=== PATIENT | female | born 1950 | race Caucasian/White ===

== ENCOUNTER 2016-10-06 18:00 | Emergency (ER) | payer OTHER ==
[~2016-10-06 18:00] MED LIST: /BACL20TA PO; /DIVA50TA PO; /ESOM40CA PO; /WARF4TA PO; ACET-654 PO; ACET50TA PO; ADV250INH INH; ALBU17IN2 INFIL; ASTELIN; ATIV1TAB10 PO; CLAR1TAB2 PO; COLA50CA3 PO; COMBAER6 INH; COMBIN INH; DICY20TA11 PO; ESTR625TA IC; LIDO1DIS2 TD; LIDO1OIN2 TOP; MECL-68 PO; MELA0.02 PO; NITR4TASL SL; SING10TA32 PO; SPIRIVA INH; TIOT18INH INH; XARE20TA PO; ZETI10TA21 PO; ZITH500T PO; ZYRT10TA2 PO; [UNRECOGNIZED DRUG - OTHER] PO
[2016-10-06] MEDS ORDERED: diphenhydrAMINE 25 MG CAP As Ordered ONE (19:55)
[2016-10-06] MEDS ORDERED: CLINDAMYCIN 150 MG CAP As Ordered ONE ×2 (19:55→20:00)
--- NOTE | 2016-10-06 20:10 | EDDOCDS ---
Nurse's Notes [facility] Name: Radha Fonseca Age: 65 yrs Sex: Female : 1950 Arrival Date: 10/06/2016 Time: 18:00 Bed TR8 Private MD: Iftikhar Hein MD Diagnosis: Cellulitis of right lower limb Presentation: 10/06 18:07 Presenting complaint: Patient states: right foot redness and swelling. ? insect bite- srm saw a red spider in her bathroom last night. voice is hoarse per pt since last night. no difficulty swallowing or speaking. Presenting complaint: Patient states: bit on both ankles but right is worse than left. Presenting complaint: Patient states: itching in her back of her throat an hour ago. Adult Sepsis Screening: The patient does not have new or worsening altered mentation. Patient's respiratory rate is less than 22. Systolic blood pressure is greater than 100. Patient has a qSOFA score of 0- Negative Sepsis Screen. Suicide/Homicide risk assessment- the patient denies having any suicidal and/or homicidal ideations and does not present with any other emotional, behavioral or mental health complaints. Status: Patient is not a policy service coordinator or dependent. Transition of care: patient was not received from another setting of care. 18:07 Method Of Arrival: Walkin/Carried/Asstd [facility] 18:07 Acuity: ALEX Level 3 [facility] Triage Assessment: 18:17 Bite Description: Bite sustained to bilateral feet by an unknown animal, Animal srm Information: Vaccine status: is not applicable. General: Appears in no apparent distress, Behavior is appropriate for age, cooperative. Pain: Pain currently is 4 out of 10 on a pain scale. Historical: - Allergies: Aspirin (Anaphylaxis); Codeine Sulfate; Doxycycline; EGG/POULTRY; GABAPENTIN; PENICILLINS (Anaphylaxis); Crestor; Lipitor; Percocet; Prednisone; Spiriva Respimat; Talwin; Vitamin D; Mucinex; - Home Meds: 1. albuterol sulfate 90 mcg/actuation Inhl HFAA 1 puff every 4-6 hours 2. Astepro 0.15 % (205.5 mcg) nasal spry 1 spray 2 times per day 3. baclofen 20 mg Oral tab 1 tab 4 times per day 4. Bentyl 20 mg Oral tab 1 tab 4 times per day 5. Depakote 500 mg Oral TbEC 1 tab 2 times per day 6. lactulose 10 gram/15 mL Oral soln 30 mL nightly 7. lidoderm ointment 12 hours on 12 hours off 8. meclizine 25 mg Oral cap 25 mg as needed 9. Nitrostat 0.4 mg SL subl 1 tab every 5 minutes 10. Nexium 40 mg Oral cpDR 1 cap 2 times per day 11. nystatin 100,000 unit/gram Topical powd 2 times per day 12. Premarin 0.625 mg Oral tab 1 tab 3 times per week 13. verapamil 360 mg Oral C24P 1 cap once daily 14. Xarelto 20 mg oral tab 1 tab once daily 15. Zetia 10 mg Oral tab 1 tab once daily 16. Zyrtec 10 mg Oral tab 1 tab as needed - PMHx: CHRONIC OBSTRUCTIVE BRONCHITIS; Anxiety Disorder; Chronic Low Back Pain; Diverticulitis; DVT; Fibromyalgia; GERD; Myocardial infarction; Pulmonary Embolism; hyperlipidemia; Hypertension; Migraine Headaches; COPD; - PSHx: bladder sling repair; uterine mesh; Tubal ligation; prolapsed uterus; CABG; - Immunization history:: Last tetanus immunization: unknown. - Family history: No immediate family members are acutely ill. - Social history: Smoking status: Patient states former smoker of tobacco. No barriers to communication noted, The patient speaks fluent Algerian, Speaks appropriately for age. - : The pt / caregiver states he / she is on anticoagulants: Xarelto Home medication list is obtained from the patient. - Exposure Risk Screening:: None identified. Screenin:07 Screening information is obtained from the patient. Fall risk: No risks identified. mb9 Assistance ADL's: requires no assistance with activities of daily living. Abuse/DV Screen: The patient / caregiver reports he/she is: not in a situation that causes fear, pain or injury. Nutritional screening: No deficits noted. Advance Directives: There is no active DNR order. home support is adequate. Assessment: 20:06 General: Appears uncomfortable, Behavior is fussy. Pain: Location: medial aspect of mb9 right foot Pain currently is 5 out of 10 on a pain scale. Respiratory: Airway is patent Respiratory effort is even, unlabored. Derm: Skin is intact, Skin is red, on right foot Swollen area noted on right foot. Vital Signs: 18:04 BP 149 / 80; Pulse 87; Resp 18 S; Temp 98.2(O); Pulse Ox 97% on R/A; Weight 89.81 kg gr2 (R); Height 5 ft. 4 in. (162.56 cm) (R); Pain 7/10; 19:35 Pulse 97; Resp 20; Temp 98.0(O); Pulse Ox 96% on R/A; Pain 6/10; ar3 20:06 BP 148 / 76; mb9 18:04 Body Mass Index 33.99 (89.81 kg, 162.56 cm) gr2 Vitals: 18:04 Log In Time: October 06, 2016 at 18:04. gr2 ED Course: 18:03 Patient visited by Crystal Porter. gr2 18:03 Iftikhar Hein is Private Physician. gr2 18:03 Patient moved to Waiting gr2 18:05 Patient visited by Crystal Porter. gr2 18:05 Patient moved to Pre RCE gr2 18:09 Triage Initiated srm 19:34 Kinga Milner,RN is Primary Nurse. ar3 19:34 Patient moved to Triage 1 ar3 19:36 Patient visited by Bree Carreno PCA. ar3 19:45 Jono Parikh PA is PHCP. btw 19:45 Harry Torres DO is Attending Physician. btw 19:45 Patient visited by Jono Parikh PA. btw 19:53 Iftikhar Hein is Referral Physician. btw 20:07 Patient moved to TR8 ar3 20:07 The patient / caregiver is instructed regarding the plan of care and ED course. mb9 20:07 No IV's were initiated during this patient's visit. No procedures done that require mb9 assistance. Order Results: There are currently no results for this order. Outcome: 19:54 Discharge ordered by Provider. btw 20:07 Discharge Assessment: Patient awake, alert and oriented x 3. No cognitive and/or mb9 functional deficits noted. Patient verbalized understanding of disposition instructions. patient administered narcotics - no. The following High Risk Discharge criteria are identified: None. Discharged to home ambulatory. Condition: good Condition: stable Condition: improved. Discharge instructions given to patient, Instructed on discharge instructions, follow up and referral plans. medication usage, Demonstrated understanding of instructions, medications, Pt was receptive of discharge instructions/ teaching. Prescriptions given X 1. No special radiology studies were completed. Property :Personal belongings accompany Pt. 20:09 Patient left the ED. mb9 Signatures: Merna Gomes, RN RN Bree Garcia, ELIESER CLOTH DYEING RANGE TENDER ar3 Jono Parikh PA PA btw Crystal Porter gr2 Luis Manuel Ribeiro RN RN mb9 MTDD
--- NOTE | 2016-10-06 20:10 | EDDOCDS ---
Physician Documentation [facility] Name: Radha Fonseca Age: 65 yrs Sex: Female : 1950 Arrival Date: 10/06/2016 Time: 18:00 Bed TR8 Private MD: Iftikhar Hein MD Disposition: 10/06/16 19:54 Discharged to Home/Self Care. Impression: Cellulitis of right lower limb. - Condition is Stable. - Discharge Instructions: Cellulitis, [id number]. - Prescriptions for Clindamycin HCl 300 mg Oral Capsule - take 1 capsule by ORAL route every 6 hours; 40 capsule. - Medication Reconciliation, Local Pharmacy Hours form. - Follow up: Iftikhar Hein; When: 1 - 2 days; Reason: Further diagnostic work-up, Recheck today's complaints, Continuance of care. - Problem is new. - Symptoms are unchanged. Historical: - Allergies: Aspirin (Anaphylaxis); Codeine Sulfate; Doxycycline; EGG/POULTRY; GABAPENTIN; PENICILLINS (Anaphylaxis); Crestor; Lipitor; Percocet; Prednisone; Spiriva Respimat; Talwin; Vitamin D; Mucinex; - Home Meds: 1. albuterol sulfate 90 mcg/actuation Inhl HFAA 1 puff every 4-6 hours 2. Astepro 0.15 % (205.5 mcg) nasal spry 1 spray 2 times per day 3. baclofen 20 mg Oral tab 1 tab 4 times per day 4. Bentyl 20 mg Oral tab 1 tab 4 times per day 5. Depakote 500 mg Oral TbEC 1 tab 2 times per day 6. lactulose 10 gram/15 mL Oral soln 30 mL nightly 7. lidoderm ointment 12 hours on 12 hours off 8. meclizine 25 mg Oral cap 25 mg as needed 9. Nitrostat 0.4 mg SL subl 1 tab every 5 minutes 10. Nexium 40 mg Oral cpDR 1 cap 2 times per day 11. nystatin 100,000 unit/gram Topical powd 2 times per day 12. Premarin 0.625 mg Oral tab 1 tab 3 times per week 13. verapamil 360 mg Oral C24P 1 cap once daily 14. Xarelto 20 mg oral tab 1 tab once daily 15. Zetia 10 mg Oral tab 1 tab once daily 16. Zyrtec 10 mg Oral tab 1 tab as needed - PMHx: CHRONIC OBSTRUCTIVE BRONCHITIS; Anxiety Disorder; Chronic Low Back Pain; Diverticulitis; DVT; Fibromyalgia; GERD; Myocardial infarction; Pulmonary Embolism; hyperlipidemia; Hypertension; Migraine Headaches; COPD; - PSHx: bladder sling repair; uterine mesh; Tubal ligation; prolapsed uterus; CABG; - Immunization history:: Last tetanus immunization: unknown. - Family history: No immediate family members are acutely ill. - Social history: Smoking status: Patient states former smoker of tobacco. No barriers to communication noted, The patient speaks fluent Swedish, Speaks appropriately for age. - : The pt / caregiver states he / she is on anticoagulants: Xarelto Home medication list is obtained from the patient. - Exposure Risk Screening:: None identified. Vital Signs: 10/06 18:04 BP 149 / 80; Pulse 87; Resp 18 S; Temp 98.2(O); Pulse Ox 97% on R/A; Weight 89.81 kg / gr2 198 lbs (R); Height 5 ft. 4 in. (162.56 cm) (R); Pain 7/10; 19:35 Pulse 97; Resp 20; Temp 98.0(O); Pulse Ox 96% on R/A; Pain 6/10; ar3 20:06 BP 148 / 76; mb9 18:04 Body Mass Index 33.99 (89.81 kg, 162.56 cm) gr2 MDM: 19:52 Clindamycin 300 mg PO once ordered. btw 19:52 diphenhydrAMINE 50 mg PO once ordered. btw Signatures: Merna Gomes RN RN srm Wolfenden, Brandon, PA PA btw Luis Manuel Ribeiro RN RN mb9 MTDD
--- NOTE | 2016-10-08 21:10 | EDDOCDS ---
Physician Documentation [facility] Name: Radha Fonseca Age: 65 yrs Sex: Female : 1950 Arrival Date: 10/06/2016 Time: 18:00 Bed TR8 Private MD: Iftikhar Hein MD Disposition: 10/06/16 19:54 Discharged to Home/Self Care. Impression: Cellulitis of right lower limb. - Condition is Stable. - Discharge Instructions: Cellulitis, [id number]. - Prescriptions for Clindamycin HCl 300 mg Oral Capsule - take 1 capsule by ORAL route every 6 hours; 40 capsule. - Medication Reconciliation, Local Pharmacy Hours form. - Follow up: Iftikhar Hein; When: 1 - 2 days; Reason: Further diagnostic work-up, Recheck today's complaints, Continuance of care. - Problem is new. - Symptoms are unchanged. Historical: - Allergies: Aspirin (Anaphylaxis); Codeine Sulfate; Doxycycline; EGG/POULTRY; GABAPENTIN; PENICILLINS (Anaphylaxis); Crestor; Lipitor; Percocet; Prednisone; Spiriva Respimat; Talwin; Vitamin D; Mucinex; - Home Meds: 1. albuterol sulfate 90 mcg/actuation Inhl HFAA 1 puff every 4-6 hours 2. Astepro 0.15 % (205.5 mcg) nasal spry 1 spray 2 times per day 3. baclofen 20 mg Oral tab 1 tab 4 times per day 4. Bentyl 20 mg Oral tab 1 tab 4 times per day 5. Depakote 500 mg Oral TbEC 1 tab 2 times per day 6. lactulose 10 gram/15 mL Oral soln 30 mL nightly 7. lidoderm ointment 12 hours on 12 hours off 8. meclizine 25 mg Oral cap 25 mg as needed 9. Nitrostat 0.4 mg SL subl 1 tab every 5 minutes 10. Nexium 40 mg Oral cpDR 1 cap 2 times per day 11. nystatin 100,000 unit/gram Topical powd 2 times per day 12. Premarin 0.625 mg Oral tab 1 tab 3 times per week 13. verapamil 360 mg Oral C24P 1 cap once daily 14. Xarelto 20 mg oral tab 1 tab once daily 15. Zetia 10 mg Oral tab 1 tab once daily 16. Zyrtec 10 mg Oral tab 1 tab as needed - PMHx: CHRONIC OBSTRUCTIVE BRONCHITIS; Anxiety Disorder; Chronic Low Back Pain; Diverticulitis; DVT; Fibromyalgia; GERD; Myocardial infarction; Pulmonary Embolism; hyperlipidemia; Hypertension; Migraine Headaches; COPD; - PSHx: bladder sling repair; uterine mesh; Tubal ligation; prolapsed uterus; CABG; - Immunization history:: Last tetanus immunization: unknown. - Family history: No immediate family members are acutely ill. - Social history: Smoking status: Patient states former smoker of tobacco. No barriers to communication noted, The patient speaks fluent Samoan, Speaks appropriately for age. - : The pt / caregiver states he / she is on anticoagulants: Xarelto Home medication list is obtained from the patient. - Exposure Risk Screening:: None identified. Vital Signs: 10/06 18:04 BP 149 / 80; Pulse 87; Resp 18 S; Temp 98.2(O); Pulse Ox 97% on R/A; Weight 89.81 kg / gr2 198 lbs (R); Height 5 ft. 4 in. (162.56 cm) (R); Pain 7/10; 19:35 Pulse 97; Resp 20; Temp 98.0(O); Pulse Ox 96% on R/A; Pain 6/10; ar3 20:06 BP 148 / 76; mb9 18:04 Body Mass Index 33.99 (89.81 kg, 162.56 cm) gr2 MDM: 19:52 Clindamycin 300 mg PO once ordered. btw 19:52 diphenhydrAMINE 50 mg PO once ordered. btw 21:01 Financial registration complete. [facility] 21: [facility] Payment Agreement was scanned into [employer] and attached to record. [facility] 10/07 10:11 T-Sheet-- Draft Copy was scanned into [employer] and attached to record. gb Signatures: Merna Gomes RN RN srm Aniat Abarca, Reg Reg gb Jono Parikh PA PA btw Luis Manuel Ribeiro RN RN mbElyse Martin, Reg Reg [id number] The chart was reviewed and I authenticate all verbal orders and agree with the evaluation and treatment provided.Attachments: 10/06 21:01 [facility] Payment Agreement [facility] 10/07 10:11 T-Sheet-- Draft Copy gb Chart Complete MTDD
--- NOTE | 2016-10-08 21:10 | EDDOCDS ---
Physician Documentation [facility] Name: Radha Fonseca Age: 65 yrs Sex: Female : 1950 Arrival Date: 10/06/2016 Time: 18:00 Bed TR8 Private MD: Iftikhar Hein MD Disposition: 10/06/16 19:54 Discharged to Home/Self Care. Impression: Cellulitis of right lower limb. - Condition is Stable. - Discharge Instructions: Cellulitis, [id number]. - Prescriptions for Clindamycin HCl 300 mg Oral Capsule - take 1 capsule by ORAL route every 6 hours; 40 capsule. - Medication Reconciliation, Local Pharmacy Hours form. - Follow up: Iftikhar Hein; When: 1 - 2 days; Reason: Further diagnostic work-up, Recheck today's complaints, Continuance of care. - Problem is new. - Symptoms are unchanged. Historical: - Allergies: Aspirin (Anaphylaxis); Codeine Sulfate; Doxycycline; EGG/POULTRY; GABAPENTIN; PENICILLINS (Anaphylaxis); Crestor; Lipitor; Percocet; Prednisone; Spiriva Respimat; Talwin; Vitamin D; Mucinex; - Home Meds: 1. albuterol sulfate 90 mcg/actuation Inhl HFAA 1 puff every 4-6 hours 2. Astepro 0.15 % (205.5 mcg) nasal spry 1 spray 2 times per day 3. baclofen 20 mg Oral tab 1 tab 4 times per day 4. Bentyl 20 mg Oral tab 1 tab 4 times per day 5. Depakote 500 mg Oral TbEC 1 tab 2 times per day 6. lactulose 10 gram/15 mL Oral soln 30 mL nightly 7. lidoderm ointment 12 hours on 12 hours off 8. meclizine 25 mg Oral cap 25 mg as needed 9. Nitrostat 0.4 mg SL subl 1 tab every 5 minutes 10. Nexium 40 mg Oral cpDR 1 cap 2 times per day 11. nystatin 100,000 unit/gram Topical powd 2 times per day 12. Premarin 0.625 mg Oral tab 1 tab 3 times per week 13. verapamil 360 mg Oral C24P 1 cap once daily 14. Xarelto 20 mg oral tab 1 tab once daily 15. Zetia 10 mg Oral tab 1 tab once daily 16. Zyrtec 10 mg Oral tab 1 tab as needed - PMHx: CHRONIC OBSTRUCTIVE BRONCHITIS; Anxiety Disorder; Chronic Low Back Pain; Diverticulitis; DVT; Fibromyalgia; GERD; Myocardial infarction; Pulmonary Embolism; hyperlipidemia; Hypertension; Migraine Headaches; COPD; - PSHx: bladder sling repair; uterine mesh; Tubal ligation; prolapsed uterus; CABG; - Immunization history:: Last tetanus immunization: unknown. - Family history: No immediate family members are acutely ill. - Social history: Smoking status: Patient states former smoker of tobacco. No barriers to communication noted, The patient speaks fluent Cambodian, Speaks appropriately for age. - : The pt / caregiver states he / she is on anticoagulants: Xarelto Home medication list is obtained from the patient. - Exposure Risk Screening:: None identified. Vital Signs: 10/06 18:04 BP 149 / 80; Pulse 87; Resp 18 S; Temp 98.2(O); Pulse Ox 97% on R/A; Weight 89.81 kg / gr2 198 lbs (R); Height 5 ft. 4 in. (162.56 cm) (R); Pain 7/10; 19:35 Pulse 97; Resp 20; Temp 98.0(O); Pulse Ox 96% on R/A; Pain 6/10; ar3 20:06 BP 148 / 76; mb9 18:04 Body Mass Index 33.99 (89.81 kg, 162.56 cm) gr2 MDM: 19:52 Clindamycin 300 mg PO once ordered. btw 19:52 diphenhydrAMINE 50 mg PO once ordered. btw 21:01 Financial registration complete. [facility] 21: [facility] Payment Agreement was scanned into [employer] and attached to record. [facility] 10/07 10:11 T-Sheet-- Draft Copy was scanned into [employer] and attached to record. gb Signatures: Merna Gomes RN RN srm Anita Abarca, Reg Reg gb Jono Parikh PA PA btw Luis Manuel Ribeiro RN RN mbElyse Martin, Reg Reg [id number] The chart was reviewed and I authenticate all verbal orders and agree with the evaluation and treatment provided.Attachments: 10/06 21:01 [facility] Payment Agreement [facility] 10/07 10:11 T-Sheet-- Draft Copy gb Chart Complete MTDD
--- NOTE | 2016-10-08 21:10 | EDDOCDS ---
Nurse's Notes [facility] Name: Radha Fonseca Age: 65 yrs Sex: Female : 1950 Arrival Date: 10/06/2016 Time: 18:00 Bed TR8 Private MD: Iftikhar Hein MD Diagnosis: Cellulitis of right lower limb Presentation: 10/06 18:07 Presenting complaint: Patient states: right foot redness and swelling. ? insect bite- srm saw a red spider in her bathroom last night. voice is hoarse per pt since last night. no difficulty swallowing or speaking. Presenting complaint: Patient states: bit on both ankles but right is worse than left. Presenting complaint: Patient states: itching in her back of her throat an hour ago. Adult Sepsis Screening: The patient does not have new or worsening altered mentation. Patient's respiratory rate is less than 22. Systolic blood pressure is greater than 100. Patient has a qSOFA score of 0- Negative Sepsis Screen. Suicide/Homicide risk assessment- the patient denies having any suicidal and/or homicidal ideations and does not present with any other emotional, behavioral or mental health complaints. 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 Transition of care: patient was not received from another setting of care. 18:07 Method Of Arrival: Walkin/Carried/Asstd [facility] 18:07 Acuity: ALEX Level 3 [facility] Triage Assessment: 18:17 Bite Description: Bite sustained to bilateral feet by an unknown animal, Animal srm Information: Vaccine status: is not applicable. General: Appears in no apparent distress, Behavior is appropriate for age, cooperative. Pain: Pain currently is 4 out of 10 on a pain scale. Historical: - Allergies: Aspirin (Anaphylaxis); Codeine Sulfate; Doxycycline; EGG/POULTRY; GABAPENTIN; PENICILLINS (Anaphylaxis); Crestor; Lipitor; Percocet; Prednisone; Spiriva Respimat; Talwin; Vitamin D; Mucinex; - Home Meds: 1. albuterol sulfate 90 mcg/actuation Inhl HFAA 1 puff every 4-6 hours 2. Astepro 0.15 % (205.5 mcg) nasal spry 1 spray 2 times per day 3. baclofen 20 mg Oral tab 1 tab 4 times per day 4. Bentyl 20 mg Oral tab 1 tab 4 times per day 5. Depakote 500 mg Oral TbEC 1 tab 2 times per day 6. lactulose 10 gram/15 mL Oral soln 30 mL nightly 7. lidoderm ointment 12 hours on 12 hours off 8. meclizine 25 mg Oral cap 25 mg as needed 9. Nitrostat 0.4 mg SL subl 1 tab every 5 minutes 10. Nexium 40 mg Oral cpDR 1 cap 2 times per day 11. nystatin 100,000 unit/gram Topical powd 2 times per day 12. Premarin 0.625 mg Oral tab 1 tab 3 times per week 13. verapamil 360 mg Oral C24P 1 cap once daily 14. Xarelto 20 mg oral tab 1 tab once daily 15. Zetia 10 mg Oral tab 1 tab once daily 16. Zyrtec 10 mg Oral tab 1 tab as needed - PMHx: CHRONIC OBSTRUCTIVE BRONCHITIS; Anxiety Disorder; Chronic Low Back Pain; Diverticulitis; DVT; Fibromyalgia; GERD; Myocardial infarction; Pulmonary Embolism; hyperlipidemia; Hypertension; Migraine Headaches; COPD; - PSHx: bladder sling repair; uterine mesh; Tubal ligation; prolapsed uterus; CABG; - Immunization history:: Last tetanus immunization: unknown. - Family history: No immediate family members are acutely ill. - Social history: Smoking status: Patient states former smoker of tobacco. No barriers to communication noted, The patient speaks fluent Anguillan, Speaks appropriately for age. - : The pt / caregiver states he / she is on anticoagulants: Xarelto Home medication list is obtained from the patient. - Exposure Risk Screening:: None identified. Screenin:07 Screening information is obtained from the patient. Fall risk: No risks identified. mb9 Assistance ADL's: requires no assistance with activities of daily living. Abuse/DV Screen: The patient / caregiver reports he/she is: not in a situation that causes fear, pain or injury. Nutritional screening: No deficits noted. Advance Directives: There is no active DNR order. home support is adequate. Assessment: 20:06 General: Appears uncomfortable, Behavior is fussy. Pain: Location: medial aspect of mb9 right foot Pain currently is 5 out of 10 on a pain scale. Respiratory: Airway is patent Respiratory effort is even, unlabored. Derm: Skin is intact, Skin is red, on right foot Swollen area noted on right foot. Vital Signs: 18:04 BP 149 / 80; Pulse 87; Resp 18 S; Temp 98.2(O); Pulse Ox 97% on R/A; Weight 89.81 kg gr2 (R); Height 5 ft. 4 in. (162.56 cm) (R); Pain 7/10; 19:35 Pulse 97; Resp 20; Temp 98.0(O); Pulse Ox 96% on R/A; Pain 6/10; ar3 20:06 BP 148 / 76; mb9 18:04 Body Mass Index 33.99 (89.81 kg, 162.56 cm) gr2 Vitals: 18:04 Log In Time: October 06, 2016 at 18:04. gr2 ED Course: 18:03 Patient visited by Crystal Porter. gr2 18:03 Iftikhar Hein is Private Physician. gr2 18:03 Patient moved to Waiting gr2 18:05 Patient visited by Crystal Porter. gr2 18:05 Patient moved to Pre RCE gr2 18:09 Triage Initiated srm 19:34 Kinga Milner,RN is Primary Nurse. ar3 19:34 Patient moved to Triage 1 ar3 19:36 Patient visited by Bree Carreno PCA. ar3 19:45 Jono Parikh PA is PHCP. btw 19:45 Harry Torres DO is Attending Physician. btw 19:45 Patient visited by Jono Parikh PA. btw 19:53 Iftikhar Hein is Referral Physician. btw 20:07 Patient moved to TR8 ar3 20:07 The patient / caregiver is instructed regarding the plan of care and ED course. mb9 20:07 No IV's were initiated during this patient's visit. No procedures done that require mb9 assistance. 21:01 [facility] Payment Agreement was scanned into [employer] acquired by [employer] and attached to record. [id number] 10/07 10:11 T-Sheet-- Draft Copy was scanned into [employer] acquired by [employer] and attached to record. gb Order Results: There are currently no results for this order. Outcome: 10/06 19:54 Discharge ordered by Provider. btw 20:07 Discharge Assessment: Patient awake, alert and oriented x 3. No cognitive and/or mb9 functional deficits noted. Patient verbalized understanding of disposition instructions. patient administered narcotics - no. The following High Risk Discharge criteria are identified: None. Discharged to home ambulatory. Condition: good Condition: stable Condition: improved. Discharge instructions given to patient, Instructed on discharge instructions, follow up and referral plans. medication usage, Demonstrated understanding of instructions, medications, Pt was receptive of discharge instructions/ teaching. Prescriptions given X 1. No special radiology studies were completed. Property :Personal belongings accompany Pt. 20:09 Patient left the ED. mb9 Signatures: Merna Gomes, RN RN [facility] Anita Abarca, Reg Reg gb Bree Carreno, STUDENT OUTREACH COORDINATOR STUDENT OUTREACH COORDINATOR ar3 Jono Parikh, ALANIS PA deew Crystal Porter gr2 Luis Manuel RibeiroRN RN mb9 Elyse Santos, Reg Reg [id number] Chart Complete MTDD
== END 2016-10-06 20:09 | disposition home or self-care (01) ==
LOC: M ED 18:00
DX: L03.115 Cellulitis of right lower limb (principal); I10 Essential (primary) hypertension; J44.9 Chronic obstructive pulmonary disease, unspecified; G43.909 Migraine, unspecified, not intractable, without status migrainosus; F41.9 Anxiety disorder, unspecified; M54.5 Low back pain; M79.7 Fibromyalgia; K21.9 Gastro-esophageal reflux disease without esophagitis; I25.2 Old myocardial infarction; E78.5 Hyperlipidemia, unspecified; K57.92 Diverticulitis of intestine, part unspecified, without perforation or abscess without bleeding; Z86.718 Personal history of other venous thrombosis and embolism; Z86.711 Personal history of pulmonary embolism; Z79.899 Other long term (current) drug therapy; Z79.01 Long term (current) use of anticoagulants; Z88.8 Allergy status to other drugs, medicaments and biological substances; Z88.6 Allergy status to analgesic agent; Z88.5 Allergy status to narcotic agent; Z88.1 Allergy status to other antibiotic agents; Z91.012 Allergy to eggs; Z88.0 Allergy status to penicillin; Z95.1 Presence of aortocoronary bypass graft

== ENCOUNTER → 2016-11-05 | Outpatient (REF) | payer OTHER | LOC: M SFHCPLAZ 13:48 | PROVIDERS: ATTEND Nurse Practitioner Family | DX: I10 Essential (primary) hypertension (principal); E55.9 Vitamin D deficiency, unspecified | CPT/HCPCS: 36415; 80053; 82306; G0463 ==

== ENCOUNTER → 2017-01-28 | Outpatient (REF) | payer OTHER ==
[2017-01-28 17:35] LABS: ALBUMIN 3.1 GM/DL (3.2-5.2); ALBUMIN/GLOBULIN RATIO 0.82 (1.00-1.93); ALKALINE PHOSPHATASE 72 U/L (45-117); ALT/SGPT 14 U/L (12-78); ANION GAP 7 MEQ/L (8-16); AST/SGOT 6 U/L (15-37); BILIRUBIN,TOTAL 0.2 MG/DL (0.2-1.0); BLOOD UREA NITROGEN 13 MG/DL (7-18); CALCIUM LEVEL 8.6 MG/DL (8.8-10.2); CARBON DIOXIDE LEVEL 29 MEQ/L (21-32); CHLORIDE LEVEL 101 MEQ/L (98-107); CHOLESTEROL LEVEL 202 MG/DL (<200); GLOMERULAR FILTRATION RATE > 60.0 (>45); GLUCOSE, FASTING 79 MG/DL (80-110); POTASSIUM SERUM 4.5 MEQ/L (3.5-5.1); SODIUM LEVEL 137 MEQ/L (136-145); TOTAL PROTEIN 6.9 GM/DL (6.4-8.2); TRIGLYCERIDES LEVEL 146 MG/DL (<150)
== END ==
LOC: M SFHCPLAZ 12:50
PROVIDERS: ATTEND Nurse Practitioner Family
DX: I10 Essential (primary) hypertension (principal); E78.2 Mixed hyperlipidemia; E55.9 Vitamin D deficiency, unspecified

== ENCOUNTER → 2017-03-01 | Outpatient (REF) | payer OTHER ==
[~2017-03-01] MED LIST changes: +ALBU83IN INH; +BACL10TA2 PO; +BENT20TA PO; +COLE1TA PO; +LACT10SO29 PO; +LIDO5DIS41 TD; -MELA0.02 PO; +MELA3TAB49 PO; +NEXI40CA PO; +OMEP40CA2 PO; +TYLE325C PO; +VALI5TAB PO; +ZETI10TA30 PO
== END ==
LOC: M LAB REF 17:04
PROVIDERS: ATTEND Obstetrics & Gynecology
DX: N76.0 Acute vaginitis (principal)

== ENCOUNTER 2017-04-11 00:52 | Emergency (ER) | payer OTHER ==
[~2017-04-11] VITALS: Ht 162.6 cm; Wt 93.2 kg
[~2017-04-11 00:52] MED LIST changes: -ALBU83IN INH; -BACL10TA2 PO; -BENT20TA PO; -COLE1TA PO; -LACT10SO29 PO; -LIDO5DIS41 TD; -NEXI40CA PO; -OMEP40CA2 PO; -TYLE325C PO; -VALI5TAB PO; -ZETI10TA30 PO
[2017-04-11] MEDS ORDERED: ZETI10TA30 PO (01:10)
[2017-04-11] MEDS ORDERED: OMEP40CA2 PO (01:10)
[2017-04-11] MEDS ORDERED: COLE1TA PO (01:10)
[2017-04-11] MEDS ORDERED: LORazepam 2 MG/ML VIAL (J2060) IV STA (01:43)
[2017-04-11 01:59] VITALS: BP 126/60
[2017-04-11 02:06] LABS: VENOUS BASE EXCESS 1.8 (-2.0-2.0); VENOUS O2 SATURATION 88.8 % (60.0-80.0); VENOUS PARTIAL PRESSURE CO2 48.4 mmHg (38.0-50.0); VENOUS PARTIAL PRESSURE O2 62.1 mmHg (30.0-50.0)
[2017-04-11 02:09] LABS: BASO % 0.7 % (0.0-1.0); EOS # 0.2 K/mm3 (0.0-0.50); EOS % 2.2 % (0.0-3.0); LARGE UNSTAINED CELL # 0.1 K/mm3 (0.0-0.4); LARGE UNSTAINED CELL % 1.7 % (0.0-4.0); LYMPH # 3.4 K/mm3 (1.5-4.5); LYMPH % 46.1 % (24.0-44.0); MEAN CORPUSCULAR HEMOGLOBIN 25.5 pg (27.0-33.0); MEAN CORPUSCULAR HGB CONC 32.8 g/dl (32.0-36.5); MEAN CORPUSCULAR VOLUME 77.8 fl (80.0-96.0); MONO # 0.5 K/mm3 (0.0-0.8); MONO % 7.6 % (0.0-5.0); NEUTROPHILS # 2.9 K/mm3 (1.8-7.7); NEUTROPHILS % 41.7 % (36.0-66.0); PLATELET COUNT, AUTOMATED 327 k/mm3 (150-450); RED CELL DISTRIBUTION WIDTH 15.9 % (11.5-14.5)
[2017-04-11 02:41] LABS: ANION GAP 7 MEQ/L (8-16); BLOOD UREA NITROGEN 11 MG/DL (7-18); CALCIUM LEVEL 8.7 MG/DL (8.8-10.2); CARBON DIOXIDE LEVEL 27 MEQ/L (21-32); CHLORIDE LEVEL 101 MEQ/L (98-107); CREATININE FOR GFR 0.78 MG/DL (0.55-1.02); GLOMERULAR FILTRATION RATE > 60.0 (>45); GLUCOSE, FASTING 89 MG/DL (80-110); POTASSIUM SERUM 3.9 MEQ/L (3.5-5.1); SODIUM LEVEL 135 MEQ/L (136-145)
[2017-04-11] MEDS ORDERED: diazePAM 5 MG TAB PO ONE (04:15)
[2017-04-11] MEDS ORDERED: VALI5TAB PO (04:35)
--- NOTE | 2017-04-11 21:34 | ECGEPIP ---
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
[2017-06-15] MEDS ORDERED: BACL10TA2 PO (14:46)
[2017-06-15] MEDS ORDERED: ALBU83IN INH (14:46)
[2017-06-15] MEDS ORDERED: TIOT18INH INH (14:46)
[2017-06-15] MEDS ORDERED: LACT10SO29 PO (14:46)
[2017-06-15] MEDS ORDERED: BENT20TA PO (14:46)
[2017-06-15] MEDS ORDERED: LIDO5DIS41 TD (14:46)
[2017-06-15] MEDS ORDERED: NITR4TASL SL (14:46)
[2017-06-15] MEDS ORDERED: NEXI40CA PO (14:46)
[2017-06-23] MEDS ORDERED: TYLE325C PO (11:56)
== END 2017-04-11 04:46 | disposition home or self-care (01) ==
LOC: M ED 00:52
DX: F41.1 Generalized anxiety disorder (principal); Z79.899 Other long term (current) drug therapy; Z79.51 Long term (current) use of inhaled steroids; Z79.01 Long term (current) use of anticoagulants; Z88.0 Allergy status to penicillin; Z91.011 Allergy to milk products; Z91.012 Allergy to eggs; Z88.8 Allergy status to other drugs, medicaments and biological substances; Z88.5 Allergy status to narcotic agent
CPT/HCPCS: 80048; 82550; 82553; 82803; 84484; 85025; 93005; 93041; 96374; 99284; J2060

== ENCOUNTER → 2017-05-10 | Outpatient (REF) | payer OTHER ==
[~2017-05-10] MED LIST changes: +ALBU83IN INH; +BACL10TA2 PO; +BENT20TA PO; +COLE1TA PO; +LACT10SO29 PO; +LIDO5DIS41 TD; +NEXI40CA PO; +OMEP40CA2 PO; +TYLE325C PO; +VALI5TAB PO; +ZETI10TA30 PO
[2017-05-10 13:19] LABS: ALBUMIN 3.1 GM/DL (3.2-5.2); ALBUMIN/GLOBULIN RATIO 0.89 (1.00-1.93); ALKALINE PHOSPHATASE 63 U/L (45-117); ALT/SGPT 11 U/L (12-78); ANION GAP 6 MEQ/L (8-16); AST/SGOT 6 U/L (15-37); BILIRUBIN,TOTAL 0.2 MG/DL (0.2-1.0); BLOOD UREA NITROGEN 8 MG/DL (7-18); CALCIUM LEVEL 9.4 MG/DL (8.8-10.2); CARBON DIOXIDE LEVEL 31 MEQ/L (21-32); CHLORIDE LEVEL 105 MEQ/L (98-107); CREATININE FOR GFR 0.83 MG/DL (0.55-1.02); GLOMERULAR FILTRATION RATE > 60.0 (>45); GLUCOSE, FASTING 83 MG/DL (80-110); POTASSIUM SERUM 4.8 MEQ/L (3.5-5.1); SODIUM LEVEL 142 MEQ/L (136-145); TOTAL PROTEIN 6.6 GM/DL (6.4-8.2)
== END ==
LOC: M SFHCPLAZ 11:20
PROVIDERS: ATTEND Nurse Practitioner Family
DX: I10 Essential (primary) hypertension (principal)

== ENCOUNTER → 2017-05-12 | Outpatient (REF) | payer OTHER ==
[2017-05-12 17:23] LABS: PERCENT SATURATION 6.7 % (13.2-45.0)
[2017-05-12 18:35] LABS: BASO % 0.5 % (0.0-1.0); EOS # 0.2 K/mm3 (0.0-0.50); EOS % 2.5 % (0.0-3.0); LARGE UNSTAINED CELL # 0.3 K/mm3 (0.0-0.4); LARGE UNSTAINED CELL % 4.1 % (0.0-4.0); LYMPH # 2.5 K/mm3 (1.5-4.5); LYMPH % 39.5 % (24.0-44.0); MEAN CORPUSCULAR HEMOGLOBIN 24.8 pg (27.0-33.0); MEAN CORPUSCULAR HGB CONC 31.5 g/dl (32.0-36.5); MEAN CORPUSCULAR VOLUME 78.7 fl (80.0-96.0); MONO # 0.5 K/mm3 (0.0-0.8); NEUTROPHILS % 46.4 % (36.0-66.0); PLATELET COUNT, AUTOMATED 337 k/mm3 (150-450); WHITE BLOOD COUNT 6.4 K/mm3 (4.0-10.0)
== END ==
LOC: M SFHCPLAZ 14:12
PROVIDERS: ATTEND Nurse Practitioner Family
DX: D64.9 Anemia, unspecified (principal)
CPT/HCPCS: 36415; 83550; 85025; G0463

== ENCOUNTER → 2017-05-27 | Outpatient (REF) | payer OTHER ==
[2017-05-27 20:56] LABS: BASO # 0.1 10^3/uL (0.0-0.2); BASO % 0.8 % (0.0-1.0); EOS # 0.1 10^3/uL (0.0-0.50); EOS % 1.5 % (0.0-3.0); IMMATURE GRANULOCYTE % 0.4 % (0-0); LYMPH # 3.3 10^3/uL (1.5-4.5); LYMPH % 38.8 % (24.0-44.0); MEAN CORPUSCULAR HEMOGLOBIN 23.8 pg (27.0-33.0); MEAN CORPUSCULAR HGB CONC 30.5 g/dl (32.0-36.5); MEAN CORPUSCULAR VOLUME 78.2 fl (80.0-96.0); MONO # 0.9 10^3/uL (0.0-0.8); MONO % 10.8 % (0.0-5.0); NEUTROPHILS % 47.7 % (36.0-66.0); PLATELET COUNT, AUTOMATED 399 10^3/uL (150-450); RED CELL DISTRIBUTION WIDTH 17.1 % (11.5-14.5); RETICULOCYTE % 1.8 % (0.5-1.5); WHITE BLOOD COUNT 8.4 10^3/uL (4.0-10.0)
[2017-05-27 21:06] LABS: REASON FOR REVIEW COMPREHENSIVE REVIEW
== END ==
LOC: M SFHCPLAZ 14:24
PROVIDERS: ATTEND Nurse Practitioner Family
DX: D50.9 Iron deficiency anemia, unspecified (principal); Z79.899 Other long term (current) drug therapy
CPT/HCPCS: 36415; 82270; 82728; 85025; 85046; G0463

== ENCOUNTER → 2017-05-29 | Outpatient (REF) | payer OTHER | LOC: M LAB REF 12:56 | PROVIDERS: ATTEND Nurse Practitioner Family | DX: D50.9 Iron deficiency anemia, unspecified (principal) ==

== ENCOUNTER → 2017-06-08 | Outpatient (CLI) | payer OTHER | LOC: M LAB 14:14 | PROVIDERS: ATTEND Internal Medicine Gastroenterology | DX: D50.9 Iron deficiency anemia, unspecified (principal) ==

== ENCOUNTER → 2017-07-13 | Outpatient (CLI) | payer OTHER ==
[~2017-07-13] MED LIST changes: +GLUCAGON FOR INJ 1 MG VIAL (J1610) As Ordered ONE; +ISOVUE-370 76% 100ML VIAL (Q9967) As Ordered ONE; +VoLumen 0.1% SUSPENSION 450ML BOTTLE As Ordered ONE
--- NOTE | 2017-07-13 17:02 | REP ---
Clinical: Iron-deficiency anemia. Comparison: 08/22/2015. Technique: Axial contrast enhanced images from the lung bases to the pubic symphysis using 100 ml Isovue 370 intravenous contrast material with coronal and sagittal re-formations. Findings: Lung bases demonstrate right basilar fibroatelectatic change and scarring. Visualized portions of the heart and pericardium are normal. Liver, spleen, pancreas, bilateral adrenal glands and kidneys are normal. The enteric system is without obstruction or acute inflammatory process. Normal terminal ileum and cecum identified in the right lower quadrant. Pelvis demonstrates normal bladder and evidence for prior hysterectomy. 2.7 x 1.6 cm soft tissue mass in the left [place] pelvis (image 221) remains stable compared to 2015 and consistent with left adnexa. No pelvic fluid or ascites. No adenopathy. No free air. Atherosclerotic changes of the aorta and vasculature without aneurysm or dissection. Surrounding musculoskeletal structures demonstrate age-related degenerative changes without focal osseous abnormality. Impression: 1. Chronic fibroatelectatic changes at the right lung base. 2. No acute abdominopelvic pathology appreciated. Signed by Michael Gomes MD 07/13/2017 04:53 P
== END ==
LOC: M RAD 14:20
PROVIDERS: ATTEND Internal Medicine Gastroenterology
DX: D50.9 Iron deficiency anemia, unspecified (principal); R91.8 Other nonspecific abnormal finding of lung field
CPT/HCPCS: 74177; J1610; Q9967

== ENCOUNTER 2017-08-05 03:24 | Inpatient (IN) | payer OTHER ==
[~2017-08-05] VITALS: Ht 162.6 cm; Wt 91.8 kg
[~2017-08-05 03:24] MED LIST changes: -GLUCAGON FOR INJ 1 MG VIAL (J1610) As Ordered ONE; -ISOVUE-370 76% 100ML VIAL (Q9967) As Ordered ONE; -VoLumen 0.1% SUSPENSION 450ML BOTTLE As Ordered ONE
[2017-08-05] MEDS ORDERED: NYST1POW9 TOP (03:42)
[2017-08-05] MEDS ORDERED: ONDANSETRON 4MG/2ML VIAL (J2405) IV ONE ×2 (04:30→07:30)
[2017-08-05] MEDS ORDERED: NS 1,000 ML IV ONE (04:30)
[2017-08-05 04:49] LABS: MUCUS, URINE RFX SMALL (NEGATIVE); SPECIFIC GRAVITY UR AUTO RFX 1.025 (1.002-1.035); SQUAM EPITHELIAL CELL UR AURFX 3 /HPF (0-6)
[2017-08-05] MEDS: MORPHINE 4 MG/ML 1ML SYRINGE IV PRN ×2 (05:15→07:35)
[2017-08-05 05:18] LABS: BASO % 0.5 % (0.0-1.0); EOS # 0.2 10^3/uL (0.0-0.50); IMMATURE GRANULOCYTE % 0.3 % (0-0); LYMPH # 2.8 10^3/uL (1.5-4.5); LYMPH % 37.8 % (24.0-44.0); MEAN CORPUSCULAR HEMOGLOBIN 21.9 pg (27.0-33.0); MEAN CORPUSCULAR HGB CONC 29.6 g/dl (32.0-36.5); MEAN CORPUSCULAR VOLUME 73.8 fl (80.0-96.0); MONO # 0.9 10^3/uL (0.0-0.8); MONO % 12.6 % (0.0-5.0); NEUTROPHILS # 3.5 10^3/uL (1.8-7.7); NEUTROPHILS % 46.8 % (36.0-66.0); PLATELET COUNT, AUTOMATED 295 10^3/uL (150-450); RED CELL DISTRIBUTION WIDTH 17.3 % (11.5-14.5); WHITE BLOOD COUNT 7.4 10^3/uL (4.0-10.0)
[2017-08-05 05:51] LABS: ALBUMIN 3.3 GM/DL (3.2-5.2); ALBUMIN/GLOBULIN RATIO 0.89 (1.00-1.93); ALKALINE PHOSPHATASE 87 U/L (45-117); ALT/SGPT 13 U/L (12-78); ANION GAP 8 MEQ/L (8-16); AST/SGOT 8 U/L (7-37); BILIRUBIN,DIRECT < 0.1 MG/DL (0.0-0.2); BILIRUBIN,TOTAL 0.1 MG/DL (0.2-1.0); BLOOD UREA NITROGEN 15 MG/DL (7-18); CALCIUM LEVEL 8.1 MG/DL (8.8-10.2); CARBON DIOXIDE LEVEL 26 MEQ/L (21-32); CHLORIDE LEVEL 108 MEQ/L (98-107); CREATININE FOR GFR 0.83 MG/DL (0.55-1.02); GLOMERULAR FILTRATION RATE > 60.0 (>45); GLUCOSE, FASTING 97 MG/DL (80-110); POTASSIUM SERUM 4.3 MEQ/L (3.5-5.1); SODIUM LEVEL 142 MEQ/L (136-145)
[2017-08-05] MEDS ORDERED: ISOVUE-370 76% 100ML VIAL (Q9967) As Ordered ONE (06:35)
[2017-08-05] MEDS ORDERED: ACET1TAB17 PO (07:27)
[2017-08-05] MEDS ORDERED: PROAAER10 INH (07:27)
[2017-08-05] MEDS ORDERED: AZEL1SPR3 (07:27)
[2017-08-05] MEDS ORDERED: LIDO5OIN28 EXT (07:27)
[2017-08-05] MEDS ORDERED: VERA360C PO (07:28)
--- NOTE | 2017-08-05 07:50 | REPUSA ---
CLINICAL HISTORY: Abdominal pain. TECHNIQUE: Multiple axial, sagittal and coronal CT images were obtained through the abdomen and pelvi s after administration of oral and intravenous contrast material. COMMENTS: Minimal fat stranding surrounding the pancreatic tail. Diffusely thickened bladder. Prior hysterectomy. Prior cholecystectomy. Mild hepatomegaly. The liver is of uniform attenuation without mass or defect. There is no intra or extrahepatic biliary ductal dilatation. The spleen is normal. The pancreas is of normal contour and attenuation character istics. There is no evidence of adrenal mass. Both kidneys demonstrate prompt and equal nephrograms. The kidneys are normal in size, shape and conf iguration. There is no evidence of renal or ureteral mass. No renal or ureteral calculi are identifie d. There is no hydroureter or hydronephrosis. No evidence for appendicitis. There is no bowel wall thickening. No evidence for small or large amanda l obstruction. There is no evidence of abdominal ascites or lymphadenopathy. There is no evidence of intrinsic or extrinsic bladder mass. There is no pelvic ascites or lymphadeno lion. Images of the lung bases show no evidence of pleural or parenchymal mass. There are no pleural effusi ons. Subsegmental atelectatic airspace disease of the right lower lobe. The bony structures are free of lytic or blastic lesions. Multilevel degenerative changes are seen in volving the thoracolumbar spine. Scattered calcifications are seen involving the aorta and major bran ches compatible with atherosclerosis. IMPRESSION: Hepatomegaly. Hysterectomy. Cholecystectomy. Mildly thickened bladder. T score negative urinalysis to exclude mild cystitis. Minimal fat stranding surrounding the pancreatic tail. This may represent chronic panniculitis surrou nding the pancreatic fat versus minimal changes of acute pancreatitis. Please correlate with lipase v alue if clinically needed. Thank you for your kind referral of this patient.
[2017-08-05 08:06] VITALS: O2SAT 86
[2017-08-05] MEDS: MECLIZINE 25 MG TABLET PO SCH ×2 (09:52→21:48)
[2017-08-05 14:00] VITALS: BP 150/70
[2017-08-05] MEDS: BACLOFEN 10 MG TAB PO SCH ×3 (15:42→20:25)
[2017-08-05] MEDS: LIDOCAINE 5% OINT 30 GM EXT SCH ×2 (15:42→20:25)
[2017-08-05] MEDS: VERAPAMIL 180 MG SR TAB PO SCH (15:42)
[2017-08-05] MEDS: PANTOPRAZOLE 40MG TAB (PROTONIX) PO SCH (15:42)
[2017-08-05] MEDS: DIVALPROEX 500 MG TAB PO SCH ×2 (15:43→20:25)
[2017-08-05 16:30] LABS: FERRITIN 4 NG/ML (8-252); PERCENT SATURATION 4.1 % (13.2-45.0); TOTAL IRON BINDING CAPACITY 414 UG/DL (250-450)
[2017-08-05 18:21] LABS: MEAN CORPUSCULAR HGB CONC 31.4 g/dl (32.0-36.5); MEAN CORPUSCULAR VOLUME 76.5 fl (80.0-96.0); PLATELET COUNT, AUTOMATED 236 10^3/uL (150-450); RED CELL DISTRIBUTION WIDTH 17.2 % (11.5-14.5); WHITE BLOOD COUNT 7.9 10^3/uL (4.0-10.0)
--- NOTE | 2017-08-05 19:18 | CR ---
DATE OF CONSULTATION: 08/05/2017 STATUS OF PATIENT: Inpatient. REQUESTING PHYSICIAN: Hospitalist Service. REASON FOR CONSULTATION: Iron deficiency anemia, symptomatic anemia. For full history and physical, please review my office generated note. Briefly, this patient is well known to me with a recent onset of iron deficiency anemia that is progressive. She has had negative upper endoscopy, colonoscopy and negative CT enterography as outpatient. The patient is on Xarelto for a remote history of pulmonary embolism/hypercoagulable state. I do note that her previous stool examination back in May was negative for blood times three sets. The patient presents with abdominal pain in the suprapubic area, dysuria and dizziness. She was found to have a hemoglobin of 7.5, which is down from 9.2 two months ago. The patient does not know of any bright red blood per rectum or any dark stools. She does have some loose stools since started on lactulose for her severe constipation. PHYSICAL EXAMINATION: Temperature is 96.7, blood pressure 150/70. General: She is awake, alert, oriented times three in no acute distress. She is nontoxic in appearance. Chest is clear bilaterally. Heart is regular rate and rhythm, S1, S2. Abdomen is soft, positive bowel sounds. Tender in the suprapubic area. IMPRESSION: 1. Iron deficiency anemia, symptomatic with negative upper endoscopy, colonoscopy and negative CT enterography. RECOMMENDATIONS: 1. Transfusion for symptomatic anemia. 2. Eventual outpatient capsule enteroscopy to be scheduled. 3. Consideration may be given to an alternative anticoagulant to Xarelto; this will be left up to primary care provider (PCP) to decide.
--- NOTE | 2017-08-05 19:58 | ECGEPIP ---
Stationary ECG Study [facility] - ED Test Date: 2017-08-05 Pat Name: RY MENA Department: Room: - Gender: F Power Regulator: chaz : 1950 Requested By: Lilly Rosas Order Number: [id number] Reading MD: Eddie Jamil Measurements Intervals [place] Rate: 66 P: 43 NE: 175 QRS: 45 QRSD: 90 T: 34 QT: 414 QTc: 436 Interpretive Statements SINUS RHYTHM POSSIBLE PRIOR INFERIOR INFARCT SIMILAR TO 04/11/17 Electronically Signed On 08-05-2017 19:58:24 EST by Eddie Jamil
[2017-08-05 20:00] VITALS: BP 132/63
[2017-08-06 04:00] VITALS: BP 128/72
[2017-08-06] MEDS: ACETAMINOPHEN TAB 650MG DOSE (2X325MG) PO PRN ×2 (06:02→20:08)
[2017-08-06 07:59] LABS: BASO % 0.6 % (0.0-1.0); EOS # 0.1 10^3/uL (0.0-0.50); EOS % 1.9 % (0.0-3.0); IMMATURE GRANULOCYTE % 0.3 % (0-0); LYMPH # 1.9 10^3/uL (1.5-4.5); LYMPH % 30.1 % (24.0-44.0); MEAN CORPUSCULAR HEMOGLOBIN 23.9 pg (27.0-33.0); MEAN CORPUSCULAR HGB CONC 31.2 g/dl (32.0-36.5); MEAN CORPUSCULAR VOLUME 76.6 fl (80.0-96.0); MONO # 0.6 10^3/uL (0.0-0.8); MONO % 9.9 % (0.0-5.0); NEUTROPHILS # 3.5 10^3/uL (1.8-7.7); NEUTROPHILS % 57.2 % (36.0-66.0); PLATELET COUNT, AUTOMATED 198 10^3/uL (150-450); RED CELL DISTRIBUTION WIDTH 17.5 % (11.5-14.5); WHITE BLOOD COUNT 6.2 10^3/uL (4.0-10.0)
[2017-08-06 08:20] LABS: ANION GAP 9 MEQ/L (8-16); BLOOD UREA NITROGEN 12 MG/DL (7-18); CALCIUM LEVEL 8.3 MG/DL (8.8-10.2); CARBON DIOXIDE LEVEL 26 MEQ/L (21-32); CHLORIDE LEVEL 108 MEQ/L (98-107); CREATININE FOR GFR 0.89 MG/DL (0.55-1.02); GLOMERULAR FILTRATION RATE > 60.0 (>45); GLUCOSE, FASTING 89 MG/DL (80-110); POTASSIUM SERUM 4.2 MEQ/L (3.5-5.1); SODIUM LEVEL 143 MEQ/L (136-145)
--- NOTE | 2017-08-06 08:35 | HPE ---
DATE OF ADMISSION: 08/05/2017 ATTENDING PHYSICIAN: Dr. Jefferson Donato Please refer to the history and physical in E-clinical works. My faculty preceptor for this patient encounter was physically present during the encounter and was fully available. All aspects of the patient interview, examination, medical decision making process, and medical care plan development were reviewed and approved by the faculty preceptor. The faculty preceptor is aware and concurs with the plan as stated in the body of this note and will attest to such by his/her co-signature.
[2017-08-06] MEDS: VERAPAMIL 180 MG SR TAB PO SCH (09:21)
[2017-08-06] MEDS: DIVALPROEX 500 MG TAB PO SCH ×2 (09:21→20:07)
[2017-08-06] MEDS: PANTOPRAZOLE 40MG TAB (PROTONIX) PO SCH (09:21)
[2017-08-06] MEDS: LIDOCAINE 5% OINT 30 GM EXT SCH ×3 (09:22→20:08)
[2017-08-06] MEDS: BACLOFEN 10 MG TAB PO SCH ×4 (09:22→20:07)
[2017-08-06] MEDS: CETIRIZINE (ZyrTEC) 10 MG TAB PO PRN (09:40)
[2017-08-06] MEDS ORDERED: IRON SUCROSE 500 MG in NS 250 ML IV ONE ×2 (11:15→13:00)
[2017-08-06 12:00] VITALS: BP 118/58
[2017-08-06] MEDS: LACTULOSE 20 GM/30 ML SYRUP UD PO PRN (12:24)
--- NOTE | 2017-08-06 13:38 | IPNPDOC ---
Subjective Date Seen The patient was seen on 08/06/17. Subjective Chief Complaint/HPI The patient is a 66-year-old female admitted with a reason for visit of Anemia Due To Blood Loss Chronic. Events since last encounter Patient seen and examined today. She states that she feels less tired today. Abdominal pain improved. Pt states that she is constipated because she has not had a BM in some days. Pt nausea is resolved. She was seen by Dr. Leonard yesterday. Objective Physical Examination General Exam: Positive: Alert, No Acute Distress Eye Exam: Positive: PERRLA, Conjunctiva & lids normal, EOMI, Negative: Sclera icteric ENT Exam: Positive: Atraumatic, Mucous membr. moist/pink, Pharynx Normal Chest Exam: Positive: Clear to auscultation, Normal air movement Heart Exam: Positive: Rate Normal, Regular Rhythm, Normal S1, Normal S2, Negative: Murmurs, Rubs Abdomen Exam: Positive: Normal bowel sounds, Soft, Negative: Tenderness, Hepatospenomegaly Extremity Exam: Positive: Normal pulses, Negative: Clubbing, Cyanosis, Edema Neuro Exam: Positive: Normal Gait, Normal Speech, Cranial Nerves 3-12 NL Psych Exam: Positive: Mental status NL, Mood NL, Oriented x 3 Assessment /Plan Problems (1) Anemia due to blood loss, chronic Problem Text: Hgb at 9.1 today. Asymptomatic. Less fatigue today. Will continue to monitor. Patient was seen by GI, Dr. Leonard, appreciate input. He discussed capsule study to be done as an outpatient. Stool for occult blood ordered. Pt has been constipated, and has not had a BM. (2) Iron deficiency anemia Problem Text: Patient has severe iron def anemia. Cannot tolerate PO secondary to constipation. Will have Venofer infusion 500g today. Should be repeated as outpatient on day #14 (Aug 20) if iron has not improved. (3) Other pulmonary embolism without acute cor pulmonale Problem Text: Patient was held on the Xarelto yesterday. No brisk GI bleeding today. Will restart Xarelto today. She failed Coumadin therapy in the past because she was not adherent to Coumadin dosing. There was a thorough discussion in the past with the patient on discontinuing Coumadin therapy and starting Xarelto. (4) Atherosclerotic heart disease of [place] coronary artery without angina pectoris Status: Chronic Discussed With: Health Care Proxy Problem Text: Continue Verapamil with hold parameters. Patient has allergies to statin use, she is on Zetia at home. (5) Suprapubic abdominal pain Status: Resolved Problem Text: suprapubic pain resolved today. Pain controlled. Unremarkable abd CT. urine culture and blood cultures are pending final results, no growth today. (6) Female genital prolapse, unspecified Status: Chronic Problem Text: hx of bladder prolapse, transvaginal mesh and bladder sling. (7) Low back pain Status: Chronic Problem Text: continue baclofen (8) Essential (primary) hypertension Problem Text: Currently normotensive. Cont Verapamil. (9) Allergic rhinitis Problem Text: continue astelin and zyrtec. (10) Irritable bowel syndrome without diarrhea Problem Text: Start patient on lactulose. Continue Bentyl. (11) Migraine without status migrainosus, not intractable Problem Text: continue depakote (12) Mixed hyperlipidemia Problem Text: pt has allergies to statin per hx. is on Zetia Plan/VTE VTE Prophylaxis Ordered?: Yes VS, I&O[facility] Vital Signs/I&O Vital Signs Date Time Temp Pulse Resp B/P (MAP) Pulse Ox O2 Delivery O2 Flow Rate FiO2 08/06/17 09:21 87 128/60 08/06/17 04:00 98.6 18 93 Room Air 08/05/17 08:06 2.0 I&O- Last 24 Hours up to 6 AM 08/07/17 06:00 Intake Total 180 ml Output Total 400 ml Balance -220 ml Laboratory Data 24H LABS Laboratory Tests 2 08/05/17 18:04: Nucleated Red Blood Cells % (auto) 0.3H 08/06/17 07:40: Nucleated Red Blood Cells % (auto) 0.0, Immature Granulocyte % (Auto) 0.3H, White Blood Count 6.2, Red Blood Count 3.81L, Hemoglobin 9.1L, Hematocrit 29.2L , Mean Corpuscular Volume 76.6L, Mean Corpuscular Hemoglobin 23.9L, Mean Corpuscular Hemoglobin Concent 31.2L, Red Cell Distribution Width 17.5H, Platelet Count 198, Neutrophils (%) (Auto) 57.2, Lymphocytes (%) (Auto) 30.1, Monocytes (%) (Auto) 9.9H, Eosinophils (%) (Auto) 1.9, Basophils (%) (Auto) 0.6 , Neutrophils # (Auto) 3.5, Lymphocytes # (Auto) 1.9, Monocytes # (Auto) 0.6, Eosinophils # (Auto) 0.1, Basophils # (Auto) 0.0, Immature Granulocyte # (Auto) 0.0, Anion Gap 9, Glomerular Filtration Rate > 60.0, Blood Urea Nitrogen 12, Creatinine 0.89, Sodium Level 143, Potassium Level 4.2, Chloride Level 108H, Carbon Dioxide Level 26, Calcium Level 8.3L CBC/BMP Laboratory Tests 08/05/17 18:04 Red Blood Count 4.29, Mean Corpuscular Volume 76.5 L, Mean Corpuscular Hemoglobin 24.0 L, Mean Corpuscular Hemoglobin Concent 31.4 L, Red Cell Distribution Width 17.2 H 08/06/17 07:40 Red Blood Count 3.81 L, Mean Corpuscular Volume 76.6 L, Mean Corpuscular Hemoglobin 23.9 L, Mean Corpuscular Hemoglobin Concent 31.2 L, Red Cell Distribution Width 17.5 H, Neutrophils (%) (Auto) 57.2, Lymphocytes (%) (Auto) 30.1, Monocytes (%) (Auto) 9.9 H, Eosinophils (%) (Auto) 1.9, Basophils (%) ( Auto) 0.6, Neutrophils # (Auto) 3.5, Lymphocytes # (Auto) 1.9, Monocytes # (Auto ) 0.6, Eosinophils # (Auto) 0.1, Basophils # (Auto) 0.0, Calcium Level 8.3 L Microbiology Microbiology 08/05/17 Blood Culture - Preliminary, Resulted No growth after 24 hours . All specim... 08/05/17 Blood Culture - Preliminary, Resulted No growth after 24 hours . All specim... 08/05/17 Urine Culture - Final, Complete GME ATTESTATION GME ATTESTATION My faculty preceptor for this patient encounter was physically present during the encounter and was fully available. All aspects of the patient interview, examination, medical decision making process, and medical care plan development were reviewed and approved by the faculty preceptor. The faculty preceptor is aware and concurs with the plan as stated in the body of this note and will attest to such by his/her cosignature. SANTY VALENTIN DO Aug 06, 2017 11:54
[2017-08-06] MEDS: RIVAROXABAN 20 MG TAB (XARELTO) PO SCH (17:12)
[2017-08-06 20:00] VITALS: BP 127/56
[2017-08-06] MEDS: AZELASTINE 137MCG NASAL SPY 30 ML (ASTELIN) PRN (20:11)
[2017-08-07 04:54] VITALS: BP 120/66
[2017-08-07 06:48] LABS: BASO # 0.1 10^3/uL (0.0-0.2); BASO % 0.8 % (0.0-1.0); EOS # 0.2 10^3/uL (0.0-0.50); EOS % 3.1 % (0.0-3.0); IMMATURE GRANULOCYTE % 0.8 % (0-0); LYMPH # 1.9 10^3/uL (1.5-4.5); LYMPH % 30.5 % (24.0-44.0); MEAN CORPUSCULAR HEMOGLOBIN 23.9 pg (27.0-33.0); MEAN CORPUSCULAR VOLUME 77.1 fl (80.0-96.0); MONO # 0.7 10^3/uL (0.0-0.8); MONO % 11.5 % (0.0-5.0); NEUTROPHILS # 3.3 10^3/uL (1.8-7.7); NEUTROPHILS % 53.3 % (36.0-66.0); PLATELET COUNT, AUTOMATED 197 10^3/uL (150-450); RED CELL DISTRIBUTION WIDTH 18.3 % (11.5-14.5); WHITE BLOOD COUNT 6.2 10^3/uL (4.0-10.0)
[2017-08-07 07:15] LABS: ANION GAP 6 MEQ/L (8-16); BLOOD UREA NITROGEN 9 MG/DL (7-18); CALCIUM LEVEL 8.8 MG/DL (8.8-10.2); CARBON DIOXIDE LEVEL 30 MEQ/L (21-32); CHLORIDE LEVEL 107 MEQ/L (98-107); CREATININE FOR GFR 0.71 MG/DL (0.55-1.02); GLOMERULAR FILTRATION RATE > 60.0 (>45); GLUCOSE, FASTING 79 MG/DL (80-110); POTASSIUM SERUM 3.8 MEQ/L (3.5-5.1); SODIUM LEVEL 143 MEQ/L (136-145)
[2017-08-07] MEDS: DIVALPROEX 500 MG TAB PO SCH ×2 (08:42→20:20)
[2017-08-07] MEDS: BACLOFEN 10 MG TAB PO SCH ×4 (08:42→20:20)
[2017-08-07] MEDS: PANTOPRAZOLE 40MG TAB (PROTONIX) PO SCH (08:42)
[2017-08-07] MEDS: LIDOCAINE 5% OINT 30 GM EXT SCH ×3 (08:43→20:20)
[2017-08-07] MEDS: VERAPAMIL 180 MG SR TAB PO SCH (08:43)
[2017-08-07 12:51] LABS: MUCUS, URINE RFX SMALL (NEGATIVE); SPECIFIC GRAVITY UR AUTO RFX 1.006 (1.002-1.035); SQUAM EPITHELIAL CELL UR AURFX 0 /HPF (0-6)
[2017-08-07 14:00] VITALS: BP 114/50
[2017-08-07] MEDS: RIVAROXABAN 20 MG TAB (XARELTO) PO SCH (17:02)
[2017-08-07] MEDS: LACTULOSE 20 GM/30 ML SYRUP UD PO PRN (18:24)
[2017-08-07 20:00] VITALS: BP 149/70
[2017-08-07] MEDS: ACETAMINOPHEN TAB 650MG DOSE (2X325MG) PO PRN (20:23)
[2017-08-07] MEDS: CETIRIZINE (ZyrTEC) 10 MG TAB PO PRN (23:20)
[2017-08-08 05:42] LABS: BASO # 0.1 10^3/uL (0.0-0.2); BASO % 0.9 % (0.0-1.0); EOS # 0.2 10^3/uL (0.0-0.50); EOS % 2.9 % (0.0-3.0); IMMATURE GRANULOCYTE % 1.2 % (0-0); LYMPH # 2.2 10^3/uL (1.5-4.5); MEAN CORPUSCULAR HEMOGLOBIN 23.5 pg (27.0-33.0); MEAN CORPUSCULAR HGB CONC 31.2 g/dl (32.0-36.5); MEAN CORPUSCULAR VOLUME 75.5 fl (80.0-96.0); MONO # 0.7 10^3/uL (0.0-0.8); MONO % 10.7 % (0.0-5.0); NEUTROPHILS # 3.7 10^3/uL (1.8-7.7); NEUTROPHILS % 53.3 % (36.0-66.0); PLATELET COUNT, AUTOMATED 216 10^3/uL (150-450); RED CELL DISTRIBUTION WIDTH 18.8 % (11.5-14.5); WHITE BLOOD COUNT 6.9 10^3/uL (4.0-10.0)
[2017-08-08 05:55] LABS: ANION GAP 9 MEQ/L (8-16); BLOOD UREA NITROGEN 8 MG/DL (7-18); CALCIUM LEVEL 8.8 MG/DL (8.8-10.2); CARBON DIOXIDE LEVEL 27 MEQ/L (21-32); CHLORIDE LEVEL 104 MEQ/L (98-107); CREATININE FOR GFR 0.77 MG/DL (0.55-1.02); GLOMERULAR FILTRATION RATE > 60.0 (>45); GLUCOSE, FASTING 83 MG/DL (80-110); POTASSIUM SERUM 3.8 MEQ/L (3.5-5.1); SODIUM LEVEL 140 MEQ/L (136-145)
[2017-08-08 06:00] VITALS: BP 121/56
--- NOTE | 2017-08-08 08:05 | IPN ---
DATE: 08/07/2017 Resident is seen today for followup. The patient indicates that her biggest concern is her lower abdominal and pelvic discomfort and urinary urgency. She indicates that is the reason why she came to the hospital. Our biggest concern has been her iron deficiency anemia and she has been transfused. She has also had a workup for this with esophagogastroduodenoscopy (EGD) and colonoscopy prior to her admission here. When I reviewed her progress note from yesterday, it seems that she had no pelvic or urinary discomfort yesterday but they seem to be a problem today. She is not having any fever, chills or sweats. No cough or shortness of breath, although does have some irritation and some nasal stuffiness. No nausea or vomiting. Was constipated has moved her bowels. She has to get up to go urinate frequently and has urgency and negative urge incontinence. This goes back to having had surgery for uterine prolapse back in 2012. This surgery apparently failed. She had another procedure done which lasted her until about 2012 and she has had some chronic problems since then. She has seen a cna caregiver in this community for this. She is supposed to be seeing another one as an outpatient but that appointment has not taken place. CURRENT MEDICATIONS: She was started on Xarelto again yesterday. She takes lactulose when she gets constipated. She has lidocaine that she gets externally to the general hemorrhoidal discomfort. She is on baclofen four times a day. Scheduled Tylenol, Astelin spray, Zyrtec. She has Antivert as needed for dizziness or vomiting. She is on Depakote 500 mg twice a day for migraines, Protonix 40 mg daily and verapamil 360 mg daily. On examination her temperatures 98, blood pressure 134/56, pulse 76 and regular. She is awake, alert, not apparently in any distress. Her eyes for a little bit puffy with what appears to be allergic shiners but the eyes are not injected per se. There is no discharge. No neck masses, tenderness or adenopathy. Lungs are clear. Heart has regular rhythm without any murmur, click or gallop. Abdomen is soft with mild to moderate tenderness in the suprapubic area as well as in both lower quadrants. There is no obvious masses there. There is no edema or calf tenderness. Straight leg raising is negative. Her labs this morning showed a hemoglobin of 9.3. Her BUN is 9, creatinine 0.71 , potassium 3.8. Stool occult blood was negative. She had an abdominal and pelvic CT 2 days ago, which was compared to a study done almost 3 years ago and this demonstrates some fibroatelectatic changes at the lung bases. Liver, spleen, pancreas, adrenal glands were normal. She has a normal terminal ileum and cecum. Normal bladder. She has had a prior hysterectomy. She has a small soft tissue mass in left hemipelvis which is unchanged consistent with her left adnexal structures. There is no pelvic fluid or ascites. No free air. No adenopathy. No vascular abnormalities. Interestingly, there is no comment about potential postoperative changes in the pelvis. However, in upper part of the abdomen hepatomegaly is noted as well as changes post hysterectomy. Some mild thickening of the bladder. Some minimal fat stranding around the pancreatic tail. Stool occult blood is negative. As mentioned her blood culture is negative. Urine culture from 2 days ago as, "contaminated". Urinalysis showed 19 white cells 2+ leukocytes, negative nitrites. ASSESSMENT: 1. Chronic iron deficiency anemia status post transfusion and IV iron therapy. 2. Chronic low back and pelvic pain. 3. Migraine headaches. 4. Gastroesophageal reflux. PLAN: I reviewed the patient's urine studies and CT studies and there is nothing on there that urgent regarding her pelvic structures. I will, however, order a new urinalysis and culture. I assuming that her labs stay up, I think she could be discharged tomorrow with outpatient followup of her pelvic pain, which is clearly a chronic process. MARIANA
[2017-08-08] MEDS: DIVALPROEX 500 MG TAB PO SCH ×2 (08:42→20:20)
[2017-08-08] MEDS: BACLOFEN 10 MG TAB PO SCH ×4 (08:42→20:20)
[2017-08-08] MEDS: PANTOPRAZOLE 40MG TAB (PROTONIX) PO SCH (08:42)
[2017-08-08] MEDS: VERAPAMIL 180 MG SR TAB PO SCH (08:43)
[2017-08-08] MEDS: LIDOCAINE 5% OINT 30 GM EXT SCH ×3 (08:43→20:20)
[2017-08-08] MEDS: AZELASTINE 137MCG NASAL SPY 30 ML (ASTELIN) PRN (08:44)
[2017-08-08] MEDS: CETIRIZINE (ZyrTEC) 10 MG TAB PO PRN (11:10)
[2017-08-08] MEDS: ACETAMINOPHEN TAB 650MG DOSE (2X325MG) PO PRN (11:10)
--- NOTE | 2017-08-08 13:02 | IPNPDOC ---
Subjective Date Seen The patient was seen on 08/08/17. Subjective Chief Complaint/HPI The patient is a 66-year-old female admitted with a reason for visit of Anemia Due To Blood Loss Chronic. Events since last encounter Patient reports continued pain and discomfort. Reports that was her reason for coming to the hospital. That this pain has been constant and nothing makes it better or worse. Has had this pain before with urinary tract infections and when she does not have urinary tract infections. Feeling better overall. No nausea or vomiting, tolerating oral intake. Has increased oral liquids to help. No diarrhea. Pain with urination. No blood in her urine or bright red blood per rectum. Constitutional: Denies: Chills, Fever Pulmonary: Denies: Cough Cardiovascular: Denies: Chest Pain Gastrointestinal: Reports: Abdominal Pain (Lower abdominal pain bilaterally), Denies: Nausea, Vomiting Genitourinary: Reports: Frequency, Denies: Hematuria Objective Physical Examination General Exam: Positive: Alert, No Acute Distress Eye Exam: Positive: PERRLA, Conjunctiva & lids normal, EOMI, Negative: Sclera icteric ENT Exam: Positive: Atraumatic, Mucous membr. moist/pink, Pharynx Normal Chest Exam: Positive: Clear to auscultation, Normal air movement Heart Exam: Positive: Rate Normal, Normal S1, Normal S2, Negative: Murmurs, Rubs Abdomen Exam: Positive: Normal bowel sounds, Tenderness (tenderness lower quadrants bilaterally. ), Other (No guarding or rebound tenderness. No rigidity. ), Negative: Hepatospenomegaly Extremity Exam: Positive: Normal pulses, Negative: Clubbing, Cyanosis, Edema Neuro Exam: Positive: Normal Gait, Normal Speech, Cranial Nerves 3-12 NL Psych Exam: Positive: Mental status NL, Mood NL, Oriented x 3 Assessment /Plan Problems (1) Anemia due to blood loss, chronic Problem Text: Asymptomatic. Less fatigue today. Will continue to monitor. Stool occult blood negative. Patient was seen by GI, Dr. Leonard, appreciate input. He discussed capsule study to be done as an outpatient. She has documented bowel movements. Continue lactulose to assist with constipation. Monitor for bowel movements. Item Value Date Time Hemoglobin 10.1 g/dl L 08/08/17520 Hematocrit 32.4 % L 08/08/17520 (2) Iron deficiency anemia Problem Text: Patient has severe iron def anemia. Cannot tolerate PO secondary to constipation. Had Venofer infusion 500g. Should be repeated as outpatient on day #14 (Aug 20) if iron has not improved. (3) Other pulmonary embolism without acute cor pulmonale Problem Text: Continue Xarelto. Negative occult blood. (4) Atherosclerotic heart disease of [place] coronary artery without angina pectoris Status: Chronic Discussed With: Health Care Proxy Problem Text: Continue patient's home Verapamil with hold parameters. Patient has allergies to statin use, she is on Zetia at home. (5) Suprapubic abdominal pain Status: Resolved Problem Text: Continues to have suprapubic pain. Nothing makes it better or worse. Will likely need follow up outpatient. Unremarkable abd CT. urine culture and blood cultures are pending final results , no growth today. (6) Female genital prolapse, unspecified Status: Chronic Problem Text: Hx of bladder prolapse x2, transvaginal mesh and bladder sling. (7) Low back pain Status: Chronic Problem Text: continue baclofen (8) Essential (primary) hypertension Problem Text: Monitor vitals. Continue home Verapamil. (9) Allergic rhinitis Problem Text: continue astelin and zyrtec. (10) Irritable bowel syndrome without diarrhea Problem Text: Start patient on lactulose. Continue Bentyl. (11) Migraine without status migrainosus, not intractable Problem Text: continue depakote (12) Mixed hyperlipidemia Problem Text: Continue zetia. intolerance to statin. Plan/VTE VTE Prophylaxis Ordered?: Yes VS, I&O, 24H, Fishbone Vital Signs/I&O Vital Signs Date Time Temp Pulse Resp B/P (MAP) Pulse Ox O2 Delivery O2 Flow Rate FiO2 08/08/17 08:43 71 135/75 08/08/17 06:00 97.4 18 93 Room Air 08/05/17 08:06 2.0 I&O- Last 24 Hours up to 6 AM 08/09/17 06:00 Intake Total 840 ml Balance 840 ml Laboratory Data 24H LABS Laboratory Tests 2 08/08/17 05:21: Immature Granulocyte % (Auto) 1.2H, White Blood Count 6.9, Red Blood Count 4.29 , Hemoglobin 10.1L, Hematocrit 32.4L, Mean Corpuscular Volume 75.5L, Mean Corpuscular Hemoglobin 23.5L, Mean Corpuscular Hemoglobin Concent 31.2L, Red Cell Distribution Width 18.8H, Platelet Count 216, Neutrophils (%) (Auto) 53.3, Lymphocytes (%) (Auto) 31.0, Monocytes (%) (Auto) 10.7H, Eosinophils (%) (Auto) 2.9, Basophils (%) (Auto) 0.9, Neutrophils # (Auto) 3.7, Lymphocytes # (Auto) 2.2, Monocytes # (Auto) 0.7, Eosinophils # (Auto) 0.2, Basophils # (Auto) 0.1, Immature Granulocyte # (Auto) 0.1H, Nucleated Red Blood Cells % (auto) 0.4H, Anion Gap 9, Glomerular Filtration Rate > 60.0, Blood Urea Nitrogen 8, Creatinine 0.77, Sodium Level 140, Potassium Level 3.8, Chloride Level 104, Carbon Dioxide Level 27, Calcium Level 8.8 CBC/BMP Laboratory Tests 08/08/17 05:21 Red Blood Count 4.29, Mean Corpuscular Volume 75.5 L, Mean Corpuscular Hemoglobin 23.5 L, Mean Corpuscular Hemoglobin Concent 31.2 L, Red Cell Distribution Width 18.8 H, Neutrophils (%) (Auto) 53.3, Lymphocytes (%) (Auto) 31.0, Monocytes (%) (Auto) 10.7 H, Eosinophils (%) (Auto) 2.9, Basophils (%) ( Auto) 0.9, Neutrophils # (Auto) 3.7, Lymphocytes # (Auto) 2.2, Monocytes # (Auto ) 0.7, Eosinophils # (Auto) 0.2, Basophils # (Auto) 0.1, Calcium Level 8.8 Microbiology Microbiology 08/05/17 Blood Culture - Preliminary, Resulted No Growth after 72 hours. All specime... 08/05/17 Blood Culture - Preliminary, Resulted No Growth after 72 hours. All specime... 08/06/17 Stool Occult Blood (ROMINA) - Final, Complete 08/07/17 Urine Culture, Received Pending 08/05/17 Urine Culture - Final, Complete GME ATTESTATION GME ATTESTATION My faculty preceptor for this patient encounter was physically present during the encounter and was fully available. All aspects of the patient interview, examination, medical decision making process, and medical care plan development were reviewed and approved by the faculty preceptor. The faculty preceptor is aware and concurs with the plan as stated in the body of this note and will attest to such by his/her cosignature. INDRA OLIVEIRA DO Aug 08, 2017 13:02 Rafi Magana M.D. Aug 12, 2017 12:36
[2017-08-08 15:00] VITALS: BP 110/58
[2017-08-08] MEDS: LACTULOSE 20 GM/30 ML SYRUP UD PO PRN (16:29)
[2017-08-08] MEDS: RIVAROXABAN 20 MG TAB (XARELTO) PO SCH (17:26)
[2017-08-08 20:00] VITALS: BP 132/67
[2017-08-09 06:00] VITALS: BP 120/61
[2017-08-09 06:59] LABS: BASO # 0.1 10^3/uL (0.0-0.2); BASO % 0.9 % (0.0-1.0); EOS # 0.2 10^3/uL (0.0-0.50); EOS % 2.4 % (0.0-3.0); IMMATURE GRANULOCYTE % 0.8 % (0-0); LYMPH # 1.7 10^3/uL (1.5-4.5); LYMPH % 26.4 % (24.0-44.0); MEAN CORPUSCULAR HEMOGLOBIN 24.2 pg (27.0-33.0); MEAN CORPUSCULAR HGB CONC 31.7 g/dl (32.0-36.5); MEAN CORPUSCULAR VOLUME 76.5 fl (80.0-96.0); MONO # 0.8 10^3/uL (0.0-0.8); MONO % 12.4 % (0.0-5.0); NEUTROPHILS # 3.6 10^3/uL (1.8-7.7); NEUTROPHILS % 57.1 % (36.0-66.0); PLATELET COUNT, AUTOMATED 225 10^3/uL (150-450); RED CELL DISTRIBUTION WIDTH 19.9 % (11.5-14.5); WHITE BLOOD COUNT 6.4 10^3/uL (4.0-10.0)
[2017-08-09 07:24] LABS: ANION GAP 9 MEQ/L (8-16); BLOOD UREA NITROGEN 11 MG/DL (7-18); CALCIUM LEVEL 8.9 MG/DL (8.8-10.2); CARBON DIOXIDE LEVEL 28 MEQ/L (21-32); CHLORIDE LEVEL 102 MEQ/L (98-107); CREATININE FOR GFR 0.84 MG/DL (0.55-1.02); GLOMERULAR FILTRATION RATE > 60.0 (>45); GLUCOSE, FASTING 86 MG/DL (80-110); POTASSIUM SERUM 3.9 MEQ/L (3.5-5.1); SODIUM LEVEL 139 MEQ/L (136-145)
[2017-08-09] MEDS: PANTOPRAZOLE 40MG TAB (PROTONIX) PO SCH (09:58)
[2017-08-09] MEDS ORDERED: LEVA1TAB2 PO (09:58)
[2017-08-09] MEDS: BACLOFEN 10 MG TAB PO SCH (09:59)
[2017-08-09] MEDS: DIVALPROEX 500 MG TAB PO SCH (09:59)
[2017-08-09 10:00] VITALS: BP 102/72
[2017-08-09] MEDS: LIDOCAINE 5% OINT 30 GM EXT SCH (10:00)
[2017-08-09] MEDS: VERAPAMIL 180 MG SR TAB PO SCH (10:00)
--- NOTE | 2017-08-09 18:26 | DSES ---
DATE OF ADMISSION: 08/05/2017 DATE OF DISCHARGE: 08/09/2017 PRIMARY CARE PROVIDER: PIPO Bender HISTORY OF PRESENT ILLNESS: 66-year-old female who presented to the emergency department (ED) on 08/05/2017, with complaints of abdominal pain and spasms in her lower abdomen which had started the evening prior. Hemoglobin on admission was 7.5 with a positive stool for hemoccult. The patient was subsequently admitted to family medicine service. HOSPITAL COURSE: The patient was transfused 2 units of blood and tolerated that well. Hemoglobin has remained stable since transfusion. Consultation held by Dr. Yo Leonard. The patient had a previous upper endoscopy, colonoscopy, and negative CT as an outpatient. It was recommended that patient followthrough with an outpatient capsule endoscopy to be scheduled. Patient remained on her Xarelto throughout hospitalization, has tolerated that well. Patient did have repeat hemoccult, which proved negative, while taking her Xarelto. Imaging includes CT abdomen and pelvis which was completed in the ED on presentation. On physical examination today, vital signs are stable, she is afebrile, oxygen saturation 94% on room air, blood pressure 120/61, respiratory rate 18, heart rate 70, temperature 97.2. HEENT: Neck is supple without lymphadenopathy or jugular venous distention (JVD). CARDIOVASCULAR: Heart rate and rhythm are regular. PULMONARY: Lungs are clear. ABDOMEN: Soft, but positive tenderness to the lower pelvis region. BILATERAL LOWER EXTREMITIES: Without any edema. ASSESSMENT: 1. Abdominal pain. 2. Acute blood loss anemia. 3. Pelvic pain. SECONDARY DIAGNOSES: 1. History of coronary artery disease (CAD). 2. Migraine. 3. History of pulmonary embolus (PE). 4. Anxiety. 5. Chronic back pain. 6. Hyperlipidemia. 7. Hypertension. 8. Reflux esophagitis. 9. Irritable bowel. 10. Chronic obstructive pulmonary disease (COPD). 11. Iron deficiency anemia. PLAN: 1. Patient will be discharged home. 2. Diet is a 2 gram sodium. 3. Activity is as tolerated. 4. Followup within 5-7 days with a hospital based provider at the [place]. 5. Followup with Dr. Leonard to review capsule endoscopy. 6. Followup with Dr. Marlys Dobbins to review her pelvic pain. MEDICATIONS: Are as follows: - acetaminophen 325 mg tablet two by mouth every 4 hours as needed - ProAir HFA four times a day as needed for shortness of breath - azelastine nasal spray one spray to each nostril twice a day as needed for allergies - baclofen 10 mg by mouth four times a day - cetirizine 10 mg by mouth daily as needed for allergies - Depakote 500 mg by mouth twice a day - dicyclomine 20 mg by mouth four times a day - Nexium 40 mg by mouth daily - Zetia 10 mg by mouth nightly - lactulose 15 mL daily as needed for constipation - lidocaine 5% one dose topically three times a day - meclizine 25 mg tablet by mouth every 8 hours as needed for dizziness - Nitrostat as needed for chest pain - nystatin 100,000 units/gram powder topically twice a day - Xarelto 20 mg by mouth every evening - verapamil 360 mg by mouth daily The patient is discharged in stable and satisfactory condition with no further questions at the time of discharge.
== END 2017-08-09 11:20 | disposition home or self-care (01) | DRG 812 ==
LOC: M ED 03:24 → EDBD 03:24 → M ED INP 09:14 → M MS4PR 14:31
PROVIDERS: ADMIT Family Medicine; ATTEND Family Medicine
PROC: 30233N1 Transfusion of Nonautologous Red Blood Cells into Peripheral Vein, Percutaneous Approach (ICD-10-PCS; principal; 2017-08-05)
DX: D50.9 Iron deficiency anemia, unspecified (principal); I25.10 Atherosclerotic heart disease of native coronary artery without angina pectoris; I10 Essential (primary) hypertension; M54.5 Low back pain; K21.0 Gastro-esophageal reflux disease with esophagitis; K58.9 Irritable bowel syndrome, unspecified; R10.2 Pelvic and perineal pain; G43.909 Migraine, unspecified, not intractable, without status migrainosus; E78.2 Mixed hyperlipidemia; Z86.711 Personal history of pulmonary embolism; Z79.01 Long term (current) use of anticoagulants; Z90.710 Acquired absence of both cervix and uterus

== ENCOUNTER 2017-08-13 13:06 | Emergency (ER) | payer OTHER ==
[~2017-08-13] VITALS: Ht 162.6 cm; Wt 93.6 kg
[~2017-08-13 13:06] MED LIST changes: +ACET1TAB17 PO; +AZEL1SPR3; +LEVA1TAB2 PO; +LIDO5OIN28 EXT; +NYST1POW9 TOP; +PROAAER10 INH; +VERA360C PO
[2017-08-13 14:08] LABS: BASO # 0.1 10^3/uL (0.0-0.2); BASO % 1.1 % (0.0-1.0); EOS # 0.1 10^3/uL (0.0-0.50); EOS % 1.8 % (0.0-3.0); IMMATURE GRANULOCYTE % 0.6 % (0-0); LYMPH # 2.2 10^3/uL (1.5-4.5); LYMPH % 30.7 % (24.0-44.0); MEAN CORPUSCULAR HEMOGLOBIN 25.2 pg (27.0-33.0); MEAN CORPUSCULAR HGB CONC 31.7 g/dl (32.0-36.5); MEAN CORPUSCULAR VOLUME 79.4 fl (80.0-96.0); MONO # 0.8 10^3/uL (0.0-0.8); MONO % 11.1 % (0.0-5.0); NEUTROPHILS # 3.8 10^3/uL (1.8-7.7); NEUTROPHILS % 54.7 % (36.0-66.0); PLATELET COUNT, AUTOMATED 257 10^3/uL (150-450); RED CELL DISTRIBUTION WIDTH 21.6 % (11.5-14.5)
[2017-08-13 14:12] LABS: INR 1.04
[2017-08-13] MEDS ORDERED: NS 1,000 ML IV ONE (14:15)
[2017-08-13] MEDS ORDERED: ONDANSETRON 4MG/2ML VIAL (J2405) IV ONE (14:15)
[2017-08-13 14:19] LABS: MAGNESIUM LEVEL 1.9 MG/DL (1.8-2.4); PHOSPHORUS LEVEL 2.8 MG/DL (2.5-4.9)
[2017-08-13 14:23] LABS: ANION GAP 8 MEQ/L (8-16); BLOOD UREA NITROGEN 10 MG/DL (7-18); CALCIUM LEVEL 8.7 MG/DL (8.8-10.2); CARBON DIOXIDE LEVEL 27 MEQ/L (21-32); CHLORIDE LEVEL 106 MEQ/L (98-107); CREATININE FOR GFR 0.77 MG/DL (0.55-1.02); GLOMERULAR FILTRATION RATE > 60.0 (>45); GLUCOSE, FASTING 78 MG/DL (80-110); POTASSIUM SERUM 4.2 MEQ/L (3.5-5.1); SODIUM LEVEL 141 MEQ/L (136-145)
--- NOTE | 2017-08-13 14:41 | REP ---
HEAD CT WITHOUT CONTRAST: HISTORY: CVA. COMPARISON STUDY: October 23, 2014 CT FINDINGS: Digital preliminary continuous vulcanizing machine operator radiograph is unremarkable. The maxilla is edentulous. There is mild diffuse cerebral and cerebellar atrophy. There is no evidence of intracranial hemorrhage. There is vascular calcification in the distal carotid arteries bilaterally. The visualized paranasal sinuses are clear. No infarct, mass, extra-axial fluid collection, or midline shift is seen. IMPRESSION: Diffuse atrophy and vascular calcification. No acute intracranial lesion. No significant change from the October 23, 2014 prior study. Signed by Alonso Cardenas MD 08/13/2017 03:59 P
[2017-08-13 17:01] VITALS: BP 143/63
--- NOTE | 2017-08-13 17:11 | ECGEPIP ---
Stationary ECG Study [facility] - ED Test Date: 2017-08-13 Pat Name: RY MENA Department: Room: - Gender: F Fusion Operator: marlin : 1950 Requested By: JOLANTA ARAYA Order Number: [id number] Reading MD: Lilly Rosas Measurements Intervals [place] Rate: 66 P: 40 DE: 150 QRS: 35 QRSD: 78 T: 29 QT: 415 QTc: 436 Interpretive Statements SINUS RHYTHM PRIOR INFERIOR INFARCT 08/05/17 Electronically Signed On 08-13-2017 17:11:37 EST by Lilly Rosas
== END 2017-08-13 17:04 | disposition home or self-care (01) ==
LOC: M ED 13:06
DX: E86.0 Dehydration (principal); I95.9 Hypotension, unspecified; I25.10 Atherosclerotic heart disease of native coronary artery without angina pectoris; J44.9 Chronic obstructive pulmonary disease, unspecified; E78.00 Pure hypercholesterolemia, unspecified; K21.9 Gastro-esophageal reflux disease without esophagitis; K58.9 Irritable bowel syndrome, unspecified; I25.2 Old myocardial infarction; H81.10 Benign paroxysmal vertigo, unspecified ear; Z79.01 Long term (current) use of anticoagulants; Z79.899 Other long term (current) drug therapy; Z88.8 Allergy status to other drugs, medicaments and biological substances; Z88.5 Allergy status to narcotic agent; Z88.0 Allergy status to penicillin; Z86.711 Personal history of pulmonary embolism; Z87.891 Personal history of nicotine dependence; Z82.3 Family history of stroke; Z82.49 Family history of ischemic heart disease and other diseases of the circulatory system; Z98.890 Other specified postprocedural states; Z86.2 Personal history of diseases of the blood and blood-forming organs and certain disorders involving the immune mechanism
CPT/HCPCS: 70450; 80048; 82550; 82553; 83735; 84100; 84484; 85025; 85610; 85730; 93005; 93041; 94760; 96374; 99285; J2405

== ENCOUNTER 2017-08-21 08:14 | Inpatient (IN) | payer OTHER ==
[2017-08-21 08:55] LABS: BASO # 0.1 10^3/uL (0.0-0.2); BASO % 0.5 % (0.0-1.0); EOS # 0.3 10^3/uL (0.0-0.50); EOS % 2.6 % (0.0-3.0); HEMATOCRIT 36.3 % (36.0-47.0); HEMOGLOBIN 11.5 g/dl (12.0-16.0); IMMATURE GRANULOCYTE % 0.4 % (0-0); LYMPH # 1.4 10^3/uL (1.5-4.5); LYMPH % 14.3 % (24.0-44.0); MEAN CORPUSCULAR HEMOGLOBIN 25.4 pg (27.0-33.0); MEAN CORPUSCULAR HGB CONC 31.7 g/dl (32.0-36.5); MEAN CORPUSCULAR VOLUME 80.1 fl (80.0-96.0); MONO # 1.1 10^3/uL (0.0-0.8); MONO % 11.9 % (0.0-5.0); NEUTROPHILS # 6.8 10^3/uL (1.8-7.7); NEUTROPHILS % 70.3 % (36.0-66.0); PLATELET COUNT, AUTOMATED 235 10^3/uL (150-450); RED BLOOD COUNT 4.53 10^6/uL (4.00-5.40); WHITE BLOOD COUNT 9.6 10^3/uL (4.0-10.0)
[2017-08-21] MEDS: ONDANSETRON 4MG/2ML VIAL (J2405) IV ×2 (08:56→11:15)
[2017-08-21] MEDS: NS 1,000 ML IV ×5 (08:56→20:30)
[2017-08-21] MEDS: MORPHINE 4 MG/ML 1ML SYRINGE IV (08:57)
[2017-08-21 09:34] LABS: INR 1.09; PROTHROMBIN TIME 14.3 SECONDS (12.4-14.5)
[2017-08-21 09:44] LABS: ERYTHROCYTE SEDIMENTATION RATE 45 mm/hr (0-30)
[2017-08-21 10:16] LABS: ALBUMIN 3.3 GM/DL (3.2-5.2); ALBUMIN/GLOBULIN RATIO 0.83 (1.00-1.93); ALKALINE PHOSPHATASE 107 U/L (45-117); ALT/SGPT 12 U/L (12-78); ANION GAP 10 MEQ/L (8-16); AST/SGOT 16 U/L (7-37); BILIRUBIN,TOTAL 0.3 MG/DL (0.2-1.0); BLOOD UREA NITROGEN 9 MG/DL (7-18); CALCIUM LEVEL 8.5 MG/DL (8.8-10.2); CARBON DIOXIDE LEVEL 25 MEQ/L (21-32); CHLORIDE LEVEL 109 MEQ/L (98-107); CREATININE FOR GFR 0.82 MG/DL (0.55-1.02); GLOMERULAR FILTRATION RATE > 60.0 (>45); GLUCOSE, FASTING 103 MG/DL (80-110); POTASSIUM SERUM 4.2 MEQ/L (3.5-5.1); SODIUM LEVEL 144 MEQ/L (136-145); TOTAL PROTEIN 7.3 GM/DL (6.4-8.2)
[2017-08-21 10:38] LABS: KETONE, URINE AUTO RFX NEGATIVE (NEGATIVE); LEUKOCYTE ESTERASE UR AUTO RFX 3+ (NEGATIVE); MUCUS, URINE RFX SMALL (NEGATIVE); NITRITE, URINE AUTO RFX POSITIVE (NEGATIVE); RBC, URINE AUTO RFX 31 /HPF (0-3); SPECIFIC GRAVITY UR AUTO RFX 1.017 (1.002-1.035); SQUAM EPITHELIAL CELL UR AURFX 1 /HPF (0-6); WBC, URINE AUTO RFX TNTC /HPF (0-3)
[2017-08-21] MEDS ORDERED: ISOVUE-370 76% 100ML VIAL (Q9967) As Ordered (11:08)
[2017-08-21] MEDS ORDERED: NITROGLYCERIN 0.4 MG SUBL TABLET SL (15:45)
[2017-08-21] MEDS ORDERED: CETIRIZINE (ZyrTEC) 10 MG TAB PO (15:45)
[2017-08-21] MEDS ORDERED: HEPARIN SOD (PORCINE) 5000 UNITS/ML VIAL IV (15:45)
[2017-08-21] MEDS ORDERED: MECLIZINE 25 MG TABLET PO (15:45)
[2017-08-21 16:43] LABS: HEMATOCRIT 38.1 % (36.0-47.0); HEMOGLOBIN 11.7 g/dl (12.0-16.0); MEAN CORPUSCULAR HEMOGLOBIN 24.8 pg (27.0-33.0); MEAN CORPUSCULAR HGB CONC 30.7 g/dl (32.0-36.5); MEAN CORPUSCULAR VOLUME 80.9 fl (80.0-96.0); PLATELET COUNT, AUTOMATED 225 10^3/uL (150-450); RED BLOOD COUNT 4.71 10^6/uL (4.00-5.40); RED CELL DISTRIBUTION WIDTH 23.1 % (11.5-14.5); WHITE BLOOD COUNT 8.1 10^3/uL (4.0-10.0)
[2017-08-21 16:52] LABS: INR 1.09; PARTIAL THROMBOPLASTIN TIME 29.9 SECONDS (26.8-37.9); PROTHROMBIN TIME 14.3 SECONDS (12.4-14.5)
[2017-08-21 16:57] LABS: TROPONIN I < 0.02 NG/ML (< 0.10)
[2017-08-21 16:57] LABS: NT-PRO BNP 321 PG/ML (<125)
[2017-08-21] MEDS: BACLOFEN 10 MG TAB PO ×2 (18:18→21:40)
[2017-08-21] MEDS: HEPARIN DRIP 25,000 UNITS in APPROPRIATE DILUENT 1 EA IV (18:37)
[2017-08-21] MEDS: VERAPAMIL 180 MG SR TAB PO (20:21)
[2017-08-21] MEDS: DICYCLOMINE 10 MG CAP PO ×2 (20:22→21:41)
[2017-08-21] MEDS: NITROFURANTOIN (MACROBID) 100 MG CAP PO (20:24)
[2017-08-21] MEDS: DIVALPROEX 500 MG TAB PO (20:24)
[2017-08-21] MEDS: EZETIMIBE 10 MG TAB (ZETIA) PO (20:24)
[2017-08-21] MEDS: ACETAMINOPHEN TAB 650MG DOSE (2X325MG) PO (20:24)
[2017-08-21] MEDS: NYSTATIN 100,000 UNITS/GM TOPICAL PWD 15 GM TOP (20:27)
[2017-08-21] MEDS: LIDOCAINE 5% OINT 30 GM TOP (23:17)
[2017-08-21] MEDS: AZELASTINE 137MCG NASAL SPY 30 ML (ASTELIN) (23:17)
[2017-08-22] MEDS: NS 1,000 ML IV ×2 (00:09→04:56)
[2017-08-22 01:19] LABS: PARTIAL THROMBOPLASTIN TIME 93.1 SECONDS (26.8-37.9)
[2017-08-22] MEDS: ACETAMINOPHEN TAB 650MG DOSE (2X325MG) PO ×3 (04:56→20:08)
[2017-08-22 07:01] LABS: HEMATOCRIT 29.9 % (36.0-47.0); MEAN CORPUSCULAR HEMOGLOBIN 24.7 pg (27.0-33.0); MEAN CORPUSCULAR HGB CONC 30.8 g/dl (32.0-36.5); MEAN CORPUSCULAR VOLUME 80.2 fl (80.0-96.0); PLATELET COUNT, AUTOMATED 211 10^3/uL (150-450); RED BLOOD COUNT 3.73 10^6/uL (4.00-5.40); RED CELL DISTRIBUTION WIDTH 22.9 % (11.5-14.5); WHITE BLOOD COUNT 7.4 10^3/uL (4.0-10.0)
[2017-08-22 07:08] LABS: HEMOGLOBIN 9.2 g/dl (12.0-16.0)
[2017-08-22 07:29] LABS: ALBUMIN 2.3 GM/DL (3.2-5.2); ALBUMIN/GLOBULIN RATIO 0.61 (1.00-1.93); ALKALINE PHOSPHATASE 82 U/L (45-117); ALT/SGPT 12 U/L (12-78); ANION GAP 7 MEQ/L (8-16); AST/SGOT 9 U/L (7-37); BILIRUBIN,TOTAL 0.2 MG/DL (0.2-1.0); BLOOD UREA NITROGEN 7 MG/DL (7-18); CALCIUM LEVEL 7.5 MG/DL (8.8-10.2); CARBON DIOXIDE LEVEL 26 MEQ/L (21-32); CHLORIDE LEVEL 109 MEQ/L (98-107); CREATININE FOR GFR 0.69 MG/DL (0.55-1.02); GLOMERULAR FILTRATION RATE > 60.0 (>45); GLUCOSE, FASTING 96 MG/DL (80-110); POTASSIUM SERUM 3.9 MEQ/L (3.5-5.1); SODIUM LEVEL 142 MEQ/L (136-145); TOTAL PROTEIN 6.1 GM/DL (6.4-8.2)
[2017-08-22 07:38] LABS: PARTIAL THROMBOPLASTIN TIME 131.8 SECONDS (26.8-37.9)
[2017-08-22] MEDS: LACTULOSE 20 GM/30 ML SYRUP UD PO (09:07)
[2017-08-22] MEDS: NITROFURANTOIN (MACROBID) 100 MG CAP PO ×2 (09:08→20:08)
[2017-08-22] MEDS: PANTOPRAZOLE 40MG TAB (PROTONIX) PO (09:08)
[2017-08-22] MEDS: DICYCLOMINE 10 MG CAP PO ×4 (09:08→20:08)
[2017-08-22] MEDS: VERAPAMIL 180 MG SR TAB PO (09:08)
[2017-08-22] MEDS: DIVALPROEX 500 MG TAB PO ×2 (09:09→20:08)
[2017-08-22] MEDS: NYSTATIN 100,000 UNITS/GM TOPICAL PWD 15 GM TOP ×2 (09:09→20:09)
[2017-08-22] MEDS: BACLOFEN 10 MG TAB PO ×4 (09:09→20:08)
[2017-08-22] MEDS: LIDOCAINE 5% OINT 30 GM TOP (09:33)
[2017-08-22 15:17] LABS: HEMATOCRIT 30.5 % (36.0-47.0); HEMOGLOBIN 9.5 g/dl (12.0-16.0)
[2017-08-22 15:29] LABS: PARTIAL THROMBOPLASTIN TIME 71.4 SECONDS (26.8-37.9)
[2017-08-22] MEDS: RIVAROXABAN 15 MG TAB (XARELTO) PO (17:57)
[2017-08-22] MEDS: EZETIMIBE 10 MG TAB (ZETIA) PO (20:08)
[2017-08-22] MEDS: diphenhydrAMINE 25 MG CAP PO (20:08)
[2017-08-23] MEDS ORDERED: SLF 3 ML SYR IV (02:45)
[2017-08-23] MEDS: diphenhydrAMINE 25 MG CAP PO (04:08)
[2017-08-23] MEDS: SLF 3 ML SYR IV (04:09)
[2017-08-23 05:34] LABS: HEMATOCRIT 31.8 % (36.0-47.0); MEAN CORPUSCULAR HEMOGLOBIN 25.4 pg (27.0-33.0); MEAN CORPUSCULAR HGB CONC 31.4 g/dl (32.0-36.5); MEAN CORPUSCULAR VOLUME 80.7 fl (80.0-96.0); PLATELET COUNT, AUTOMATED 243 10^3/uL (150-450); RED BLOOD COUNT 3.94 10^6/uL (4.00-5.40); RED CELL DISTRIBUTION WIDTH 22.8 % (11.5-14.5); WHITE BLOOD COUNT 6.6 10^3/uL (4.0-10.0)
[2017-08-23 06:03] LABS: ANION GAP 6 MEQ/L (8-16); BLOOD UREA NITROGEN 5 MG/DL (7-18); CALCIUM LEVEL 8.6 MG/DL (8.8-10.2); CARBON DIOXIDE LEVEL 28 MEQ/L (21-32); CHLORIDE LEVEL 107 MEQ/L (98-107); CREATININE FOR GFR 0.67 MG/DL (0.55-1.02); GLOMERULAR FILTRATION RATE > 60.0 (>45); GLUCOSE, FASTING 84 MG/DL (80-110); POTASSIUM SERUM 3.9 MEQ/L (3.5-5.1); SODIUM LEVEL 141 MEQ/L (136-145)
[2017-08-23] MEDS: BACLOFEN 10 MG TAB PO (07:42)
[2017-08-23] MEDS: PANTOPRAZOLE 40MG TAB (PROTONIX) PO (07:42)
[2017-08-23] MEDS: VERAPAMIL 180 MG SR TAB PO (07:43)
[2017-08-23] MEDS: DICYCLOMINE 10 MG CAP PO (07:43)
[2017-08-23] MEDS: ACETAMINOPHEN TAB 650MG DOSE (2X325MG) PO (07:44)
[2017-08-23] MEDS: RIVAROXABAN 15 MG TAB (XARELTO) PO (07:47)
[2017-08-23] MEDS: DIVALPROEX 500 MG TAB PO (07:47)
[2017-08-23] MEDS: NITROFURANTOIN (MACROBID) 100 MG CAP PO (07:47)
[2017-08-23] MEDS: NYSTATIN 100,000 UNITS/GM TOPICAL PWD 15 GM TOP (07:48)
[2017-08-24 09:38] LABS: PTT LUPUS TYPE ANTICOAG SCREEN 1.3 (0-1.2)
[2017-08-24 09:59] LABS: DRVV CONFIRM 46.2 SEC; LUPUS CONFIRM RATIO 1.2; NORMALIZED RATIO 1.08 (0.00-1.20)
[2017-08-26 00:06] LABS: ANTI THROMBIN 3 ANTIGEN IMMUNO 80 % (72-124); ANTI THROMBIN 3 FUNCT ACTIVITY 103 % (75-135); CARDIOLIPIN IGA ANTIBODY <9 APL U/mL (0-11); CARDIOLIPIN IGG ANTIBODY <9 GPL U/mL (0-14); CARDIOLIPIN IGM ANTIBODY 11 MPL U/mL (0-12); PROTEIN C FUNCTIONAL ACTIVITY 104 % (73-180); PROTEIN S FUNCTIONAL ACTIVITY 73 % (63-140)
== END 2017-08-23 11:36 | disposition home or self-care (01) | DRG 299 ==
LOC: M ED 08:14 → M ED INP 15:36 → M PCU 17:40
PROVIDERS: Family Medicine
DX: I82.431 Acute embolism and thrombosis of right popliteal vein (principal); I26.99 Other pulmonary embolism without acute cor pulmonale; N39.0 Urinary tract infection, site not specified; M54.5 Low back pain; N81.9 Female genital prolapse, unspecified; K21.9 Gastro-esophageal reflux disease without esophagitis; B96.20 Unspecified Escherichia coli [E. coli] as the cause of diseases classified elsewhere; K58.9 Irritable bowel syndrome, unspecified; I10 Essential (primary) hypertension; E55.9 Vitamin D deficiency, unspecified; E78.2 Mixed hyperlipidemia; Z66 Do not resuscitate; Z87.19 Personal history of other diseases of the digestive system; Z86.718 Personal history of other venous thrombosis and embolism; Z79.899 Other long term (current) drug therapy; Z91.14 Patient's other noncompliance with medication regimen

== ENCOUNTER → 2017-09-24 | Outpatient (REF) | payer OTHER ==
[2017-09-24 16:13] LABS: BASO # 0.1 10^3/uL (0.0-0.2); BASO % 0.8 % (0.0-1.0); EOS # 0.1 10^3/uL (0.0-0.50); EOS % 1.7 % (0.0-3.0); HEMATOCRIT 38.4 % (36.0-47.0); HEMOGLOBIN 12.3 g/dl (12.0-16.0); IMMATURE GRANULOCYTE % 0.6 % (0-0); LYMPH # 2.3 10^3/uL (1.5-4.5); LYMPH % 32.6 % (24.0-44.0); MEAN CORPUSCULAR HEMOGLOBIN 26.8 pg (27.0-33.0); MEAN CORPUSCULAR VOLUME 83.7 fl (80.0-96.0); MONO # 0.6 10^3/uL (0.0-0.8); MONO % 8.8 % (0.0-5.0); NEUTROPHILS % 55.5 % (36.0-66.0); PLATELET COUNT, AUTOMATED 262 10^3/uL (150-450); RED BLOOD COUNT 4.59 10^6/uL (4.00-5.40); RED CELL DISTRIBUTION WIDTH 24.1 % (11.5-14.5); WHITE BLOOD COUNT 7.1 10^3/uL (4.0-10.0)
[2017-09-24 16:32] LABS: ALBUMIN 3.5 GM/DL (3.2-5.2); ALKALINE PHOSPHATASE 76 U/L (45-117); ALT/SGPT 13 U/L (12-78); ANION GAP 8 MEQ/L (8-16); AST/SGOT 12 U/L (7-37); BILIRUBIN,TOTAL 0.2 MG/DL (0.2-1.0); BLOOD UREA NITROGEN 12 MG/DL (7-18); CALCIUM LEVEL 9.1 MG/DL (8.8-10.2); CARBON DIOXIDE LEVEL 29 MEQ/L (21-32); CHLORIDE LEVEL 103 MEQ/L (98-107); GLOMERULAR FILTRATION RATE > 60.0 (>45); GLUCOSE, FASTING 106 MG/DL (70-100); IRON (FE) 77 UG/DL (50-170); PERCENT SATURATION 20.9 % (13.2-45.0); POTASSIUM SERUM 4.1 MEQ/L (3.5-5.1); SODIUM LEVEL 140 MEQ/L (136-145); TOTAL IRON BINDING CAPACITY 369 UG/DL (250-450); TOTAL PROTEIN 7.4 GM/DL (6.4-8.2)
[2017-09-24 16:42] LABS: TOTAL 25(OH) VITAMIN D 20.7 NG/ML (30.0-100.0)
== END ==
LOC: M SFHCPLAZ 14:06
DX: D50.9 Iron deficiency anemia, unspecified (principal); I10 Essential (primary) hypertension; E55.9 Vitamin D deficiency, unspecified
CPT/HCPCS: 83550

== ENCOUNTER 2017-10-30 00:33 | Emergency (ER) | payer OTHER ==
[2017-10-30 01:02] LABS: BEDSIDE GLUCOSE 98 MG/DL (80-115)
[2017-10-30 01:56] LABS: BASO # 0.1 10^3/uL (0.0-0.2); BASO % 0.6 % (0.0-1.0); EOS # 0.1 10^3/uL (0.0-0.50); EOS % 1.6 % (0.0-3.0); HEMATOCRIT 35.2 % (36.0-47.0); HEMOGLOBIN 11.9 g/dl (12.0-16.0); IMMATURE GRANULOCYTE % 0.4 % (0-3.0); LYMPH # 2.9 10^3/uL (1.5-4.5); LYMPH % 32.6 % (24.0-44.0); MEAN CORPUSCULAR HEMOGLOBIN 29.1 pg (27.0-33.0); MEAN CORPUSCULAR HGB CONC 33.8 g/dl (32.0-36.5); MEAN CORPUSCULAR VOLUME 86.1 fl (80.0-96.0); MONO % 11.7 % (0.0-5.0); NEUTROPHILS # 4.7 10^3/uL (1.8-7.7); NEUTROPHILS % 53.1 % (36.0-66.0); PLATELET COUNT, AUTOMATED 224 10^3/uL (150-450); RED BLOOD COUNT 4.09 10^6/uL (4.00-5.40); RED CELL DISTRIBUTION WIDTH 18.4 % (11.5-14.5); WHITE BLOOD COUNT 8.9 10^3/uL (4.0-10.0)
[2017-10-30 02:01] LABS: KETONE, URINE AUTO RFX TRACE mg/dL (NEGATIVE); MUCUS, URINE RFX SMALL (NEGATIVE); NITRITE, URINE AUTO RFX NEGATIVE (NEGATIVE); RBC, URINE AUTO RFX 1 /HPF (0-3); SQUAM EPITHELIAL CELL UR AURFX 2 /HPF (0-6)
[2017-10-30 02:08] LABS: INR 2.25; PROTHROMBIN TIME 25.7 SECONDS (12.4-14.5)
[2017-10-30 02:09] LABS: PARTIAL THROMBOPLASTIN TIME 44.8 SECONDS (26.8-37.9)
[2017-10-30] MEDS: NS 1,000 ML IV (02:17)
[2017-10-30] MEDS: ONDANSETRON 4MG/2ML VIAL (J2405) IV (02:18)
[2017-10-30] MEDS: MORPHINE 4 MG/ML 1ML VIAL (J2270) IV (02:18)
[2017-10-30 02:19] LABS: ALBUMIN 3.1 GM/DL (3.2-5.2); ALBUMIN/GLOBULIN RATIO 0.84 (1.00-1.93); ALKALINE PHOSPHATASE 62 U/L (45-117); ALT/SGPT 10 U/L (12-78); ANION GAP 9 MEQ/L (8-16); AST/SGOT 8 U/L (7-37); BILIRUBIN,DIRECT < 0.1 MG/DL (0.0-0.2); BILIRUBIN,TOTAL < 0.1 MG/DL (0.2-1.0); BLOOD UREA NITROGEN 8 MG/DL (7-18); CALCIUM LEVEL 8.4 MG/DL (8.8-10.2); CARBON DIOXIDE LEVEL 28 MEQ/L (21-32); CHLORIDE LEVEL 101 MEQ/L (98-107); CREATININE FOR GFR 0.72 MG/DL (0.55-1.30); GLOMERULAR FILTRATION RATE > 60.0 (>45); GLUCOSE, FASTING 82 MG/DL (70-100); LIPASE 96 U/L (73-393); POTASSIUM SERUM 3.9 MEQ/L (3.5-5.1); SODIUM LEVEL 138 MEQ/L (136-145); TOTAL PROTEIN 6.8 GM/DL (6.4-8.2); VALPROIC ACID (DEPAKOTE) 48.3 UG/ML (50.0-100.0)
[2017-10-30 02:33] LABS: LEUKOCYTE ESTERASE UR AUTO RFX TRACE (NEGATIVE); WBC, URINE AUTO RFX 23 /HPF (0-3)
[2017-10-30] MEDS ORDERED: ISOVUE-370 76% 100ML VIAL (Q9967) As Ordered (02:41)
[2017-10-30] MEDS: CIPROFLOXACIN 500 MG TAB PO (04:59)
== END 2017-10-30 05:02 | disposition home or self-care (01) ==
LOC: M ED 00:33
DX: N30.00 Acute cystitis without hematuria (principal); Z79.01 Long term (current) use of anticoagulants; Z79.899 Other long term (current) drug therapy; Z79.2 Long term (current) use of antibiotics; Z88.8 Allergy status to other drugs, medicaments and biological substances; Z88.5 Allergy status to narcotic agent; Z88.0 Allergy status to penicillin; Z91.012 Allergy to eggs; Z87.19 Personal history of other diseases of the digestive system; Z86.2 Personal history of diseases of the blood and blood-forming organs and certain disorders involving the immune mechanism; Z86.718 Personal history of other venous thrombosis and embolism
CPT/HCPCS: J2270

== ENCOUNTER 2017-11-30 21:21 | Inpatient (IN) | payer OTHER ==
[2017-11-30] MEDS: EZETIMIBE 10 MG TAB (ZETIA) PO (21:00)
[2017-11-30] MEDS: BACLOFEN 10 MG TAB PO (21:00)
[2017-11-30] MEDS: DICYCLOMINE 10 MG CAP PO (21:00)
[2017-11-30 22:02] LABS: BASO % 0.5 % (0.0-1.0); EOS # 0.1 10^3/uL (0.0-0.50); EOS % 0.7 % (0.0-3.0); HEMOGLOBIN 10.1 g/dl (12.0-15.5); IMMATURE GRANULOCYTE % 0.3 % (0-3.0); LYMPH # 2.5 10^3/uL (1.5-4.5); LYMPH % 33.7 % (24.0-44.0); MEAN CORPUSCULAR HEMOGLOBIN 29.8 pg (27.0-33.0); MEAN CORPUSCULAR HGB CONC 33.7 g/dl (32.0-36.5); MEAN CORPUSCULAR VOLUME 88.5 fl (80.0-96.0); MONO # 0.6 10^3/uL (0.0-0.8); MONO % 8.4 % (0.0-5.0); NEUTROPHILS # 4.3 10^3/uL (1.8-7.7); NEUTROPHILS % 56.4 % (36.0-66.0); PLATELET COUNT, AUTOMATED 237 10^3/uL (150-450); RED BLOOD COUNT 3.39 10^6/uL (4.00-5.40); RED CELL DISTRIBUTION WIDTH 14.3 % (11.5-14.5); WHITE BLOOD COUNT 7.5 10^3/uL (4.0-10.0)
[2017-11-30] MEDS: NS 1,000 ML IV (22:07)
[2017-11-30 22:19] LABS: INR 1.67; PROTHROMBIN TIME 20.2 SECONDS (12.4-14.5)
[2017-11-30 22:20] LABS: PARTIAL THROMBOPLASTIN TIME 36.5 SECONDS (26.8-37.9)
[2017-11-30 22:33] LABS: ALBUMIN 3.3 GM/DL (3.2-5.2); ALBUMIN/GLOBULIN RATIO 0.92 (1.00-1.93); ALKALINE PHOSPHATASE 55 U/L (45-117); ALT/SGPT 13 U/L (12-78); ANION GAP 7 MEQ/L (8-16); AST/SGOT 7 U/L (7-37); BILIRUBIN,DIRECT < 0.1 MG/DL (0.0-0.2); BILIRUBIN,TOTAL 0.1 MG/DL (0.2-1.0); BLOOD UREA NITROGEN 19 MG/DL (7-18); CALCIUM LEVEL 8.4 MG/DL (8.8-10.2); CARBON DIOXIDE LEVEL 24 MEQ/L (21-32); CHLORIDE LEVEL 111 MEQ/L (98-107); CREATININE FOR GFR 1.01 MG/DL (0.55-1.30); GLOMERULAR FILTRATION RATE 58.2 (>45); GLUCOSE, FASTING 134 MG/DL (70-100); LIPASE 94 U/L (73-393); POTASSIUM SERUM 4.4 MEQ/L (3.5-5.1); SODIUM LEVEL 142 MEQ/L (136-145); TOTAL PROTEIN 6.9 GM/DL (6.4-8.2)
[2017-11-30] MEDS: PANTOPRAZOLE 40MG INJ (PROTONIX) (C9113) IV (23:02)
[2017-11-30] MEDS ORDERED: ISOVUE-370 76% 100ML VIAL (Q9967) As Ordered (23:57)
[2017-12-01] MEDS ORDERED: MORPHINE 4 MG/ML 1ML VIAL/SYRINGE (J2270) IV (01:15)
[2017-12-01] MEDS ORDERED: NITROGLYCERIN 0.4 MG SUBL TABLET SL (02:00)
[2017-12-01] MEDS ORDERED: MECLIZINE 25 MG TABLET PO (02:00)
[2017-12-01 02:25] LABS: HEMOGLOBIN 8.6 g/dl (12.0-15.5)
[2017-12-01 07:05] LABS: HEMOGLOBIN 8.1 g/dl (12.0-15.5)
[2017-12-01] MEDS: VERAPAMIL 120 MG SR TAB PO (08:34)
[2017-12-01] MEDS: DICYCLOMINE 10 MG CAP PO ×4 (08:34→20:16)
[2017-12-01] MEDS: BACLOFEN 10 MG TAB PO ×4 (08:34→20:16)
[2017-12-01] MEDS: OMEPRAZOLE 20 MG CAP PO (08:35)
[2017-12-01] MEDS: CETIRIZINE (ZyrTEC) 10 MG TAB PO (08:36)
[2017-12-01] MEDS ORDERED: LIDOCAINE 5% OINT 30 GM TOP (09:00)
[2017-12-01] MEDS: DOCUSATE SODIUM 100 MG CAP PO ×2 (10:20→20:16)
[2017-12-01] MEDS: ACETAMINOPHEN TAB 650MG DOSE (2X325MG) PO ×2 (12:01→17:21)
[2017-12-01] MEDS: DIVALPROEX 500 MG TAB PO ×2 (12:02→20:17)
[2017-12-01] MEDS: NS 1,000 ML IV ×2 (13:13→23:42)
[2017-12-01 19:32] LABS: HEMOGLOBIN 8.4 g/dl (12.0-15.5)
[2017-12-01] MEDS: EZETIMIBE 10 MG TAB (ZETIA) PO (20:16)
[2017-12-02] MEDS: ACETAMINOPHEN TAB 650MG DOSE (2X325MG) PO ×2 (00:24→09:06)
[2017-12-02 05:40] LABS: HEMATOCRIT 23.8 % (36.0-47.0); MEAN CORPUSCULAR HGB CONC 33.6 g/dl (32.0-36.5); MEAN CORPUSCULAR VOLUME 89.1 fl (80.0-96.0); PLATELET COUNT, AUTOMATED 183 10^3/uL (150-450); RED BLOOD COUNT 2.67 10^6/uL (4.00-5.40); RED CELL DISTRIBUTION WIDTH 14.3 % (11.5-14.5); WHITE BLOOD COUNT 5.1 10^3/uL (4.0-10.0)
[2017-12-02 05:51] LABS: ANION GAP 5 MEQ/L (8-16); BLOOD UREA NITROGEN 6 MG/DL (7-18); CALCIUM LEVEL 7.7 MG/DL (8.8-10.2); CARBON DIOXIDE LEVEL 27 MEQ/L (21-32); CHLORIDE LEVEL 109 MEQ/L (98-107); CREATININE FOR GFR 0.62 MG/DL (0.55-1.30); GLOMERULAR FILTRATION RATE > 60.0 (>45); GLUCOSE, FASTING 88 MG/DL (70-100); POTASSIUM SERUM 3.9 MEQ/L (3.5-5.1); SODIUM LEVEL 141 MEQ/L (136-145)
[2017-12-02] MEDS: VERAPAMIL 120 MG SR TAB PO (09:07)
[2017-12-02] MEDS: DIVALPROEX 500 MG TAB PO ×2 (09:07→21:28)
[2017-12-02] MEDS: DOCUSATE SODIUM 100 MG CAP PO ×2 (09:08→21:00)
[2017-12-02] MEDS: DICYCLOMINE 10 MG CAP PO ×4 (09:08→21:28)
[2017-12-02] MEDS: BACLOFEN 10 MG TAB PO ×4 (09:08→21:28)
[2017-12-02] MEDS: CETIRIZINE (ZyrTEC) 10 MG TAB PO (09:08)
[2017-12-02] MEDS: OMEPRAZOLE 20 MG CAP PO (09:08)
[2017-12-02] MEDS: NS 1,000 ML IV (09:12)
[2017-12-02] MEDS: GOLYTELY SOLN 4000 ML BTL PO (10:06)
[2017-12-02 15:31] LABS: HEMATOCRIT 25.7 % (36.0-47.0); HEMOGLOBIN 8.5 g/dl (12.0-15.5)
[2017-12-02] MEDS: EZETIMIBE 10 MG TAB (ZETIA) PO (21:28)
[2017-12-03 06:10] LABS: HEMATOCRIT 23.1 % (36.0-47.0); HEMOGLOBIN 7.6 g/dl (12.0-15.5); MEAN CORPUSCULAR HEMOGLOBIN 29.6 pg (27.0-33.0); MEAN CORPUSCULAR HGB CONC 32.9 g/dl (32.0-36.5); MEAN CORPUSCULAR VOLUME 89.9 fl (80.0-96.0); PLATELET COUNT, AUTOMATED 186 10^3/uL (150-450); RED BLOOD COUNT 2.57 10^6/uL (4.00-5.40); RED CELL DISTRIBUTION WIDTH 14.1 % (11.5-14.5); WHITE BLOOD COUNT 5.2 10^3/uL (4.0-10.0)
[2017-12-03 06:27] LABS: ANION GAP 6 MEQ/L (8-16); BLOOD UREA NITROGEN 4 MG/DL (7-18); CARBON DIOXIDE LEVEL 28 MEQ/L (21-32); CHLORIDE LEVEL 109 MEQ/L (98-107); CREATININE FOR GFR 0.65 MG/DL (0.55-1.30); GLOMERULAR FILTRATION RATE > 60.0 (>45); GLUCOSE, FASTING 80 MG/DL (70-100); POTASSIUM SERUM 3.8 MEQ/L (3.5-5.1); SODIUM LEVEL 143 MEQ/L (136-145)
[2017-12-03] MEDS ORDERED: PROPOFOL 200 MG/20 ML VIAL As Ordered (07:10)
[2017-12-03] MEDS ORDERED: LIDOCAINE 2% INJ 100 MG/5 ML SDV (FOR ANES.) As Ordered (07:10)
[2017-12-03] MEDS ORDERED: EPINEPHrine 1MG/10ML SYRINGE 1.5IN As Ordered (08:09)
[2017-12-03] MEDS: DOCUSATE SODIUM 100 MG CAP PO ×2 (09:00→20:17)
[2017-12-03] MEDS: VERAPAMIL 120 MG SR TAB PO (10:01)
[2017-12-03] MEDS: OMEPRAZOLE 20 MG CAP PO (10:01)
[2017-12-03] MEDS: CETIRIZINE (ZyrTEC) 10 MG TAB PO (10:01)
[2017-12-03] MEDS: BACLOFEN 10 MG TAB PO ×4 (10:01→20:17)
[2017-12-03] MEDS: DICYCLOMINE 10 MG CAP PO ×4 (10:02→20:17)
[2017-12-03] MEDS: DIVALPROEX 500 MG TAB PO ×2 (10:03→20:17)
[2017-12-03 13:26] LABS: IMMEDIATE SPIN CROSSMATCH 1 1
[2017-12-03 18:51] LABS: HEMATOCRIT 30.5 % (36.0-47.0)
[2017-12-03 19:02] LABS: HEMOGLOBIN 10.1 g/dl (12.0-15.5)
[2017-12-03] MEDS: EZETIMIBE 10 MG TAB (ZETIA) PO (20:17)
[2017-12-04 05:15] LABS: ANION GAP 6 MEQ/L (8-16); BLOOD UREA NITROGEN 5 MG/DL (7-18); CALCIUM LEVEL 8.6 MG/DL (8.8-10.2); CARBON DIOXIDE LEVEL 28 MEQ/L (21-32); CHLORIDE LEVEL 107 MEQ/L (98-107); CREATININE FOR GFR 0.81 MG/DL (0.55-1.30); GLOMERULAR FILTRATION RATE > 60.0 (>45); GLUCOSE, FASTING 88 MG/DL (70-100); POTASSIUM SERUM 3.8 MEQ/L (3.5-5.1); SODIUM LEVEL 141 MEQ/L (136-145)
[2017-12-04 07:04] LABS: HEMATOCRIT 28.5 % (36.0-47.0); HEMOGLOBIN 9.5 g/dl (12.0-15.5); MEAN CORPUSCULAR HEMOGLOBIN 29.9 pg (27.0-33.0); MEAN CORPUSCULAR HGB CONC 33.3 g/dl (32.0-36.5); MEAN CORPUSCULAR VOLUME 89.6 fl (80.0-96.0); PLATELET COUNT, AUTOMATED 186 10^3/uL (150-450); RED BLOOD COUNT 3.18 10^6/uL (4.00-5.40); RED CELL DISTRIBUTION WIDTH 14.1 % (11.5-14.5); WHITE BLOOD COUNT 5.4 10^3/uL (4.0-10.0)
[2017-12-04] MEDS: OMEPRAZOLE 20 MG CAP PO (09:07)
[2017-12-04] MEDS: DICYCLOMINE 10 MG CAP PO ×4 (09:07→20:05)
[2017-12-04] MEDS: BACLOFEN 10 MG TAB PO ×4 (09:08→20:04)
[2017-12-04] MEDS: VERAPAMIL 120 MG SR TAB PO (09:08)
[2017-12-04] MEDS: CETIRIZINE (ZyrTEC) 10 MG TAB PO (09:08)
[2017-12-04] MEDS: DOCUSATE SODIUM 100 MG CAP PO ×2 (09:09→20:05)
[2017-12-04] MEDS: DIVALPROEX 500 MG TAB PO ×2 (09:09→20:05)
[2017-12-04] MEDS: ACETAMINOPHEN TAB 650MG DOSE (2X325MG) PO ×2 (09:39→18:57)
[2017-12-04] MEDS: AZELASTINE 137MCG NASAL SPY 30 ML (ASTELIN) (12:08)
[2017-12-04 12:59] LABS: HEMATOCRIT 28.3 % (36.0-47.0); HEMOGLOBIN 9.6 g/dl (12.0-15.5)
[2017-12-04] MEDS: EZETIMIBE 10 MG TAB (ZETIA) PO (20:05)
[2017-12-05 04:58] LABS: ANION GAP 6 MEQ/L (8-16); BLOOD UREA NITROGEN 8 MG/DL (7-18); CALCIUM LEVEL 8.5 MG/DL (8.8-10.2); CARBON DIOXIDE LEVEL 29 MEQ/L (21-32); CHLORIDE LEVEL 106 MEQ/L (98-107); CREATININE FOR GFR 0.71 MG/DL (0.55-1.30); GLOMERULAR FILTRATION RATE > 60.0 (>45); GLUCOSE, FASTING 90 MG/DL (70-100); POTASSIUM SERUM 3.5 MEQ/L (3.5-5.1); SODIUM LEVEL 141 MEQ/L (136-145)
[2017-12-05] MEDS: OMEPRAZOLE 20 MG CAP PO (08:19)
[2017-12-05] MEDS: VERAPAMIL 120 MG SR TAB PO (08:19)
[2017-12-05] MEDS: CETIRIZINE (ZyrTEC) 10 MG TAB PO (08:20)
[2017-12-05] MEDS: BACLOFEN 10 MG TAB PO ×4 (08:20→21:22)
[2017-12-05] MEDS: DICYCLOMINE 10 MG CAP PO ×4 (08:20→21:22)
[2017-12-05] MEDS: DIVALPROEX 500 MG TAB PO ×2 (08:20→21:21)
[2017-12-05] MEDS: RIVAROXABAN 10 MG TAB (XARELTO) PO (08:20)
[2017-12-05] MEDS: DOCUSATE SODIUM 100 MG CAP PO ×2 (08:21→21:21)
[2017-12-05] MEDS: ONDANSETRON 4MG/2ML VIAL (J2405) IV (12:00)
[2017-12-05 13:05] LABS: HEMATOCRIT 30.5 % (36.0-47.0); HEMOGLOBIN 10.4 g/dl (12.0-15.5)
[2017-12-05] MEDS: EZETIMIBE 10 MG TAB (ZETIA) PO (21:22)
[2017-12-06 05:17] LABS: HEMATOCRIT 29.3 % (36.0-47.0); HEMOGLOBIN 9.7 g/dl (12.0-15.5); MEAN CORPUSCULAR HEMOGLOBIN 30.2 pg (27.0-33.0); MEAN CORPUSCULAR HGB CONC 33.1 g/dl (32.0-36.5); MEAN CORPUSCULAR VOLUME 91.3 fl (80.0-96.0); PLATELET COUNT, AUTOMATED 229 10^3/uL (150-450); RED BLOOD COUNT 3.21 10^6/uL (4.00-5.40); RED CELL DISTRIBUTION WIDTH 14.1 % (11.5-14.5); WHITE BLOOD COUNT 6.2 10^3/uL (4.0-10.0)
[2017-12-06 05:33] LABS: ANION GAP 6 MEQ/L (8-16); BLOOD UREA NITROGEN 11 MG/DL (7-18); CALCIUM LEVEL 8.5 MG/DL (8.8-10.2); CARBON DIOXIDE LEVEL 29 MEQ/L (21-32); CHLORIDE LEVEL 103 MEQ/L (98-107); CREATININE FOR GFR 0.79 MG/DL (0.55-1.30); GLOMERULAR FILTRATION RATE > 60.0 (>45); GLUCOSE, FASTING 77 MG/DL (70-100); POTASSIUM SERUM 3.8 MEQ/L (3.5-5.1); SODIUM LEVEL 138 MEQ/L (136-145)
[2017-12-06] MEDS: DICYCLOMINE 10 MG CAP PO ×2 (08:13→12:51)
[2017-12-06] MEDS: DOCUSATE SODIUM 100 MG CAP PO (08:13)
[2017-12-06] MEDS: OMEPRAZOLE 20 MG CAP PO (08:14)
[2017-12-06] MEDS: RIVAROXABAN 10 MG TAB (XARELTO) PO (08:14)
[2017-12-06] MEDS: CETIRIZINE (ZyrTEC) 10 MG TAB PO (08:14)
[2017-12-06] MEDS: BACLOFEN 10 MG TAB PO ×2 (08:14→12:51)
[2017-12-06] MEDS: VERAPAMIL 120 MG SR TAB PO (08:14)
[2017-12-06] MEDS: DIVALPROEX 500 MG TAB PO (09:39)
[2017-12-06 12:41] LABS: HEMATOCRIT 30.8 % (36.0-47.0); HEMOGLOBIN 10.3 g/dl (12.0-15.5)
[2017-12-06] MEDS: ACETAMINOPHEN TAB 650MG DOSE (2X325MG) PO (12:51)
== END 2017-12-06 15:19 | disposition home or self-care (01) | DRG 378 ==
LOC: M ED 21:21 → M ED INP 21:22 → M ICU 12-01 03:13 → M PCU 12-01 23:30
PROC: 0W3P8ZZ Control Bleeding in Gastrointestinal Tract, Via Natural or Artificial Opening Endoscopic (ICD-10-PCS; principal; 2017-12-03 07:30)
DX: K62.5 Hemorrhage of anus and rectum (principal); D62 Acute posthemorrhagic anemia; I10 Essential (primary) hypertension; I25.2 Old myocardial infarction; E78.5 Hyperlipidemia, unspecified; J44.9 Chronic obstructive pulmonary disease, unspecified; K31.819 Angiodysplasia of stomach and duodenum without bleeding; K21.9 Gastro-esophageal reflux disease without esophagitis; K57.30 Diverticulosis of large intestine without perforation or abscess without bleeding; Z66 Do not resuscitate; M79.7 Fibromyalgia; H81.10 Benign paroxysmal vertigo, unspecified ear; E55.9 Vitamin D deficiency, unspecified; K64.0 First degree hemorrhoids; M51.36 Other intervertebral disc degeneration, lumbar region; Z87.891 Personal history of nicotine dependence; Z86.718 Personal history of other venous thrombosis and embolism; Z86.711 Personal history of pulmonary embolism; Z79.899 Other long term (current) drug therapy; Z88.0 Allergy status to penicillin; Z91.012 Allergy to eggs; Z88.5 Allergy status to narcotic agent; Z88.8 Allergy status to other drugs, medicaments and biological substances; Z88.6 Allergy status to analgesic agent; Z91.011 Allergy to milk products; Z79.01 Long term (current) use of anticoagulants

== ENCOUNTER → 2017-12-10 | Outpatient (REF) | payer OTHER ==
[2017-12-10 18:04] LABS: BASO # 0.1 10^3/uL (0.0-0.2); BASO % 0.9 % (0.0-1.0); EOS # 0.1 10^3/uL (0.0-0.50); EOS % 1.9 % (0.0-3.0); HEMATOCRIT 32.8 % (36.0-47.0); HEMOGLOBIN 10.6 g/dl (12.0-15.5); IMMATURE GRANULOCYTE % 0.2 % (0-3.0); LYMPH % 35.5 % (24.0-44.0); MEAN CORPUSCULAR HEMOGLOBIN 29.7 pg (27.0-33.0); MEAN CORPUSCULAR HGB CONC 32.3 g/dl (32.0-36.5); MEAN CORPUSCULAR VOLUME 91.9 fl (80.0-96.0); MONO # 0.7 10^3/uL (0.0-0.8); MONO % 12.9 % (0.0-5.0); NEUTROPHILS # 2.8 10^3/uL (1.8-7.7); NEUTROPHILS % 48.6 % (36.0-66.0); PLATELET COUNT, AUTOMATED 334 10^3/uL (150-450); RED BLOOD COUNT 3.57 10^6/uL (4.00-5.40); RED CELL DISTRIBUTION WIDTH 13.7 % (11.5-14.5); WHITE BLOOD COUNT 5.7 10^3/uL (4.0-10.0)
[2017-12-10 19:02] LABS: ALBUMIN 3.4 GM/DL (3.2-5.2); ALBUMIN/GLOBULIN RATIO 0.85 (1.00-1.93); ALKALINE PHOSPHATASE 60 U/L (45-117); ALT/SGPT 13 U/L (12-78); ANION GAP 7 MEQ/L (8-16); AST/SGOT 9 U/L (7-37); BILIRUBIN,TOTAL 0.3 MG/DL (0.2-1.0); BLOOD UREA NITROGEN 12 MG/DL (7-18); CALCIUM LEVEL 9.2 MG/DL (8.8-10.2); CARBON DIOXIDE LEVEL 27 MEQ/L (21-32); CHLORIDE LEVEL 105 MEQ/L (98-107); CREATININE FOR GFR 0.77 MG/DL (0.55-1.30); GLOMERULAR FILTRATION RATE > 60.0 (>45); GLUCOSE, FASTING 74 MG/DL (70-100); IRON (FE) 40 UG/DL (50-170); PERCENT SATURATION 9.6 % (13.2-45.0); POTASSIUM SERUM 4.3 MEQ/L (3.5-5.1); SODIUM LEVEL 139 MEQ/L (136-145); TOTAL IRON BINDING CAPACITY 416 UG/DL (250-450); TOTAL PROTEIN 7.4 GM/DL (6.4-8.2)
== END ==
LOC: M SFHCPLAZ 15:08
DX: D50.9 Iron deficiency anemia, unspecified (principal)
CPT/HCPCS: 83550

== ENCOUNTER → 2018-02-10 | Outpatient (REF) | payer OTHER ==
[2018-02-10 15:52] LABS: BASO # 0.1 10^3/uL (0.0-0.2); BASO % 1.1 % (0.0-1.0); EOS # 0.1 10^3/uL (0.0-0.50); EOS % 2.1 % (0.0-3.0); HEMATOCRIT 32.8 % (36.0-47.0); HEMOGLOBIN 10.7 g/dl (12.0-15.5); IMMATURE GRANULOCYTE % 0.4 % (0-3.0); LYMPH # 1.8 10^3/uL (1.5-4.5); LYMPH % 33.9 % (24.0-44.0); MEAN CORPUSCULAR HEMOGLOBIN 27.1 pg (27.0-33.0); MEAN CORPUSCULAR HGB CONC 32.6 g/dl (32.0-36.5); MONO # 0.7 10^3/uL (0.0-0.8); MONO % 13.8 % (0.0-5.0); NEUTROPHILS # 2.5 10^3/uL (1.8-7.7); NEUTROPHILS % 48.7 % (36.0-66.0); PLATELET COUNT, AUTOMATED 301 10^3/uL (150-450); RED BLOOD COUNT 3.95 10^6/uL (4.00-5.40); WHITE BLOOD COUNT 5.2 10^3/uL (4.0-10.0)
[2018-02-10 16:01] LABS: ALBUMIN 3.3 GM/DL (3.2-5.2); ALKALINE PHOSPHATASE 78 U/L (45-117); ALT/SGPT 17 U/L (12-78); ANION GAP 9 MEQ/L (8-16); AST/SGOT 8 U/L (7-37); BILIRUBIN,TOTAL 0.2 MG/DL (0.2-1.0); BLOOD UREA NITROGEN 10 MG/DL (7-18); CALCIUM LEVEL 8.5 MG/DL (8.8-10.2); CARBON DIOXIDE LEVEL 26 MEQ/L (21-32); CHLORIDE LEVEL 99 MEQ/L (98-107); CREATININE FOR GFR 0.77 MG/DL (0.55-1.30); GLOMERULAR FILTRATION RATE > 60.0 (>45); GLUCOSE, FASTING 85 MG/DL (70-100); IRON (FE) 27 UG/DL (50-170); PERCENT SATURATION 5.9 % (13.2-45.0); POTASSIUM SERUM 4.3 MEQ/L (3.5-5.1); SODIUM LEVEL 134 MEQ/L (136-145); TOTAL IRON BINDING CAPACITY 456 UG/DL (250-450); TOTAL PROTEIN 7.4 GM/DL (6.4-8.2)
[2018-02-10 16:07] LABS: TOTAL 25(OH) VITAMIN D 14.6 NG/ML (30.0-100.0)
== END ==
LOC: M SFHCPLAZ 12:43
DX: D50.9 Iron deficiency anemia, unspecified (principal); I10 Essential (primary) hypertension; E55.9 Vitamin D deficiency, unspecified
CPT/HCPCS: 83550

== ENCOUNTER → 2018-03-16 | Outpatient (REF) | payer OTHER, MEDICARE | LOC: M SFHCPLAZ 03-17 12:20 | DX: R30.0 Dysuria (principal) | CPT/HCPCS: 87086 ==

== ENCOUNTER → 2018-04-19 | Outpatient (REF) | payer OTHER, MEDICARE ==
[2018-04-19 19:08] LABS: APPEARANCE, URINE HAZY (CLEAR); BACTERIA, URINE AUTO NEGATIVE (NEGATIVE); BILIRUBIN, URINE AUTO NEGATIVE (NEGATIVE); BLOOD, URINE BLOOD NEGATIVE (NEGATIVE); COLOR, URINE YELLOW (YELLOW); GLUCOSE, URINE (UA) AUTO NEGATIVE (NEGATIVE); KETONE, URINE AUTO NEGATIVE (NEGATIVE); LEUKOCYTE ESTERASE, URINE AUTO NEGATIVE (NEGATIVE); MUCUS, URINE SMALL (NEGATIVE); NITRITE, URINE AUTO NEGATIVE (NEGATIVE); PROTEIN, URINE AUTO NEGATIVE (NEGATIVE); RBC, URINE AUTO 1 /HPF (0-3); SPECIFIC GRAVITY URINE AUTO 1.024 (1.002-1.035); SQUAMOUS EPITHELIAL CELL UR AU 2 /HPF (0-6); UROBILINOGEN, URINE AUTO 0.2 mg/dL (0.0-2.0); WBC, URINE AUTO 3 /HPF (0-3)
== END ==
LOC: M SMT 16:57
DX: N39.46 Mixed incontinence (principal)
CPT/HCPCS: 81001

== ENCOUNTER → 2018-04-21 | Outpatient (CLI) | payer MEDICARE | LOC: M PAIN 11:00 | DX: M54.16 Radiculopathy, lumbar region (principal); G89.29 Other chronic pain; R25.1 Tremor, unspecified; I25.2 Old myocardial infarction; E78.2 Mixed hyperlipidemia; J44.9 Chronic obstructive pulmonary disease, unspecified; G43.109 Migraine with aura, not intractable, without status migrainosus; H81.10 Benign paroxysmal vertigo, unspecified ear; K21.9 Gastro-esophageal reflux disease without esophagitis; Z79.01 Long term (current) use of anticoagulants; Z79.899 Other long term (current) drug therapy; Z88.0 Allergy status to penicillin; Z88.5 Allergy status to narcotic agent; Z88.6 Allergy status to analgesic agent; Z88.8 Allergy status to other drugs, medicaments and biological substances; Z91.012 Allergy to eggs; Z86.711 Personal history of pulmonary embolism; Z86.73 Personal history of transient ischemic attack (TIA), and cerebral infarction without residual deficits | CPT/HCPCS: G0463 ==

== ENCOUNTER → 2018-05-03 | Outpatient (CLI) | payer MEDICARE ==
[~2018-05-03] MED LIST changes: -/BACL20TA PO; -/DIVA50TA PO; -/ESOM40CA PO; -/WARF4TA PO; -ACET-654 PO; -ACET1TAB17 PO; -ACET50TA PO; -ADV250INH INH; -ALBU17IN2 INFIL; -ALBU83IN INH; -ASTELIN; -ATIV1TAB10 PO; -AZEL1SPR3; -BACL10TA2 PO; -BENT20TA PO; +BUPIVACAINE HCL 0.25% 10 ML VIAL As Ordered; +BUPIVACAINE HCL 0.25% 30 ML VIAL As Ordered; -CLAR1TAB2 PO; -COLA50CA3 PO; -COLE1TA PO; -COMBAER6 INH; -COMBIN INH; -DICY20TA11 PO; -ESTR625TA IC; -LACT10SO29 PO; -LEVA1TAB2 PO; -LIDO1DIS2 TD; -LIDO1OIN2 TOP; -LIDO5DIS41 TD; -LIDO5OIN28 EXT; -MECL-68 PO; -MELA3TAB49 PO; -NEXI40CA PO; -NITR4TASL SL; -NYST1POW9 TOP; -OMEP40CA2 PO; +ONDANSETRON 4 MG ORAL DISINTEGRATING TAB (Q0162 PER 1MG) As Ordered; -PROAAER10 INH; -SING10TA32 PO; -SPIRIVA INH; -TIOT18INH INH; +TRIAMCINOLONE ACETONIDE SUSP 40 MG/ML VIAL (J3301) As Ordered; -TYLE325C PO; -VALI5TAB PO; -VERA360C PO; -XARE20TA PO; -ZETI10TA21 PO; -ZETI10TA30 PO; -ZITH500T PO; -ZYRT10TA2 PO; -[UNRECOGNIZED DRUG - OTHER] PO; +diazePAM 5 MG TAB As Ordered; +oxyCODONE 5MG TAB As Ordered
== END ==
LOC: M PAIN 13:45
DX: M79.1 Myalgia (principal); I10 Essential (primary) hypertension; E78.2 Mixed hyperlipidemia; J44.9 Chronic obstructive pulmonary disease, unspecified; K21.9 Gastro-esophageal reflux disease without esophagitis; K57.90 Diverticulosis of intestine, part unspecified, without perforation or abscess without bleeding; H81.10 Benign paroxysmal vertigo, unspecified ear; E55.9 Vitamin D deficiency, unspecified; Z86.718 Personal history of other venous thrombosis and embolism; R33.9 Retention of urine, unspecified; R32 Unspecified urinary incontinence; Z79.01 Long term (current) use of anticoagulants; Z79.899 Other long term (current) drug therapy; Z88.5 Allergy status to narcotic agent; Z88.0 Allergy status to penicillin; Z88.8 Allergy status to other drugs, medicaments and biological substances; Z91.012 Allergy to eggs
CPT/HCPCS: Q0162

== ENCOUNTER → 2018-05-31 | Outpatient (REF) | payer MEDICARE ==
[2018-05-31 20:12] LABS: BACTERIA, URINE AUTO 3+ (NEGATIVE); MUCUS, URINE SMALL (NEGATIVE); RBC, URINE AUTO 6 /HPF (0-3); SQUAMOUS EPITHELIAL CELL UR AU 0 /HPF (0-6); WBC, URINE AUTO TNTC /HPF (0-3); YEAST LIKE CELL URINE AUTO SMALL
[2018-06-03 00:24] LABS: Candida species Negative (Negative); Gardnerella vaginalis Negative (Negative); Trichamonas vaginalis Negative (Negative)
== END ==
LOC: M SMT 17:04
DX: N32.81 Overactive bladder (principal); N95.2 Postmenopausal atrophic vaginitis; Z79.899 Other long term (current) drug therapy
CPT/HCPCS: 81015

== ENCOUNTER → 2018-06-01 | Outpatient (CLI) | payer MEDICARE | LOC: M PAIN 13:45 | DX: M54.16 Radiculopathy, lumbar region (principal); M79.10 Myalgia, unspecified site; I10 Essential (primary) hypertension; E78.2 Mixed hyperlipidemia; J44.9 Chronic obstructive pulmonary disease, unspecified; K21.9 Gastro-esophageal reflux disease without esophagitis; G43.909 Migraine, unspecified, not intractable, without status migrainosus; H81.10 Benign paroxysmal vertigo, unspecified ear; E55.9 Vitamin D deficiency, unspecified; Z86.73 Personal history of transient ischemic attack (TIA), and cerebral infarction without residual deficits; Z86.718 Personal history of other venous thrombosis and embolism; Z86.711 Personal history of pulmonary embolism; Z79.01 Long term (current) use of anticoagulants; Z79.899 Other long term (current) drug therapy; Z88.6 Allergy status to analgesic agent; Z88.5 Allergy status to narcotic agent; Z88.8 Allergy status to other drugs, medicaments and biological substances; Z88.0 Allergy status to penicillin; Z91.012 Allergy to eggs | CPT/HCPCS: G0463 ==

== ENCOUNTER 2018-07-05 05:20 | Emergency (ER) | payer MEDICARE ==
[2018-07-05] MEDS: ONDANSETRON 4MG/2ML VIAL (J2405) IV ×2 (06:23→09:46)
[2018-07-05] MEDS: NS 1,000 ML IV (06:25)
[2018-07-05 06:27] LABS: BASO # 0.1 10^3/uL (0.0-0.2); BASO % 0.8 % (0.0-1.0); EOS # 0.2 10^3/uL (0.0-0.50); HEMATOCRIT 32.5 % (36.0-47.0); HEMOGLOBIN 10.2 g/dl (12.0-15.5); IMMATURE GRANULOCYTE % 0.3 % (0-3.0); LYMPH # 2.3 10^3/uL (1.5-4.5); LYMPH % 36.7 % (24.0-44.0); MEAN CORPUSCULAR HEMOGLOBIN 25.4 pg (27.0-33.0); MEAN CORPUSCULAR HGB CONC 31.4 g/dl (32.0-36.5); MEAN CORPUSCULAR VOLUME 80.8 fl (80.0-96.0); MONO # 0.7 10^3/uL (0.0-0.8); MONO % 10.9 % (0.0-5.0); NEUTROPHILS % 48.3 % (36.0-66.0); PLATELET COUNT, AUTOMATED 276 10^3/uL (150-450); RED BLOOD COUNT 4.02 10^6/uL (4.00-5.40); RED CELL DISTRIBUTION WIDTH 17.5 % (11.5-14.5); WHITE BLOOD COUNT 6.3 10^3/uL (4.0-10.0)
[2018-07-05] MEDS: MORPHINE 4 MG/ML 1ML VIAL/SYRINGE (J2270) IV ×2 (06:29→08:07)
[2018-07-05 06:34] LABS: VALPROIC ACID (DEPAKOTE) 61.1 UG/ML (50.0-100.0)
[2018-07-05 06:38] LABS: ANION GAP 8 MEQ/L (8-16); BLOOD UREA NITROGEN 8 MG/DL (7-18); CALCIUM LEVEL 8.1 MG/DL (8.8-10.2); CARBON DIOXIDE LEVEL 24 MEQ/L (21-32); CHLORIDE LEVEL 105 MEQ/L (98-107); CK-MB VALUE MASS < 1.0 NG/ML (<3.6); CPK CREATINE PHOSPHOKINASE 82 U/L (26-192); CREATININE FOR GFR 0.88 MG/DL (0.55-1.30); GLOMERULAR FILTRATION RATE > 60.0 (>45); GLUCOSE, FASTING 91 MG/DL (70-100); MB/CK RELATIVE INDEX 1.22 (< OR =4); POTASSIUM SERUM 4.3 MEQ/L (3.5-5.1); SODIUM LEVEL 137 MEQ/L (136-145); TROPONIN I < 0.02 NG/ML (< 0.10)
[2018-07-05 06:39] LABS: PARTIAL THROMBOPLASTIN TIME 27.2 SECONDS (25.4-37.6); PROTHROMBIN TIME 16.4 SECONDS (12.1-14.4)
[2018-07-05] MEDS ORDERED: ISOVUE-370 76% 100ML VIAL (Q9967) As Ordered (06:49)
[2018-07-05] MEDS: PROMETHAZINE INJ 25 MG/ML VIAL (J2550) IV (12:04)
[2018-07-05 12:34] LABS: CK-MB VALUE MASS < 1.0 NG/ML (<3.6); CPK CREATINE PHOSPHOKINASE 65 U/L (26-192); MB/CK RELATIVE INDEX 1.54 (< OR =4); TROPONIN I < 0.02 NG/ML (< 0.10)
== END 2018-07-05 16:35 | disposition home or self-care (01) ==
LOC: M ED 05:20
DX: R11.2 Nausea with vomiting, unspecified (principal); R07.9 Chest pain, unspecified; R91.1 Solitary pulmonary nodule; R06.02 Shortness of breath; I25.2 Old myocardial infarction; J44.9 Chronic obstructive pulmonary disease, unspecified; M54.9 Dorsalgia, unspecified; Z86.73 Personal history of transient ischemic attack (TIA), and cerebral infarction without residual deficits; Z88.6 Allergy status to analgesic agent; Z79.899 Other long term (current) drug therapy; Z79.01 Long term (current) use of anticoagulants; Z82.49 Family history of ischemic heart disease and other diseases of the circulatory system
CPT/HCPCS: J2270

== ENCOUNTER 2018-07-09 07:37 | Emergency (ER) | payer MEDICARE ==
[2018-07-09] MEDS ORDERED: ONDANSETRON 4MG/2ML VIAL (J2405) As Ordered (08:48)
[2018-07-09] MEDS: ONDANSETRON 4MG/2ML VIAL (J2405) IV (08:52)
[2018-07-09] MEDS: NITROGLYCERIN 0.4 MG SUBL TABLET SL (08:54)
[2018-07-09 09:00] LABS: BASO # 0.1 10^3/uL (0.0-0.2); BASO % 0.8 % (0.0-1.0); EOS # 0.1 10^3/uL (0.0-0.50); EOS % 2.1 % (0.0-3.0); HEMATOCRIT 35.7 % (36.0-47.0); HEMOGLOBIN 11.3 g/dl (12.0-15.5); IMMATURE GRANULOCYTE % 0.5 % (0-3.0); LYMPH # 1.9 10^3/uL (1.5-4.5); LYMPH % 27.8 % (24.0-44.0); MEAN CORPUSCULAR HEMOGLOBIN 25.3 pg (27.0-33.0); MEAN CORPUSCULAR HGB CONC 31.7 g/dl (32.0-36.5); MEAN CORPUSCULAR VOLUME 79.9 fl (80.0-96.0); MONO # 0.7 10^3/uL (0.0-0.8); MONO % 10.1 % (0.0-5.0); NEUTROPHILS # 3.9 10^3/uL (1.8-7.7); NEUTROPHILS % 58.7 % (36.0-66.0); PLATELET COUNT, AUTOMATED 301 10^3/uL (150-450); RED BLOOD COUNT 4.47 10^6/uL (4.00-5.40); RED CELL DISTRIBUTION WIDTH 17.7 % (11.5-14.5); WHITE BLOOD COUNT 6.7 10^3/uL (4.0-10.0)
[2018-07-09 09:22] LABS: INR 1.16; PROTHROMBIN TIME 14.9 SECONDS (12.1-14.4)
[2018-07-09 09:23] LABS: PARTIAL THROMBOPLASTIN TIME 33.8 SECONDS (25.4-37.6)
[2018-07-09] MEDS: MORPHINE 4 MG/ML 1ML VIAL/SYRINGE (J2270) IV (09:32)
[2018-07-09 09:33] LABS: ALBUMIN 3.2 GM/DL (3.2-5.2); ALBUMIN/GLOBULIN RATIO 0.68 (1.00-1.93); ALKALINE PHOSPHATASE 79 U/L (45-117); ALT/SGPT 19 U/L (12-78); ANION GAP 8 MEQ/L (8-16); AST/SGOT 16 U/L (7-37); BILIRUBIN,DIRECT < 0.1 MG/DL (0.0-0.2); BILIRUBIN,TOTAL 0.2 MG/DL (0.2-1.0); BLOOD UREA NITROGEN 10 MG/DL (7-18); CALCIUM LEVEL 9.1 MG/DL (8.8-10.2); CARBON DIOXIDE LEVEL 27 MEQ/L (21-32); CHLORIDE LEVEL 100 MEQ/L (98-107); CK-MB VALUE MASS < 1.0 NG/ML (<3.6); CPK CREATINE PHOSPHOKINASE 70 U/L (26-192); CREATININE FOR GFR 0.92 MG/DL (0.55-1.30); FREE T4 1.05 NG/DL (0.76-1.46); GLOMERULAR FILTRATION RATE > 60.0 (>45); GLUCOSE, FASTING 91 MG/DL (70-100); LIPASE 96 U/L (73-393); MB/CK RELATIVE INDEX 1.43 (< OR =4); NT-PRO BNP 139 PG/ML (<125); POTASSIUM SERUM 4.3 MEQ/L (3.5-5.1); SODIUM LEVEL 135 MEQ/L (136-145); TOTAL PROTEIN 7.9 GM/DL (6.4-8.2); TROPONIN I < 0.02 NG/ML (< 0.10)
[2018-07-09] MEDS: HEPARIN DRIP 25,000 UNITS in APPROPRIATE DILUENT 1 EA IV (10:16)
== END 2018-07-09 11:03 | disposition short-term general hospital (02) ==
LOC: M ED 07:37
DX: I20.0 Unstable angina (principal); R06.02 Shortness of breath; Z79.01 Long term (current) use of anticoagulants; I25.2 Old myocardial infarction; I10 Essential (primary) hypertension; E78.5 Hyperlipidemia, unspecified; K21.9 Gastro-esophageal reflux disease without esophagitis; M79.7 Fibromyalgia; Z87.891 Personal history of nicotine dependence; Z82.49 Family history of ischemic heart disease and other diseases of the circulatory system; Z86.711 Personal history of pulmonary embolism; Z88.8 Allergy status to other drugs, medicaments and biological substances; Z88.5 Allergy status to narcotic agent; Z91.012 Allergy to eggs; Z91.011 Allergy to milk products; Z88.0 Allergy status to penicillin
CPT/HCPCS: J2270

== ENCOUNTER → 2018-08-25 | Outpatient (REF) | payer MEDICARE ==
[~2018-08-25] MED LIST changes: +/BACL20TA PO; +/DIVA50TA PO; +/ESOM40CA PO; +/WARF4TA PO; +ACET-654 PO; +ACET-683 PO; +ACET1TAB55 PO; +ACET50TA PO; +ADV250INH INH; +ALBU17IN2 INFIL; +ALBU83IN INH; +ASTELIN; +ATIV1TAB10 PO; +AZEL1SPR3; +BACL10TA2 PO; +BACL1TAB9 PO; +BENT20TA PO; -BUPIVACAINE HCL 0.25% 10 ML VIAL As Ordered; -BUPIVACAINE HCL 0.25% 30 ML VIAL As Ordered; +CIPR-249 PO; +CLAR1TAB2 PO; +COLA50CA3 PO; +COLE1TA PO; +COMBAER6 INH; +COMBIN INH; +DICY20TA11 PO; +DIVA500T94 PO; +ESTR625TA IC; +FERR1TAB8 PO; +LACT10SO29 PO; +LEVA1TAB2 PO; +LIDO1DIS2 TD; +LIDO1OIN2 TOP; +LIDO5DIS41 TD; +LIDO5OIN28 EXT; +LIDO5OIN28 TOP; +MACR100C43 PO; +MECL-68 PO; +MELA3TAB49 PO; +NEXI40CA PO; +NITR4TASL SL; +NYST1POW9 TOP; +OMEP40CA2 PO; -ONDANSETRON 4 MG ORAL DISINTEGRATING TAB (Q0162 PER 1MG) As Ordered; +PROAAER10 INH; +SING10TA32 PO; +SPIRIVA INH; +TIOT18INH INH; -TRIAMCINOLONE ACETONIDE SUSP 40 MG/ML VIAL (J3301) As Ordered; +TYLE325C PO; +VALI5TAB PO; +VERA360C PO; +XARE10TA PO; +XARE15TA PO; +XARE20TA PO; +ZETI10TA21 PO; +ZETI10TA30 PO; +ZITH500T PO; +ZOFR4TAB14 PO; +ZYRT10CA5 PO; +[UNRECOGNIZED DRUG - OTHER] PO; -diazePAM 5 MG TAB As Ordered; -oxyCODONE 5MG TAB As Ordered
[2018-08-25 16:33] LABS: ALBUMIN 2.9 GM/DL (3.2-5.2); ALT/SGPT 13 U/L (12-78); BILIRUBIN,TOTAL 0.2 MG/DL (0.2-1.0); BLOOD UREA NITROGEN 14 MG/DL (7-18); CALCIUM LEVEL 8.5 MG/DL (8.8-10.2); CARBON DIOXIDE LEVEL 28 MEQ/L (21-32); CHLORIDE LEVEL 104 MEQ/L (98-107); CREATININE FOR GFR 0.79 MG/DL (0.55-1.30); GLOMERULAR FILTRATION RATE > 60.0 (>45); GLUCOSE, FASTING 112 MG/DL (70-100); POTASSIUM SERUM 4.2 MEQ/L (3.5-5.1); SODIUM LEVEL 137 MEQ/L (136-145)
== END ==
LOC: M LABSMT 13:13
PROVIDERS: ATTEND Specialist
DX: M54.16 Radiculopathy, lumbar region (principal)

== ENCOUNTER → 2018-09-13 | Outpatient (REF) | payer MEDICARE ==
[2018-09-13 13:38] LABS: BACTERIA, URINE AUTO NEGATIVE (NEGATIVE); RBC, URINE AUTO 0 /HPF (0-3); SQUAMOUS EPITHELIAL CELL UR AU 1 /HPF (0-6); WBC, URINE AUTO 0 /HPF (0-3)
== END ==
LOC: M SMT 12:57
PROVIDERS: ATTEND Specialist
DX: K58.9 Irritable bowel syndrome, unspecified (principal); R39.9 Unspecified symptoms and signs involving the genitourinary system

== ENCOUNTER 2018-11-10 16:26 | Emergency (ER) | payer MEDICARE ==
[~2018-11-10 16:26] MED LIST changes: -/BACL20TA PO; -/DIVA50TA PO; -/ESOM40CA PO; -/WARF4TA PO; -ACET50TA PO; +COUM1TAB14 PO; +DEPA1TAB3 PO; +MAPA500T17 PO; +NEXI1CAP3 PO
[2018-11-10 17:56] LABS: BASO # 0.1 10^3/uL (0.0-0.2); BASO % 0.7 % (0.0-1.0); EOS # 0.1 10^3/uL (0.0-0.50); EOS % 1.1 % (0.0-3.0); LYMPH # 1.5 10^3/uL (1.5-4.5); LYMPH % 20.3 % (24.0-44.0); MEAN CORPUSCULAR HEMOGLOBIN 25.8 pg (27.0-33.0); MEAN CORPUSCULAR HGB CONC 31.4 g/dl (32.0-36.5); MEAN CORPUSCULAR VOLUME 82.2 fl (80.0-96.0); MONO # 0.7 10^3/uL (0.0-0.8); MONO % 9.9 % (0.0-5.0); NEUTROPHILS # 5.1 10^3/uL (1.8-7.7); NEUTROPHILS % 67.6 % (36.0-66.0); PLATELET COUNT, AUTOMATED 314 10^3/uL (150-450); RED BLOOD COUNT 4.26 10^6/uL (4.00-5.40); WHITE BLOOD COUNT 7.5 10^3/uL (4.0-10.0)
[2018-11-10] MEDS ORDERED: ONDANSETRON 4MG/2ML VIAL (J2405) IV ONE (18:00)
[2018-11-10 18:13] LABS: INR 1.15; PARTIAL THROMBOPLASTIN TIME 28.5 SECONDS (25.4-37.6); PROTHROMBIN TIME 14.9 SECONDS (12.1-14.4)
[2018-11-10 18:15] LABS: BLOOD UREA NITROGEN 16 MG/DL (7-18); CALCIUM LEVEL 8.1 MG/DL (8.8-10.2); CARBON DIOXIDE LEVEL 25 MEQ/L (21-32); CHLORIDE LEVEL 109 MEQ/L (98-107); CREATININE FOR GFR 0.86 MG/DL (0.55-1.30); GLOMERULAR FILTRATION RATE > 60.0 (>45); GLUCOSE, FASTING 92 MG/DL (70-100); POTASSIUM SERUM 4.2 MEQ/L (3.5-5.1); SODIUM LEVEL 142 MEQ/L (136-145)
[2018-11-10] MEDS ORDERED: ACETAMINOPHEN TAB 650MG DOSE (2X325MG) PO ONE (18:30)
[2018-11-10] MEDS ORDERED: NS 500 ML IV ONE (18:30)
--- NOTE | 2018-11-10 18:56 | REP ---
CT Head without contrast HISTORY: Dizziness COMPARISON: 08/13/2017 Areas of decreased attenuation are present in the periventricular white matter. This represents small-vessel ischemic disease. There is no intraparenchymal hemorrhage, acute infarct, mass or midline shift. The ventricular system and cortical sulci as well as subarachnoid space in the posterior fossa are dilated consistent with mild volume loss. There is no extra cerebral collection. There is no fracture. The visualized sinuses are clear. IMPRESSION: 1. Small-vessel ischemic disease. 2. Mild volume loss. Electronically Signed by Jaylen Daily MD 11/10/2018 06:48 P
--- NOTE | 2018-11-10 19:16 | REP ---
Abdomen flat upright PA chest three views History: Abdominal pain Air is present in small and large intestine. Several air-fluid levels are present. There are no dilated loops of intestine. There is no pneumoperitoneum. The lungs are clear. There is blunting of the right costophrenic angle due to pleural thickening. Impression: Nonspecific bowel gas pattern. Electronically Signed by Jaylen Daily MD 11/10/2018 07:08 P
[2018-11-10 19:51] LABS: INFLUENZA A AMPLIFICATION NEGATIVE (NEGATIVE); INFLUENZA B AMPLIFICATION NEGATIVE (NEGATIVE)
[2018-11-10] MEDS ORDERED: BACT800T5 PO (20:41)
[2018-11-10 20:50] VITALS: BP 135/63
[2018-11-10] MEDS ORDERED: BACTRIM 160MG/800MG DS TAB PO ONE (21:15)
--- NOTE | 2018-11-12 06:55 | ECGEPIP ---
Stationary ECG Study [facility] - ED Test Date: 2018-11-10 Pat Name: RY MENA Department: Room: - Gender: F Cyber Security: : 1950 Requested By: Lilly Rosas Order Number: [id number] Reading MD: Eddie Jamil Measurements Intervals [place] Rate: 69 P: 48 VT: 160 QRS: 37 QRSD: 86 T: 42 QT: 404 QTc: 435 Interpretive Statements SINUS RHYTHM POSSIBLE PRIOR INFERIOR INFARCT BENIGN EARLY REPOLARIZATION SIMILAR TO 07/09/18 Electronically Signed On 11-12-2018 6:55:08 EDT by Eddie Jamil
== END 2018-11-10 21:22 | disposition home or self-care (01) ==
LOC: M ED 16:26
DX: N39.0 Urinary tract infection, site not specified (principal); R42 Dizziness and giddiness; R11.0 Nausea; I67.82 Cerebral ischemia; G89.4 Chronic pain syndrome; K21.9 Gastro-esophageal reflux disease without esophagitis; K58.9 Irritable bowel syndrome, unspecified; Z88.8 Allergy status to other drugs, medicaments and biological substances; Z88.5 Allergy status to narcotic agent; Z88.0 Allergy status to penicillin; Z91.012 Allergy to eggs; Z91.011 Allergy to milk products; Z79.899 Other long term (current) drug therapy; Z79.01 Long term (current) use of anticoagulants
CPT/HCPCS: 36415; 70450; 74021; 80048; 81001; 85025; 85610; 85730; 86850; 86900; 86901; 87086; 87502; 93005; 96374; 99284; J2405

== ENCOUNTER → 2018-12-15 | Outpatient (CLI) | payer MEDICARE ==
[~2018-12-15] MED LIST changes: +BACT800T5 PO
--- NOTE | 2018-12-31 23:57 | ECWPNPC ---
PATIENT NAME: RY MENA : 1950 GENDER: FEMALE VISIT DATE: 12/15/2018 DISCHARGE DATE: 12/15/18 151 VISIT LOCKED DATE TIME: PHYSICIAN: BRITTANY LAI RESOURCE: BRITTANY LAI REASON FOR APPOINTMENT 1. LOW BACK- PT OF SW HISTORY OF PRESENT ILLNESS HISTORY OF PRESENT ILLNESS: HERE FOR F/U OF CHRONIC LBP AND BILAT. LEG PAIN.RATING PAIN VAS 7/10.DESCRIBES PAIN CONTINUOUS ,ACHING SPASM TPE PAIN ACROSS LOW BACK.COMPLAINS OF BILATERAL LEG WEAKNESS R>L.COMPLAINS OF RIGHT LEG PARATHESIAS. PAIN THE PATIENT DESCRIBES THE PAIN... FALL RISK SCREENING: SCREENING :NO FALLS REPORTED IN THE LAST YEAR CURRENT MEDICATIONS TAKING VERAPAMIL HCL 360 MG CAPSULE EXTENDED RELEASE 24 HOUR 1 CAPSULE ORALLY ONCE A DAY TAKING XARELTO 10 MG TABLET 1 TABLET WITH THE EVENING MEAL ORALLY ONCE A DAY TAKING ZETIA 10 MG TABLET 1 TABLET ORALLY ONCE A DAY TAKING FERROUS SULFATE 325 (65 FE) MG TABLET 1 TABLET ORALLY ONCE A DAY TAKING ZYRTEC 10 MG TABLET 1 TABLET ORALLY DAILY NEEDED MDD = 1 TAKING ASTELIN 137 MCG/SPRAY SOLUTION 1 PUFF IN EACH NOSTRIL _INHALATION TWICE A DAY TAKING NEXIUM 40 MG CAPSULE DELAYED RELEASE 1 CAPSULE ORALLY ONCE A DAY TAKING LACTULOSE 10 GM/15ML SOLUTION 30 CC ORALLY ONCE A DAY TAKING BENTYL 20 MG CAPSULE 1 CAPSULE ORALLY FOUR TIMES A DAY TAKING DEPAKOTE 500 MG TABLET DELAYED RELEASE 1 TABLET ORALLY TWICE A DAY TAKING ESTRACE USE 1 GM INTRAVAGINALLY NIGHTLY FOR 2 WEEKS THEN 3X WEEKLY INTRAVAGINALLY NIGHTLY FOR 2 WEEKS THEN 3X WEEKLY TAKING NITROSTAT 0.4 MG TABLET SUBLINGUAL 1 TABLET UNDER THE TONGUE SUBLINGUAL EVERY 5 MINUTES MDD: 3 TAKING NYSTATIN POWDER [id number] UNIT POWDER APPLY TO GROIN/GENITAL AREA EXTERNALLY TWICE A DAY TAKING MECLIZINE HCL 25 MG TABLET 1 TABLET P.O. EVERY 8 HOURS NEEDED MDD = 3 TAKING BACLOFEN 20 MG TABLET 1 TABLET WITH FOOD OR MILK ORALLY FOUR TIMES A DAY TAKING DICYCLOMINE HCL 20 MG TABLET TAKE ONE TABLET BY MOUTH FOUR TIMES DAILY ORALLY FOUR TIMES A DAY TAKING OXYBUTYNIN CHLORIDE ER 10 MG TABLET EXTENDED RELEASE 24 HOUR 1 TABLET ORALLY ONCE A DAY TAKING LIDOCAINE 5 % OINTMENT 1 APPLICATION TO AFFECTED AREA NEEDED EXTERNALLY THREE TIMES A DAY NOT-TAKING TIZANIDINE HCL 4 MG TABLET 1 TABLET NEEDED ORALLY THREE TIMES A DAY NOT-TAKING LASIX 20 MG TABLET 1 TABLET ORALLY ONCE A DAY AT 4 PM NOT-TAKING LIDODERM 5 % PATCH 1 PATCH TO SKIN REMOVE AFTER 12 HOURS EXTERNALLY ONCE A DAY NOT-TAKING MYRBETRIQ 25 MG TABLET EXTENDED RELEASE 24 HOUR 1 TABLET ORALLY ONCE A DAY NOT-TAKING LEVAQUIN 250 MG TABLET 1 TABLET ORALLY ONCE A DAY MEDICATION LIST REVIEWED AND RECONCILED WITH THE PATIENT PAST MEDICAL HISTORY HX PULMONARY EMBOLISM 1997 HX IL/CORONARY VASOSPASM X2 3 WEEKS APART IN PT UNSURE- DR DEAN NST 12/2004 - DOBUTAMINE CARDIOLITE - NORMAL LV WALL MOTION, LVEF 64% , FIXED ANTEROSEPTAL ABNORMALITY, ?CHEST WALL ATTENUATION ARTIFACT ESSENTIAL HTN/TACHYCARDIA - ON VERAPAMIL MIXED HYPERLIPIDEMIA CHRONIC OBSTRUCTIVE BRONCHITIS WITH NORMAL SPIROMETRY AND MODERATE REDUCTION IN OVERALL DIFFUSING CAPACITY PER DLCO - HER CONTROL IS BORDERLINE - REFUSES STEROIDS - FOLLOWED BY DR. 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 LV DIASTOLIC DYSFUNCTION NST 08/2010 - LVEF 85%, NORMAL LV WALL MOTION, NORMAL STRESS SPECT MYOCARDAIL PERFUSION IMAGING, MYOCARDIAL PERFUSION UNCHANGED COMPAORED TO 12/2004 BLADDER SLING AND TRANSVAGINAL MESH COLONOSCOPY 2017 CAPSULE ENDOSCOPY 2017: AVM < 1MM, WITHOUT BLEED MAMMOGRAM: PATIENT REFUSES: PATIENT CANNOT TOLERATE MAMMOGRAMS DUE TO FIBROMYALGIA. DVT LOWER EXTREMITY AFTER STOPPING XARELTO 2017 URINARY INCONTINENCE AND FREQUENCY AND NOCTURIA TIA 07/2018 BLADDER INFECTION [facility]ITAL ADMISSION [facility] CHEST PAIN: NUCLEAR STRESS TEST 06/2018-NEGATIVE FOR ISCHEMIA WITH NORMAL LVEF ALLERGIES ASPIRIN: ANAPHYLAXIS - ALLERGY CRESTOR: MUSCLE CRAMPING,WEAKNESS - SIDE EFFECTS EGG/PRO: ANAPHYLAXIS - ALLERGY LIPITOR: MUSCLE CRAMPINGL, WEAKNESS - SIDE EFFECTS PERCOCET: VOMITING - ALLERGY PREDNISONE: VOMITING - ALLERGY TALWIN: VOMITING - ALLERGY PENICILLIN (FOR ALLERGIES USE ONLY): ANAPHYLAXIS - ALLERGY CODEINE PHOSPHATE (FOR ALLERGIES USE ONLY): ANAPHYLAXIS - ALLERGY SPIRIVA HANDIHALER: HALLUCINATIONS - SIDE EFFECTS MUCINEX: ABDOMINAL PAIN - SIDE EFFECTS DOXYCYCLINE (ROSACEA): DID NOT TOLERATE - SIDE EFFECTS VITAMIN D: INCREASED HEARTBURN - SIDE EFFECTS GABAPENTIN: HEADACHE AND FATIGUE - SIDE EFFECTS SURGICAL HISTORY BTL REPAIR OF PROLAPSED BLADDER - DR. BLACKMAN January CHOLECYSTECTOMY CARDIAC CATH X 2 10/1996, 11/1996 RECTOCELE/CYSTOCELE 2010 COLONOSCOPY - 2 ADENOMATOUS COLON POYLP - (REINDL) 11/2014 C-SCOPE ON 06/22 AND 06/23-DIVERTICULOSIS AND SMALL INTERNAL HEMORRHOIDS 2017 COLONOCOPY [facility] 11/2017 TRANSVAGINAL MESH AND BLADDER SLING 2011 COLONOSCOPY X 3 FAMILY HISTORY FATHER: 46 YRS, CIRRHOSIS, ETOH MOTHER: ALIVE 88 YRS, OBESITY, [place], ARTHRITIS, OSTEOPOROSIS, ALZHEIMERS SIBLINGS: IL IN ONE SISTER AT 22YOA OTHERWISE ARTHRITIS AND OBESITY 1 SISTER: PASSED FROM MURDER 1 SISTER: ALIVE HAS A TRACH. MATERNAL AUNT: DM-2 1 BROTHER(S) , 6 SISTER(S) . 1 SON(S) , 3 DAUGHTER(S) - HEALTHY. COUSIN HAD 1 KIDNEY THAT STOPPED AND IS ON DIALYSIS. SOCIAL HISTORY GENERAL: TOBACCO USE ARE YOU A:NONSMOKER DIET: REGULAR. LANGUAGE LANGUAGES SPOKEN:BELARUSIAN DOMESTIC VIOLENCE DO YOU FEEL SAFE IN YOUR ENVIRONMENT?YES RECREATIONAL DRUG USE DRUG USE?NO EXERCISE: NO REGULAR EXERCISE, NONE. LEARNING BARRIERS / SPECIAL NEEDS BARRIERS TO LEARNING?NO HEARING IMPAIRED?NO VISION IMPAIRED?YES COGNITIVELY IMPAIRED?NO :CORRECTIVE LENSES READINESS TO LEARN?YES LEARNING PREFERENCES?NO LEARNING CAPABILITIES PRESENT?YES EMOTIONAL BARRIERS?NO SPECIAL DEVICES?YES :[facility] PFS, CLERGY, PUBLIC HEALTH REFERRALS PFS REFERRAL NEEDED?NO CLERGY REFERRAL NEEDED?NO PUBLIC HEALTH REFERRAL NEEDED?NO WAS THE PROVIDER NOTIFIED OF ANY PERTINENT INFO?YES HAS THE PATIENT BEEN EDUCATED REGARDING HIS/HER PLAN OF CARE?YES HAS THE PATIENT BEEN EDUCATED REGARDING PAIN, THE RISK FOR PAIN, THE IMPORTANCE OF EFFECTIVE PAIN MANAGEMENT, AND THE PAIN ASSESSMENT PROCESS?YES LATEX QUESTIONNAIRE LATEX ALLERGY : HAVE YOU EVER DEVELOPED ANY TYPE OF REACTION AFTER HANDLING LATEX PRODUCTS SUCH RUBBER GLOVES, CONDOMS, DIAPHRAGMS, BALLOONS, SOCKS, OR UNDERWEAR?NO LATEX ALLERGY : HAVE YOU EVER DEVELOPED ANY TYPE OF REACTION DURING OR AFTER DENTAL APPOINTMENT, VAGINAL/RECTAL EXAMINATION, SURGICAL PROCEDURE, OR ANY OTHER EXPOSURE?NO DATE ASKED : 12/02/2018 LATEX RISK : HAVE YOU EVER HAD ANY DIFFICULTY BREATHING OR HIVES AFTER EATING OR HANDLING ANY FRUITS, OR VEGETABLES; SUCH KIWI, BANANAS, STONE FRUITS, OR CHESTNUTSNO LATEX RISK : DO YOU HAVE A PREVIOUS PERSONAL HISTORY OF MORE THAN NINE SURGERIES, SPINA BIFIDA, OR REPEATED CATHERTIZATIONS? NO LATEX RISK : ARE YOU FREQUENTLY EXPOSED TO LATEX PRODUCTS IN YOUR OCCUPATION?NO CAFFEINE CAFFEINE USE?YES COFFEE = 1 CUPS PER DAY TEA = 1 CYP PER DAY ADVANCE DIRECTIVE ADVANCE DIRECTIVE DISCUSSED WITH PATIENT:YES PATIENT DECLINED HCP INFORMATION. BAPTISM [id number] ANABAPTISM ALCOHOL SCREENING DID YOU HAVE A DRINK CONTAINING ALCOHOL IN THE PAST YEAR?NO POINTS0 INTERPRETATIONNEGATIVE DISABLED RECEIVES WORKERS COMPREVIEWED WITH PATIENT 12/15/18 1428 JS. HOSPITALIZATION/MAJOR DIAGNOSTIC PROCEDURE SYNCOPE 02/2014 GI BLOOD LOSS ANEMIA ([facility]) 07/2017 [facility], RECTAL BLEEDING 11/2017 SURGERIES CHILDBIRTH X 3 REVIEW OF SYSTEMS REVIEWED BY: PROVIDER: BRITTANY FOSS . CONSTITUTIONAL: ANY CHANGE IN YOUR MEDICAL CONDITION? NO . CHILLS NO . FEVER NO . INFECTION: DO YOU HAVE NEW INFECTIONS? NO . DO YOU HAVE HISTORY OF MRSA? NO . MUSCULOSKELETAL: ANY NEW PATTERNS OF PAIN OR NUMBNESS? YES, STATES INCREASING PAIN, WOULD LIKE AN EPIDURAL . GASTROENTEROLOGY: ANY NEW CHANGE IN BOWEL CONTROL? NO . GENITOURINARY: ANY NEW CHANGE IN BLADDER CONTROL? YES, STATES URINARY URGENCY AND FREQUENCY, FOLLOWS DR. CRUZ AT UROLOGY . IS THERE A CHANCE YOU COULD BE ? NO . HEMATOLOGY/LYMPH: DO YOU TAKE ANY BLOOD THINNERS? (FOR EXAMPLE- COUMADIN, PLAVIX, AGGRENOX, PLATEL, PRADAXA, OR XARELTO) YES, XARELTO . WHEN WAS YOUR LAST DOSE? DATE: 12/14/18TIME: 1700 . NEUROLOGY: HAVE YOU FALLEN IN THE PAST 12 MONTHS? YES, STATES FALL IN MAY GETTING INTO THE SHOWER, TRIPPED ON A SHOWER CHAIR. STATES SHE WAS SORE AFTER BUT NO ED VISIT, NO IMAGING . ANY NEW EXTREMITY NUMBNESS OR WEAKNESS? YES, STATES MUSCLE SPASMS AND WEAKNESS TO BILATERAL LEGS . CARDIOLOGY: DO YOU HAVE A PACEMAKER OR DEFIBRILLATOR? NO . RESPIRATORY: HAVE YOU BEEN SICK IN THE PAST WEEK? NO . FEVER NO . FLU LIKE SYMPTOMS? NO . COUGH NO . INTEGUMENTARY: DO YOU HAVE ANY RASHES OR OPEN SORES? NO . ALLERGIC/IMMUNO: ARE YOU ALLERGIC TO IV DYE? NO . ANY NEW ALLERGIES? NO . PSYCHIATRIC: DO YOU HAVE THOUGHTS OF HURTING YOURSELF OR SOMEONE ELSE? NO . ARE YOU ABUSED, NEGLECTED, OR IN AN UNSAFE ENVIRONMENT? NO . ENDOCRINOLOGY: ARE YOU DIABETIC? NO . OTHER: DO YOU NEED ANY PRESCRIPTIONS? YES . IF YES, PLEASE LIST: ____WOULD LIKE LIDOCAINE PATCHES . ANY NEW PROBLEMS WITH YOUR MEDICATIONS? NO . WHEN DID YOU LAST EAT? ____ . WHEN DID YOU LAST DRINK? ____ . WHAT DID YOU LAST DRINK? ____ . NAME OF PERSON DRIVING YOU HOME? ____ . DO YOU HAVE ANY OTHER QUESTIONS OR CONCERNS NO . VITAL SIGNS WT 236.2 LBS, HT 64 IN, BMI 40.54 INDEX, BP 149/69 MM HG, HR 89 /MIN, RR 18 /MIN, TEMP 98.0 F, OXYGEN SAT % 93%, SAFE IN ENV? (Y/N) YES, NA INITIALS AW 1402, REVIEWED BY: ANN MARIE. EXAMINATION GENERAL EXAMINATION: GENERAL APPEARANCE: AWAKE,ALERT ,PLEAASANT . PSYCH AFFECT NORMAL . LUNGS: LUNG GEORGE ARE CLEAR TO AUSCULTATION BILATERALLY. GOOD MOVEMENT OF AIR . HEART: S1, S2 IN A REGULAR RATE AND RHYTHM. NO SIGNIFICANT MURMURS, RUBS OR GALLOPS NOTED . MUSCULOSKELETAL: WEAKNESS OVER BILAT LOWER EXTREMITIES R>L.. LUMBAR SACRAL SPINE PALPATION: + FOR PAIN OVER L/S SPINE. + FOR PAIN OVER L/S PARASPINALS. NEUROLOGIC EXAM: NORMAL SENSATION LIGHT TOUCH BILAT. LOWER EXTREMITIES. ASSESSMENTS LOW BACK PAIN - M54.5 (PRIMARY) TREATMENT LOW BACK PAIN [facility] MRI SPINE, L.S. WITHOUT [id number] NOTES: PT 2XWK X6WK LOW BACK AND LOWER EXTREMITY REHAB/MUSCLE STRENGTHENING. PROCEDURE CODES FA211 ESTABILISHED PATIENT [facility] CHARGE DISPOSITION & COMMUNICATION FOLLOW UP 2 MONTHS ELECTRONICALLY SIGNED BY IPPO SHAVER ON 12/31/2018 AT 08:11 AM EDT DISCLAIMER : THIS IS A VISIT SUMMARY EXTRACTED FROM THE [employer] CHART. IT IS NOT A COPY OF THE [employer] PROGRESS NOTE. MARIANA
== END ==
LOC: M PAIN 13:45
PROVIDERS: ATTEND Nurse Practitioner Family
DX: M54.5 Low back pain (principal); G89.29 Other chronic pain; Z86.711 Personal history of pulmonary embolism; I25.2 Old myocardial infarction; E78.2 Mixed hyperlipidemia; K21.9 Gastro-esophageal reflux disease without esophagitis; G43.909 Migraine, unspecified, not intractable, without status migrainosus; M79.7 Fibromyalgia; G56.03 Carpal tunnel syndrome, bilateral upper limbs; Z86.718 Personal history of other venous thrombosis and embolism; Z88.0 Allergy status to penicillin; Z88.1 Allergy status to other antibiotic agents; Z88.6 Allergy status to analgesic agent; Z88.5 Allergy status to narcotic agent; Z88.8 Allergy status to other drugs, medicaments and biological substances; Z91.012 Allergy to eggs; Z79.01 Long term (current) use of anticoagulants; E66.01 Morbid (severe) obesity due to excess calories; Z68.41 Body mass index [BMI] 40.0-44.9, adult; Z79.899 Other long term (current) drug therapy

== ENCOUNTER 2019-02-16 21:11 | Emergency (ER) | payer MEDICARE ==
[~2019-02-16] VITALS: Ht 160 cm; Wt 104.5 kg
[~2019-02-16 21:11] MED LIST changes: -MECL-68 PO; +MECL1TAB31 PO; -OMEP40CA2 PO; +OMEP40CA97 PO; +ZETI10TA16 PO; -ZETI10TA30 PO
[2019-02-16 21:55] LABS: BASO # 0.1 10^3/uL (0.0-0.2); BASO % 0.9 % (0.0-1.0); EOS # 0.2 10^3/uL (0.0-0.50); EOS % 2.5 % (0.0-3.0); HEMOGLOBIN 11.9 g/dl (12.0-15.5); LYMPH # 2.7 10^3/uL (1.5-4.5); LYMPH % 38.4 % (24.0-44.0); MEAN CORPUSCULAR HGB CONC 32.2 g/dl (32.0-36.5); MEAN CORPUSCULAR VOLUME 83.9 fl (80.0-96.0); MONO # 0.8 10^3/uL (0.0-0.8); MONO % 11.1 % (0.0-5.0); NEUTROPHILS # 3.3 10^3/uL (1.8-7.7); PLATELET COUNT, AUTOMATED 307 10^3/uL (150-450); RED BLOOD COUNT 4.41 10^6/uL (4.00-5.40); WHITE BLOOD COUNT 6.9 10^3/uL (4.0-10.0)
[2019-02-16 22:10] LABS: ALBUMIN 3.3 GM/DL (3.2-5.2); ALT/SGPT 18 U/L (12-78); BILIRUBIN,DIRECT < 0.1 MG/DL (0.0-0.2); BILIRUBIN,TOTAL 0.1 MG/DL (0.2-1.0); BLOOD UREA NITROGEN 15 MG/DL (7-18); CALCIUM LEVEL 8.3 MG/DL (8.8-10.2); CARBON DIOXIDE LEVEL 29 MEQ/L (21-32); CHLORIDE LEVEL 104 MEQ/L (98-107); CREATININE FOR GFR 1.33 MG/DL (0.55-1.30); GLOMERULAR FILTRATION RATE 42.2 (>45); GLUCOSE, FASTING 95 MG/DL (70-100); LIPASE 133 U/L (73-393); POTASSIUM SERUM 4.1 MEQ/L (3.5-5.1); SODIUM LEVEL 138 MEQ/L (136-145); TOTAL PROTEIN 7.1 GM/DL (6.4-8.2)
[2019-02-16 22:52] LABS: INR 1.98; PROTHROMBIN TIME 22.3 SECONDS (11.8-14.0)
--- NOTE | 2019-02-16 23:48 | REPVR ---
EXAM: CT Abdomen and Pelvis Without Contrast EXAM DATE/TIME: 02/16/2019 10:41 PM CLINICAL HISTORY: 68 years old, female; Abdominal pain; Localized; Right lower quadrant (rlq); Additional info: Rlq pain TECHNIQUE: Imaging protocol: Axial computed tomography images of the abdomen and pelvis without contrast. Coronal and sagittal reformatted images were created and reviewed. Radiation optimization: All CT scans at this facility use at least one of these dose optimization techniques: automated exposure control; mA and/or kV adjustment per patient size (includes targeted exams where dose is matched to clinical indication); or iterative reconstruction. COMPARISON: CT ABD PELVIS W/O CONTRAST 07/05/2018 1:01 PM FINDINGS: Lungs: Minimal bibasilar fibro-atelectatic change, right greater than left. Liver: Normal. No mass. Gallbladder and bile ducts: Status post cholecystectomy. Pancreas: Normal. No ductal dilation. Spleen: Normal. No splenomegaly. Adrenals: Normal. No mass. Kidneys and ureters: Normal. No hydronephrosis. Stomach and bowel: There are a few colonic diverticula without diverticulitis. Appendix: A normal small appendix is seen. Intraperitoneal space: Normal. No free air. No significant fluid collection. Vasculature: There is mild calcification of the abdominal aorta with extension into the iliac arteries. Lymph nodes: Normal. No enlarged lymph nodes. Bladder: Unremarkable as visualized. Reproductive: Status post hysterectomy. Lobular right ovary measuring approximately 4.0 cm which is similar to the prior study Bones/joints: Caudal spurring of the left lateral superior pubic ramus which may reflect residua of previous trauma. Soft tissues: Unremarkable. IMPRESSION: 1. Decreased bibasilar infiltrates and atelectasis since 07/05/2018. There is minimal residual fibro-atelectatic change, right greater than left. 2. There has been prior cholecystectomy and hysterectomy. 3. Slightly prominent lobular right ovary for age measuring up to 4.0 cm but is unchanged from the prior study. 4. Otherwise negative CT abdomen/pelvis. Electronically signed by: Twin Pacheco On 02/16/2019 23:47:52 PM
[2019-02-16] MEDS ORDERED: MACR100C43 PO (23:55)
[2019-02-17 00:15] VITALS: BP 136/70
== END 2019-02-17 00:16 | disposition home or self-care (01) ==
LOC: M ED 21:11
DX: N39.0 Urinary tract infection, site not specified (principal); I10 Essential (primary) hypertension; M79.7 Fibromyalgia; Z79.899 Other long term (current) drug therapy; Z79.01 Long term (current) use of anticoagulants

== ENCOUNTER 2019-06-09 00:53 | Emergency (ER) | payer MEDICARE ==
[~2019-06-09] VITALS: Ht 162.6 cm; Wt 98.2 kg
[~2019-06-09 00:53] MED LIST changes: +MECL-68 PO; -MECL1TAB31 PO
[2019-06-09 01:30] LABS: BASO # 0.1 10^3/uL (0.0-0.2); BASO % 0.6 % (0.0-1.0); EOS # 0.1 10^3/uL (0.0-0.5); EOS % 1.5 % (0.0-3.0); HEMATOCRIT 36.4 % (36.0-47.0); HEMOGLOBIN 11.8 g/dl (12.0-15.5); LYMPH # 2.8 10^3/uL (1.5-5.0); LYMPH % 32.2 % (24.0-44.0); MEAN CORPUSCULAR HEMOGLOBIN 27.1 pg (27.0-33.0); MEAN CORPUSCULAR HGB CONC 32.4 g/dl (32.0-36.5); MEAN CORPUSCULAR VOLUME 83.5 fl (80.0-96.0); MONO # 0.8 10^3/uL (0.0-0.8); MONO % 9.4 % (0.0-5.0); NEUTROPHILS # 4.9 10^3/uL (1.5-8.5); NEUTROPHILS % 56.1 % (36.0-66.0); PLATELET COUNT, AUTOMATED 235 10^3/uL (150-450); RED BLOOD COUNT 4.36 10^6/uL (4.00-5.40); WHITE BLOOD COUNT 8.6 10^3/uL (4.0-10.0)
[2019-06-09 01:59] LABS: BLOOD UREA NITROGEN 15 MG/DL (7-18); CALCIUM LEVEL 8.5 MG/DL (8.8-10.2); CARBON DIOXIDE LEVEL 28 MEQ/L (21-32); CHLORIDE LEVEL 102 MEQ/L (98-107); CK-MB VALUE MASS < 1.0 NG/ML (<3.6); CPK CREATINE PHOSPHOKINASE 69 U/L (26-192); CREATININE FOR GFR 1.03 MG/DL (0.55-1.30); GLOMERULAR FILTRATION RATE 56.7 (>45); GLUCOSE, FASTING 99 MG/DL (70-100); MB/CK RELATIVE INDEX 1.45 (< OR =4); POTASSIUM SERUM 4.5 MEQ/L (3.5-5.1); SODIUM LEVEL 136 MEQ/L (136-145); TROPONIN I < 0.02 NG/ML (< 0.10)
[2019-06-09 02:42] LABS: ALBUMIN 2.9 GM/DL (3.2-5.2); ALT/SGPT 14 U/L (12-78); BILIRUBIN,DIRECT < 0.1 MG/DL (0.0-0.2); BILIRUBIN,TOTAL 0.2 MG/DL (0.2-1.0); LIPASE 117 U/L (73-393); TOTAL PROTEIN 6.7 GM/DL (6.4-8.2)
[2019-06-09] MEDS ORDERED: ONDANSETRON 4MG/2ML VIAL (J2405) IV ONE (03:00)
[2019-06-09 04:41] LABS: CK-MB VALUE MASS < 1.0 NG/ML (<3.6); CPK CREATINE PHOSPHOKINASE 65 U/L (26-192); MB/CK RELATIVE INDEX 1.54 (< OR =4); TROPONIN I < 0.02 NG/ML (< 0.10)
[2019-06-09] MEDS ORDERED: MIRA3350 PO (04:56)
[2019-06-09 05:53] VITALS: BP 129/70
--- NOTE | 2019-06-09 08:23 | REP ---
Portable chest x-ray: Single view. History: Chest pain. Comparison study: November 10, 2018. Findings: EKG monitoring electrodes overlie the chest. Lungs are well inflated and free of infiltrate. Heart size is normal. Pulmonary vasculature is not increased. No significant bony abnormality is seen. Impression: No acute disease. Electronically Signed by lAonso Cardenas MD 06/09/2019 08:15 A
--- NOTE | 2019-06-09 08:24 | REP ---
KUB: Two views. History: Constipation. Comparison radiograph November 10, 2018. Findings: The bowel gas pattern is normal with air and a small quantity of stool throughout the colon. No small or large bowel dilation is seen. There are clips in right upper quadrant as before. Psoas margins and flank stripes are intact. No mass organomegaly seen. Impression: Normal bowel gas pattern. Clips in the right upper quadrant. Electronically Signed by Alonso Cardenas MD 06/09/2019 08:16 A
--- NOTE | 2019-06-09 19:56 | ECGEPIP ---
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
--- NOTE | 2019-06-09 19:59 | ECGEPIP ---
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
== END 2019-06-09 05:54 | disposition home or self-care (01) ==
LOC: M ED 00:53
DX: R07.89 Other chest pain (principal); K59.00 Constipation, unspecified; I10 Essential (primary) hypertension; J44.9 Chronic obstructive pulmonary disease, unspecified; E78.5 Hyperlipidemia, unspecified; K21.9 Gastro-esophageal reflux disease without esophagitis; M79.7 Fibromyalgia; I25.2 Old myocardial infarction; Z79.899 Other long term (current) drug therapy; Z79.01 Long term (current) use of anticoagulants; Z88.0 Allergy status to penicillin; Z88.5 Allergy status to narcotic agent; Z88.8 Allergy status to other drugs, medicaments and biological substances; Z91.011 Allergy to milk products; Z91.012 Allergy to eggs

== ENCOUNTER 2019-08-25 01:36 | Emergency (ER) | payer MEDICARE ==
[~2019-08-25 01:36] MED LIST changes: +MIRA3350 PO
[2019-08-25 01:46] VITALS: BP 127/60
== END 2019-08-25 03:47 | disposition left against medical advice (07) ==
LOC: M ED 01:36
DX: Z53.21 Procedure and treatment not carried out due to patient leaving prior to being seen by health care provider (principal)

== ENCOUNTER 2020-05-11 03:18 | Emergency (ER) | payer MEDICARE ==
[~2020-05-11] VITALS: Ht 162.6 cm; Wt 96.8 kg
[~2020-05-11 03:18] MED LIST changes: -LACT10SO29 PO; +LACT20EL PO; -MECL-68 PO; +MECL1TAB31 PO
[2020-05-11] MEDS ORDERED: NS 1,000 ML IV ONE (04:00)
[2020-05-11] MEDS ORDERED: ACETAMINOPHEN *IV* 1,000 MG in IV 1 EA IV ONE (04:15)
[2020-05-11] MEDS ORDERED: METOCLOPRAMIDE INJ 10MG/2ML VIAL (J2765 PER 1) IV ONE (04:15)
[2020-05-11 04:49] LABS: BASO % 0.6 % (0.0-1.0); EOS # 0.1 10^3/uL (0.0-0.5); EOS % 1.5 % (0.0-3.0); HEMATOCRIT 35.6 % (36.0-47.0); HEMOGLOBIN 11.5 g/dl (12.0-15.5); LYMPH # 1.6 10^3/uL (1.5-5.0); LYMPH % 23.7 % (24.0-44.0); MEAN CORPUSCULAR HEMOGLOBIN 27.1 pg (27.0-33.0); MEAN CORPUSCULAR HGB CONC 32.3 g/dl (32.0-36.5); MONO % 14.4 % (0.0-5.0); NEUTROPHILS # 4.1 10^3/uL (1.5-8.5); NEUTROPHILS % 58.8 % (36.0-66.0); PLATELET COUNT, AUTOMATED 216 10^3/uL (150-450); RED BLOOD COUNT 4.24 10^6/uL (4.00-5.40); WHITE BLOOD COUNT 6.9 10^3/uL (4.0-10.0)
[2020-05-11 05:59] LABS: ALT/SGPT 12 U/L (12-78); BILIRUBIN,DIRECT < 0.1 MG/DL (0.0-0.2); BILIRUBIN,TOTAL 0.3 MG/DL (0.2-1.0); CK-MB VALUE MASS < 1.0 NG/ML (<3.6); CPK CREATINE PHOSPHOKINASE 122 U/L (26-192); LIPASE 50 U/L (73-393); MB/CK RELATIVE INDEX 0.82 (< OR =4); TOTAL PROTEIN 7.1 GM/DL (6.4-8.2); TROPONIN I < 0.02 NG/ML (< 0.10)
--- NOTE | 2020-05-11 06:16 | REPVR ---
PROCEDURE INFORMATION: Exam: CT Head Without Contrast Exam date and time: 05/11/2020 5:16 AM Age: 69 years old Clinical indication: Pain; Headache not specified; Additional info: Sudden onset headache/vertigo TECHNIQUE: Imaging protocol: Computed tomography of the head without contrast. Radiation optimization: All CT scans at this facility use at least one of these dose optimization techniques: automated exposure control; mA and/or kV adjustment per patient size (includes targeted exams where dose is matched to clinical indication); or iterative reconstruction. COMPARISON: CT Head without contrast 11/10/2018 6:25 PM FINDINGS: Brain: Generalized parenchymal atrophy and evidence of microvascular ischemic disease involving periventricular and subcortical white bilaterally. Ventricles: No ventriculomegaly. Bones/joints: Unremarkable. No acute fracture. Paranasal sinuses: Visualized sinuses are unremarkable. No fluid levels. Mastoid air cells: Visualized mastoid air cells are well aerated. Soft tissues: Unremarkable. IMPRESSION: No acute intracranial pathology. Electronically signed by: Reynold Canales On 05/11/2020 06:15:39 AM
[2020-05-11 07:03] VITALS: BP 144/68
--- NOTE | 2020-05-11 12:21 | ECGEPIP ---
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
== END 2020-05-11 07:04 | disposition home or self-care (01) ==
LOC: M ED 03:18
DX: R53.1 Weakness (principal); T36.4X1A Poisoning by tetracyclines, accidental (unintentional), initial encounter; T42.8X1A Poisoning by antiparkinsonism drugs and other central muscle-tone depressants, accidental (unintentional), initial encounter; Y92.9 Unspecified place or not applicable; Y93.9 Activity, unspecified; Y99.9 Unspecified external cause status; I48.91 Unspecified atrial fibrillation; Z79.899 Other long term (current) drug therapy; Z88.0 Allergy status to penicillin; Z88.6 Allergy status to analgesic agent; Z88.8 Allergy status to other drugs, medicaments and biological substances; Z91.011 Allergy to milk products; Z91.012 Allergy to eggs
CPT/HCPCS: 70450; 80047; 80076; 82550; 82553; 83690; 84484; 85025; 93005; 93041; 94760; 96365; 96366; 96375; 99285; J0131; J2765

== ENCOUNTER 2020-09-27 11:03 | Emergency (ER) | payer MEDICARE ==
[~2020-09-27] VITALS: Ht 160 cm; Wt 101.8 kg
--- NOTE | 2020-09-27 12:04 | REP ---
INDICATION: DYSPNEA/COUGH. COMPARISON: Comparison portable chest x-ray June 09, 2019. TECHNIQUE: Portable upright AP chest radiograph. FINDINGS: The lungs are well inflated and free of infiltrate. Pleural angles are sharp. Heart size is normal. Pulmonary vasculature is not increased. Monitoring electrodes are seen. IMPRESSION: No active disease. <Electronically signed by Robson Cardenas > 09/27/20 1200
--- OUTSIDE RECORDS SUMMARY | 2020-09-27 12:08 | CCD ---
Author Author [facility] Organization [facility] Address Unknown Phone Unavailable Care Team Providers Care P D Driver Name Role Phone LAXIvonne MD Unavailable Unavailable LAX, Ivonne SHAH MD Unavailable Unavailable LAX, Ivonne SHAH MD Unavailable Unavailable LAX, B PABLO FRAGOSO Unavailable Unavailable LAX, Ivonne SHAH MD Unavailable Unavailable LAX, Ivonne SHAH MD Unavailable Unavailable LAX, Ivonne SHAH MD Unavailable Unavailable LAX, Ivonne SHAH MD Unavailable Unavailable LAX, Ivonne SHAH MD Unavailable Unavailable LAX, Ivonne SHAH MD Unavailable Unavailable LAX, Ivonne SHAH MD Unavailable Unavailable LAX, Ivonne SHAH MD Unavailable Unavailable LAX, Ivonne SHAH MD Unavailable Unavailable LAX, Ivonne SHAH MD Unavailable Unavailable LAX, Ivonne SHAH MD Unavailable Unavailable LAX, Ivonne SHAH MD Unavailable Unavailable LAX, Ivonne SHAH MD Unavailable Unavailable LAX, Ivonne SHAH MD Unavailable Unavailable LAX, Ivonne SHAH MD Unavailable Unavailable LAX, Ivonne SHAH MD Unavailable Unavailable LAX, Ivonne SHAH MD Unavailable Unavailable LAX, Ivonne SHAH MD Unavailable Unavailable LAX, Ivonne SHAH MD Unavailable Unavailable LAX, Ivonne SHAH MD Unavailable Unavailable LAX, Ivonne SHAH MD Unavailable Unavailable LAX, Ivonne SHAH MD Unavailable Unavailable LAX, Ivonne SHAH MD Unavailable Unavailable LAX, Ivonne SHAH MD Unavailable Unavailable LAX, Ivonne SHAH MD Unavailable Unavailable LAX, Ivonne SHAH MD Unavailable Unavailable LAX, Ivonne SHAH MD Unavailable Unavailable LAX, Ivonne SHAH MD Unavailable Unavailable LAX, Ivonne SHAH MD Unavailable Unavailable LAX, Ivonne SHAH MD Unavailable Unavailable LAX, Ivonne SHAH MD Unavailable Unavailable LAX, Ivonne SHAH MD Unavailable Unavailable LAX, B PABLO FRAGOSO Unavailable Unavailable LAX, B PABLO FRAGOSO Unavailable Unavailable LAX, B PABLO FRAGOSO Unavailable Unavailable LAX, B PABLO FRAGOSO Unavailable Unavailable LAX, B PABLO FRAGOSO Unavailable Unavailable LAX, B PABLO FRAGOSO Unavailable Unavailable LAX, B PABLO FRAGOSO Unavailable Unavailable LAX, B PABLO FRAGOSO Unavailable Unavailable LAX, B PABLO FRAGOSO Unavailable Unavailable LAX, B PABLO FRAGOSO Unavailable Unavailable LAX, B PABLO FRAGOSO Unavailable Unavailable LAX, B PABLO FRAGOSO Unavailable Unavailable Goessling, Mansi Unavailable Unavailable Goessling, Mansi Unavailable Unavailable Goessling, Mansi Unavailable Unavailable Goessling, Mansi Unavailable Unavailable Goessling, Mansi Unavailable Unavailable Goessling, Manis Unavailable Unavailable Goessling, Mansi Unavailable Unavailable Goessling, Mansi Unavailable Unavailable Goessling, Mansi Unavailable Unavailable Goessling, Mansi Unavailable Unavailable Goessling, Mansi Unavailable Unavailable Goessling, Mansi Unavailable Unavailable Goessling, Mansi Unavailable Unavailable Goessling, Amnsi Unavailable Unavailable GREETHAM, D DONALD LEAD PERSON Unavailable Unavailable GREETHAM, D DONALD LEAD PERSON Unavailable Unavailable GREETHAM, D DONALD LEAD PERSON Unavailable Unavailable GREETHAM, D DONALD LEAD PERSON Unavailable Unavailable GREETHAM, D DONALD LEAD PERSON Unavailable Unavailable GREETHAM, D DONALD LEAD PERSON Unavailable Unavailable GREETHAM, D DONALD LEAD PERSON Unavailable Unavailable GREETHAM, D DONALD LEAD PERSON Unavailable Unavailable GREETHAM, D DONALD LEAD PERSON Unavailable Unavailable GREETHAM, D DONALD LEAD PERSON Unavailable Unavailable GREETHAM, D DONALD LEAD PERSON Unavailable Unavailable GREETHAM, D DONALD LEAD PERSON Unavailable Unavailable GREETHAM, D DONALD LEAD PERSON Unavailable Unavailable GREETHAM, D DONALD LEAD PERSON Unavailable Unavailable GREETHAM, D DONALD LEAD PERSON Unavailable Unavailable GREETHAM, D DONALD LEAD PERSON Unavailable Unavailable GREETHAM, D DONALD LEAD PERSON Unavailable Unavailable GREETHAM, D DONALD LEAD PERSON Unavailable Unavailable GREETHAM, D DONALD LEAD PERSON Unavailable Unavailable GREETHAM, D DONALD LEAD PERSON Unavailable Unavailable GREETHAM, D DONALD LEAD PERSON Unavailable Unavailable GREETHAM, D DONALD LEAD PERSON Unavailable Unavailable GREETHAM, D DONALD LEAD PERSON Unavailable Unavailable GREETHAM, D DONALD LEAD PERSON Unavailable Unavailable GREETHAM, D DONALD LEAD PERSON Unavailable Unavailable GREETHAM, D DONALD LEAD PERSON Unavailable Unavailable GREETHAM, D DONALD LEAD PERSON Unavailable Unavailable GREETHAM, D DONALD LEAD PERSON Unavailable Unavailable GREETHAM, D DONALD LEAD PERSON Unavailable Unavailable GREETHAM, D DONALD LEAD PERSON Unavailable Unavailable GREETHAM, D DONALD LEAD PERSON Unavailable Unavailable Sari SALDAÑA NP Unavailable Unavailable Re-disclosure Warning The records that you are about to access may contain information from federally-assisted alcohol or drug abuse programs. If such information is present, then the following federally mandated warning applies: This information has been disclosed to you from records protected by federal confidentiality rules (42 CFR part 2). The federal rules prohibit you from making any further disclosure of this information unless further disclosure is expressly permitted by the written consent of the person to whom it pertains or as otherwise permitted by 42 CFR part 2. A general authorization for the release of medical or other information is NOT sufficient for this purpose. The Federal rules restrict any use of the information to criminally investigate or prosecute any alcohol or drug abuse patient.The records that you are about to access may contain highly sensitive health information, the redisclosure of which is protected by Article 27-F of the [facility] Public Health law. If you continue you may have access to information: Regarding HIV / AIDS; Provided by facilities licensed or operated by the [facility] Office of Mental Health; or Provided by the [facility] Office for People With Developmental Disabilities. If such information is present, then the following [facility] mandated warning applies: This information has been disclosed to you from confidential records which are protected by state law. State law prohibits you from making any further disclosure of this information without the specific written consent of the person to whom it pertains, or as otherwise permitted by law. Any unauthorized further disclosure in violation of state law may result in a fine or group home sentence or both. A general authorization for the release of medical or other information is NOT sufficient authorization for further disc losure. Family History Family Member Name Family Member Gender Family Member Status Date o f Status Description Data Source(s) Unknown Unknown Problem [facility] ([facility]) Mother, Sister Unknown Male Problem [facility] ([facility]) Encounters Encounter Providers Location Date Indications Data Source(s ) Outpatient Attender: Mansi Laureano 03/04/2021 12:00:[address] [facility] [place] [facility] [address] [facility] [address] 03/14/2020 12:00:00 AM EDT [facility]) Outpatient Attender: PABLO MONROY MD [id number] 12:00:00 AM EDT - 03/12/2020 11:17:43 AM EDT [facility] Outpatient Attender: DONALD SALDAÑA NP 02/14/2020 12:00:00 AM EDT [facility] Unknown [address] [facility] [address] 02/09/2020 12:00:00 AM EDT [facility] [address] [place] [address], [place] [address] 01/08/2020 12:00:00 AM EDT [facility] [address] [place] [address] [place] [address] 12/26/2019 12:00:00 AM EDT [facility] [address] [facility] [place] [address] 09/19/2019 12:00:00 AM EST [facility] [address] [facility] [address] 08/24/2019 12:00:00 AM EST [facility] ([facility]) Medications Medication Brand Name Start Date Product Form Dose Route Admi nistrative Instructions Pharmacy Instructions Status Indications Reaction Description Data Source(s) Lidocaine 4 % External Patch [id number] 03/12/2020 12:00:00 AM EDT 1 {patch} Transdermal active Chronic low back pain with sciatica, sciatica laterality unspecified, unspecified back pain laterality Place 1 patch onto the skin every 24 (twenty-four) hours As needed for back and neck pain [facility] Chronic low back pain with sciatica, sci atica laterality unspecified, unspecified back pain laterality Lidocaine (LIDODERM EX) Apply externally aborted Apply topically Three times daily as needed. [facility] Insurance Providers Payer name Policy type / Coverage type Policy ID Covered constitution party ID Covered constitution party's relationship to sanchez Policy Sanchez Plan Information AETNA MEDICARE [id number] SP MEBSQ KND AETNA MEDICARE MEBSQKND SP MEBSQ KND MEDICARE A [id number] Self [id number] A MEDICARE BLUE PPO [id number] SP [id number] WORKERS COMPENSATION GENERIC W [id number] Empl [id number] WORKERS COMPENSATION GENERIC W [id number] Empl [id number] AETNA MEDICARE MEBSQKND SP MEBSQ KND AETNA MEDICARE O MEBSQKND S MEBSQ KND ANSI-Commercial [id number] ANSI-Medicare Part B [id number] ANSI-Medicare Part B [id number]-[id number] ANSI-Commercial [id number]-3386-5qeu-su1w-9o813w789g8p 9kp6488e-7113-3avn-rw1x-[id number] ANSI-Medicare Part B [id number]-[id number] ANSI-Medicare Part B [id number] AETNA MEDICARE MEBSQKND SP MEBSQ KND ANSI-Medicare Part B [id number] ANSI-Medicare Part B [id number] ANSI-Commercial [id number]-i2b6-5n01-27u2-[id number] [id number]-k8l8-0s79-79m0-ycl79644i9jk ANSI-Commercial [id number]-[id number]-[id number] g41go72a-4468-3239-9969-[id number] ANSI-Medicare Part B [id number] 858hhm4t-84x1-4mbv-52fz-5lnlk7142ft4 ANSI-Medicare Part B [id number]-ho3d-3d220fd17h44 9y6f7dc1-7808-4a43-nz6a-8t314fn94c64 ANSI-Medicare Part B [id number]-5k56-ld6i-01jo25o5es10 2hkf41w0-x89q-2b12-gp9d-81yf19o7nn16 ANSI-Commercial 895yf583-by01-2z9y-hf28-1ff3zt1c49hi 116yv459-or20-7r2d-bs17-6di7pc9j03mj ANSI-Medicare Part B [id number]-74vq-y7l5-ys6zj1svy320 443158r1-11ue-29ry-q0q2-zo2ia4vwh767 ANSI-Commercial bic849qs-54sf-23yv-u068-q3c60ds16o8l koq295tb-19nv-23nb-g318-h1j84vo36l6y ANSI-Medicare Part B [id number]-[id number] y349g98g-90q8-3224-618m-gw5px18hu7c7 ANSI-Medicare Part B [id number]-6x39-2669-i3h0720v5nmj x122oks8-6i4p-8l71-0640-q4w5473b1lax ANSI-Commercial 1lp3h88v-6g12-49cf-10bl-80030bah80uu 4ca9r67k-7h51-28gr-89fq-04703vgp05el ANSI-Medicare Part B [id number]-qqcu-[id number] [id number]-pufm-29o004923djn ANSI-Medicare Part B [id number]-ut89-67c0-h791-89esw1c42244 MEDICARE BLUE PPO 306 [id number] SP [id number] ANSI-Commercial 94934x58-szuf-5mdj-v9zv-y85537726i10 13530y97-jztp-2rfn-s0lb-w25168147x39 ANSI-Medicare Part B [id number]-gm71-708438d6m07q 1r6w1w36-x8j4-7tx9-oy16-473846o5o10s ANSI-Medicare Part B [id number]ohg 782062jv-qjp2-8y71-7886-1ljp2jngsqay MEDICARE BLUE PPO 306 [id number] SP [id number] ANSI-Medicare Part B [id number]-[id number]-r91uz1g87qka ANSI-Commercial 3k22t082-3823-80a9-b709-k96o857o8r8k 6c29q843-4362-78x2-h519-u70r362d3b8i ANSI-Medicare Part B [id number]-[id number] u1a53m5h-537b-322l-1923-54s4b0785134 ANSI-Medicare Part B [id number]-62r8-30cp-6e47m9bg0me2 67k62187-pr4p-10f2-72vc-9b35t0rh7gl4 ANSI-Medicare Part B if788ls5-6dx2-51y2-94x8-y253432l2t78 iy002dw0-3gy4-60c2-87n1-i059300e8m01 ANSI-Commercial r3ch7894-23m0-3386-bt29-r1cpxk3c5982 n2ly8695-26e6-4442-vy80-i6dghd0i7084 ANSI-Medicare Part B [id number]-531r-9035-63gt-y8e34h3ri833 1mzu50yc-921d-2401-42gm-i6p40u2qh113 ANSI-Commercial 7w122287-7l22-0n95-j238-01939h266484 7h769628-7o60-0g32-a595-93661x535070 ANSI-Medicare Part B [id number]-c52k-9v81-e4i0-018132757ane 9y851ty0-h12m-1t27-h0u6-994537835jnp ANSI-Commercial qa1m0cet-34o8-43n4-4e0s-yz2z81o5s4ot ty4y8otv-95q0-94t2-1a7g-jp8l28v1f1rf ANSI-Medicare Part B 106c0k11-338r-49b8-am24-k020jiy63867 069s1t65-995f-02u6-bb73-i895cyk38926 ANSI-Medicare Part B 33i9q5c8-199o-44oj-r3ut-22r86yah78u2 35z8a5j7-277r-35rg-q2gb-65k96xuj32b4 ANSI-Commercial 99s93350-c88d-29pv-800w-hhv331vm02ct 86n08454-v51g-89qp-854i-ver905ii24fq ANSI-Medicare Part B [id number]-788r-3yu1-u4m1-6216171unh40 s210215w-608u-0hd8-w4n4-3174823bma14 ANSI-Medicare Part B [id number]-4036-f719-u6593b66n920 146927qr-8mgq-5306-g998-x7072x12o312 ANSI-Commercial 7bg50a80-7et1-0263-b7ua-5b424600z1j7 8hi44s00-6ao3-6677-w9rs-7o383686y5v5 ANSI-Medicare Part B o0w3f7qd-09q8-6551-nj0m-cp2dak26v74r m1g5e3wj-35b1-4927-cq3g-fa8gwj52x26m ANSI-Medicare Part B [id number]-q995-1858-a000-e1n9y514va7o 0s428u6h-l623-5280-p139-z5m1q028sn9h ANSI-Medicare Part B 194o8984-0dt4-08w4-d1v4-557noby41774 389l2754-2mi3-49s0-s1r0-626nfkg55896 ANSI-Commercial 06s45q20-0485-97jk-08k5-369ooer3887n 04p64s56-5070-96kz-99g6-503ravg9528k ANSI-Medicare Part B [id number]-hlp2-75mm-98n9-822282h42no6 1o32803v-lul8-78zv-84y4-168863j77rd1 ANSI-Medicare Part B 68bv7h8k-bd8w-4gad-pb4o-4979mc7ydl7d 04cv9d9s-uh3z-0uhg-at6z-1943pr4iqh4q ANSI-Commercial 4o3323e7-351z-8d6x-9ga5-3bbxn59t859h 8l7314a3-571z-8n9r-2nk1-9dmsi91x971f ANSI-Medicare Part B 553v1thc-l5ap-886z-v1pu-sy2zy8a205a9 738m9grj-k9ej-368k-p1el-lu3lw2c636c6 ANSI-Commercial 03310558-0i8a-19x1-7ua4-t2i29846165e 01662158-5j2q-18s7-6pk4-g0s12256847d ANSI-Medicare Part B 3m950w4u-534y-41sc-k97f-9p707777io4a 1o272k0d-065y-33hj-m29h-3y365978fs8z ANSI-Medicare Part B 4h555obi-l773-8y45-0aq6-1b10d1l7c0zb 2f746yff-u158-4z86-6ut0-2f39a7f7f0gv ANSI-Medicare Part B [id number]-60hw-4h11-l1i464h14qoj j8988794-572h-68vd-4a42-j6n953t49aiu ANSI-Commercial w0i75236-v681-903l-d103-690wn2891054 o4b31562-q437-720n-e799-732cp6397447 ANSI-Medicare Part B [id number]-bh68-1y2t40cn1l54 5g327224-4306-4941-zv60-6g2x34rj6e87 MEDICARE BLUE PPO 306 [id number] SP [id number] EXCELLUS BS B [id number] S [id number] ANSI-Commercial g676f89v-56ng-9885-sb94-u20144sl1z19 f912v55t-87qg-0119-dc08-m72545gy7d09 ANSI-Medicare Part B [id number]-hs4k-2a7g9bwg7995 rc12r217-8075-6210-wd9z-8y1f3qew5384 ANSI-Medicare Part B 7688m570-l250-5885-e198-90h543j485lv 5583s609-t852-6903-f888-68w502q379wk [facility] MEDICARE Medicare [facility] MEDICARE [id number] [place] [id number] ANSI-Medicare Part B [id number]-7823-33zt-gb12q953o2u8 i84a5699-9q7s-1980-38wq-cr87v530g5p4 ANSI-Commercial 10410e4y-253r-548t-c8j3-z21103j55ecz 09188x4s-679u-517x-n7j3-o71334o58vvz ANSI-Medicare Part B ryq0f108-hk90-4cod-249r-763617430m1w mop3e471-qw92-2bts-722l-049195470m1o ANSI-Commercial vj8rx016-9s69-83m1-w3zc-2woq9yly7266 te6rl502-8w07-51s9-v6al-4lyp4ihs1432 ANSI-Medicare Part B 3466dar3-b687-2b54-6t77-9548494i4p46 4506ydh2-v777-4c39-3t54-4536142e0k21 ANSI-Medicare Part B 7017xzl1-8l7o-4a89-o7p5-40e8t0f01067 7123rbl5-9k6a-0n34-p7g4-54k0y2r03148 ANSI-Commercial d79z1854-3908-471z-y212-2m3mk16gz826 m46u6864-1201-597d-n551-5y9wu80zz022 ANSI-Medicare Part B ay8i64nk-8l75-506y-jv99-r408ew894y43 zb6m70ej-5a75-440c-kk80-r689od983o22 ANSI-Medicare Part B 4987m314-71t4-537n-9322-moxk9i5k4ki2 3175s948-07k5-120e-5173-nwja4c5t8lk1 ANSI-Medicare Part B 5xp57181-wncg-524a-n22h-8xei94l866zr 6ms40507-xyfp-426p-j21c-3lvh09n161vs ANSI-Commercial 639h75v5-5w8z-0wim-l1hz-2tr9wk3fcg49 523h65g2-8r9d-6huv-x2ud-3qd7ey2yzl88 ANSI-Medicare Part B 8541cp27-960s-0090-4f8g-4219l6h8095b 7686do06-661p-9085-7t3f-1869a6h4823b ANSI-Commercial 57fr0e52-0wp6-285i-y33f-1r6u1uxs9138 67zu1d22-8ek6-082x-i09v-8p5e2ymm4528 ANSI-Medicare Part B a6dh6bs6-y752-1cr2-vcdj-850vvr191f75 t6nc2qu7-e113-2pk1-ctmj-652eyi097x06 ANSI-Medicare Part B [id number]-185w-3ugg-2jsu4v0h905z 67421827-e30j-270n-1xbo-5muq9e8a763y ANSI-Commercial fm177f38-27r4-93v3-88x8-86860s7805n5 zo898o74-01m3-15a8-66a9-35139p5859d3 ANSI-Medicare Part B [id number]-75m3-904wg07z6333 5g7416i2-03n6-194g-49t8-304gn35z7666 ANSI-Medicare Part B 62kufp86-5h80-6942-4f93-29cximi231me 74asvi70-4y48-6894-0e11-30tollj306tm MEDICARE BLUE PPO 306 [id number] SP [id number] ANSI-Medicare Part B [id number]-ww48-[id number] 55o54860-7258-941j-yx24-t134z6id668v ANSI-Commercial 1n63rh6z-2204-1294-2gdj-zdosnnl7rv8b 3m25se9i-1165-8281-7kpk-ybrzqwt2zq1g ANSI-Medicare Part B [id number]-5rs0-33m2-2196j9574qcx 25x43034-516u-2qo9-55g8-9630a9702drv ANSI-Commercial 236l5yrl-3qe4-46h6-dz92-35k81o992379 334d6slj-4mg1-80m4-fl38-95o45b126140 ANSI-Medicare Part B 2lbrj69g-v38g-3h7b-3lb9-o1y15834z93w 1zgwk36e-s98h-8w4m-4de5-q2k16054l83q ANSI-Medicare Part B [id number]-[id number]-27m3-1pn3-x389-0081039588s1 HU[employer] GOLD [id number] SP [id number] ANSI-Medicare Part B [id number]-383e-e822-7613ei00o2p8 o00j0js5-1q6g-098c-v674-9318wp15k7m6 ANSI-Commercial [id number]-5p9t-45zj-5248-3h7441u0w315 u176501h-1g1u-68nv-1279-4a1273m0b125 ANSI-Medicare Part B 54d74u6r-05q6-3d2l-87ng-r17558n4s8g6 60w15j3v-91d8-2l8y-25dw-f10294r6p5o4 HUMANA GOLD [id number] SP [id number] MEDICARE BLUE PPO 306 [id number] SP [id number] MEDICARE [id number] SP [id number] A HUMANA PPO [id number] SP [id number] HU[employer]NA GOLD [id number] SP [id number] [employer]MANA GOLD [id number] SP [id number] HUMANA GOLD [id number] SP [id number] HUMANA PPO O [id number] S [id number] MEDICARE C [id number] S [id number] A Excellus BCBS Medigap Part B [id number] Self [id number] Hum[employer] Gold/Medicare Commercial [id number] Self [id number] Medicare [place] Medicare Primary [id number] Self [id number] VERIZON [id number] SP [id number] MEDICARE [id number] SP [id number] A MEDICAID UNAVAILABLE UNA[place]ILA BLE [place] 332/834 [id number] SP [id number] [place]BS [place] WATN PPO 302/307 [id number] SP [id number] EXCELLUS H [id number] Self [id number] [facility] [id number] SP [id number] [facility] [id number] SP [id number] [place] BC BS Medigap Part B Self [place] BC/[place] Medigap Part B Self [place] Pref Medigap Part B Self Medicare (Part B) [place] Primary Self [place] Medigap Part B Self [facility] UNAVAILABLE UNAVAILABLE [place] TELEPHONE [id number] [place] 332/834 [id number] SP [id number] WORKERS COMPENSATION GENERIC W [id number] Empl [id number] [place]BS [place] WATN PPO 302/307 [id number] SP [id number] BLUE [place] OTHER 1 [id number] SP [id number] Medicare Medicare Primary Self BCBS [place] 200/700 UNAVAILABLE UNAVAILABLE [place] 332/834 [id number] SP [id number] VERIZON CLAIM# [id number] SP CLAI M# [id number] VERIZON [id number] SP [id number] VERIZ[place] [id number] SP [id number] MEDICARE A [id number] Self [id number] A EXCELLUS H [id number] Self [id number] WORKERS COMPENSATION GENERIC W [id number] Empl [id number] SC TELEPHONE [id number] SP [id number] BCBS [place] [facility] 303/803 [id number] SP [id number] [employer] [place] [facility] 303/803 [id number] SP [id number] [employer] [place] [facility] 303/803 [id number] SP [id number] EXCELLUS BCBS S [id number] S [id number] BC BLUE CARD 1 [id number] MEDICARE 4 [id number] A SELF PAY 2 UNAVAILABLE 1 UNAVAILA BLE Results ID Date Data Source [id number] 03/12/2020 12:55:45 PM EDT [facility] Name Value Range Interpretation Code Description Data Lisha rce(s) Supporting Document(s) Progress Note [facility] [id number] lbm [file] [id number] Procedure Social History Code Duration Value Status Description Data Source(s ) Smoking 03/14/2020 12:00:00 AM EDT Never Smoker completed Never S moker eCW1 ([facility]) Alcohol intake 03/12/2020 12:00:00 AM EDT Current non-d jimbo of alcohol (finding) completed Current non-drinker of alcohol (finding) [facility] Cigarette pack-years 03/12/2020 12:00:00 AM EDT UNK completed [facility] Cigarettes smoked current (pack per day) - Reported 03/12/20 12:00:00 AM EDT UNK completed [facility] Smoking 03/12/2020 12:00:00 AM EDT Former smoker completed Former smoker [facility] Smoking 02/09/2020 12:00:00 AM EDT Never Smoker completed Never S moker eCW1 ([facility]) Vital Signs ID Date Data Source UNK Name Value Range Interpretation Code Description Data Source(s) Diastolic blood pressure 70 mm[Hg] 70 mm[Hg] eCW1 ([facility]) Systolic blood pressure 122 mm[Hg] 122 mm[Hg] e CW1 ([facility]) Body temperature 96.8 [degF] 96.8 [degF] eCW1 ( [facility]) Respiratory rate 18 /min 18 /min eCW1 ([facility]) Heart rate 89 /min 89 /min eCW1 ([facility]) Body mass index (BMI) [Ratio] 36.83 kg/m2 36.83 kg/m2 eCW1 ([facility]) Body height 64 [in_i] 64 [in_i] eCW1 ([facility]) Body weight 214.6 [lb_av] 214.6 [lb_av] eCW1 ([facility]) Patient Treatment Plan of Care Planned Activity Planned Date Details Description Data Source (s) Lidocaine 4 % External Patch 03/12/2020 12:00:00 AM EDT [facility] Lidocaine (LIDODERM EX) [facility]
[2020-09-27 12:56] LABS: BASO # 0.1 10^3/uL (0.0-0.2); BASO % 0.7 % (0.0-1.0); EOS # 0.1 10^3/uL (0.0-0.5); EOS % 0.8 % (0.0-3.0); HEMATOCRIT 34.6 % (36.0-47.0); HEMOGLOBIN 11.1 g/dl (12.0-15.5); LYMPH # 1.4 10^3/uL (1.5-5.0); LYMPH % 19.1 % (24.0-44.0); MEAN CORPUSCULAR HEMOGLOBIN 26.1 pg (27.0-33.0); MEAN CORPUSCULAR HGB CONC 32.1 g/dl (32.0-36.5); MEAN CORPUSCULAR VOLUME 81.2 fl (80.0-96.0); MONO # 0.6 10^3/uL (0.0-0.8); MONO % 8.8 % (0.0-5.0); NEUTROPHILS # 5.1 10^3/uL (1.5-8.5); NEUTROPHILS % 69.9 % (36.0-66.0); PLATELET COUNT, AUTOMATED 327 10^3/uL (150-450); RED BLOOD COUNT 4.26 10^6/uL (4.00-5.40); WHITE BLOOD COUNT 7.3 10^3/uL (4.0-10.0)
[2020-09-27 13:25] LABS: ALBUMIN 3.4 GM/DL (3.2-5.2); ALT/SGPT 13 U/L (12-78); BILIRUBIN,DIRECT < 0.1 MG/DL (0.0-0.2); BILIRUBIN,TOTAL 0.2 MG/DL (0.2-1.0); BLOOD UREA NITROGEN 9 MG/DL (7-18); CALCIUM LEVEL 9.5 MG/DL (8.8-10.2); CARBON DIOXIDE LEVEL 26 MEQ/L (21-32); CHLORIDE LEVEL 99 MEQ/L (98-107); CREATININE FOR GFR 0.76 MG/DL (0.55-1.30); GLOMERULAR FILTRATION RATE > 60.0 (>45); GLUCOSE, FASTING 83 MG/DL (70-100); POTASSIUM SERUM 4.9 MEQ/L (3.5-5.1); SODIUM LEVEL 132 MEQ/L (136-145); TOTAL PROTEIN 7.2 GM/DL (6.4-8.2)
[2020-09-27 13:34] LABS: CK-MB VALUE MASS < 1.0 NG/ML (<3.6); CPK CREATINE PHOSPHOKINASE 92 U/L (26-192); LIPASE 82 U/L (73-393); MB/CK RELATIVE INDEX 1.09 (< OR =4); NT-PRO BNP 182 PG/ML (<125); TROPONIN I < 0.02 NG/ML (< 0.10)
[2020-09-27 14:52] VITALS: BP 137/67
--- NOTE | 2020-09-27 20:00 | ECGEPIP ---
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
== END 2020-09-27 14:55 | disposition home or self-care (01) ==
LOC: M ED 11:03 → EDBD 11:03 → M ED 14:55
DX: R06.02 Shortness of breath (principal); R51.9 Headache, unspecified; I10 Essential (primary) hypertension; K21.9 Gastro-esophageal reflux disease without esophagitis; M79.7 Fibromyalgia; Z88.0 Allergy status to penicillin; Z88.6 Allergy status to analgesic agent; Z88.8 Allergy status to other drugs, medicaments and biological substances; Z91.011 Allergy to milk products; Z91.012 Allergy to eggs
CPT/HCPCS: 36415; 71045; 80048; 80076; 82550; 82553; 83690; 83880; 84439; 84443; 84484; 85025; 85379; 87804; 93005; 93041; 94760; 99285; U0003

== ENCOUNTER → 2020-12-03 | Outpatient (REF) | payer MEDICARE ==
[2020-12-03 18:24] LABS: HEMATOCRIT 34.3 % (36.0-47.0); HEMOGLOBIN 10.5 g/dl (12.0-15.5); MEAN CORPUSCULAR HEMOGLOBIN 25.4 pg (27.0-33.0); MEAN CORPUSCULAR HGB CONC 30.6 g/dl (32.0-36.5); MEAN CORPUSCULAR VOLUME 82.9 fl (80.0-96.0); PLATELET COUNT, AUTOMATED 342 10^3/uL (150-450); RED BLOOD COUNT 4.14 10^6/uL (4.00-5.40); WHITE BLOOD COUNT 8.4 10^3/uL (4.0-10.0)
[2020-12-03 18:27] LABS: INR 1.12; PROTHROMBIN TIME 14.7 SECONDS (12.5-14.3)
[2020-12-03 18:56] LABS: ALBUMIN 3.6 GM/DL (3.2-5.2); ALT/SGPT 14 U/L (12-78); BILIRUBIN,TOTAL 0.2 MG/DL (0.2-1.0); BLOOD UREA NITROGEN 14 MG/DL (7-18); CALCIUM LEVEL 9.6 MG/DL (8.8-10.2); CARBON DIOXIDE LEVEL 28 MEQ/L (21-32); CHLORIDE LEVEL 105 MEQ/L (98-107); CREATININE FOR GFR 0.81 MG/DL (0.55-1.30); FREE T4 1.11 NG/DL (0.76-1.46); GLOMERULAR FILTRATION RATE > 60.0 (>39); GLUCOSE, FASTING 87 MG/DL (70-100); POTASSIUM SERUM 4.7 MEQ/L (3.5-5.1); SODIUM LEVEL 140 MEQ/L (136-145); THYROID STIMULATING HORMONE 0.534 uIU/ML (0.358-3.740); TOTAL PROTEIN 7.1 GM/DL (6.4-8.2)
== END ==
LOC: M SFHCPLAZ 15:14
PROVIDERS: ATTEND Physician Assistant
DX: R23.3 Spontaneous ecchymoses (principal); Z79.899 Other long term (current) drug therapy

== ENCOUNTER → 2021-06-30 | Outpatient (CLI) | payer MEDICARE ==
[~2021-06-30] MED LIST changes: +OMEP40CA4 PO; -OMEP40CA97 PO
[2021-06-30 17:49] LABS: BASO # 0.1 10^3/uL (0.0-0.2); BASO % 0.8 % (0.0-1.0); EOS # 0.1 10^3/uL (0.0-0.5); EOS % 0.8 % (0.0-3.0); HEMATOCRIT 36.8 % (36.0-47.0); HEMOGLOBIN 11.5 g/dl (12.0-15.5); LYMPH # 2.2 10^3/uL (1.5-5.0); LYMPH % 29.7 % (24.0-44.0); MEAN CORPUSCULAR HEMOGLOBIN 24.8 pg (27.0-33.0); MEAN CORPUSCULAR HGB CONC 31.3 g/dl (32.0-36.5); MEAN CORPUSCULAR VOLUME 79.3 fl (80.0-96.0); MONO # 0.7 10^3/uL (0.0-0.8); MONO % 9.5 % (2.0-8.0); NEUTROPHILS # 4.4 10^3/uL (1.5-8.5); NEUTROPHILS % 58.8 % (36.0-66.0); PLATELET COUNT, AUTOMATED 319 10^3/uL (150-450); RED BLOOD COUNT 4.64 10^6/uL (4.00-5.40); WHITE BLOOD COUNT 7.4 10^3/uL (4.0-10.0)
[2021-06-30 17:53] LABS: HEMOGLOBIN A1c 5.7 %
[2021-06-30 18:00] LABS: ALBUMIN 3.4 GM/DL (3.2-5.2); BILIRUBIN,TOTAL 0.3 MG/DL (0.2-1.0); CALCIUM LEVEL 9.8 MG/DL (8.8-10.2); CHOLESTEROL RISK RATIO 2.796 (<5); FREE T4 1.05 NG/DL (0.76-1.46); GLOMERULAR FILTRATION RATE 58.4 (>39); POTASSIUM SERUM 4.2 MEQ/L (3.5-5.1); THYROID STIMULATING HORMONE 0.618 uIU/ML (0.358-3.740); TOTAL 25(OH) VITAMIN D 63.1 NG/ML (30.0-100.0); TOTAL PROTEIN 7.3 GM/DL (6.4-8.2)
[2021-06-30 18:05] LABS: INR 1.3; PROTHROMBIN TIME 16.6 SECONDS (12.7-14.5)
[2021-06-30 18:06] LABS: PARTIAL THROMBOPLASTIN TIME 39.4 SECONDS (25.9-37.0)
== END ==
LOC: M PLALAB 14:45
PROVIDERS: ATTEND Nurse Practitioner Family
DX: E78.2 Mixed hyperlipidemia (principal); I10 Essential (primary) hypertension; E55.9 Vitamin D deficiency, unspecified; R23.3 Spontaneous ecchymoses; Z79.01 Long term (current) use of anticoagulants; Z79.899 Other long term (current) drug therapy

== ENCOUNTER 2021-10-03 17:19 | Inpatient (IN) | payer MEDICARE ==
[~2021-10-03] VITALS: Ht 162.6 cm; Wt 83.4 kg
[2021-10-03] MEDS ORDERED: RIVAROXABAN 10 MG TAB (XARELTO) PO SCH (18:00)
[2021-10-03 18:35] LABS: BASO % 0.5 % (0.0-1.0); EOS % 0.4 % (0.0-3.0); HEMATOCRIT 35.4 % (36.0-47.0); HEMOGLOBIN 11.7 g/dl (12.0-15.5); LYMPH # 1.8 10^3/uL (1.5-5.0); LYMPH % 23.2 % (24.0-44.0); MEAN CORPUSCULAR HEMOGLOBIN 26.1 pg (27.0-33.0); MEAN CORPUSCULAR HGB CONC 33.1 g/dl (32.0-36.5); MONO # 0.7 10^3/uL (0.0-0.8); MONO % 9.4 % (2.0-8.0); NEUTROPHILS % 66.1 % (36.0-66.0); PLATELET COUNT, AUTOMATED 254 10^3/uL (150-450); RED BLOOD COUNT 4.48 10^6/uL (4.00-5.40); WHITE BLOOD COUNT 7.6 10^3/uL (4.0-10.0)
[2021-10-03] MEDS ORDERED: ACETAMINOPHEN TAB 650MG DOSE (2X325MG) PO ONE (18:50)
[2021-10-03 19:04] LABS: ALBUMIN 3.3 GM/DL (3.2-5.2); ALT/SGPT 16 U/L (12-78); BILIRUBIN,DIRECT < 0.1 MG/DL (0.0-0.2); BILIRUBIN,TOTAL 0.2 MG/DL (0.2-1.0); BLOOD UREA NITROGEN 6 MG/DL (7-18); CALCIUM LEVEL 9.5 MG/DL (8.8-10.2); CARBON DIOXIDE LEVEL 23 MEQ/L (21-32); CHLORIDE LEVEL 102 MEQ/L (98-107); CREATININE FOR GFR 0.75 MG/DL (0.55-1.30); FREE T4 1.42 NG/DL (0.76-1.46); GLOMERULAR FILTRATION RATE > 60.0 (>39); GLUCOSE, FASTING 84 MG/DL (70-100); POTASSIUM SERUM 4.4 MEQ/L (3.5-5.1); SODIUM LEVEL 134 MEQ/L (136-145); TOTAL PROTEIN 7.1 GM/DL (6.4-8.2)
[2021-10-03] MEDS ORDERED: LevoFLOXacin IV 750 MG in IV 1 EA IV ONE (19:30)
[2021-10-03] MEDS ORDERED: DICY20TA20 PO (19:45)
[2021-10-03] MEDS ORDERED: XARE10TA PO (19:45)
[2021-10-03] MEDS ORDERED: OXYB10TA23 PO (19:46)
[2021-10-03] MEDS ORDERED: VITA200016 PO (19:46)
[2021-10-03] MEDS ORDERED: LIDO5DIS41 TD (20:07)
[2021-10-03] MEDS ORDERED: CETI-24 PO (20:07)
[2021-10-03] MEDS ORDERED: HOME MED LIST COMPLETE! XX SCH (20:10)
[2021-10-03] MEDS ORDERED: AZELASTINE 137MCG NASAL SPY 30 ML (ASTELIN) PRN (20:30)
[2021-10-03] MEDS ORDERED: ACETAMINOPHEN 500 MG TAB PO PRN (20:30)
[2021-10-03] MEDS ORDERED: NYSTATIN 100,000 UNITS/GM TOPICAL PWD 15 GM TOP PRN (20:30)
[2021-10-03] MEDS ORDERED: DICYCLOMINE 10 MG CAP PO PRN (20:30)
[2021-10-03] MEDS ORDERED: LACTULOSE 20 GM/30 ML SYRUP UD PO PRN (20:30)
[2021-10-03] MEDS ORDERED: LIDOCAINE 5% (LIDODERM) PATCH TD PRN (20:30)
[2021-10-03] MEDS ORDERED: MECLIZINE 25 MG TABLET PO PRN (20:30)
[2021-10-03] MEDS ORDERED: DIVALPROEX 500 MG TAB PO SCH (21:00)
[2021-10-03] MEDS ORDERED: EZETIMIBE 10MG TABLET (ZETIA) PO SCH (21:00)
[2021-10-03] MEDS ORDERED: **NOTE PATIENT COMMENT** MISC XX SCH (21:00)
[2021-10-03] MEDS ORDERED: oxyBUTYnin *DITROPAN XL* 5 MG TABCR PO SCH (21:00)
[2021-10-03] MEDS ORDERED: CETIRIZINE (ZyrTEC) 10 MG TAB PO SCH (21:00)
[2021-10-04 00:58] VITALS: BP 129/64
[2021-10-04] MEDS ORDERED: PANTOPRAZOLE 40MG TAB (PROTONIX) PO SCH (09:00)
[2021-10-04] MEDS ORDERED: VERAPAMIL 180MG EXTENDED RELEASE TABLET PO SCH (09:00)
[2021-10-04] MEDS ORDERED: LevoFLOXacin IV 500 MG in IV 1 EA IV SCH (18:00)
== END 2021-10-04 03:55 | disposition left against medical advice (07) | DRG 101 ==
LOC: M ED 17:19 → M ED INP 20:07 → ENRESERV 22:29 → M MS5PR 10-04 00:50
PROVIDERS: ADMIT Family Medicine; ATTEND Family Medicine
DX: R56.9 Unspecified convulsions (principal); N39.0 Urinary tract infection, site not specified; I10 Essential (primary) hypertension; I25.2 Old myocardial infarction; E78.5 Hyperlipidemia, unspecified; J44.9 Chronic obstructive pulmonary disease, unspecified; R55 Syncope and collapse; M79.7 Fibromyalgia; E55.9 Vitamin D deficiency, unspecified; G43.B0 Ophthalmoplegic migraine, not intractable; H81.10 Benign paroxysmal vertigo, unspecified ear; Z86.711 Personal history of pulmonary embolism; Z86.718 Personal history of other venous thrombosis and embolism; Z87.891 Personal history of nicotine dependence; Z66 Do not resuscitate; Z79.01 Long term (current) use of anticoagulants; Z79.899 Other long term (current) drug therapy; Z88.0 Allergy status to penicillin; Z88.6 Allergy status to analgesic agent; Z86.73 Personal history of transient ischemic attack (TIA), and cerebral infarction without residual deficits; Z88.5 Allergy status to narcotic agent; Z88.8 Allergy status to other drugs, medicaments and biological substances; Z91.012 Allergy to eggs; Z91.011 Allergy to milk products

== ENCOUNTER 2021-10-08 15:23 | Inpatient (IN) | payer MEDICARE ==
[~2021-10-08] VITALS: Ht 152.4 cm; Wt 83.8 kg
[~2021-10-08 15:23] MED LIST changes: +CETI-24 PO; +DICY20TA20 PO; +OXYB10TA23 PO; +VITA200016 PO
[2021-10-08] MEDS ORDERED: METOCLOPRAMIDE INJ 10MG/2ML VIAL (J2765 PER 1) IV ONE (16:30)
[2021-10-08 16:41] LABS: BASO % 0.5 % (0.0-1.0); EOS % 0.4 % (0.0-3.0); HEMATOCRIT 34.2 % (36.0-47.0); HEMOGLOBIN 11.5 g/dl (12.0-15.5); LYMPH # 1.5 10^3/uL (1.5-5.0); LYMPH % 19.2 % (24.0-44.0); MEAN CORPUSCULAR HEMOGLOBIN 26.8 pg (27.0-33.0); MEAN CORPUSCULAR HGB CONC 33.6 g/dl (32.0-36.5); MEAN CORPUSCULAR VOLUME 79.7 fl (80.0-96.0); MONO # 0.9 10^3/uL (0.0-0.8); MONO % 10.8 % (2.0-8.0); NEUTROPHILS # 5.4 10^3/uL (1.5-8.5); NEUTROPHILS % 68.5 % (36.0-66.0); PLATELET COUNT, AUTOMATED 228 10^3/uL (150-450); RED BLOOD COUNT 4.29 10^6/uL (4.00-5.40); WHITE BLOOD COUNT 7.9 10^3/uL (4.0-10.0)
[2021-10-08 17:06] LABS: CK-MB VALUE MASS < 1.0 NG/ML (<3.6); CPK CREATINE PHOSPHOKINASE 71 U/L (26-192); MB/CK RELATIVE INDEX 1.41 (< OR =4)
[2021-10-08 17:40] LABS: ALT/SGPT 26 U/L (12-78); BILIRUBIN,DIRECT < 0.1 MG/DL (0.0-0.2); BILIRUBIN,TOTAL 0.3 MG/DL (0.2-1.0); BLOOD UREA NITROGEN 10 MG/DL (7-18); CALCIUM LEVEL 9.1 MG/DL (8.8-10.2); CARBON DIOXIDE LEVEL 25 MEQ/L (21-32); CHLORIDE LEVEL 97 MEQ/L (98-107); GLOMERULAR FILTRATION RATE > 60.0 (>39); GLUCOSE, FASTING 80 MG/DL (70-100); LIPASE 47 U/L (73-393); NT-PRO BNP 264 PG/ML (<125); POTASSIUM SERUM 4.1 MEQ/L (3.5-5.1); SODIUM LEVEL 132 MEQ/L (136-145); THYROID STIMULATING HORMONE 0.414 uIU/ML (0.358-3.740); TOTAL PROTEIN 6.2 GM/DL (6.4-8.2)
[2021-10-08 19:28] LABS: AMPHETAMINES LEVEL URINE NEGATIVE (NEGATIVE); BARBITURATES URINE NEGATIVE (NEGATIVE); BENZODIAZEPINES URINE NEGATIVE (NEGATIVE); CANNABINOIDS URINE NEGATIVE (NEGATIVE); COCAINE METABOLITE URINE NEGATIVE (NEGATIVE); METHADONE URINE NEGATIVE (NEGATIVE); OPIATES URINE NEGATIVE (NEGATIVE); PHENCYCLIDINE URINE NEGATIVE (NEGATIVE)
[2021-10-08 20:39] LABS: RSV AMPLIFICATION NEGATIVE (NEGATIVE)
[2021-10-08] MEDS ORDERED: RIVAROXABAN 10 MG TAB (XARELTO) PO ONE (23:30)
[2021-10-08] MEDS ORDERED: BACLOFEN 10 MG TAB PO ONE (23:30)
[2021-10-08] MEDS ORDERED: DIVALPROEX 500 MG TAB PO ONE (23:30)
[2021-10-08] MEDS ORDERED: CETIRIZINE (ZyrTEC) 10 MG TAB PO ONE (23:30)
[2021-10-09] MEDS ORDERED: EZETIMIBE 10MG TABLET (ZETIA) PO ONE
[2021-10-09] MEDS ORDERED: HOME MED LIST COMPLETE! XX SCH (00:10)
[2021-10-09] MEDS ORDERED: traZODone 50 MG TAB PO PRN (00:15)
[2021-10-09] MEDS ORDERED: MOM 30ML SUSPENSION UDC PO PRN (00:15)
[2021-10-09 02:12] VITALS: BP 136/69
[2021-10-09] MEDS ORDERED: OLANZapine ORAL DISINTEGRATING TAB 5MG PO PRN (04:10)
[2021-10-09] MEDS: ACETAMINOPHEN TAB 650MG DOSE (2X325MG) PO PRN (10:49)
[2021-10-09] MEDS ORDERED: QUEtiapine FUMARATE 12.5 MG HALF-TAB PO PRN (15:10)
[2021-10-09] MEDS ORDERED: CETIRIZINE (ZyrTEC) 10 MG TAB PO PRN (15:55)
[2021-10-09] MEDS ORDERED: LIDOCAINE 5% (LIDODERM) PATCH TD PRN (15:55)
[2021-10-09] MEDS ORDERED: NYSTATIN 100,000 UNITS/GM TOPICAL PWD 15 GM TOP PRN (15:55)
[2021-10-09] MEDS ORDERED: LACTULOSE 20 GM/30 ML SYRUP UD PO PRN (15:55)
[2021-10-09] MEDS ORDERED: MECLIZINE 25 MG TABLET PO PRN (15:55)
[2021-10-09] MEDS ORDERED: AZELASTINE 137MCG NASAL SPY 30 ML (ASTELIN) PRN (15:55)
[2021-10-09] MEDS: MAALOX 30 ML SUSP *UDC PO PRN (16:47)
[2021-10-09 17:19] VITALS: BP 147/67
[2021-10-09] MEDS: DIVALPROEX 500 MG TAB PO SCH (20:16)
[2021-10-09] MEDS: oxyBUTYnin *DITROPAN XL* 5 MG TABCR PO SCH (20:17)
[2021-10-09] MEDS: RIVAROXABAN 10 MG TAB (XARELTO) PO SCH (20:24)
[2021-10-09] MEDS: EZETIMIBE 10MG TABLET (ZETIA) PO SCH (20:25)
[2021-10-09] MEDS ORDERED: **NOTE PATIENT COMMENT** MISC XX SCH (21:00)
[2021-10-09] MEDS: LIDOCAINE 5% (LIDODERM) PATCH TD SCH (21:25)
[2021-10-10 06:47] VITALS: BP 124/60
[2021-10-10] MEDS: VERAPAMIL 180MG EXTENDED RELEASE TABLET PO SCH (08:50)
[2021-10-10] MEDS: PANTOPRAZOLE 40MG TAB (PROTONIX) PO SCH (08:51)
[2021-10-10] MEDS: **NOTE PATIENT COMMENT** MISC XX SCH (08:51)
[2021-10-10] MEDS: DIVALPROEX 500 MG TAB PO SCH ×2 (08:51→20:31)
[2021-10-10] MEDS: QUEtiapine FUMARATE 12.5 MG HALF-TAB PO SCH ×2 (10:10→20:31)
[2021-10-10 12:42] LABS: HEMATOCRIT 35.9 % (36.0-47.0); HEMOGLOBIN 11.7 g/dl (12.0-15.5); MEAN CORPUSCULAR HEMOGLOBIN 26.2 pg (27.0-33.0); MEAN CORPUSCULAR HGB CONC 32.6 g/dl (32.0-36.5); MEAN CORPUSCULAR VOLUME 80.5 fl (80.0-96.0); PLATELET COUNT, AUTOMATED 221 10^3/uL (150-450); RED BLOOD COUNT 4.46 10^6/uL (4.00-5.40); WHITE BLOOD COUNT 7.1 10^3/uL (4.0-10.0)
[2021-10-10 13:11] LABS: BLOOD UREA NITROGEN 10 MG/DL (7-18); CALCIUM LEVEL 9.3 MG/DL (8.8-10.2); CARBON DIOXIDE LEVEL 27 MEQ/L (21-32); CHLORIDE LEVEL 101 MEQ/L (98-107); CREATININE FOR GFR 0.75 MG/DL (0.55-1.30); GLOMERULAR FILTRATION RATE > 60.0 (>39); GLUCOSE, FASTING 89 MG/DL (70-100); MAGNESIUM LEVEL 1.8 MG/DL (1.8-2.4); SODIUM LEVEL 136 MEQ/L (136-145)
[2021-10-10] MEDS: BACLOFEN 10 MG TAB PO PRN (15:06)
[2021-10-10 16:04] VITALS: BP 128/72
[2021-10-10] MEDS: LIDOCAINE 5% (LIDODERM) PATCH TD SCH (20:29)
[2021-10-10] MEDS: RIVAROXABAN 10 MG TAB (XARELTO) PO SCH (20:31)
[2021-10-10] MEDS: oxyBUTYnin *DITROPAN XL* 5 MG TABCR PO SCH (20:31)
[2021-10-10] MEDS: EZETIMIBE 10MG TABLET (ZETIA) PO SCH (20:31)
[2021-10-11 06:21] VITALS: BP 103/49
[2021-10-11 08:09] VITALS: BP 115/59
[2021-10-11] MEDS: PANTOPRAZOLE 40MG TAB (PROTONIX) PO SCH (08:10)
[2021-10-11] MEDS: VERAPAMIL 180MG EXTENDED RELEASE TABLET PO SCH ×2 (08:12→20:20)
[2021-10-11] MEDS: ACETAMINOPHEN TAB 650MG DOSE (2X325MG) PO PRN ×2 (08:12→18:23)
[2021-10-11] MEDS: DIVALPROEX 500 MG TAB PO SCH ×2 (08:12→20:15)
[2021-10-11] MEDS: QUEtiapine FUMARATE 12.5 MG HALF-TAB PO SCH ×2 (08:12→20:20)
[2021-10-11 09:31] LABS: CHOLESTEROL RISK RATIO 2.596 (<5); VALPROIC ACID (DEPAKOTE) 63.1 UG/ML (50.0-100.0)
[2021-10-11] MEDS: **NOTE PATIENT COMMENT** MISC XX SCH (09:37)
[2021-10-11 16:12] VITALS: BP 117/58
[2021-10-11] MEDS: MAALOX 30 ML SUSP *UDC PO PRN ×2 (17:06→20:15)
[2021-10-11] MEDS: EZETIMIBE 10MG TABLET (ZETIA) PO SCH (20:15)
[2021-10-11] MEDS: oxyBUTYnin *DITROPAN XL* 5 MG TABCR PO SCH (20:20)
[2021-10-11] MEDS: LIDOCAINE 5% (LIDODERM) PATCH TD SCH (20:20)
[2021-10-11] MEDS: BACLOFEN 10 MG TAB PO PRN (20:20)
[2021-10-11] MEDS: RIVAROXABAN 10 MG TAB (XARELTO) PO SCH (20:29)
[2021-10-12 06:29] VITALS: BP 123/56
[2021-10-12] MEDS: VERAPAMIL 180MG EXTENDED RELEASE TABLET PO SCH (09:12)
[2021-10-12] MEDS: QUEtiapine FUMARATE 12.5 MG HALF-TAB PO SCH ×2 (09:12→20:23)
[2021-10-12] MEDS: DIVALPROEX 500 MG TAB PO SCH ×2 (09:12→20:23)
[2021-10-12] MEDS: PANTOPRAZOLE 40MG TAB (PROTONIX) PO SCH (09:15)
[2021-10-12] MEDS: **NOTE PATIENT COMMENT** MISC XX SCH (09:20)
[2021-10-12] MEDS: ACETAMINOPHEN TAB 650MG DOSE (2X325MG) PO PRN (11:19)
[2021-10-12 16:09] VITALS: BP 136/65
[2021-10-12] MEDS: EZETIMIBE 10MG TABLET (ZETIA) PO SCH (20:23)
[2021-10-12] MEDS: oxyBUTYnin *DITROPAN XL* 5 MG TABCR PO SCH (20:23)
[2021-10-12] MEDS: LIDOCAINE 5% (LIDODERM) PATCH TD SCH (20:24)
[2021-10-12] MEDS: RIVAROXABAN 10 MG TAB (XARELTO) PO SCH (20:24)
[2021-10-13] MEDS: MAALOX 30 ML SUSP *UDC PO PRN (02:00)
[2021-10-13 06:23] VITALS: BP 104/62
[2021-10-13] MEDS: DIVALPROEX 500 MG TAB PO SCH ×2 (08:22→20:20)
[2021-10-13] MEDS: QUEtiapine FUMARATE 12.5 MG HALF-TAB PO SCH (08:23)
[2021-10-13] MEDS: VERAPAMIL 180MG EXTENDED RELEASE TABLET PO SCH (08:23)
[2021-10-13] MEDS: PANTOPRAZOLE 40MG TAB (PROTONIX) PO SCH (08:23)
[2021-10-13] MEDS: **NOTE PATIENT COMMENT** MISC XX SCH (08:25)
[2021-10-13 18:25] VITALS: BP 128/62
[2021-10-13] MEDS: EZETIMIBE 10MG TABLET (ZETIA) PO SCH (20:20)
[2021-10-13] MEDS: oxyBUTYnin *DITROPAN XL* 5 MG TABCR PO SCH (20:21)
[2021-10-13] MEDS: RIVAROXABAN 10 MG TAB (XARELTO) PO SCH (20:23)
[2021-10-13] MEDS: QUEtiapine FUMARATE 50MG TAB PO SCH (20:28)
[2021-10-13] MEDS: LIDOCAINE 5% (LIDODERM) PATCH TD SCH (20:29)
[2021-10-14 06:36] VITALS: BP 132/60
[2021-10-14] MEDS: MAALOX 30 ML SUSP *UDC PO PRN (06:45)
[2021-10-14 08:08] VITALS: BP 130/68
[2021-10-14] MEDS: DIVALPROEX 500 MG TAB PO SCH (08:53)
[2021-10-14 08:56] VITALS: BP 130/68
[2021-10-14] MEDS: QUEtiapine FUMARATE 50MG TAB PO SCH (08:56)
[2021-10-14] MEDS: VERAPAMIL 180MG EXTENDED RELEASE TABLET PO SCH (08:56)
[2021-10-14] MEDS: **NOTE PATIENT COMMENT** MISC XX SCH (08:57)
[2021-10-14] MEDS: PANTOPRAZOLE 40MG TAB (PROTONIX) PO SCH (08:57)
[2021-10-14] MEDS ORDERED: QUET50TA4 PO (09:35)
[2021-10-14] MEDS ORDERED: LIDO5TD TD (09:35)
[2021-10-14] MEDS ORDERED: NICO2GUM MT (11:58)
== END 2021-10-14 11:35 | disposition home or self-care (01) | DRG 885 ==
LOC: M ED 15:23 → M ED INP 10-09 00:14 → M PSY 10-09 02:15
PROVIDERS: ADMIT Student in an Organized Health Care Education/Training Program; ATTEND Student in an Organized Health Care Education/Training Program
DX: F22 Delusional disorders (principal); I10 Essential (primary) hypertension; E78.5 Hyperlipidemia, unspecified; K21.9 Gastro-esophageal reflux disease without esophagitis; M79.7 Fibromyalgia; G43.B0 Ophthalmoplegic migraine, not intractable; F17.290 Nicotine dependence, other tobacco product, uncomplicated; G31.84 Mild cognitive impairment of uncertain or unknown etiology; H81.10 Benign paroxysmal vertigo, unspecified ear; Z90.49 Acquired absence of other specified parts of digestive tract; Z86.711 Personal history of pulmonary embolism; Z86.718 Personal history of other venous thrombosis and embolism; Z20.822 Contact with and (suspected) exposure to COVID-19; Z79.01 Long term (current) use of anticoagulants; Z79.899 Other long term (current) drug therapy; Z88.0 Allergy status to penicillin; Z88.5 Allergy status to narcotic agent; Z88.6 Allergy status to analgesic agent; Z88.8 Allergy status to other drugs, medicaments and biological substances; Z91.012 Allergy to eggs; Z91.011 Allergy to milk products

== ENCOUNTER 2021-10-22 06:53 | Inpatient (IN) | payer MEDICARE ==
[~2021-10-22] VITALS: Ht 162.6 cm; Wt 87.9 kg
[~2021-10-22 06:53] MED LIST changes: +LIDO5TD TD; +NICO2GUM MT; +QUET50TA4 PO
[2021-10-22 08:33] LABS: HEMATOCRIT 36.9 % (36.0-47.0); HEMOGLOBIN 11.9 g/dl (12.0-15.5); MEAN CORPUSCULAR HEMOGLOBIN 26.7 pg (27.0-33.0); MEAN CORPUSCULAR HGB CONC 32.2 g/dl (32.0-36.5); MEAN CORPUSCULAR VOLUME 82.7 fl (80.0-96.0); PLATELET COUNT, AUTOMATED 269 10^3/uL (150-450); RED BLOOD COUNT 4.46 10^6/uL (4.00-5.40)
[2021-10-22 09:11] LABS: ACETAMINOPHEN LEVEL 6.3 UG/ML (10.0-30.0); ALBUMIN 3.2 GM/DL (3.2-5.2); ALT/SGPT 21 U/L (12-78); BILIRUBIN,DIRECT < 0.1 MG/DL (0.0-0.2); BILIRUBIN,TOTAL 0.2 MG/DL (0.2-1.0); BLOOD UREA NITROGEN 8 MG/DL (7-18); CALCIUM LEVEL 9.1 MG/DL (8.8-10.2); CARBON DIOXIDE LEVEL 30 MEQ/L (21-32); CHLORIDE LEVEL 104 MEQ/L (98-107); CREATININE FOR GFR 0.83 MG/DL (0.55-1.30); ETHYL ALCOHOL (ETHANOL) < 0.003 % (0.000-0.010); GLOMERULAR FILTRATION RATE > 60.0 (>39); GLUCOSE, FASTING 86 MG/DL (70-100); POTASSIUM SERUM 4.2 MEQ/L (3.5-5.1); SALICYLATE LEVEL < 1.7 MG/DL (5.0-30.0); SODIUM LEVEL 138 MEQ/L (136-145); THYROID STIMULATING HORMONE 0.852 uIU/ML (0.358-3.740); TOTAL PROTEIN 6.9 GM/DL (6.4-8.2)
[2021-10-22 11:33] LABS: AMPHETAMINES LEVEL URINE NEGATIVE (NEGATIVE); BARBITURATES URINE NEGATIVE (NEGATIVE); BENZODIAZEPINES URINE NEGATIVE (NEGATIVE); CANNABINOIDS URINE NEGATIVE (NEGATIVE); COCAINE METABOLITE URINE NEGATIVE (NEGATIVE); METHADONE URINE NEGATIVE (NEGATIVE); OPIATES URINE NEGATIVE (NEGATIVE); PHENCYCLIDINE URINE NEGATIVE (NEGATIVE)
[2021-10-22] MEDS ORDERED: LACTULOSE 20 GM/30 ML SYRUP UD PO PRN (15:10)
[2021-10-22] MEDS ORDERED: NYSTATIN 100,000 UNITS/GM TOPICAL PWD 15 GM TOP PRN (15:10)
[2021-10-22] MEDS ORDERED: NITROGLYCERIN 0.4 MG SUBL TABLET SL PRN (15:10)
[2021-10-22] MEDS ORDERED: MECLIZINE 25 MG TABLET PO PRN (15:10)
[2021-10-22] MEDS ORDERED: CETIRIZINE (ZyrTEC) 10 MG TAB PO PRN (15:10)
[2021-10-22] MEDS ORDERED: MOM 30ML SUSPENSION UDC PO PRN (15:10)
[2021-10-22] MEDS ORDERED: VERA360C PO (15:13)
[2021-10-22] MEDS ORDERED: ACET-683 PO (15:13)
[2021-10-22] MEDS ORDERED: XARE10TA PO (15:13)
[2021-10-22] MEDS ORDERED: OXYB10TA23 PO (15:13)
[2021-10-22] MEDS ORDERED: QUET50TA4 PO (15:13)
[2021-10-22] MEDS ORDERED: LIDO5TD TOP (15:13)
[2021-10-22] MEDS ORDERED: HOME MED LIST COMPLETE! XX SCH (15:15)
[2021-10-22 16:03] LABS: RSV AMPLIFICATION NEGATIVE (NEGATIVE)
[2021-10-22] MEDS: BACLOFEN 10 MG TAB PO SCH ×2 (17:00→21:19)
[2021-10-22] MEDS: DICYCLOMINE 10 MG CAP PO SCH ×2 (17:00→21:19)
[2021-10-22] MEDS: VITAMIN D 1,000 INTERNATIONAL UNITS TABLET PO SCH (19:07)
[2021-10-22] MEDS: PANTOPRAZOLE 40MG TAB (PROTONIX) PO SCH (19:07)
[2021-10-22] MEDS: RIVAROXABAN 10 MG TAB (XARELTO) PO SCH (19:46)
[2021-10-22] MEDS: oxyBUTYnin *DITROPAN XL* 5 MG TABCR PO SCH (21:18)
[2021-10-22] MEDS: LIDOCAINE 5% (LIDODERM) PATCH TOP SCH (21:19)
[2021-10-22] MEDS: DIVALPROEX 500 MG TAB PO SCH (21:19)
[2021-10-22] MEDS: QUEtiapine FUMARATE 50MG TAB PO SCH (21:19)
[2021-10-22] MEDS: VERAPAMIL 180MG EXTENDED RELEASE TABLET PO SCH (21:19)
[2021-10-22] MEDS: EZETIMIBE 10MG TABLET (ZETIA) PO SCH (21:20)
[2021-10-23 06:30] VITALS: BP 133/69
[2021-10-23] MEDS: DICYCLOMINE 10 MG CAP PO SCH ×4 (08:45→21:23)
[2021-10-23] MEDS: VITAMIN D 1,000 INTERNATIONAL UNITS TABLET PO SCH (08:46)
[2021-10-23] MEDS: BACLOFEN 10 MG TAB PO SCH (08:46)
[2021-10-23] MEDS: PANTOPRAZOLE 40MG TAB (PROTONIX) PO SCH (08:47)
[2021-10-23] MEDS: DIVALPROEX 500 MG TAB PO SCH ×2 (08:47→21:22)
[2021-10-23] MEDS: QUEtiapine FUMARATE 50MG TAB PO SCH (08:47)
[2021-10-23] MEDS: **NOTE PATIENT COMMENT** MISC XX SCH (08:49)
[2021-10-23 10:25] VITALS: BP 119/57
[2021-10-23] MEDS ORDERED: NICOTINE POLACRILEX 2 MG GUM PO PRN (11:55)
[2021-10-23] MEDS: RIVAROXABAN 10 MG TAB (XARELTO) PO SCH (17:33)
[2021-10-23 19:11] VITALS: BP 142/74
[2021-10-23] MEDS: EZETIMIBE 10MG TABLET (ZETIA) PO SCH (21:22)
[2021-10-23] MEDS: VERAPAMIL 180MG EXTENDED RELEASE TABLET PO SCH (21:23)
[2021-10-23] MEDS: oxyBUTYnin *DITROPAN XL* 5 MG TABCR PO SCH (21:23)
[2021-10-23] MEDS: LIDOCAINE 5% (LIDODERM) PATCH TOP SCH (21:23)
[2021-10-23] MEDS: risperiDONE 0.5 MG TAB PO SCH (21:23)
[2021-10-24 06:33] VITALS: BP 125/57
[2021-10-24] MEDS: **NOTE PATIENT COMMENT** MISC XX SCH (09:00)
[2021-10-24] MEDS: DICYCLOMINE 10 MG CAP PO SCH ×4 (09:37→20:08)
[2021-10-24] MEDS: PANTOPRAZOLE 40MG TAB (PROTONIX) PO SCH (09:37)
[2021-10-24] MEDS: VITAMIN D 1,000 INTERNATIONAL UNITS TABLET PO SCH (09:37)
[2021-10-24] MEDS: DIVALPROEX 500 MG TAB PO SCH ×2 (09:38→20:07)
[2021-10-24] MEDS: risperiDONE 0.5 MG TAB PO SCH ×2 (09:38→20:07)
[2021-10-24 16:53] VITALS: BP 136/73
[2021-10-24] MEDS: RIVAROXABAN 10 MG TAB (XARELTO) PO SCH (17:28)
[2021-10-24 17:41] VITALS: BP 122/60
[2021-10-24] MEDS: oxyBUTYnin *DITROPAN XL* 5 MG TABCR PO SCH (20:07)
[2021-10-24] MEDS: EZETIMIBE 10MG TABLET (ZETIA) PO SCH (20:07)
[2021-10-24] MEDS: VERAPAMIL 180MG EXTENDED RELEASE TABLET PO SCH (20:08)
[2021-10-24] MEDS: LIDOCAINE 5% (LIDODERM) PATCH TOP SCH (20:09)
[2021-10-24] MEDS: AZELASTINE 137MCG NASAL SPY 30 ML (ASTELIN) PRN (21:16)
[2021-10-25 06:06] VITALS: BP 175/79
[2021-10-25] MEDS: risperiDONE 0.5 MG TAB PO SCH ×2 (08:11→20:42)
[2021-10-25] MEDS: DICYCLOMINE 10 MG CAP PO SCH ×4 (08:11→20:42)
[2021-10-25] MEDS: DIVALPROEX 500 MG TAB PO SCH ×2 (08:11→20:41)
[2021-10-25] MEDS: VITAMIN D 1,000 INTERNATIONAL UNITS TABLET PO SCH (08:11)
[2021-10-25] MEDS: PANTOPRAZOLE 40MG TAB (PROTONIX) PO SCH (08:11)
[2021-10-25] MEDS: **NOTE PATIENT COMMENT** MISC XX SCH (08:34)
[2021-10-25] MEDS: AZELASTINE 137MCG NASAL SPY 30 ML (ASTELIN) PRN (08:50)
[2021-10-25] MEDS: MAALOX 30 ML SUSP *UDC PO PRN (15:47)
[2021-10-25 16:19] VITALS: BP 132/62
[2021-10-25] MEDS: RIVAROXABAN 10 MG TAB (XARELTO) PO SCH (17:08)
[2021-10-25] MEDS: ACETAMINOPHEN TAB 650MG DOSE (2X325MG) PO PRN (18:50)
[2021-10-25] MEDS: LIDOCAINE 5% (LIDODERM) PATCH TOP SCH (20:41)
[2021-10-25] MEDS: oxyBUTYnin *DITROPAN XL* 5 MG TABCR PO SCH (20:41)
[2021-10-25] MEDS: EZETIMIBE 10MG TABLET (ZETIA) PO SCH (20:41)
[2021-10-25] MEDS: VERAPAMIL 180MG EXTENDED RELEASE TABLET PO SCH (20:42)
[2021-10-26] MEDS: MAALOX 30 ML SUSP *UDC PO PRN ×3 (00:38→20:18)
[2021-10-26 06:34] VITALS: BP 127/68
[2021-10-26 07:34] VITALS: BP 132/73
[2021-10-26] MEDS: VITAMIN D 1,000 INTERNATIONAL UNITS TABLET PO SCH (08:09)
[2021-10-26] MEDS: DIVALPROEX 500 MG TAB PO SCH ×2 (08:09→20:12)
[2021-10-26] MEDS: DICYCLOMINE 10 MG CAP PO SCH ×4 (08:09→20:11)
[2021-10-26] MEDS: risperiDONE 0.5 MG TAB PO SCH (08:09)
[2021-10-26] MEDS: PANTOPRAZOLE 40MG TAB (PROTONIX) PO SCH (08:13)
[2021-10-26] MEDS: **NOTE PATIENT COMMENT** MISC XX SCH (08:14)
[2021-10-26 16:09] VITALS: BP 133/71
[2021-10-26] MEDS: RIVAROXABAN 10 MG TAB (XARELTO) PO SCH (17:59)
[2021-10-26] MEDS: LIDOCAINE 5% (LIDODERM) PATCH TOP SCH (20:11)
[2021-10-26] MEDS: VERAPAMIL 180MG EXTENDED RELEASE TABLET PO SCH (20:11)
[2021-10-26] MEDS: EZETIMIBE 10MG TABLET (ZETIA) PO SCH (20:12)
[2021-10-26] MEDS: BACLOFEN 10 MG TAB PO SCH (20:12)
[2021-10-26] MEDS: risperiDONE 1 MG TAB PO SCH (20:12)
[2021-10-26] MEDS: oxyBUTYnin *DITROPAN XL* 5 MG TABCR PO SCH (20:13)
[2021-10-26] MEDS: AZELASTINE 137MCG NASAL SPY 30 ML (ASTELIN) PRN (20:19)
[2021-10-26] MEDS: ACETAMINOPHEN TAB 650MG DOSE (2X325MG) PO PRN (22:13)
[2021-10-27 06:59] VITALS: BP 154/70
[2021-10-27] MEDS: risperiDONE 1 MG TAB PO SCH ×2 (08:43→20:49)
[2021-10-27] MEDS: DICYCLOMINE 10 MG CAP PO SCH ×4 (08:43→20:48)
[2021-10-27] MEDS: PANTOPRAZOLE 40MG TAB (PROTONIX) PO SCH (08:43)
[2021-10-27] MEDS: DIVALPROEX 500 MG TAB PO SCH ×2 (08:43→20:48)
[2021-10-27] MEDS: BACLOFEN 10 MG TAB PO SCH ×4 (08:44→20:48)
[2021-10-27] MEDS: VITAMIN D 1,000 INTERNATIONAL UNITS TABLET PO SCH (08:44)
[2021-10-27] MEDS: **NOTE PATIENT COMMENT** MISC XX SCH (09:39)
[2021-10-27] MEDS: RIVAROXABAN 10 MG TAB (XARELTO) PO SCH (17:04)
[2021-10-27 18:19] VITALS: BP 159/72
[2021-10-27] MEDS: AZELASTINE 137MCG NASAL SPY 30 ML (ASTELIN) PRN (20:46)
[2021-10-27] MEDS: LIDOCAINE 5% (LIDODERM) PATCH TOP SCH (20:47)
[2021-10-27] MEDS: oxyBUTYnin *DITROPAN XL* 5 MG TABCR PO SCH (20:48)
[2021-10-27] MEDS: VERAPAMIL 180MG EXTENDED RELEASE TABLET PO SCH (20:48)
[2021-10-27] MEDS: EZETIMIBE 10MG TABLET (ZETIA) PO SCH (20:49)
[2021-10-28 06:33] VITALS: BP 122/61
[2021-10-28] MEDS: VITAMIN D 1,000 INTERNATIONAL UNITS TABLET PO SCH (08:08)
[2021-10-28] MEDS: DIVALPROEX 500 MG TAB PO SCH ×2 (08:08→21:21)
[2021-10-28] MEDS: BACLOFEN 10 MG TAB PO SCH ×4 (08:08→21:24)
[2021-10-28] MEDS: PANTOPRAZOLE 40MG TAB (PROTONIX) PO SCH (08:08)
[2021-10-28] MEDS: risperiDONE 1 MG TAB PO SCH ×2 (08:08→21:24)
[2021-10-28] MEDS: **NOTE PATIENT COMMENT** MISC XX SCH (09:00)
[2021-10-28] MEDS: DICYCLOMINE 10 MG CAP PO SCH ×4 (10:38→21:21)
[2021-10-28] MEDS: RIVAROXABAN 10 MG TAB (XARELTO) PO SCH (17:02)
[2021-10-28 17:46] VITALS: BP 146/73
[2021-10-28] MEDS: LIDOCAINE 5% (LIDODERM) PATCH TOP SCH (21:20)
[2021-10-28] MEDS: oxyBUTYnin *DITROPAN XL* 5 MG TABCR PO SCH (21:21)
[2021-10-28] MEDS: VERAPAMIL 180MG EXTENDED RELEASE TABLET PO SCH (21:24)
[2021-10-28] MEDS: EZETIMIBE 10MG TABLET (ZETIA) PO SCH (21:25)
[2021-10-28] MEDS: risperiDONE 0.5 MG TAB PO SCH (21:25)
[2021-10-29 05:30] VITALS: BP 119/61
[2021-10-29] MEDS: DIMETHICONE 2% OINTMENT(VANICREAM) 70GM TUBE TOP SCH ×2 (09:00→20:21)
[2021-10-29] MEDS: BACLOFEN 10 MG TAB PO SCH ×3 (09:06→20:20)
[2021-10-29] MEDS: VITAMIN D 1,000 INTERNATIONAL UNITS TABLET PO SCH (09:06)
[2021-10-29] MEDS: risperiDONE 1 MG TAB PO SCH ×2 (09:06→20:20)
[2021-10-29] MEDS: DIVALPROEX 500 MG TAB PO SCH ×2 (09:06→20:20)
[2021-10-29] MEDS: DICYCLOMINE 10 MG CAP PO SCH ×4 (09:07→20:23)
[2021-10-29] MEDS: PANTOPRAZOLE 40MG TAB (PROTONIX) PO SCH (09:07)
[2021-10-29] MEDS: **NOTE PATIENT COMMENT** MISC XX SCH (09:08)
[2021-10-29] MEDS: RIVAROXABAN 10 MG TAB (XARELTO) PO SCH (17:19)
[2021-10-29 18:45] VITALS: BP 111/59
[2021-10-29] MEDS: risperiDONE 0.5 MG TAB PO SCH (20:20)
[2021-10-29] MEDS: VERAPAMIL 180MG EXTENDED RELEASE TABLET PO SCH (20:22)
[2021-10-29] MEDS: oxyBUTYnin *DITROPAN XL* 5 MG TABCR PO SCH (20:23)
[2021-10-29] MEDS: LIDOCAINE 5% (LIDODERM) PATCH TOP SCH (20:24)
[2021-10-29] MEDS: EZETIMIBE 10MG TABLET (ZETIA) PO SCH (20:25)
[2021-10-29 21:01] LABS: APPEARANCE, URINE CLEAR (CLEAR); BACTERIA, URINE AUTO NEGATIVE (NEGATIVE); BILIRUBIN, URINE AUTO NEGATIVE (NEGATIVE); BLOOD, URINE BLOOD NEGATIVE (NEGATIVE); COLOR, URINE YELLOW (YELLOW); GLUCOSE, URINE (UA) AUTO NEGATIVE (NEGATIVE); KETONE, URINE AUTO TRACE mg/dL (NEGATIVE); LEUKOCYTE ESTERASE, URINE AUTO NEGATIVE (NEGATIVE); MUCUS, URINE SMALL (NEGATIVE); NITRITE, URINE AUTO NEGATIVE (NEGATIVE); PROTEIN, URINE AUTO NEGATIVE (NEGATIVE); RBC, URINE AUTO 0 /HPF (0-3); SPECIFIC GRAVITY URINE AUTO 1.019 (1.002-1.035); SQUAMOUS EPITHELIAL CELL UR AU 1 /HPF (0-6); UROBILINOGEN, URINE AUTO 0.2 mg/dL (0.0-2.0); WBC, URINE AUTO 3 /HPF (0-3)
[2021-10-29] MEDS: AZELASTINE 137MCG NASAL SPY 30 ML (ASTELIN) PRN (21:22)
[2021-10-30 06:18] VITALS: BP 125/60
[2021-10-30] MEDS: VITAMIN D 1,000 INTERNATIONAL UNITS TABLET PO SCH (08:34)
[2021-10-30] MEDS: DICYCLOMINE 10 MG CAP PO SCH ×4 (08:34→20:43)
[2021-10-30] MEDS: DIVALPROEX 500 MG TAB PO SCH ×2 (08:34→20:44)
[2021-10-30] MEDS: risperiDONE 1 MG TAB PO SCH ×2 (08:34→20:44)
[2021-10-30] MEDS: BACLOFEN 10 MG TAB PO SCH ×3 (08:34→20:44)
[2021-10-30] MEDS: PANTOPRAZOLE 40MG TAB (PROTONIX) PO SCH (08:34)
[2021-10-30] MEDS: DIMETHICONE 2% OINTMENT(VANICREAM) 70GM TUBE TOP SCH ×2 (08:35→20:43)
[2021-10-30] MEDS: **NOTE PATIENT COMMENT** MISC XX SCH (08:35)
[2021-10-30] MEDS: RIVAROXABAN 10 MG TAB (XARELTO) PO SCH (17:13)
[2021-10-30] MEDS: AZELASTINE 137MCG NASAL SPY 30 ML (ASTELIN) PRN (17:19)
[2021-10-30 18:00] VITALS: BP 126/62
[2021-10-30] MEDS: EZETIMIBE 10MG TABLET (ZETIA) PO SCH (20:42)
[2021-10-30] MEDS: LIDOCAINE 5% (LIDODERM) PATCH TOP SCH (20:42)
[2021-10-30] MEDS: VERAPAMIL 180MG EXTENDED RELEASE TABLET PO SCH (20:43)
[2021-10-30] MEDS: oxyBUTYnin *DITROPAN XL* 5 MG TABCR PO SCH (20:44)
[2021-10-30] MEDS: risperiDONE 0.5 MG TAB PO SCH (20:44)
[2021-10-30] MEDS: ACETAMINOPHEN TAB 650MG DOSE (2X325MG) PO PRN (23:27)
[2021-10-31 06:20] VITALS: BP 140/71
[2021-10-31] MEDS: **NOTE PATIENT COMMENT** MISC XX SCH (08:04)
[2021-10-31] MEDS: risperiDONE 1 MG TAB PO SCH ×3 (08:07→20:50)
[2021-10-31] MEDS: BACLOFEN 10 MG TAB PO SCH ×3 (08:07→20:40)
[2021-10-31] MEDS: DIMETHICONE 2% OINTMENT(VANICREAM) 70GM TUBE TOP SCH ×2 (08:07→20:38)
[2021-10-31] MEDS: VITAMIN D 1,000 INTERNATIONAL UNITS TABLET PO SCH (08:07)
[2021-10-31] MEDS: PANTOPRAZOLE 40MG TAB (PROTONIX) PO SCH (08:07)
[2021-10-31] MEDS: DIVALPROEX 500 MG TAB PO SCH ×2 (08:07→20:40)
[2021-10-31] MEDS: DICYCLOMINE 10 MG CAP PO SCH ×4 (08:07→20:40)
[2021-10-31 12:36] LABS: HEMATOCRIT 34.8 % (36.0-47.0); HEMOGLOBIN 11.3 g/dl (12.0-15.5); MEAN CORPUSCULAR HGB CONC 32.5 g/dl (32.0-36.5); MEAN CORPUSCULAR VOLUME 83.3 fl (80.0-96.0); PLATELET COUNT, AUTOMATED 246 10^3/uL (150-450); RED BLOOD COUNT 4.18 10^6/uL (4.00-5.40); WHITE BLOOD COUNT 6.7 10^3/uL (4.0-10.0)
[2021-10-31 12:56] LABS: ALBUMIN 2.9 GM/DL (3.2-5.2); ALT/SGPT 17 U/L (12-78); BILIRUBIN,TOTAL 0.2 MG/DL (0.2-1.0); BLOOD UREA NITROGEN 15 MG/DL (7-18); CALCIUM LEVEL 9.1 MG/DL (8.8-10.2); CARBON DIOXIDE LEVEL 31 MEQ/L (21-32); CHLORIDE LEVEL 103 MEQ/L (98-107); CREATININE FOR GFR 0.86 MG/DL (0.55-1.30); GLOMERULAR FILTRATION RATE > 60.0 (>39); GLUCOSE, FASTING 92 MG/DL (70-100); POTASSIUM SERUM 4.2 MEQ/L (3.5-5.1); SODIUM LEVEL 137 MEQ/L (136-145); TOTAL PROTEIN 6.6 GM/DL (6.4-8.2)
[2021-10-31] MEDS: SIMETHICONE 80MG CHEW TAB PO SCH ×2 (15:24→20:40)
[2021-10-31] MEDS: RIVAROXABAN 10 MG TAB (XARELTO) PO SCH (17:01)
[2021-10-31 19:19] VITALS: BP 134/78
[2021-10-31] MEDS: ACETAMINOPHEN TAB 650MG DOSE (2X325MG) PO PRN (19:53)
[2021-10-31] MEDS: EZETIMIBE 10MG TABLET (ZETIA) PO SCH (20:40)
[2021-10-31] MEDS: VERAPAMIL 180MG EXTENDED RELEASE TABLET PO SCH (20:40)
[2021-10-31] MEDS: oxyBUTYnin *DITROPAN XL* 5 MG TABCR PO SCH (20:42)
[2021-10-31] MEDS: LIDOCAINE 5% (LIDODERM) PATCH TOP SCH (20:47)
[2021-10-31] MEDS: AZELASTINE 137MCG NASAL SPY 30 ML (ASTELIN) PRN (20:50)
[2021-11-01] MEDS: ACETAMINOPHEN TAB 650MG DOSE (2X325MG) PO PRN (03:35)
[2021-11-01 07:01] VITALS: BP 141/64
[2021-11-01] MEDS: DIMETHICONE 2% OINTMENT(VANICREAM) 70GM TUBE TOP SCH ×2 (09:00→20:43)
[2021-11-01] MEDS: SIMETHICONE 80MG CHEW TAB PO SCH ×3 (09:37→20:44)
[2021-11-01] MEDS: DIVALPROEX 500 MG TAB PO SCH ×2 (09:37→20:42)
[2021-11-01] MEDS: PANTOPRAZOLE 40MG TAB (PROTONIX) PO SCH (09:38)
[2021-11-01] MEDS: BACLOFEN 10 MG TAB PO SCH ×3 (09:38→20:42)
[2021-11-01] MEDS: DICYCLOMINE 10 MG CAP PO SCH ×4 (09:38→20:43)
[2021-11-01] MEDS: VITAMIN D 1,000 INTERNATIONAL UNITS TABLET PO SCH (09:38)
[2021-11-01] MEDS: risperiDONE 1 MG TAB PO SCH ×3 (09:38→20:47)
[2021-11-01] MEDS: **NOTE PATIENT COMMENT** MISC XX SCH (09:49)
[2021-11-01] MEDS: RIVAROXABAN 10 MG TAB (XARELTO) PO SCH (17:58)
[2021-11-01 18:44] VITALS: BP 141/62
[2021-11-01] MEDS: VERAPAMIL 180MG EXTENDED RELEASE TABLET PO SCH (20:43)
[2021-11-01] MEDS: LIDOCAINE 5% (LIDODERM) PATCH TOP SCH (20:44)
[2021-11-01] MEDS: oxyBUTYnin *DITROPAN XL* 5 MG TABCR PO SCH (20:44)
[2021-11-01] MEDS: EZETIMIBE 10MG TABLET (ZETIA) PO SCH (20:44)
[2021-11-01] MEDS: MAALOX 30 ML SUSP *UDC PO PRN (21:38)
[2021-11-02] MEDS ORDERED: FUROSEMIDE 20 MG TAB PO ONE
[2021-11-02] MEDS: ACETAMINOPHEN TAB 650MG DOSE (2X325MG) PO PRN (03:23)
[2021-11-02 06:39] VITALS: BP 129/64
[2021-11-02] MEDS: BACLOFEN 10 MG TAB PO SCH ×3 (08:30→20:17)
[2021-11-02] MEDS: SIMETHICONE 80MG CHEW TAB PO SCH ×3 (08:31→20:18)
[2021-11-02] MEDS: risperiDONE 1 MG TAB PO SCH ×3 (08:31→20:47)
[2021-11-02] MEDS: DIVALPROEX 500 MG TAB PO SCH ×2 (08:31→20:17)
[2021-11-02] MEDS: VITAMIN D 1,000 INTERNATIONAL UNITS TABLET PO SCH (08:31)
[2021-11-02] MEDS: PANTOPRAZOLE 40MG TAB (PROTONIX) PO SCH (08:31)
[2021-11-02] MEDS: DICYCLOMINE 10 MG CAP PO SCH ×4 (08:31→20:20)
[2021-11-02] MEDS: DIMETHICONE 2% OINTMENT(VANICREAM) 70GM TUBE TOP SCH ×2 (08:32→20:35)
[2021-11-02] MEDS: **NOTE PATIENT COMMENT** MISC XX SCH (08:32)
[2021-11-02 08:59] LABS: HEMATOCRIT 37.2 % (36.0-47.0); HEMOGLOBIN 12.1 g/dl (12.0-15.5); MEAN CORPUSCULAR HEMOGLOBIN 27.1 pg (27.0-33.0); MEAN CORPUSCULAR HGB CONC 32.5 g/dl (32.0-36.5); MEAN CORPUSCULAR VOLUME 83.4 fl (80.0-96.0); PLATELET COUNT, AUTOMATED 277 10^3/uL (150-450); RED BLOOD COUNT 4.46 10^6/uL (4.00-5.40); WHITE BLOOD COUNT 8.6 10^3/uL (4.0-10.0)
[2021-11-02 09:10] LABS: INR 1.32; PROTHROMBIN TIME 16.8 SECONDS (12.7-14.5)
[2021-11-02 09:11] LABS: PARTIAL THROMBOPLASTIN TIME 38.8 SECONDS (25.9-37.0)
[2021-11-02 09:36] LABS: ALBUMIN 3.5 GM/DL (3.2-5.2); BILIRUBIN,TOTAL 0.2 MG/DL (0.2-1.0); CALCIUM LEVEL 9.8 MG/DL (8.8-10.2); CREATININE FOR GFR 1.08 MG/DL (0.55-1.30); GLOMERULAR FILTRATION RATE 53.2 (>39); MAGNESIUM LEVEL 2.1 MG/DL (1.8-2.4); POTASSIUM SERUM 4.1 MEQ/L (3.5-5.1); TOTAL PROTEIN 7.2 GM/DL (6.4-8.2)
[2021-11-02] MEDS: AZELASTINE 137MCG NASAL SPY 30 ML (ASTELIN) PRN ×2 (11:44→20:24)
[2021-11-02] MEDS: RIVAROXABAN 10 MG TAB (XARELTO) PO SCH (17:45)
[2021-11-02 18:45] VITALS: BP 138/77
[2021-11-02] MEDS: LIDOCAINE 5% (LIDODERM) PATCH TOP SCH (20:16)
[2021-11-02] MEDS: oxyBUTYnin *DITROPAN XL* 5 MG TABCR PO SCH (20:18)
[2021-11-02] MEDS: VERAPAMIL 180MG EXTENDED RELEASE TABLET PO SCH (20:23)
[2021-11-02] MEDS: EZETIMIBE 10MG TABLET (ZETIA) PO SCH (20:27)
[2021-11-03] MEDS: ACETAMINOPHEN TAB 650MG DOSE (2X325MG) PO PRN ×2 (03:46→19:34)
[2021-11-03 06:30] VITALS: BP 130/83
[2021-11-03] MEDS: SIMETHICONE 80MG CHEW TAB PO SCH ×3 (09:00→20:33)
[2021-11-03] MEDS: DIMETHICONE 2% OINTMENT(VANICREAM) 70GM TUBE TOP SCH ×2 (09:00→20:34)
[2021-11-03] MEDS: risperiDONE 1 MG TAB PO SCH ×3 (09:00→20:33)
[2021-11-03] MEDS: DICYCLOMINE 10 MG CAP PO SCH ×4 (09:33→20:32)
[2021-11-03] MEDS: BACLOFEN 10 MG TAB PO SCH ×3 (09:34→20:27)
[2021-11-03] MEDS: DIVALPROEX 500 MG TAB PO SCH ×2 (09:34→20:27)
[2021-11-03] MEDS: PANTOPRAZOLE 40MG TAB (PROTONIX) PO SCH (09:34)
[2021-11-03] MEDS: VITAMIN D 1,000 INTERNATIONAL UNITS TABLET PO SCH (09:34)
[2021-11-03] MEDS: **NOTE PATIENT COMMENT** MISC XX SCH (09:36)
[2021-11-03] MEDS: FUROSEMIDE 20 MG TAB PO SCH (13:50)
[2021-11-03 16:20] VITALS: BP 140/68
[2021-11-03] MEDS: RIVAROXABAN 10 MG TAB (XARELTO) PO SCH (17:51)
[2021-11-03] MEDS: MAALOX 30 ML SUSP *UDC PO PRN (19:03)
[2021-11-03] MEDS: AZELASTINE 137MCG NASAL SPY 30 ML (ASTELIN) PRN (20:27)
[2021-11-03] MEDS: LIDOCAINE 5% (LIDODERM) PATCH TOP SCH (20:27)
[2021-11-03] MEDS: VERAPAMIL 180MG EXTENDED RELEASE TABLET PO SCH (20:31)
[2021-11-03] MEDS: oxyBUTYnin *DITROPAN XL* 5 MG TABCR PO SCH (20:32)
[2021-11-03] MEDS: HYDROCORTISONE 2.5% 20GM OINTMENT TOP SCH (20:34)
[2021-11-03] MEDS: EZETIMIBE 10MG TABLET (ZETIA) PO SCH (20:34)
[2021-11-04 06:26] VITALS: BP 127/58
[2021-11-04] MEDS: **NOTE PATIENT COMMENT** MISC XX SCH (08:21)
[2021-11-04] MEDS: VITAMIN D 1,000 INTERNATIONAL UNITS TABLET PO SCH (08:29)
[2021-11-04] MEDS: BACLOFEN 10 MG TAB PO SCH ×3 (08:29→19:48)
[2021-11-04] MEDS: PANTOPRAZOLE 40MG TAB (PROTONIX) PO SCH (08:30)
[2021-11-04] MEDS: FUROSEMIDE 20 MG TAB PO SCH (08:30)
[2021-11-04] MEDS: risperiDONE 1 MG TAB PO SCH (08:31)
[2021-11-04] MEDS: DICYCLOMINE 10 MG CAP PO SCH ×4 (08:32→19:48)
[2021-11-04] MEDS: DIVALPROEX 500 MG TAB PO SCH ×2 (08:33→19:49)
[2021-11-04] MEDS: HYDROCORTISONE 2.5% 20GM OINTMENT TOP SCH ×3 (08:34→19:51)
[2021-11-04] MEDS: DIMETHICONE 2% OINTMENT(VANICREAM) 70GM TUBE TOP SCH ×2 (08:35→19:51)
[2021-11-04] MEDS: SIMETHICONE 80MG CHEW TAB PO SCH ×3 (08:47→19:48)
[2021-11-04] MEDS: AZELASTINE 137MCG NASAL SPY 30 ML (ASTELIN) PRN (13:09)
[2021-11-04 16:24] VITALS: BP 148/68
[2021-11-04] MEDS: RIVAROXABAN 10 MG TAB (XARELTO) PO SCH (17:25)
[2021-11-04] MEDS: oxyBUTYnin *DITROPAN XL* 5 MG TABCR PO SCH (19:47)
[2021-11-04] MEDS: VERAPAMIL 180MG EXTENDED RELEASE TABLET PO SCH (19:48)
[2021-11-04] MEDS: EZETIMIBE 10MG TABLET (ZETIA) PO SCH (19:48)
[2021-11-04] MEDS: risperiDONE 2 MG TAB PO SCH (19:49)
[2021-11-04] MEDS: LIDOCAINE 5% (LIDODERM) PATCH TOP SCH (19:49)
[2021-11-04] MEDS: ACETAMINOPHEN TAB 650MG DOSE (2X325MG) PO PRN (21:48)
[2021-11-05 06:18] VITALS: BP 120/59
[2021-11-05] MEDS: DIVALPROEX 500 MG TAB PO SCH ×2 (08:19→20:08)
[2021-11-05] MEDS: HYDROCORTISONE 2.5% 20GM OINTMENT TOP SCH ×2 (08:19→20:07)
[2021-11-05] MEDS: DICYCLOMINE 10 MG CAP PO SCH ×4 (08:20→20:08)
[2021-11-05] MEDS: risperiDONE 2 MG TAB PO SCH ×2 (08:20→20:08)
[2021-11-05] MEDS: BACLOFEN 10 MG TAB PO SCH ×3 (08:20→20:08)
[2021-11-05] MEDS: MAALOX 30 ML SUSP *UDC PO PRN (08:20)
[2021-11-05] MEDS: PANTOPRAZOLE 40MG TAB (PROTONIX) PO SCH (08:20)
[2021-11-05] MEDS: FUROSEMIDE 20 MG TAB PO SCH (08:20)
[2021-11-05] MEDS: ACETAMINOPHEN TAB 650MG DOSE (2X325MG) PO PRN (08:21)
[2021-11-05] MEDS: VITAMIN D 1,000 INTERNATIONAL UNITS TABLET PO SCH (08:23)
[2021-11-05] MEDS: DIMETHICONE 2% OINTMENT(VANICREAM) 70GM TUBE TOP SCH ×2 (08:24→20:05)
[2021-11-05] MEDS: SIMETHICONE 80MG CHEW TAB PO SCH ×3 (08:24→20:11)
[2021-11-05] MEDS: **NOTE PATIENT COMMENT** MISC XX SCH (08:30)
[2021-11-05 10:55] LABS: BLOOD UREA NITROGEN 13 MG/DL (7-18); CALCIUM LEVEL 9.4 MG/DL (8.8-10.2); CARBON DIOXIDE LEVEL 31 MEQ/L (21-32); CHLORIDE LEVEL 101 MEQ/L (98-107); CREATININE FOR GFR 0.84 MG/DL (0.55-1.30); GLOMERULAR FILTRATION RATE > 60.0 (>39); GLUCOSE, FASTING 78 MG/DL (70-100); MAGNESIUM LEVEL 2.2 MG/DL (1.8-2.4); POTASSIUM SERUM 4.3 MEQ/L (3.5-5.1); SODIUM LEVEL 136 MEQ/L (136-145)
[2021-11-05 17:04] VITALS: BP 138/65
[2021-11-05] MEDS: RIVAROXABAN 10 MG TAB (XARELTO) PO SCH (17:10)
[2021-11-05] MEDS: LIDOCAINE 5% (LIDODERM) PATCH TOP SCH (20:07)
[2021-11-05] MEDS: oxyBUTYnin *DITROPAN XL* 5 MG TABCR PO SCH (20:09)
[2021-11-05] MEDS: EZETIMIBE 10MG TABLET (ZETIA) PO SCH (20:09)
[2021-11-05] MEDS: VERAPAMIL 180MG EXTENDED RELEASE TABLET PO SCH (20:09)
[2021-11-06] MEDS: DIVALPROEX 500 MG TAB PO SCH ×2 (08:47→20:45)
[2021-11-06] MEDS: PANTOPRAZOLE 40MG TAB (PROTONIX) PO SCH (08:47)
[2021-11-06] MEDS: BACLOFEN 10 MG TAB PO SCH ×3 (08:47→20:46)
[2021-11-06] MEDS: DICYCLOMINE 10 MG CAP PO SCH ×4 (08:47→20:46)
[2021-11-06] MEDS: FUROSEMIDE 20 MG TAB PO SCH (08:47)
[2021-11-06] MEDS: VITAMIN D 1,000 INTERNATIONAL UNITS TABLET PO SCH (08:47)
[2021-11-06 08:48] VITALS: BP 138/65
[2021-11-06] MEDS: HYDROCORTISONE 2.5% 20GM OINTMENT TOP SCH ×2 (08:48→20:45)
[2021-11-06] MEDS: AZELASTINE 137MCG NASAL SPY 30 ML (ASTELIN) PRN (08:49)
[2021-11-06] MEDS: risperiDONE 2 MG TAB PO SCH ×2 (08:49→20:45)
[2021-11-06] MEDS: SIMETHICONE 80MG CHEW TAB PO SCH ×3 (08:49→20:39)
[2021-11-06] MEDS: DIMETHICONE 2% OINTMENT(VANICREAM) 70GM TUBE TOP SCH ×2 (08:52→20:46)
[2021-11-06] MEDS: **NOTE PATIENT COMMENT** MISC XX SCH (09:00)
[2021-11-06] MEDS: RIVAROXABAN 10 MG TAB (XARELTO) PO SCH (17:27)
[2021-11-06 18:59] VITALS: BP 126/84
[2021-11-06] MEDS: ACETAMINOPHEN TAB 650MG DOSE (2X325MG) PO PRN (20:44)
[2021-11-06] MEDS: EZETIMIBE 10MG TABLET (ZETIA) PO SCH (20:45)
[2021-11-06] MEDS: VERAPAMIL 180MG EXTENDED RELEASE TABLET PO SCH (20:46)
[2021-11-06] MEDS: oxyBUTYnin *DITROPAN XL* 5 MG TABCR PO SCH (20:46)
[2021-11-06] MEDS: LIDOCAINE 5% (LIDODERM) PATCH TOP SCH (20:47)
[2021-11-07 07:10] VITALS: BP 134/64
[2021-11-07] MEDS: VITAMIN D 1,000 INTERNATIONAL UNITS TABLET PO SCH (08:34)
[2021-11-07] MEDS: BACLOFEN 10 MG TAB PO SCH ×3 (08:34→20:03)
[2021-11-07] MEDS: risperiDONE 2 MG TAB PO SCH ×2 (08:34→20:02)
[2021-11-07] MEDS: DICYCLOMINE 10 MG CAP PO SCH ×4 (08:34→20:06)
[2021-11-07] MEDS: SIMETHICONE 80MG CHEW TAB PO SCH ×3 (08:35→20:04)
[2021-11-07] MEDS: DIVALPROEX 500 MG TAB PO SCH ×2 (08:35→20:02)
[2021-11-07] MEDS: HYDROCORTISONE 2.5% 20GM OINTMENT TOP SCH ×2 (08:35→20:03)
[2021-11-07] MEDS: PANTOPRAZOLE 40MG TAB (PROTONIX) PO SCH (08:35)
[2021-11-07] MEDS: DIMETHICONE 2% OINTMENT(VANICREAM) 70GM TUBE TOP SCH ×2 (08:35→20:03)
[2021-11-07] MEDS: **NOTE PATIENT COMMENT** MISC XX SCH (08:36)
[2021-11-07] MEDS: RIVAROXABAN 10 MG TAB (XARELTO) PO SCH (17:15)
[2021-11-07] MEDS: LIDOCAINE 5% (LIDODERM) PATCH TOP SCH (20:03)
[2021-11-07] MEDS: EZETIMIBE 10MG TABLET (ZETIA) PO SCH (20:04)
[2021-11-07] MEDS: VERAPAMIL 180MG EXTENDED RELEASE TABLET PO SCH (20:05)
[2021-11-07] MEDS: oxyBUTYnin *DITROPAN XL* 5 MG TABCR PO SCH (20:05)
[2021-11-07] MEDS: ACETAMINOPHEN TAB 650MG DOSE (2X325MG) PO PRN (23:33)
[2021-11-08] MEDS ORDERED: traZODone 50 MG TAB PO PRN (00:35)
[2021-11-08 06:25] VITALS: BP 141/63
[2021-11-08] MEDS: ACETAMINOPHEN TAB 650MG DOSE (2X325MG) PO PRN (07:04)
[2021-11-08] MEDS: BACLOFEN 10 MG TAB PO SCH ×3 (08:12→20:20)
[2021-11-08] MEDS: VITAMIN D 1,000 INTERNATIONAL UNITS TABLET PO SCH (08:12)
[2021-11-08] MEDS: risperiDONE 2 MG TAB PO SCH ×2 (08:12→20:20)
[2021-11-08] MEDS: DICYCLOMINE 10 MG CAP PO SCH ×4 (08:12→20:25)
[2021-11-08] MEDS: **NOTE PATIENT COMMENT** MISC XX SCH (08:13)
[2021-11-08] MEDS: PANTOPRAZOLE 40MG TAB (PROTONIX) PO SCH (08:13)
[2021-11-08] MEDS: HYDROCORTISONE 2.5% 20GM OINTMENT TOP SCH ×2 (08:13→20:23)
[2021-11-08] MEDS: SIMETHICONE 80MG CHEW TAB PO SCH ×3 (08:13→20:37)
[2021-11-08] MEDS: DIVALPROEX 500 MG TAB PO SCH ×2 (08:13→20:21)
[2021-11-08] MEDS: DIMETHICONE 2% OINTMENT(VANICREAM) 70GM TUBE TOP SCH ×2 (08:13→20:23)
[2021-11-08 16:10] VITALS: BP 136/70
[2021-11-08] MEDS: RIVAROXABAN 10 MG TAB (XARELTO) PO SCH (17:18)
[2021-11-08] MEDS: LIDOCAINE 5% (LIDODERM) PATCH TOP SCH (20:20)
[2021-11-08] MEDS: VERAPAMIL 180MG EXTENDED RELEASE TABLET PO SCH (20:22)
[2021-11-08] MEDS: EZETIMIBE 10MG TABLET (ZETIA) PO SCH (20:24)
[2021-11-08] MEDS: oxyBUTYnin *DITROPAN XL* 5 MG TABCR PO SCH (20:25)
[2021-11-09 06:34] VITALS: BP 127/82
[2021-11-09] MEDS: DIMETHICONE 2% OINTMENT(VANICREAM) 70GM TUBE TOP SCH ×2 (08:31→20:27)
[2021-11-09] MEDS: HYDROCORTISONE 2.5% 20GM OINTMENT TOP SCH ×2 (08:32→20:28)
[2021-11-09] MEDS: DIVALPROEX 500 MG TAB PO SCH ×2 (08:32→20:26)
[2021-11-09] MEDS: PANTOPRAZOLE 40MG TAB (PROTONIX) PO SCH (08:32)
[2021-11-09] MEDS: BACLOFEN 10 MG TAB PO SCH ×3 (08:32→20:26)
[2021-11-09] MEDS: risperiDONE 2 MG TAB PO SCH (08:32)
[2021-11-09] MEDS: SIMETHICONE 80MG CHEW TAB PO SCH ×3 (08:32→20:29)
[2021-11-09] MEDS: DICYCLOMINE 10 MG CAP PO SCH ×4 (08:33→20:30)
[2021-11-09] MEDS: VITAMIN D 1,000 INTERNATIONAL UNITS TABLET PO SCH (08:33)
[2021-11-09] MEDS: **NOTE PATIENT COMMENT** MISC XX SCH (08:33)
[2021-11-09] MEDS: MULTIVITAMINS/MINERALS THERAP 1 TAB PO SCH (11:18)
[2021-11-09] MEDS: CARIPRAZINE 1.5MG CAPSULE (VRAYLAR) PO SCH (11:18)
[2021-11-09] MEDS: RIVAROXABAN 10 MG TAB (XARELTO) PO SCH (17:06)
[2021-11-09 17:48] VITALS: BP 139/62
[2021-11-09] MEDS: risperiDONE 1 MG TAB PO SCH (20:26)
[2021-11-09] MEDS: LIDOCAINE 5% (LIDODERM) PATCH TOP SCH (20:27)
[2021-11-09] MEDS: EZETIMIBE 10MG TABLET (ZETIA) PO SCH (20:28)
[2021-11-09] MEDS: oxyBUTYnin *DITROPAN XL* 5 MG TABCR PO SCH (20:29)
[2021-11-09] MEDS: VERAPAMIL 180MG EXTENDED RELEASE TABLET PO SCH (20:30)
[2021-11-10 06:45] VITALS: BP 133/60
[2021-11-10] MEDS: **NOTE PATIENT COMMENT** MISC XX SCH (07:20)
[2021-11-10] MEDS: MULTIVITAMINS/MINERALS THERAP 1 TAB PO SCH (08:31)
[2021-11-10] MEDS: DICYCLOMINE 10 MG CAP PO SCH ×4 (08:31→20:11)
[2021-11-10] MEDS: VITAMIN D 1,000 INTERNATIONAL UNITS TABLET PO SCH (08:31)
[2021-11-10] MEDS: PANTOPRAZOLE 40MG TAB (PROTONIX) PO SCH (08:31)
[2021-11-10] MEDS: BACLOFEN 10 MG TAB PO SCH ×3 (08:31→20:10)
[2021-11-10] MEDS: CARIPRAZINE 1.5MG CAPSULE (VRAYLAR) PO SCH (08:31)
[2021-11-10] MEDS: SIMETHICONE 80MG CHEW TAB PO SCH ×3 (08:31→20:11)
[2021-11-10] MEDS: DIMETHICONE 2% OINTMENT(VANICREAM) 70GM TUBE TOP SCH ×2 (08:32→20:13)
[2021-11-10] MEDS: DIVALPROEX 500 MG TAB PO SCH ×2 (08:32→20:10)
[2021-11-10] MEDS: HYDROCORTISONE 2.5% 20GM OINTMENT TOP SCH ×2 (08:32→20:10)
[2021-11-10] MEDS: RIVAROXABAN 10 MG TAB (XARELTO) PO SCH (17:03)
[2021-11-10] MEDS: ACETAMINOPHEN TAB 650MG DOSE (2X325MG) PO PRN (17:29)
[2021-11-10 17:50] VITALS: BP 140/69
[2021-11-10] MEDS: LIDOCAINE 5% (LIDODERM) PATCH TOP SCH (20:08)
[2021-11-10] MEDS: risperiDONE 1 MG TAB PO SCH (20:10)
[2021-11-10] MEDS: EZETIMIBE 10MG TABLET (ZETIA) PO SCH (20:11)
[2021-11-10] MEDS: oxyBUTYnin *DITROPAN XL* 5 MG TABCR PO SCH (20:11)
[2021-11-10] MEDS: VERAPAMIL 180MG EXTENDED RELEASE TABLET PO SCH (20:12)
[2021-11-11 07:03] VITALS: BP 92/57
[2021-11-11] MEDS: HYDROCORTISONE 2.5% 20GM OINTMENT TOP SCH ×2 (09:00→20:08)
[2021-11-11] MEDS: BACLOFEN 10 MG TAB PO SCH ×3 (09:00→20:12)
[2021-11-11] MEDS: DIMETHICONE 2% OINTMENT(VANICREAM) 70GM TUBE TOP SCH ×2 (09:00→20:13)
[2021-11-11] MEDS: SIMETHICONE 80MG CHEW TAB PO SCH ×3 (09:01→20:08)
[2021-11-11] MEDS: DIVALPROEX 500 MG TAB PO SCH ×2 (09:01→20:08)
[2021-11-11] MEDS: MULTIVITAMINS/MINERALS THERAP 1 TAB PO SCH (09:01)
[2021-11-11] MEDS: PANTOPRAZOLE 40MG TAB (PROTONIX) PO SCH (09:01)
[2021-11-11] MEDS: DICYCLOMINE 10 MG CAP PO SCH ×4 (09:01→20:09)
[2021-11-11] MEDS: CARIPRAZINE 1.5MG CAPSULE (VRAYLAR) PO SCH (09:01)
[2021-11-11] MEDS: VITAMIN D 1,000 INTERNATIONAL UNITS TABLET PO SCH (09:05)
[2021-11-11] MEDS: **NOTE PATIENT COMMENT** MISC XX SCH (09:22)
[2021-11-11] MEDS: RIVAROXABAN 10 MG TAB (XARELTO) PO SCH (18:09)
[2021-11-11] MEDS: SODIUM CHLORIDE NASAL 0.65% SPRAY BTL (OCEAN) SCH (20:06)
[2021-11-11] MEDS: oxyBUTYnin *DITROPAN XL* 5 MG TABCR PO SCH (20:08)
[2021-11-11 20:12] VITALS: BP 138/72
[2021-11-11] MEDS: EZETIMIBE 10MG TABLET (ZETIA) PO SCH (20:12)
[2021-11-11] MEDS: VERAPAMIL 180MG EXTENDED RELEASE TABLET PO SCH (20:12)
[2021-11-11] MEDS: LIDOCAINE 5% (LIDODERM) PATCH TOP SCH (20:13)
[2021-11-11] MEDS: MAALOX 30 ML SUSP *UDC PO PRN (21:33)
[2021-11-12 06:00] VITALS: BP 137/61
[2021-11-12] MEDS: MULTIVITAMINS/MINERALS THERAP 1 TAB PO SCH (08:27)
[2021-11-12] MEDS: DICYCLOMINE 10 MG CAP PO SCH (08:27)
[2021-11-12] MEDS: PANTOPRAZOLE 40MG TAB (PROTONIX) PO SCH (08:27)
[2021-11-12] MEDS: VITAMIN D 1,000 INTERNATIONAL UNITS TABLET PO SCH (08:27)
[2021-11-12] MEDS: CARIPRAZINE 1.5MG CAPSULE (VRAYLAR) PO SCH (08:27)
[2021-11-12] MEDS: DIVALPROEX 500 MG TAB PO SCH (08:27)
[2021-11-12] MEDS: SIMETHICONE 80MG CHEW TAB PO SCH (08:27)
[2021-11-12] MEDS: BACLOFEN 10 MG TAB PO SCH (08:27)
[2021-11-12] MEDS: SODIUM CHLORIDE NASAL 0.65% SPRAY BTL (OCEAN) SCH (08:28)
[2021-11-12] MEDS: HYDROCORTISONE 2.5% 20GM OINTMENT TOP SCH (08:28)
[2021-11-12] MEDS: **NOTE PATIENT COMMENT** MISC XX SCH (08:33)
[2021-11-12] MEDS: DIMETHICONE 2% OINTMENT(VANICREAM) 70GM TUBE TOP SCH (08:33)
[2021-11-12] MEDS ORDERED: VRAY1.5C PO (10:40)
[2021-11-12] MEDS ORDERED: NICO2GUM PO (10:40)
== END 2021-11-12 11:35 | disposition home or self-care (01) | DRG 885 ==
LOC: M ED 06:53 → M ED INP 15:09 → M PSY 17:12
PROVIDERS: ADMIT Student in an Organized Health Care Education/Training Program; ATTEND Student in an Organized Health Care Education/Training Program
DX: F22 Delusional disorders (principal); F17.290 Nicotine dependence, other tobacco product, uncomplicated; I10 Essential (primary) hypertension; E78.5 Hyperlipidemia, unspecified; K21.9 Gastro-esophageal reflux disease without esophagitis; K57.90 Diverticulosis of intestine, part unspecified, without perforation or abscess without bleeding; M79.7 Fibromyalgia; H81.10 Benign paroxysmal vertigo, unspecified ear; G31.84 Mild cognitive impairment of uncertain or unknown etiology; N39.3 Stress incontinence (female) (male); R60.0 Localized edema; M54.50 Low back pain, unspecified; R53.1 Weakness; R14.0 Abdominal distension (gaseous); Z79.899 Other long term (current) drug therapy; Z88.0 Allergy status to penicillin; Z88.5 Allergy status to narcotic agent; Z88.6 Allergy status to analgesic agent; Z88.8 Allergy status to other drugs, medicaments and biological substances; Z91.011 Allergy to milk products; Z86.718 Personal history of other venous thrombosis and embolism; Z91.012 Allergy to eggs; Z79.01 Long term (current) use of anticoagulants; Z86.711 Personal history of pulmonary embolism; Z90.49 Acquired absence of other specified parts of digestive tract; Z20.822 Contact with and (suspected) exposure to COVID-19

== ENCOUNTER 2022-01-11 02:01 | Emergency (ER) | payer MEDICARE ==
[~2022-01-11] VITALS: Ht 162.6 cm; Wt 82.2 kg
[~2022-01-11 02:01] MED LIST changes: +LIDO5TD TOP; +NICO2GUM PO; +VRAY1.5C PO
[2022-01-11 02:32] LABS: HEMATOCRIT 36.2 % (36.0-47.0); HEMOGLOBIN 12.2 g/dl (12.0-15.5); MEAN CORPUSCULAR HGB CONC 33.7 g/dl (32.0-36.5); MEAN CORPUSCULAR VOLUME 83.2 fl (80.0-96.0); PLATELET COUNT, AUTOMATED 238 10^3/uL (150-450); RED BLOOD COUNT 4.35 10^6/uL (4.00-5.40); WHITE BLOOD COUNT 8.1 10^3/uL (4.0-10.0)
[2022-01-11 03:08] LABS: AMPHETAMINES LEVEL URINE NEGATIVE (NEGATIVE); BARBITURATES URINE NEGATIVE (NEGATIVE); BENZODIAZEPINES URINE NEGATIVE (NEGATIVE); CANNABINOIDS URINE NEGATIVE (NEGATIVE); COCAINE METABOLITE URINE NEGATIVE (NEGATIVE); METHADONE URINE NEGATIVE (NEGATIVE); OPIATES URINE NEGATIVE (NEGATIVE); PHENCYCLIDINE URINE NEGATIVE (NEGATIVE)
[2022-01-11 03:15] LABS: RSV AMPLIFICATION NEGATIVE (NEGATIVE)
[2022-01-11 03:18] LABS: ACETAMINOPHEN LEVEL < 2.0 UG/ML (10.0-30.0); ALBUMIN 3.2 GM/DL (3.2-5.2); ALT/SGPT 13 U/L (12-78); BILIRUBIN,DIRECT 0.1 MG/DL (0.0-0.2); BILIRUBIN,TOTAL 0.3 MG/DL (0.2-1.0); BLOOD UREA NITROGEN 9 MG/DL (7-18); CALCIUM LEVEL 9.7 MG/DL (8.8-10.2); CARBON DIOXIDE LEVEL 25 MEQ/L (21-32); CHLORIDE LEVEL 103 MEQ/L (98-107); CREATININE FOR GFR 0.81 MG/DL (0.55-1.30); ETHYL ALCOHOL (ETHANOL) < 0.003 % (0.000-0.010); GLOMERULAR FILTRATION RATE > 60.0 (>39); GLUCOSE, FASTING 99 MG/DL (70-100); POTASSIUM SERUM 3.7 MEQ/L (3.5-5.1); SALICYLATE LEVEL 1.7 MG/DL (5.0-30.0); SODIUM LEVEL 138 MEQ/L (136-145); TOTAL PROTEIN 7.2 GM/DL (6.4-8.2); VALPROIC ACID (DEPAKOTE) 52.3 UG/ML (50.0-100.0)
[2022-01-11] MEDS ORDERED: LORazepam 2 MG/ML VIAL IV STA (03:25)
[2022-01-11] MEDS ORDERED: cefTRIAXone SOD 1 GM in D5W MINI-BAG PLUS 50 ML IV ONE (03:30)
[2022-01-11] MEDS ORDERED: CIPR250T26 PO (14:11)
[2022-01-11 16:37] VITALS: BP 144/74
== END 2022-01-11 16:25 | disposition home or self-care (01) ==
LOC: M ED 02:01
DX: F03.91 Unspecified dementia, unspecified severity, with behavioral disturbance (principal); F20.9 Schizophrenia, unspecified; Z86.711 Personal history of pulmonary embolism; K21.9 Gastro-esophageal reflux disease without esophagitis; I10 Essential (primary) hypertension; M79.7 Fibromyalgia; Z88.0 Allergy status to penicillin; Z88.8 Allergy status to other drugs, medicaments and biological substances; Z88.6 Allergy status to analgesic agent; Z79.899 Other long term (current) drug therapy
CPT/HCPCS: 70450; 80048; 80076; 80143; 80164; 80307; 81001; 82077; 84443; 85027; 87088; 87186; 87631; 93005; 96374; 96375; 99284; J0696; J2060

== ENCOUNTER 2022-03-05 14:32 | Inpatient (IN) | payer MEDICARE ==
[~2022-03-05] VITALS: Ht 162.6 cm; Wt 68.2 kg
[~2022-03-05 14:32] MED LIST changes: +ALBU2.5V10 INH; -ALBU83IN INH; +CIPR250T26 PO
[2022-03-05 16:11] LABS: HEMATOCRIT 36.4 % (36.0-47.0); HEMOGLOBIN 11.8 g/dl (12.0-15.5); MEAN CORPUSCULAR HEMOGLOBIN 27.7 pg (27.0-33.0); MEAN CORPUSCULAR HGB CONC 32.4 g/dl (32.0-36.5); MEAN CORPUSCULAR VOLUME 85.4 fl (80.0-96.0); PLATELET COUNT, AUTOMATED 222 10^3/uL (150-450); RED BLOOD COUNT 4.26 10^6/uL (4.00-5.40); WHITE BLOOD COUNT 7.3 10^3/uL (4.0-10.0)
[2022-03-05 16:43] LABS: ACETAMINOPHEN LEVEL < 2.0 UG/ML (10.0-30.0); ALT/SGPT 17 U/L (12-78); BILIRUBIN,DIRECT < 0.1 MG/DL (0.0-0.2); BILIRUBIN,TOTAL 0.3 MG/DL (0.2-1.0); BLOOD UREA NITROGEN 18 MG/DL (7-18); CALCIUM LEVEL 9.5 MG/DL (8.8-10.2); CARBON DIOXIDE LEVEL 24 MEQ/L (21-32); CHLORIDE LEVEL 111 MEQ/L (98-107); CREATININE FOR GFR 1.22 MG/DL (0.55-1.30); ETHYL ALCOHOL (ETHANOL) 0.003 % (0.000-0.010); GLOMERULAR FILTRATION RATE 46.3 (>39); GLUCOSE, FASTING 95 MG/DL (70-100); RSV AMPLIFICATION NEGATIVE (NEGATIVE); SALICYLATE LEVEL < 1.7 MG/DL (5.0-30.0); SODIUM LEVEL 143 MEQ/L (136-145); THYROID STIMULATING HORMONE 0.546 uIU/ML (0.358-3.740); TOTAL PROTEIN 6.3 GM/DL (6.4-8.2)
[2022-03-05 16:54] LABS: AMPHETAMINES LEVEL URINE NEGATIVE (NEGATIVE); BARBITURATES URINE NEGATIVE (NEGATIVE); BENZODIAZEPINES URINE NEGATIVE (NEGATIVE); CANNABINOIDS URINE NEGATIVE (NEGATIVE); COCAINE METABOLITE URINE NEGATIVE (NEGATIVE); METHADONE URINE NEGATIVE (NEGATIVE); OPIATES URINE NEGATIVE (NEGATIVE); PHENCYCLIDINE URINE NEGATIVE (NEGATIVE)
[2022-03-05] MEDS ORDERED: MED REC COMMENT (19:00)
[2022-03-05] MEDS ORDERED: HOME MED LIST COMPLETE! XX SCH (19:05)
[2022-03-06] MEDS ORDERED: BACLOFEN 10 MG TAB PO ONE (11:15)
[2022-03-06] MEDS ORDERED: DIVALPROEX 500 MG TAB PO ONE (11:15)
[2022-03-06] MEDS ORDERED: EZETIMIBE 10MG TABLET (ZETIA) PO ONE (11:15)
[2022-03-06] MEDS ORDERED: DICYCLOMINE 10 MG CAP PO ONE (11:15)
[2022-03-06] MEDS ORDERED: VERAPAMIL 40 MG TAB PO ONE (11:15)
[2022-03-06] MEDS ORDERED: EZETIMIBE 10MG TABLET (ZETIA) PO SCH (11:15)
[2022-03-06] MEDS ORDERED: VERAPAMIL 120MG SR TAB PO ONE (11:55)
[2022-03-06] MEDS ORDERED: CETIRIZINE (ZyrTEC) 10 MG TAB PO PRN (18:05)
[2022-03-06] MEDS ORDERED: MECLIZINE 25 MG TABLET PO PRN (18:05)
[2022-03-06] MEDS: BACLOFEN 10 MG TAB PO SCH (20:16)
[2022-03-06] MEDS: RIVAROXABAN 10MG TAB (XARELTO) PO SCH (20:17)
[2022-03-06] MEDS: LevoFLOXacin 250 MG TABLET PO SCH (20:17)
[2022-03-06] MEDS: DICYCLOMINE 10 MG CAP PO SCH (21:41)
[2022-03-06] MEDS: DIVALPROEX 500 MG TAB PO SCH (21:41)
[2022-03-06] MEDS: ACETAMINOPHEN TAB 650MG DOSE (2X325MG) PO PRN (22:21)
[2022-03-06 22:34] VITALS: BP 119/54
[2022-03-07] VITALS (7 sets, daily range): BP systolic 102–122; BP diastolic 49–66
[2022-03-07] MEDS: ONDANSETRON 4MG TAB PO PRN ×2 (02:55→10:26)
[2022-03-07 07:58] LABS: HEMATOCRIT 35.8 % (36.0-47.0); HEMOGLOBIN 11.5 g/dl (12.0-15.5); MEAN CORPUSCULAR HEMOGLOBIN 27.6 pg (27.0-33.0); MEAN CORPUSCULAR HGB CONC 32.1 g/dl (32.0-36.5); MEAN CORPUSCULAR VOLUME 85.9 fl (80.0-96.0); PLATELET COUNT, AUTOMATED 226 10^3/uL (150-450); RED BLOOD COUNT 4.17 10^6/uL (4.00-5.40); WHITE BLOOD COUNT 5.7 10^3/uL (4.0-10.0)
[2022-03-07 08:31] LABS: ALBUMIN 2.9 GM/DL (3.2-5.2); ALT/SGPT 14 U/L (12-78); BILIRUBIN,TOTAL 0.2 MG/DL (0.2-1.0); BLOOD UREA NITROGEN 6 MG/DL (7-18); CALCIUM LEVEL 9.4 MG/DL (8.8-10.2); CARBON DIOXIDE LEVEL 31 MEQ/L (21-32); CHLORIDE LEVEL 107 MEQ/L (98-107); GLOMERULAR FILTRATION RATE > 60.0 (>39); GLUCOSE, FASTING 84 MG/DL (70-100); POTASSIUM SERUM 4.5 MEQ/L (3.5-5.1); SODIUM LEVEL 142 MEQ/L (136-145); TOTAL PROTEIN 6.4 GM/DL (6.4-8.2)
[2022-03-07] MEDS: DICYCLOMINE 10 MG CAP PO SCH ×4 (09:07→20:26)
[2022-03-07] MEDS: oxyBUTYnin *DITROPAN XL* 5 MG TABCR PO SCH (09:08)
[2022-03-07] MEDS: ACETAMINOPHEN TAB 650MG DOSE (2X325MG) PO PRN (09:08)
[2022-03-07] MEDS: VERAPAMIL 180MG EXTENDED RELEASE TABLET PO SCH (09:09)
[2022-03-07] MEDS: DIVALPROEX 500 MG TAB PO SCH ×2 (09:09→20:27)
[2022-03-07] MEDS: EZETIMIBE 10MG TABLET (ZETIA) PO SCH (09:10)
[2022-03-07] MEDS: PANTOPRAZOLE 40MG TAB (PROTONIX) PO SCH (09:10)
[2022-03-07] MEDS: BACLOFEN 10 MG TAB PO SCH ×4 (09:10→20:27)
[2022-03-07] MEDS: LORazepam 1 MG TAB PO PRN (10:25)
[2022-03-07] MEDS: RIVAROXABAN 10MG TAB (XARELTO) PO SCH (17:25)
[2022-03-07] MEDS: LevoFLOXacin 250 MG TABLET PO SCH (20:26)
[2022-03-07] MEDS ORDERED: LORazepam 0.5 MG TAB PO ONE (21:00)
[2022-03-07] MEDS: RAMELTEON 8 MG TAB (ROZEREM) PO PRN (21:11)
[2022-03-07] MEDS: BENZOCAINE 10% 9GM TUBE (ANBESOL) MT SCH (21:39)
[2022-03-08 04:18] VITALS: BP 128/62
[2022-03-08] MEDS: ACETAMINOPHEN TAB 650MG DOSE (2X325MG) PO PRN ×3 (05:13→20:09)
[2022-03-08 07:50] LABS: HEMATOCRIT 32.1 % (36.0-47.0); HEMOGLOBIN 10.4 g/dl (12.0-15.5); MEAN CORPUSCULAR HGB CONC 32.4 g/dl (32.0-36.5); MEAN CORPUSCULAR VOLUME 86.5 fl (80.0-96.0); PLATELET COUNT, AUTOMATED 182 10^3/uL (150-450); RED BLOOD COUNT 3.71 10^6/uL (4.00-5.40); WHITE BLOOD COUNT 4.8 10^3/uL (4.0-10.0)
[2022-03-08 08:22] LABS: ALBUMIN 2.5 GM/DL (3.2-5.2); ALT/SGPT 12 U/L (12-78); BILIRUBIN,TOTAL 0.2 MG/DL (0.2-1.0); BLOOD UREA NITROGEN 10 MG/DL (7-18); CALCIUM LEVEL 8.9 MG/DL (8.8-10.2); CARBON DIOXIDE LEVEL 31 MEQ/L (21-32); CHLORIDE LEVEL 104 MEQ/L (98-107); CREATININE FOR GFR 0.72 MG/DL (0.55-1.30); GLOMERULAR FILTRATION RATE > 60.0 (>39); GLUCOSE, FASTING 83 MG/DL (70-100); SODIUM LEVEL 142 MEQ/L (136-145); TOTAL PROTEIN 5.3 GM/DL (6.4-8.2)
[2022-03-08] MEDS: EZETIMIBE 10MG TABLET (ZETIA) PO SCH (09:42)
[2022-03-08] MEDS: BENZOCAINE 10% 9GM TUBE (ANBESOL) MT SCH ×4 (09:42→20:10)
[2022-03-08] MEDS: PANTOPRAZOLE 40MG TAB (PROTONIX) PO SCH (09:43)
[2022-03-08] MEDS: DIVALPROEX 500 MG TAB PO SCH ×2 (09:43→20:08)
[2022-03-08] MEDS: VERAPAMIL 180MG EXTENDED RELEASE TABLET PO SCH (09:44)
[2022-03-08] MEDS: oxyBUTYnin *DITROPAN XL* 5 MG TABCR PO SCH (09:44)
[2022-03-08] MEDS: BACLOFEN 10 MG TAB PO SCH ×4 (09:45→20:09)
[2022-03-08] MEDS: DICYCLOMINE 10 MG CAP PO SCH ×4 (09:45→20:28)
[2022-03-08 11:48] VITALS: BP 127/61
[2022-03-08] MEDS: POLYVINYL ALCOHOL OPHTH SOLN 15 ML(LIQUITEARS) OU PRN (13:22)
[2022-03-08] MEDS: LIDOCAINE 5% (LIDODERM) PATCH TD SCH (13:28)
[2022-03-08] MEDS ORDERED: ISOVUE-370 76% 100ML VIAL As Ordered ONE (13:48)
[2022-03-08] MEDS: RIVAROXABAN 10MG TAB (XARELTO) PO SCH (16:47)
[2022-03-08 19:45] VITALS: BP 113/56
[2022-03-08] MEDS ORDERED: CLINDAMYCIN 150MG CAPSULE PO ONE (20:00)
[2022-03-08] MEDS: RAMELTEON 8 MG TAB (ROZEREM) PO PRN (20:09)
[2022-03-08] MEDS: LevoFLOXacin 250 MG TABLET PO SCH (20:09)
[2022-03-08] MEDS: **NOTE PATIENT COMMENT** MISC XX SCH (20:10)
[2022-03-09 04:38] VITALS: BP 123/58
[2022-03-09 05:18] LABS: HEMOGLOBIN 10.4 g/dl (12.0-15.5); MEAN CORPUSCULAR HEMOGLOBIN 27.8 pg (27.0-33.0); MEAN CORPUSCULAR HGB CONC 32.5 g/dl (32.0-36.5); MEAN CORPUSCULAR VOLUME 85.6 fl (80.0-96.0); PLATELET COUNT, AUTOMATED 179 10^3/uL (150-450); RED BLOOD COUNT 3.74 10^6/uL (4.00-5.40); WHITE BLOOD COUNT 5.6 10^3/uL (4.0-10.0)
[2022-03-09 05:41] LABS: ALBUMIN 2.3 GM/DL (3.2-5.2); ALT/SGPT 9 U/L (12-78); BILIRUBIN,TOTAL < 0.1 MG/DL (0.2-1.0); BLOOD UREA NITROGEN 18 MG/DL (7-18); CALCIUM LEVEL 8.8 MG/DL (8.8-10.2); CARBON DIOXIDE LEVEL 30 MEQ/L (21-32); CHLORIDE LEVEL 105 MEQ/L (98-107); CREATININE FOR GFR 0.78 MG/DL (0.55-1.30); GLOMERULAR FILTRATION RATE > 60.0 (>39); GLUCOSE, FASTING 91 MG/DL (70-100); POTASSIUM SERUM 4.3 MEQ/L (3.5-5.1); SODIUM LEVEL 141 MEQ/L (136-145); TOTAL PROTEIN 5.3 GM/DL (6.4-8.2)
[2022-03-09] MEDS: ACETAMINOPHEN TAB 650MG DOSE (2X325MG) PO PRN (05:44)
[2022-03-09] MEDS: CLINDAMYCIN 150MG CAPSULE PO SCH ×3 (05:44→20:19)
[2022-03-09 08:00] VITALS: BP 140/64
[2022-03-09] MEDS: LIDOCAINE 5% (LIDODERM) PATCH TD SCH (08:50)
[2022-03-09] MEDS: BACLOFEN 10 MG TAB PO SCH ×4 (08:50→20:15)
[2022-03-09] MEDS: DICYCLOMINE 10 MG CAP PO SCH ×4 (08:51→20:15)
[2022-03-09] MEDS: PANTOPRAZOLE 40MG TAB (PROTONIX) PO SCH (08:51)
[2022-03-09] MEDS: oxyBUTYnin *DITROPAN XL* 5 MG TABCR PO SCH (08:51)
[2022-03-09] MEDS: LACTOBACILLUS ACIDOPHILUS CAP (BACID) PO SCH ×2 (08:51→17:18)
[2022-03-09] MEDS: VERAPAMIL 180MG EXTENDED RELEASE TABLET PO SCH (08:52)
[2022-03-09] MEDS: DIVALPROEX 500 MG TAB PO SCH ×2 (08:53→20:15)
[2022-03-09] MEDS: BENZOCAINE 10% 9GM TUBE (ANBESOL) MT SCH ×4 (08:53→20:16)
[2022-03-09] MEDS: EZETIMIBE 10MG TABLET (ZETIA) PO SCH (09:42)
[2022-03-09 16:00] VITALS: BP 113/55
[2022-03-09] MEDS ORDERED: BENZOCAINE 10% 9GM TUBE (ANBESOL) MT ONE (16:00)
[2022-03-09] MEDS: RIVAROXABAN 10MG TAB (XARELTO) PO SCH (17:18)
[2022-03-09 20:00] VITALS: BP 112/53
[2022-03-09] MEDS: RAMELTEON 8 MG TAB (ROZEREM) PO PRN (20:15)
[2022-03-09] MEDS: QUEtiapine FUMARATE 25 MG TAB PO PRN (20:15)
[2022-03-09] MEDS: **NOTE PATIENT COMMENT** MISC XX SCH (20:16)
[2022-03-10 04:16] VITALS: BP 119/57
[2022-03-10] MEDS: CLINDAMYCIN 150MG CAPSULE PO SCH ×3 (05:59→21:25)
[2022-03-10 06:37] LABS: HEMATOCRIT 33.1 % (36.0-47.0); HEMOGLOBIN 10.7 g/dl (12.0-15.5); MEAN CORPUSCULAR HEMOGLOBIN 27.7 pg (27.0-33.0); MEAN CORPUSCULAR HGB CONC 32.3 g/dl (32.0-36.5); MEAN CORPUSCULAR VOLUME 85.8 fl (80.0-96.0); PLATELET COUNT, AUTOMATED 174 10^3/uL (150-450); RED BLOOD COUNT 3.86 10^6/uL (4.00-5.40); WHITE BLOOD COUNT 6.3 10^3/uL (4.0-10.0)
[2022-03-10 07:11] LABS: ALBUMIN 2.5 GM/DL (3.2-5.2); ALT/SGPT 10 U/L (12-78); BILIRUBIN,TOTAL 0.3 MG/DL (0.2-1.0); BLOOD UREA NITROGEN 15 MG/DL (7-18); CALCIUM LEVEL 8.8 MG/DL (8.8-10.2); CARBON DIOXIDE LEVEL 31 MEQ/L (21-32); CHLORIDE LEVEL 104 MEQ/L (98-107); CREATININE FOR GFR 0.69 MG/DL (0.55-1.30); GLOMERULAR FILTRATION RATE > 60.0 (>39); GLUCOSE, FASTING 84 MG/DL (70-100); SODIUM LEVEL 138 MEQ/L (136-145); TOTAL PROTEIN 5.5 GM/DL (6.4-8.2)
[2022-03-10] MEDS: CALCIUM CARBONATE 500 MG CHEW U/D PO PRN (09:09)
[2022-03-10] MEDS: LACTOBACILLUS ACIDOPHILUS CAP (BACID) PO SCH ×2 (09:10→17:07)
[2022-03-10] MEDS: PANTOPRAZOLE 40MG TAB (PROTONIX) PO SCH (09:10)
[2022-03-10] MEDS: DIVALPROEX 500 MG TAB PO SCH ×2 (09:10→21:26)
[2022-03-10] MEDS: DICYCLOMINE 10 MG CAP PO SCH ×4 (09:11→21:25)
[2022-03-10] MEDS: VERAPAMIL 180MG EXTENDED RELEASE TABLET PO SCH (09:11)
[2022-03-10] MEDS: LIDOCAINE 5% (LIDODERM) PATCH TD SCH (09:12)
[2022-03-10] MEDS: BACLOFEN 10 MG TAB PO SCH ×4 (09:12→21:25)
[2022-03-10] MEDS: BENZOCAINE 10% 9GM TUBE (ANBESOL) MT SCH ×4 (09:13→21:26)
[2022-03-10 12:19] VITALS: BP 143/63
[2022-03-10] MEDS: RIVAROXABAN 10MG TAB (XARELTO) PO SCH (17:07)
[2022-03-10 17:36] VITALS: BP 118/54
[2022-03-10] MEDS: EZETIMIBE 10MG TABLET (ZETIA) PO SCH (21:25)
[2022-03-10] MEDS: oxyBUTYnin *DITROPAN XL* 5 MG TABCR PO SCH (21:25)
[2022-03-10] MEDS: POLYVINYL ALCOHOL OPHTH SOLN 15 ML(LIQUITEARS) OU PRN (21:26)
[2022-03-10] MEDS: **NOTE PATIENT COMMENT** MISC XX SCH (21:27)
[2022-03-11 05:34] VITALS: BP 119/53
[2022-03-11 06:08] LABS: HEMATOCRIT 32.6 % (36.0-47.0); HEMOGLOBIN 10.4 g/dl (12.0-15.5); MEAN CORPUSCULAR HEMOGLOBIN 26.7 pg (27.0-33.0); MEAN CORPUSCULAR HGB CONC 31.9 g/dl (32.0-36.5); MEAN CORPUSCULAR VOLUME 83.8 fl (80.0-96.0); PLATELET COUNT, AUTOMATED 176 10^3/uL (150-450); RED BLOOD COUNT 3.89 10^6/uL (4.00-5.40); WHITE BLOOD COUNT 6.4 10^3/uL (4.0-10.0)
[2022-03-11] MEDS: CLINDAMYCIN 150MG CAPSULE PO SCH ×3 (06:15→22:01)
[2022-03-11 06:33] LABS: ALBUMIN 2.4 GM/DL (3.2-5.2); ALT/SGPT 13 U/L (12-78); BILIRUBIN,TOTAL 0.3 MG/DL (0.2-1.0); BLOOD UREA NITROGEN 13 MG/DL (7-18); CALCIUM LEVEL 8.8 MG/DL (8.8-10.2); CARBON DIOXIDE LEVEL 32 MEQ/L (21-32); CHLORIDE LEVEL 104 MEQ/L (98-107); CREATININE FOR GFR 0.69 MG/DL (0.55-1.30); GLOMERULAR FILTRATION RATE > 60.0 (>39); GLUCOSE, FASTING 87 MG/DL (70-100); POTASSIUM SERUM 4.1 MEQ/L (3.5-5.1); SODIUM LEVEL 138 MEQ/L (136-145); TOTAL PROTEIN 5.8 GM/DL (6.4-8.2)
[2022-03-11] MEDS: POLYVINYL ALCOHOL OPHTH SOLN 15 ML(LIQUITEARS) OU PRN ×2 (08:27→22:12)
[2022-03-11] MEDS: LIDOCAINE 5% (LIDODERM) PATCH TD SCH (08:27)
[2022-03-11] MEDS: BENZOCAINE 10% 9GM TUBE (ANBESOL) MT SCH ×4 (08:27→22:01)
[2022-03-11] MEDS: PANTOPRAZOLE 40MG TAB (PROTONIX) PO SCH (08:27)
[2022-03-11] MEDS: DICYCLOMINE 10 MG CAP PO SCH ×4 (08:27→22:11)
[2022-03-11] MEDS: LACTOBACILLUS ACIDOPHILUS CAP (BACID) PO SCH ×2 (08:27→17:21)
[2022-03-11] MEDS: VERAPAMIL 180MG EXTENDED RELEASE TABLET PO SCH (08:28)
[2022-03-11] MEDS: BACLOFEN 10 MG TAB PO SCH ×4 (08:28→22:02)
[2022-03-11] MEDS: DIVALPROEX 500 MG TAB PO SCH ×2 (08:28→22:02)
[2022-03-11 14:00] VITALS: BP 153/52
[2022-03-11] MEDS: RIVAROXABAN 10MG TAB (XARELTO) PO SCH (17:21)
[2022-03-11 22:00] VITALS: BP 115/43
[2022-03-11] MEDS: oxyBUTYnin *DITROPAN XL* 5 MG TABCR PO SCH (22:02)
[2022-03-11] MEDS: EZETIMIBE 10MG TABLET (ZETIA) PO SCH (22:02)
[2022-03-11] MEDS: **NOTE PATIENT COMMENT** MISC XX SCH (22:06)
[2022-03-11] MEDS: RAMELTEON 8 MG TAB (ROZEREM) PO PRN (22:18)
[2022-03-12 06:00] VITALS: BP 120/59
[2022-03-12] MEDS: CLINDAMYCIN 150MG CAPSULE PO SCH ×3 (06:27→21:08)
[2022-03-12 06:36] LABS: HEMOGLOBIN 11.5 g/dl (12.0-15.5); MEAN CORPUSCULAR HEMOGLOBIN 27.2 pg (27.0-33.0); MEAN CORPUSCULAR HGB CONC 31.9 g/dl (32.0-36.5); MEAN CORPUSCULAR VOLUME 85.1 fl (80.0-96.0); PLATELET COUNT, AUTOMATED 205 10^3/uL (150-450); RED BLOOD COUNT 4.23 10^6/uL (4.00-5.40); WHITE BLOOD COUNT 6.4 10^3/uL (4.0-10.0)
[2022-03-12 07:15] LABS: ALBUMIN 2.7 GM/DL (3.2-5.2); ALT/SGPT 12 U/L (12-78); BILIRUBIN,TOTAL 0.1 MG/DL (0.2-1.0); BLOOD UREA NITROGEN 16 MG/DL (7-18); CALCIUM LEVEL 9.3 MG/DL (8.8-10.2); CARBON DIOXIDE LEVEL 32 MEQ/L (21-32); CHLORIDE LEVEL 103 MEQ/L (98-107); CREATININE FOR GFR 0.71 MG/DL (0.55-1.30); GLOMERULAR FILTRATION RATE > 60.0 (>39); GLUCOSE, FASTING 88 MG/DL (70-100); POTASSIUM SERUM 4.4 MEQ/L (3.5-5.1); SODIUM LEVEL 138 MEQ/L (136-145)
[2022-03-12] MEDS: LACTOBACILLUS ACIDOPHILUS CAP (BACID) PO SCH ×2 (09:46→17:19)
[2022-03-12] MEDS: BACLOFEN 10 MG TAB PO SCH ×4 (09:48→20:59)
[2022-03-12] MEDS: PANTOPRAZOLE 40MG TAB (PROTONIX) PO SCH (09:48)
[2022-03-12] MEDS: BENZOCAINE 10% 9GM TUBE (ANBESOL) MT SCH ×4 (09:48→21:00)
[2022-03-12] MEDS: DICYCLOMINE 10 MG CAP PO SCH ×4 (09:48→20:59)
[2022-03-12] MEDS: VERAPAMIL 180MG EXTENDED RELEASE TABLET PO SCH (09:49)
[2022-03-12] MEDS: POLYVINYL ALCOHOL OPHTH SOLN 15 ML(LIQUITEARS) OU PRN ×2 (09:55→21:00)
[2022-03-12] MEDS: DIVALPROEX 500 MG TAB PO SCH ×2 (13:44→21:00)
[2022-03-12 14:00] VITALS: BP 130/57
[2022-03-12] MEDS: RIVAROXABAN 10MG TAB (XARELTO) PO SCH (17:19)
[2022-03-12] MEDS: oxyBUTYnin *DITROPAN XL* 5 MG TABCR PO SCH (20:59)
[2022-03-12] MEDS: LIDOCAINE 5% (LIDODERM) PATCH TD SCH (20:59)
[2022-03-12] MEDS: EZETIMIBE 10MG TABLET (ZETIA) PO SCH (20:59)
[2022-03-12 22:00] VITALS: BP 113/43
[2022-03-13 05:43] VITALS: BP 127/62
[2022-03-13] MEDS: CLINDAMYCIN 150MG CAPSULE PO SCH ×3 (05:43→20:34)
[2022-03-13 06:03] LABS: HEMATOCRIT 36.1 % (36.0-47.0); HEMOGLOBIN 11.9 g/dl (12.0-15.5); MEAN CORPUSCULAR HEMOGLOBIN 27.8 pg (27.0-33.0); MEAN CORPUSCULAR VOLUME 84.3 fl (80.0-96.0); PLATELET COUNT, AUTOMATED 194 10^3/uL (150-450); RED BLOOD COUNT 4.28 10^6/uL (4.00-5.40); WHITE BLOOD COUNT 7.1 10^3/uL (4.0-10.0)
[2022-03-13 06:34] LABS: ALBUMIN 2.7 GM/DL (3.2-5.2); ALT/SGPT 12 U/L (12-78); BILIRUBIN,TOTAL 0.2 MG/DL (0.2-1.0); BLOOD UREA NITROGEN 16 MG/DL (7-18); CALCIUM LEVEL 9.2 MG/DL (8.8-10.2); CARBON DIOXIDE LEVEL 31 MEQ/L (21-32); CHLORIDE LEVEL 102 MEQ/L (98-107); CREATININE FOR GFR 0.63 MG/DL (0.55-1.30); GLOMERULAR FILTRATION RATE > 60.0 (>39); GLUCOSE, FASTING 83 MG/DL (70-100); SODIUM LEVEL 136 MEQ/L (136-145); TOTAL PROTEIN 6.1 GM/DL (6.4-8.2)
[2022-03-13] MEDS: LACTULOSE 20 GM/30 ML SYRUP UD PO PRN (08:31)
[2022-03-13] MEDS: DICYCLOMINE 10 MG CAP PO SCH ×4 (08:32→20:33)
[2022-03-13] MEDS: PANTOPRAZOLE 40MG TAB (PROTONIX) PO SCH (08:32)
[2022-03-13] MEDS: BACLOFEN 10 MG TAB PO SCH ×4 (08:32→20:34)
[2022-03-13] MEDS: LACTOBACILLUS ACIDOPHILUS CAP (BACID) PO SCH ×2 (08:32→17:01)
[2022-03-13] MEDS: DIVALPROEX 500 MG TAB PO SCH ×2 (08:32→20:34)
[2022-03-13] MEDS: POLYVINYL ALCOHOL OPHTH SOLN 15 ML(LIQUITEARS) OU PRN ×2 (08:33→20:33)
[2022-03-13] MEDS: **NOTE PATIENT COMMENT** MISC XX SCH ×2 (08:33→21:07)
[2022-03-13] MEDS: BENZOCAINE 10% 9GM TUBE (ANBESOL) MT SCH ×4 (08:33→20:33)
[2022-03-13] MEDS: VERAPAMIL 180MG EXTENDED RELEASE TABLET PO SCH (08:37)
[2022-03-13] MEDS ORDERED: NICOTINE 21MG/24HR 1 EA TRANSDERMAL TD PRN (12:25)
[2022-03-13 14:00] VITALS: BP 130/54
[2022-03-13] MEDS: RIVAROXABAN 10MG TAB (XARELTO) PO SCH (17:01)
[2022-03-13] MEDS: oxyBUTYnin *DITROPAN XL* 5 MG TABCR PO SCH (20:34)
[2022-03-13] MEDS: EZETIMIBE 10MG TABLET (ZETIA) PO SCH (20:34)
[2022-03-13] MEDS: LIDOCAINE 5% (LIDODERM) PATCH TD SCH (21:07)
[2022-03-13 22:00] VITALS: BP 126/58
[2022-03-14] MEDS: CLINDAMYCIN 150MG CAPSULE PO SCH ×3 (05:08→21:06)
[2022-03-14 05:59] VITALS: BP 116/46
[2022-03-14] MEDS: PANTOPRAZOLE 40MG TAB (PROTONIX) PO SCH (08:05)
[2022-03-14] MEDS: BENZOCAINE 10% 9GM TUBE (ANBESOL) MT SCH ×4 (08:05→20:10)
[2022-03-14] MEDS: LACTOBACILLUS ACIDOPHILUS CAP (BACID) PO SCH ×2 (08:06→17:10)
[2022-03-14] MEDS: DIVALPROEX 500 MG TAB PO SCH ×2 (08:06→20:11)
[2022-03-14] MEDS: DICYCLOMINE 10 MG CAP PO SCH ×4 (08:06→20:10)
[2022-03-14] MEDS: BACLOFEN 10 MG TAB PO SCH ×4 (08:06→20:10)
[2022-03-14] MEDS: VERAPAMIL 180MG EXTENDED RELEASE TABLET PO SCH (08:12)
[2022-03-14 14:00] VITALS: BP 113/58
[2022-03-14] MEDS: RIVAROXABAN 10MG TAB (XARELTO) PO SCH (17:10)
[2022-03-14] MEDS: EZETIMIBE 10MG TABLET (ZETIA) PO SCH (20:10)
[2022-03-14] MEDS: POLYVINYL ALCOHOL OPHTH SOLN 15 ML(LIQUITEARS) OU PRN (20:10)
[2022-03-14] MEDS: oxyBUTYnin *DITROPAN XL* 5 MG TABCR PO SCH (20:11)
[2022-03-14] MEDS: LIDOCAINE 5% (LIDODERM) PATCH TD SCH (20:16)
[2022-03-14] MEDS: **NOTE PATIENT COMMENT** MISC XX SCH (20:16)
[2022-03-14 22:00] VITALS: BP 113/41
[2022-03-15 06:12] VITALS: BP 109/41
[2022-03-15] MEDS: DICYCLOMINE 10 MG CAP PO SCH ×4 (08:02→20:06)
[2022-03-15] MEDS: BACLOFEN 10 MG TAB PO SCH ×4 (08:02→20:05)
[2022-03-15] MEDS: PANTOPRAZOLE 40MG TAB (PROTONIX) PO SCH (08:03)
[2022-03-15] MEDS: DIVALPROEX 500 MG TAB PO SCH ×2 (08:03→20:06)
[2022-03-15] MEDS: BENZOCAINE 10% 9GM TUBE (ANBESOL) MT SCH ×4 (08:03→20:07)
[2022-03-15] MEDS: LACTOBACILLUS ACIDOPHILUS CAP (BACID) PO SCH ×2 (08:03→17:47)
[2022-03-15] MEDS: VERAPAMIL 180MG EXTENDED RELEASE TABLET PO SCH (08:28)
[2022-03-15] MEDS: RIVAROXABAN 10MG TAB (XARELTO) PO SCH (17:47)
[2022-03-15] MEDS: QUEtiapine FUMARATE 25 MG TAB PO PRN (19:29)
[2022-03-15] MEDS: LORazepam 1 MG TAB PO PRN (19:29)
[2022-03-15] MEDS: LIDOCAINE 5% (LIDODERM) PATCH TD SCH (20:05)
[2022-03-15] MEDS: oxyBUTYnin *DITROPAN XL* 5 MG TABCR PO SCH (20:06)
[2022-03-15] MEDS: EZETIMIBE 10MG TABLET (ZETIA) PO SCH (20:06)
[2022-03-15] MEDS: **NOTE PATIENT COMMENT** MISC XX SCH (20:08)
[2022-03-15] MEDS: ACETAMINOPHEN TAB 650MG DOSE (2X325MG) PO PRN (20:09)
[2022-03-15] MEDS: RAMELTEON 8 MG TAB (ROZEREM) PO PRN (20:12)
[2022-03-16 06:29] VITALS: BP 113/41
[2022-03-16 08:30] LABS: HEMATOCRIT 38.9 % (36.0-47.0); HEMOGLOBIN 12.9 g/dl (12.0-15.5); MEAN CORPUSCULAR HEMOGLOBIN 27.3 pg (27.0-33.0); MEAN CORPUSCULAR HGB CONC 33.2 g/dl (32.0-36.5); MEAN CORPUSCULAR VOLUME 82.4 fl (80.0-96.0); PLATELET COUNT, AUTOMATED 200 10^3/uL (150-450); RED BLOOD COUNT 4.72 10^6/uL (4.00-5.40)
[2022-03-16 09:07] LABS: ALBUMIN 2.8 GM/DL (3.2-5.2); ALT/SGPT 14 U/L (12-78); BILIRUBIN,TOTAL 0.3 MG/DL (0.2-1.0); BLOOD UREA NITROGEN 11 MG/DL (7-18); CALCIUM LEVEL 9.1 MG/DL (8.8-10.2); CARBON DIOXIDE LEVEL 31 MEQ/L (21-32); CHLORIDE LEVEL 103 MEQ/L (98-107); CREATININE FOR GFR 0.55 MG/DL (0.55-1.30); GLOMERULAR FILTRATION RATE > 60.0 (>39); GLUCOSE, FASTING 88 MG/DL (70-100); POTASSIUM SERUM 4.5 MEQ/L (3.5-5.1); SODIUM LEVEL 137 MEQ/L (136-145); TOTAL PROTEIN 6.3 GM/DL (6.4-8.2)
[2022-03-16] MEDS: DICYCLOMINE 10 MG CAP PO SCH ×4 (09:09→20:40)
[2022-03-16] MEDS: PANTOPRAZOLE 40MG TAB (PROTONIX) PO SCH (09:09)
[2022-03-16] MEDS: POLYVINYL ALCOHOL OPHTH SOLN 15 ML(LIQUITEARS) OU PRN (09:09)
[2022-03-16] MEDS: BACLOFEN 10 MG TAB PO SCH ×4 (09:09→20:39)
[2022-03-16] MEDS: LACTOBACILLUS ACIDOPHILUS CAP (BACID) PO SCH (09:09)
[2022-03-16] MEDS: DIVALPROEX 500 MG TAB PO SCH ×2 (09:09→20:40)
[2022-03-16] MEDS: BENZOCAINE 10% 9GM TUBE (ANBESOL) MT SCH ×4 (09:10→20:41)
[2022-03-16] MEDS: VERAPAMIL 180MG EXTENDED RELEASE TABLET PO SCH (09:10)
[2022-03-16] MEDS ORDERED: LIDOCAINE 5% (LIDODERM) PATCH TD ONE (16:05)
[2022-03-16] MEDS: RIVAROXABAN 10MG TAB (XARELTO) PO SCH (19:04)
[2022-03-16] MEDS: EZETIMIBE 10MG TABLET (ZETIA) PO SCH (20:40)
[2022-03-16] MEDS: oxyBUTYnin *DITROPAN XL* 5 MG TABCR PO SCH (20:40)
[2022-03-16] MEDS: QUEtiapine FUMARATE 25 MG TAB PO PRN (20:40)
[2022-03-16] MEDS: RAMELTEON 8 MG TAB (ROZEREM) PO PRN (20:40)
[2022-03-16] MEDS: LIDOCAINE 5% (LIDODERM) PATCH TD SCH (20:45)
[2022-03-16] MEDS: NICOTINE POLACRILEX 2 MG GUM PO PRN (20:46)
[2022-03-16] MEDS: **NOTE PATIENT COMMENT** MISC XX SCH (20:49)
[2022-03-16] MEDS ORDERED: **NOTE PATIENT COMMENT** MISC XX SCH (21:00)
[2022-03-17 05:29] VITALS: BP 111/47
[2022-03-17] MEDS: VERAPAMIL 180MG EXTENDED RELEASE TABLET PO SCH (09:00)
[2022-03-17] MEDS: DICYCLOMINE 10 MG CAP PO SCH ×4 (10:10→19:56)
[2022-03-17] MEDS: BENZOCAINE 10% 9GM TUBE (ANBESOL) MT SCH ×4 (10:10→19:59)
[2022-03-17] MEDS: PANTOPRAZOLE 40MG TAB (PROTONIX) PO SCH (10:11)
[2022-03-17] MEDS: DIVALPROEX 500 MG TAB PO SCH ×2 (10:11→19:56)
[2022-03-17] MEDS: BACLOFEN 10 MG TAB PO SCH ×4 (10:12→19:57)
[2022-03-17 10:17] VITALS: BP 98/50
[2022-03-17] MEDS: QUEtiapine FUMARATE 25 MG TAB PO PRN ×2 (14:28→21:58)
[2022-03-17] MEDS: ACETAMINOPHEN TAB 650MG DOSE (2X325MG) PO PRN ×2 (14:28→19:57)
[2022-03-17] MEDS: NICOTINE POLACRILEX 2 MG GUM PO PRN ×3 (15:23→21:58)
[2022-03-17] MEDS: RIVAROXABAN 10MG TAB (XARELTO) PO SCH (17:41)
[2022-03-17] MEDS: oxyBUTYnin *DITROPAN XL* 5 MG TABCR PO SCH (19:56)
[2022-03-17] MEDS: EZETIMIBE 10MG TABLET (ZETIA) PO SCH (19:57)
[2022-03-17] MEDS: LIDOCAINE 5% (LIDODERM) PATCH TD SCH (19:58)
[2022-03-17] MEDS: **NOTE PATIENT COMMENT** MISC XX SCH (19:58)
[2022-03-17] MEDS: RAMELTEON 8 MG TAB (ROZEREM) PO PRN (21:58)
[2022-03-18 05:57] VITALS: BP 103/58
[2022-03-18] MEDS: DICYCLOMINE 10 MG CAP PO SCH ×4 (09:10→20:02)
[2022-03-18] MEDS: DIVALPROEX 500 MG TAB PO SCH ×2 (09:10→20:02)
[2022-03-18] MEDS: BACLOFEN 10 MG TAB PO SCH ×4 (09:10→20:02)
[2022-03-18] MEDS: PANTOPRAZOLE 40MG TAB (PROTONIX) PO SCH (09:10)
[2022-03-18] MEDS: BENZOCAINE 10% 9GM TUBE (ANBESOL) MT SCH ×4 (09:11→20:01)
[2022-03-18] MEDS: POLYVINYL ALCOHOL OPHTH SOLN 15 ML(LIQUITEARS) OU PRN (09:11)
[2022-03-18] MEDS: VERAPAMIL 180MG EXTENDED RELEASE TABLET PO SCH (09:13)
[2022-03-18] MEDS: RIVAROXABAN 10MG TAB (XARELTO) PO SCH (17:11)
[2022-03-18] MEDS: oxyBUTYnin *DITROPAN XL* 5 MG TABCR PO SCH (20:01)
[2022-03-18] MEDS: EZETIMIBE 10MG TABLET (ZETIA) PO SCH (20:01)
[2022-03-18] MEDS: **NOTE PATIENT COMMENT** MISC XX SCH (20:03)
[2022-03-18] MEDS: LIDOCAINE 5% (LIDODERM) PATCH TD SCH (20:03)
[2022-03-19 06:00] VITALS: BP 106/52
[2022-03-19] MEDS: DICYCLOMINE 10 MG CAP PO SCH ×4 (07:49→20:25)
[2022-03-19] MEDS: BENZOCAINE 10% 9GM TUBE (ANBESOL) MT SCH ×4 (07:49→20:28)
[2022-03-19] MEDS: VERAPAMIL 180MG EXTENDED RELEASE TABLET PO SCH (07:49)
[2022-03-19] MEDS: DIVALPROEX 500 MG TAB PO SCH ×2 (07:49→20:25)
[2022-03-19] MEDS: PANTOPRAZOLE 40MG TAB (PROTONIX) PO SCH (07:49)
[2022-03-19] MEDS: BACLOFEN 10 MG TAB PO SCH ×4 (07:53→20:24)
[2022-03-19] MEDS: RIVAROXABAN 10MG TAB (XARELTO) PO SCH (17:34)
[2022-03-19] MEDS: NICOTINE POLACRILEX 2 MG GUM PO PRN (19:05)
[2022-03-19] MEDS: oxyBUTYnin *DITROPAN XL* 5 MG TABCR PO SCH (20:24)
[2022-03-19] MEDS: QUEtiapine FUMARATE 25 MG TAB PO PRN (20:24)
[2022-03-19] MEDS: RAMELTEON 8 MG TAB (ROZEREM) PO PRN (20:24)
[2022-03-19] MEDS: EZETIMIBE 10MG TABLET (ZETIA) PO SCH (20:25)
[2022-03-19] MEDS: LIDOCAINE 5% (LIDODERM) PATCH TD SCH (20:26)
[2022-03-19] MEDS: POLYVINYL ALCOHOL OPHTH SOLN 15 ML(LIQUITEARS) OU PRN (20:28)
[2022-03-19] MEDS: **NOTE PATIENT COMMENT** MISC XX SCH (21:01)
[2022-03-20 06:00] VITALS: BP 115/43
[2022-03-20] MEDS: BENZOCAINE 10% 9GM TUBE (ANBESOL) MT SCH ×4 (09:00→21:00)
[2022-03-20] MEDS: NICOTINE POLACRILEX 2 MG GUM PO PRN ×2 (09:18→21:23)
[2022-03-20] MEDS: DIVALPROEX 500 MG TAB PO SCH ×2 (09:18→21:22)
[2022-03-20] MEDS: DICYCLOMINE 10 MG CAP PO SCH ×4 (09:20→21:22)
[2022-03-20] MEDS: PANTOPRAZOLE 40MG TAB (PROTONIX) PO SCH (09:20)
[2022-03-20] MEDS: BACLOFEN 10 MG TAB PO SCH ×4 (09:21→21:22)
[2022-03-20] MEDS: VERAPAMIL 180MG EXTENDED RELEASE TABLET PO SCH (09:24)
[2022-03-20] MEDS: RIVAROXABAN 10MG TAB (XARELTO) PO SCH (17:25)
[2022-03-20] MEDS: **NOTE PATIENT COMMENT** MISC XX SCH (21:00)
[2022-03-20] MEDS: RAMELTEON 8 MG TAB (ROZEREM) PO PRN (21:21)
[2022-03-20] MEDS: EZETIMIBE 10MG TABLET (ZETIA) PO SCH (21:22)
[2022-03-20] MEDS: oxyBUTYnin *DITROPAN XL* 5 MG TABCR PO SCH (21:22)
[2022-03-20] MEDS: LIDOCAINE 5% (LIDODERM) PATCH TD SCH (21:23)
[2022-03-21 06:13] VITALS: BP 115/53
[2022-03-21] MEDS: BACLOFEN 10 MG TAB PO SCH ×4 (08:12→20:20)
[2022-03-21] MEDS: PANTOPRAZOLE 40MG TAB (PROTONIX) PO SCH (08:12)
[2022-03-21] MEDS: DICYCLOMINE 10 MG CAP PO SCH ×4 (08:16→20:20)
[2022-03-21] MEDS: DIVALPROEX 500 MG TAB PO SCH ×2 (08:16→20:20)
[2022-03-21] MEDS: VERAPAMIL 180MG EXTENDED RELEASE TABLET PO SCH (08:16)
[2022-03-21] MEDS: BENZOCAINE 10% 9GM TUBE (ANBESOL) MT SCH ×4 (08:20→20:22)
[2022-03-21] MEDS: AZELASTINE 137MCG NASAL SPY 30 ML (ASTELIN) PRN (11:29)
[2022-03-21] MEDS: NICOTINE POLACRILEX 2 MG GUM PO PRN (11:29)
[2022-03-21] MEDS ORDERED: LORazepam 0.5 MG TAB PO ONE (13:05)
[2022-03-21] MEDS: RIVAROXABAN 10MG TAB (XARELTO) PO SCH (17:19)
[2022-03-21] MEDS: oxyBUTYnin *DITROPAN XL* 5 MG TABCR PO SCH (20:20)
[2022-03-21] MEDS: EZETIMIBE 10MG TABLET (ZETIA) PO SCH (20:20)
[2022-03-21] MEDS: LIDOCAINE 5% (LIDODERM) PATCH TD SCH (20:21)
[2022-03-21] MEDS: **NOTE PATIENT COMMENT** MISC XX SCH (20:21)
[2022-03-22 06:00] VITALS: BP 120/40
[2022-03-22] MEDS: DICYCLOMINE 10 MG CAP PO SCH ×4 (08:34→20:31)
[2022-03-22] MEDS: DIVALPROEX 500 MG TAB PO SCH ×2 (08:34→20:32)
[2022-03-22] MEDS: BACLOFEN 10 MG TAB PO SCH ×4 (08:35→20:31)
[2022-03-22] MEDS: VERAPAMIL 180MG EXTENDED RELEASE TABLET PO SCH (08:35)
[2022-03-22] MEDS: PANTOPRAZOLE 40MG TAB (PROTONIX) PO SCH (08:35)
[2022-03-22] MEDS: BENZOCAINE 10% 9GM TUBE (ANBESOL) MT SCH ×4 (08:44→20:34)
[2022-03-22] MEDS: NICOTINE POLACRILEX 2 MG GUM PO PRN (11:35)
[2022-03-22] MEDS: FUROSEMIDE 10MG PER 1/2 TABLET PO SCH (12:53)
[2022-03-22] MEDS: RIVAROXABAN 10MG TAB (XARELTO) PO SCH (17:18)
[2022-03-22] MEDS: oxyBUTYnin *DITROPAN XL* 5 MG TABCR PO SCH (20:32)
[2022-03-22] MEDS: EZETIMIBE 10MG TABLET (ZETIA) PO SCH (20:32)
[2022-03-22] MEDS: LIDOCAINE 5% (LIDODERM) PATCH TD SCH (20:33)
[2022-03-22] MEDS: **NOTE PATIENT COMMENT** MISC XX SCH (20:33)
[2022-03-22] MEDS: RAMELTEON 8 MG TAB (ROZEREM) PO PRN (22:21)
[2022-03-23 06:00] VITALS: BP 138/58
[2022-03-23] MEDS: PANTOPRAZOLE 40MG TAB (PROTONIX) PO SCH (08:16)
[2022-03-23] MEDS: DIVALPROEX 500 MG TAB PO SCH ×2 (08:17→20:34)
[2022-03-23] MEDS: FUROSEMIDE 10MG PER 1/2 TABLET PO SCH (08:17)
[2022-03-23] MEDS: VERAPAMIL 180MG EXTENDED RELEASE TABLET PO SCH (08:17)
[2022-03-23] MEDS: BACLOFEN 10 MG TAB PO SCH ×4 (08:17→20:35)
[2022-03-23] MEDS: DICYCLOMINE 10 MG CAP PO SCH ×4 (08:17→20:35)
[2022-03-23] MEDS: BENZOCAINE 10% 9GM TUBE (ANBESOL) MT SCH ×4 (08:18→20:36)
[2022-03-23] MEDS: RIVAROXABAN 10MG TAB (XARELTO) PO SCH (17:22)
[2022-03-23] MEDS: oxyBUTYnin *DITROPAN XL* 5 MG TABCR PO SCH (20:35)
[2022-03-23] MEDS: EZETIMIBE 10MG TABLET (ZETIA) PO SCH (20:36)
[2022-03-23] MEDS: LIDOCAINE 5% (LIDODERM) PATCH TD SCH (20:36)
[2022-03-23] MEDS: RAMELTEON 8 MG TAB (ROZEREM) PO PRN (23:02)
[2022-03-23] MEDS: QUEtiapine FUMARATE 25 MG TAB PO PRN (23:02)
[2022-03-24 06:00] VITALS: BP 119/53
[2022-03-24] MEDS: DIVALPROEX 500 MG TAB PO SCH ×2 (08:52→20:11)
[2022-03-24] MEDS: PANTOPRAZOLE 40MG TAB (PROTONIX) PO SCH (08:52)
[2022-03-24] MEDS: BACLOFEN 10 MG TAB PO SCH ×4 (08:52→20:12)
[2022-03-24] MEDS: FUROSEMIDE 10MG PER 1/2 TABLET PO SCH (08:52)
[2022-03-24] MEDS: DICYCLOMINE 10 MG CAP PO SCH ×4 (08:52→20:12)
[2022-03-24] MEDS: **NOTE PATIENT COMMENT** MISC XX SCH (08:53)
[2022-03-24] MEDS: BENZOCAINE 10% 9GM TUBE (ANBESOL) MT SCH ×4 (08:53→20:12)
[2022-03-24] MEDS: VERAPAMIL 180MG EXTENDED RELEASE TABLET PO SCH (08:53)
[2022-03-24] MEDS: RIVAROXABAN 10MG TAB (XARELTO) PO SCH (17:20)
[2022-03-24] MEDS: LIDOCAINE 5% (LIDODERM) PATCH TD SCH (20:11)
[2022-03-24] MEDS: oxyBUTYnin *DITROPAN XL* 5 MG TABCR PO SCH (20:12)
[2022-03-24] MEDS: NICOTINE POLACRILEX 2 MG GUM PO PRN (20:12)
[2022-03-24] MEDS: EZETIMIBE 10MG TABLET (ZETIA) PO SCH (20:12)
[2022-03-24] MEDS: RAMELTEON 8 MG TAB (ROZEREM) PO PRN (21:15)
[2022-03-24] MEDS: QUEtiapine FUMARATE 25 MG TAB PO PRN (21:15)
[2022-03-25 06:00] VITALS: BP 112/43
[2022-03-25] MEDS: BENZOCAINE 10% 9GM TUBE (ANBESOL) MT SCH ×5 (09:07→21:00)
[2022-03-25] MEDS: NICOTINE POLACRILEX 2 MG GUM PO PRN (09:08)
[2022-03-25] MEDS: VERAPAMIL 180MG EXTENDED RELEASE TABLET PO SCH (09:08)
[2022-03-25] MEDS: PANTOPRAZOLE 40MG TAB (PROTONIX) PO SCH (09:08)
[2022-03-25] MEDS: FUROSEMIDE 10MG PER 1/2 TABLET PO SCH (09:08)
[2022-03-25] MEDS: DIVALPROEX 500 MG TAB PO SCH ×2 (09:09→20:54)
[2022-03-25] MEDS: DICYCLOMINE 10 MG CAP PO SCH ×4 (09:09→20:54)
[2022-03-25] MEDS: BACLOFEN 10 MG TAB PO SCH ×4 (09:09→20:52)
[2022-03-25] MEDS: **NOTE PATIENT COMMENT** MISC XX SCH (09:09)
[2022-03-25] MEDS: QUEtiapine FUMARATE 25 MG TAB PO PRN (13:15)
[2022-03-25] MEDS: RIVAROXABAN 10MG TAB (XARELTO) PO SCH (17:20)
[2022-03-25] MEDS: RAMELTEON 8 MG TAB (ROZEREM) PO PRN (20:52)
[2022-03-25] MEDS: EZETIMIBE 10MG TABLET (ZETIA) PO SCH (20:52)
[2022-03-25] MEDS: oxyBUTYnin *DITROPAN XL* 5 MG TABCR PO SCH (20:54)
[2022-03-25] MEDS: ACETAMINOPHEN TAB 650MG DOSE (2X325MG) PO PRN (20:54)
[2022-03-25] MEDS: LIDOCAINE 5% (LIDODERM) PATCH TD SCH (20:55)
[2022-03-26] MEDS: QUEtiapine FUMARATE 25 MG TAB PO PRN ×2 (01:21→14:15)
[2022-03-26 04:19] VITALS: BP 115/58
[2022-03-26] MEDS: DICYCLOMINE 10 MG CAP PO SCH ×4 (08:22→22:11)
[2022-03-26] MEDS: FUROSEMIDE 10MG PER 1/2 TABLET PO SCH (08:23)
[2022-03-26] MEDS: BACLOFEN 10 MG TAB PO SCH ×4 (08:23→22:11)
[2022-03-26] MEDS: VERAPAMIL 180MG EXTENDED RELEASE TABLET PO SCH (08:23)
[2022-03-26] MEDS: DIVALPROEX 500 MG TAB PO SCH ×2 (08:23→22:11)
[2022-03-26] MEDS: PANTOPRAZOLE 40MG TAB (PROTONIX) PO SCH (08:23)
[2022-03-26] MEDS: **NOTE PATIENT COMMENT** MISC XX SCH (08:24)
[2022-03-26] MEDS: BENZOCAINE 10% 9GM TUBE (ANBESOL) MT SCH ×4 (08:24→22:10)
[2022-03-26] MEDS: RIVAROXABAN 10MG TAB (XARELTO) PO SCH (17:19)
[2022-03-26] MEDS: RAMELTEON 8 MG TAB (ROZEREM) PO PRN (22:10)
[2022-03-26] MEDS: LIDOCAINE 5% (LIDODERM) PATCH TD SCH (22:10)
[2022-03-26] MEDS: oxyBUTYnin *DITROPAN XL* 5 MG TABCR PO SCH (22:11)
[2022-03-26] MEDS: EZETIMIBE 10MG TABLET (ZETIA) PO SCH (22:12)
[2022-03-27 06:00] VITALS: BP 121/50
[2022-03-27] MEDS: FUROSEMIDE 10MG PER 1/2 TABLET PO SCH (08:28)
[2022-03-27] MEDS: PANTOPRAZOLE 40MG TAB (PROTONIX) PO SCH (08:29)
[2022-03-27] MEDS: BACLOFEN 10 MG TAB PO SCH ×4 (08:29→21:07)
[2022-03-27] MEDS: DIVALPROEX 500 MG TAB PO SCH ×2 (08:29→21:07)
[2022-03-27] MEDS: VERAPAMIL 180MG EXTENDED RELEASE TABLET PO SCH (08:29)
[2022-03-27] MEDS: DICYCLOMINE 10 MG CAP PO SCH ×4 (08:29→21:07)
[2022-03-27] MEDS: BENZOCAINE 10% 9GM TUBE (ANBESOL) MT SCH ×4 (08:29→21:07)
[2022-03-27] MEDS: **NOTE PATIENT COMMENT** MISC XX SCH (08:30)
[2022-03-27] MEDS: NICOTINE POLACRILEX 2 MG GUM PO PRN (09:54)
[2022-03-27] MEDS: RIVAROXABAN 10MG TAB (XARELTO) PO SCH (17:10)
[2022-03-27] MEDS: oxyBUTYnin *DITROPAN XL* 5 MG TABCR PO SCH (21:07)
[2022-03-27] MEDS: LIDOCAINE 5% (LIDODERM) PATCH TD SCH (21:07)
[2022-03-27] MEDS: ARIPiprazole 10 MG TAB PO SCH (21:08)
[2022-03-27] MEDS: EZETIMIBE 10MG TABLET (ZETIA) PO SCH (21:09)
[2022-03-27] MEDS: RAMELTEON 8 MG TAB (ROZEREM) PO PRN (22:43)
[2022-03-27] MEDS: QUEtiapine FUMARATE 25 MG TAB PO PRN (22:43)
[2022-03-28 05:54] VITALS: BP 141/59
[2022-03-28] MEDS: BENZOCAINE 10% 9GM TUBE (ANBESOL) MT SCH ×4 (09:00→20:42)
[2022-03-28] MEDS: VERAPAMIL 180MG EXTENDED RELEASE TABLET PO SCH (09:12)
[2022-03-28] MEDS: BACLOFEN 10 MG TAB PO SCH ×4 (09:12→21:16)
[2022-03-28] MEDS: FUROSEMIDE 10MG PER 1/2 TABLET PO SCH (09:13)
[2022-03-28] MEDS: DIVALPROEX 500 MG TAB PO SCH ×2 (09:13→20:42)
[2022-03-28] MEDS: **NOTE PATIENT COMMENT** MISC XX SCH (09:13)
[2022-03-28] MEDS: DICYCLOMINE 10 MG CAP PO SCH ×4 (09:13→20:42)
[2022-03-28] MEDS: PANTOPRAZOLE 40MG TAB (PROTONIX) PO SCH (09:13)
[2022-03-28] MEDS: RIVAROXABAN 10MG TAB (XARELTO) PO SCH (17:56)
[2022-03-28] MEDS: ACETAMINOPHEN TAB 650MG DOSE (2X325MG) PO PRN (19:35)
[2022-03-28] MEDS: LIDOCAINE 5% (LIDODERM) PATCH TD SCH (20:41)
[2022-03-28] MEDS: EZETIMIBE 10MG TABLET (ZETIA) PO SCH (20:42)
[2022-03-28] MEDS: ARIPiprazole 10 MG TAB PO SCH (20:43)
[2022-03-28] MEDS: oxyBUTYnin *DITROPAN XL* 5 MG TABCR PO SCH (20:43)
[2022-03-28] MEDS ORDERED: traZODone 25MG PER 1/2 TABLET PO SCH (21:00)
[2022-03-29 05:35] VITALS: BP 108/39
[2022-03-29] MEDS: BENZOCAINE 10% 9GM TUBE (ANBESOL) MT SCH ×4 (08:49→21:00)
[2022-03-29] MEDS: DIVALPROEX 500 MG TAB PO SCH ×2 (08:52→22:35)
[2022-03-29] MEDS: BACLOFEN 10 MG TAB PO SCH ×4 (08:52→22:37)
[2022-03-29] MEDS: VERAPAMIL 180MG EXTENDED RELEASE TABLET PO SCH (08:52)
[2022-03-29] MEDS: FUROSEMIDE 10MG PER 1/2 TABLET PO SCH (08:53)
[2022-03-29] MEDS: ACETAMINOPHEN TAB 650MG DOSE (2X325MG) PO PRN (08:53)
[2022-03-29] MEDS: DICYCLOMINE 10 MG CAP PO SCH ×4 (08:53→22:36)
[2022-03-29] MEDS: **NOTE PATIENT COMMENT** MISC XX SCH (08:53)
[2022-03-29] MEDS: PANTOPRAZOLE 40MG TAB (PROTONIX) PO SCH (08:53)
[2022-03-29] MEDS: RIVAROXABAN 10MG TAB (XARELTO) PO SCH (17:14)
[2022-03-29] MEDS: EZETIMIBE 10MG TABLET (ZETIA) PO SCH (22:35)
[2022-03-29] MEDS: ARIPiprazole 10 MG TAB PO SCH (22:36)
[2022-03-29] MEDS: oxyBUTYnin *DITROPAN XL* 5 MG TABCR PO SCH (22:36)
[2022-03-29] MEDS: traZODone 50 MG TAB PO SCH (22:37)
[2022-03-29] MEDS: LIDOCAINE 5% (LIDODERM) PATCH TD SCH (22:38)
[2022-03-30 06:44] VITALS: BP 138/59
[2022-03-30] MEDS: VERAPAMIL 180MG EXTENDED RELEASE TABLET PO SCH (08:26)
[2022-03-30] MEDS: DICYCLOMINE 10 MG CAP PO SCH ×4 (08:26→21:11)
[2022-03-30] MEDS: PANTOPRAZOLE 40MG TAB (PROTONIX) PO SCH (08:27)
[2022-03-30] MEDS: BACLOFEN 10 MG TAB PO SCH ×4 (08:27→21:11)
[2022-03-30] MEDS: DIVALPROEX 500 MG TAB PO SCH ×2 (08:27→21:11)
[2022-03-30] MEDS: **NOTE PATIENT COMMENT** MISC XX SCH (08:27)
[2022-03-30] MEDS: BENZOCAINE 10% 9GM TUBE (ANBESOL) MT SCH ×4 (08:27→21:00)
[2022-03-30] MEDS: FUROSEMIDE 10MG PER 1/2 TABLET PO SCH (08:27)
[2022-03-30] MEDS: RIVAROXABAN 10MG TAB (XARELTO) PO SCH (17:14)
[2022-03-30] MEDS: ARIPiprazole 10 MG TAB PO SCH (21:11)
[2022-03-30] MEDS: EZETIMIBE 10MG TABLET (ZETIA) PO SCH (21:11)
[2022-03-30] MEDS: traZODone 50 MG TAB PO SCH (21:11)
[2022-03-30] MEDS: oxyBUTYnin *DITROPAN XL* 5 MG TABCR PO SCH (21:12)
[2022-03-30] MEDS: LIDOCAINE 5% (LIDODERM) PATCH TD SCH (21:12)
[2022-03-31] MEDS: RAMELTEON 8 MG TAB (ROZEREM) PO PRN ×2 (00:06→19:40)
[2022-03-31] MEDS: ACETAMINOPHEN TAB 650MG DOSE (2X325MG) PO PRN (00:07)
[2022-03-31 06:00] VITALS: BP 123/54
[2022-03-31] MEDS: DIVALPROEX 500 MG TAB PO SCH ×2 (08:55→19:40)
[2022-03-31] MEDS: FUROSEMIDE 10MG PER 1/2 TABLET PO SCH (08:56)
[2022-03-31] MEDS: DICYCLOMINE 10 MG CAP PO SCH ×4 (08:56→19:40)
[2022-03-31] MEDS: BACLOFEN 10 MG TAB PO SCH ×4 (08:56→19:41)
[2022-03-31] MEDS: PANTOPRAZOLE 40MG TAB (PROTONIX) PO SCH (08:56)
[2022-03-31] MEDS: **NOTE PATIENT COMMENT** MISC XX SCH (08:57)
[2022-03-31] MEDS: BENZOCAINE 10% 9GM TUBE (ANBESOL) MT SCH ×4 (08:57→19:40)
[2022-03-31] MEDS: VERAPAMIL 180MG EXTENDED RELEASE TABLET PO SCH (08:57)
[2022-03-31] MEDS: RIVAROXABAN 10MG TAB (XARELTO) PO SCH (17:08)
[2022-03-31] MEDS: ARIPiprazole 10 MG TAB PO SCH (19:40)
[2022-03-31] MEDS: traZODone 50 MG TAB PO SCH (19:40)
[2022-03-31] MEDS: EZETIMIBE 10MG TABLET (ZETIA) PO SCH (19:41)
[2022-03-31] MEDS: LIDOCAINE 5% (LIDODERM) PATCH TD SCH (19:41)
[2022-03-31] MEDS: oxyBUTYnin *DITROPAN XL* 5 MG TABCR PO SCH (19:41)
[2022-04-01 06:19] VITALS: BP 141/66
[2022-04-01] MEDS: BENZOCAINE 10% 9GM TUBE (ANBESOL) MT SCH ×4 (08:30→21:45)
[2022-04-01] MEDS: BACLOFEN 10 MG TAB PO SCH ×4 (08:30→21:42)
[2022-04-01] MEDS: **NOTE PATIENT COMMENT** MISC XX SCH (08:30)
[2022-04-01] MEDS: DICYCLOMINE 10 MG CAP PO SCH ×4 (08:30→21:49)
[2022-04-01] MEDS: PANTOPRAZOLE 40MG TAB (PROTONIX) PO SCH (08:30)
[2022-04-01] MEDS: DIVALPROEX 500 MG TAB PO SCH ×2 (08:30→21:42)
[2022-04-01] MEDS: VERAPAMIL 180MG EXTENDED RELEASE TABLET PO SCH (08:50)
[2022-04-01] MEDS: FUROSEMIDE 10MG PER 1/2 TABLET PO SCH (08:50)
[2022-04-01 08:56] VITALS: BP 98/58
[2022-04-01 10:24] VITALS: BP 130/68
[2022-04-01] MEDS: RIVAROXABAN 10MG TAB (XARELTO) PO SCH (17:07)
[2022-04-01] MEDS: ACETAMINOPHEN TAB 650MG DOSE (2X325MG) PO PRN (21:42)
[2022-04-01] MEDS: EZETIMIBE 10MG TABLET (ZETIA) PO SCH (21:42)
[2022-04-01] MEDS: ARIPiprazole 10 MG TAB PO SCH (21:42)
[2022-04-01] MEDS: traZODone 50 MG TAB PO SCH (21:43)
[2022-04-01] MEDS: oxyBUTYnin *DITROPAN XL* 5 MG TABCR PO SCH (21:43)
[2022-04-01] MEDS: LIDOCAINE 5% (LIDODERM) PATCH TD SCH (21:43)
[2022-04-01] MEDS: POLYVINYL ALCOHOL OPHTH SOLN 15 ML(LIQUITEARS) OU PRN (21:52)
[2022-04-02 06:00] VITALS: BP 120/60
[2022-04-02] MEDS: BENZOCAINE 10% 9GM TUBE (ANBESOL) MT SCH ×4 (08:16→20:55)
[2022-04-02] MEDS: VERAPAMIL 180MG EXTENDED RELEASE TABLET PO SCH (08:17)
[2022-04-02] MEDS: DICYCLOMINE 10 MG CAP PO SCH ×4 (08:17→20:57)
[2022-04-02] MEDS: FUROSEMIDE 10MG PER 1/2 TABLET PO SCH (08:18)
[2022-04-02] MEDS: DIVALPROEX 500 MG TAB PO SCH ×2 (08:18→20:57)
[2022-04-02] MEDS: BACLOFEN 10 MG TAB PO SCH ×4 (08:18→20:55)
[2022-04-02] MEDS: PANTOPRAZOLE 40MG TAB (PROTONIX) PO SCH (08:18)
[2022-04-02] MEDS: **NOTE PATIENT COMMENT** MISC XX SCH (08:21)
[2022-04-02] MEDS: QUEtiapine FUMARATE 25 MG TAB PO PRN (12:28)
[2022-04-02] MEDS ORDERED: LORazepam 1 MG TAB PO ONE (16:35)
[2022-04-02] MEDS: RIVAROXABAN 10MG TAB (XARELTO) PO SCH (17:32)
[2022-04-02] MEDS: ACETAMINOPHEN TAB 650MG DOSE (2X325MG) PO PRN (19:28)
[2022-04-02] MEDS: NICOTINE POLACRILEX 2 MG GUM PO PRN (20:56)
[2022-04-02] MEDS: traZODone 50 MG TAB PO SCH (20:56)
[2022-04-02] MEDS: RAMELTEON 8 MG TAB (ROZEREM) PO PRN (20:57)
[2022-04-02] MEDS: EZETIMIBE 10MG TABLET (ZETIA) PO SCH (20:57)
[2022-04-02] MEDS: ARIPiprazole 10 MG TAB PO SCH (20:57)
[2022-04-02] MEDS: LIDOCAINE 5% (LIDODERM) PATCH TD SCH (20:58)
[2022-04-02] MEDS: oxyBUTYnin *DITROPAN XL* 5 MG TABCR PO SCH (20:58)
[2022-04-03 06:00] VITALS: BP 127/52
[2022-04-03] MEDS: BENZOCAINE 10% 9GM TUBE (ANBESOL) MT SCH ×4 (09:00→20:19)
[2022-04-03] MEDS: DIVALPROEX 500 MG TAB PO SCH ×2 (09:45→20:18)
[2022-04-03] MEDS: PANTOPRAZOLE 40MG TAB (PROTONIX) PO SCH (09:45)
[2022-04-03] MEDS: DICYCLOMINE 10 MG CAP PO SCH ×4 (09:45→20:18)
[2022-04-03] MEDS: FUROSEMIDE 10MG PER 1/2 TABLET PO SCH (09:46)
[2022-04-03] MEDS: BACLOFEN 10 MG TAB PO SCH ×4 (09:46→20:18)
[2022-04-03] MEDS: VERAPAMIL 180MG EXTENDED RELEASE TABLET PO SCH (09:48)
[2022-04-03] MEDS: **NOTE PATIENT COMMENT** MISC XX SCH (09:49)
[2022-04-03] MEDS: NICOTINE POLACRILEX 2 MG GUM PO PRN (14:18)
[2022-04-03] MEDS: RIVAROXABAN 10MG TAB (XARELTO) PO SCH (17:33)
[2022-04-03] MEDS: QUEtiapine FUMARATE 25 MG TAB PO PRN (18:27)
[2022-04-03] MEDS: EZETIMIBE 10MG TABLET (ZETIA) PO SCH (20:17)
[2022-04-03] MEDS: ARIPiprazole 10 MG TAB PO SCH (20:18)
[2022-04-03] MEDS: oxyBUTYnin *DITROPAN XL* 5 MG TABCR PO SCH (20:18)
[2022-04-03] MEDS: traZODone 50 MG TAB PO SCH (20:18)
[2022-04-03] MEDS: LIDOCAINE 5% (LIDODERM) PATCH TD SCH (20:19)
[2022-04-04] MEDS: ACETAMINOPHEN TAB 650MG DOSE (2X325MG) PO PRN ×2 (01:14→08:55)
[2022-04-04] MEDS: RAMELTEON 8 MG TAB (ROZEREM) PO PRN (01:14)
[2022-04-04 05:52] VITALS: BP 136/68
[2022-04-04 06:28] LABS: BASO # 0.1 10^3/uL (0.0-0.2); EOS # 0.2 10^3/uL (0.0-0.5); EOS % 3.7 % (0.0-3.0); HEMATOCRIT 34.9 % (36.0-47.0); HEMOGLOBIN 11.4 g/dl (12.0-15.5); LYMPH # 2.1 10^3/uL (1.5-5.0); MEAN CORPUSCULAR HEMOGLOBIN 27.9 pg (27.0-33.0); MEAN CORPUSCULAR HGB CONC 32.7 g/dl (32.0-36.5); MEAN CORPUSCULAR VOLUME 85.5 fl (80.0-96.0); MONO # 0.7 10^3/uL (0.0-0.8); MONO % 12.4 % (2.0-8.0); NEUTROPHILS # 2.8 10^3/uL (1.5-8.5); NEUTROPHILS % 46.9 % (36.0-66.0); PLATELET COUNT, AUTOMATED 239 10^3/uL (150-450); RED BLOOD COUNT 4.08 10^6/uL (4.00-5.40); WHITE BLOOD COUNT 5.9 10^3/uL (4.0-10.0)
[2022-04-04 07:03] LABS: BLOOD UREA NITROGEN 11 MG/DL (7-18); CALCIUM LEVEL 9.2 MG/DL (8.8-10.2); CARBON DIOXIDE LEVEL 26 MEQ/L (21-32); CHLORIDE LEVEL 101 MEQ/L (98-107); CREATININE FOR GFR 0.62 MG/DL (0.55-1.30); ERYTHROCYTE SEDIMENTATION RATE 10 mm/hr (0-30); GLOMERULAR FILTRATION RATE > 60.0 (>39); GLUCOSE, FASTING 79 MG/DL (70-100); MAGNESIUM LEVEL 1.9 MG/DL (1.8-2.4); NT-PRO BNP 202 PG/ML (<125); POTASSIUM SERUM 4.5 MEQ/L (3.5-5.1); SODIUM LEVEL 132 MEQ/L (136-145)
[2022-04-04 08:00] VITALS: BP 128/68
[2022-04-04] MEDS: DIVALPROEX 500 MG TAB PO SCH ×2 (08:42→21:27)
[2022-04-04] MEDS: FUROSEMIDE 10MG PER 1/2 TABLET PO SCH (08:42)
[2022-04-04] MEDS: PANTOPRAZOLE 40MG TAB (PROTONIX) PO SCH (08:43)
[2022-04-04] MEDS: BACLOFEN 10 MG TAB PO SCH ×4 (08:43→21:28)
[2022-04-04] MEDS: DICYCLOMINE 10 MG CAP PO SCH ×4 (08:43→21:27)
[2022-04-04] MEDS: VERAPAMIL 180MG EXTENDED RELEASE TABLET PO SCH (08:52)
[2022-04-04] MEDS: BENZOCAINE 10% 9GM TUBE (ANBESOL) MT SCH ×4 (08:52→21:00)
[2022-04-04] MEDS: NICOTINE POLACRILEX 2 MG GUM PO PRN (09:01)
[2022-04-04] MEDS: **NOTE PATIENT COMMENT** MISC XX SCH (09:24)
[2022-04-04] MEDS: QUEtiapine FUMARATE 25 MG TAB PO PRN (13:22)
[2022-04-04] MEDS: RIVAROXABAN 10MG TAB (XARELTO) PO SCH (17:16)
[2022-04-04] MEDS: oxyBUTYnin *DITROPAN XL* 5 MG TABCR PO SCH (21:27)
[2022-04-04] MEDS: traZODone 50 MG TAB PO SCH (21:27)
[2022-04-04] MEDS: LIDOCAINE 5% (LIDODERM) PATCH TD SCH (21:28)
[2022-04-04] MEDS: EZETIMIBE 10MG TABLET (ZETIA) PO SCH (21:28)
[2022-04-04] MEDS: ARIPiprazole 10 MG TAB PO SCH (21:32)
[2022-04-05 06:00] VITALS: BP 130/70
[2022-04-05] MEDS: BENZOCAINE 10% 9GM TUBE (ANBESOL) MT SCH ×4 (08:37→21:00)
[2022-04-05] MEDS: DIVALPROEX 500 MG TAB PO SCH ×2 (08:37→22:14)
[2022-04-05] MEDS: BACLOFEN 10 MG TAB PO SCH ×4 (08:38→22:13)
[2022-04-05] MEDS: PANTOPRAZOLE 40MG TAB (PROTONIX) PO SCH (08:38)
[2022-04-05] MEDS: DICYCLOMINE 10 MG CAP PO SCH ×4 (08:38→22:14)
[2022-04-05] MEDS: ACETAMINOPHEN TAB 650MG DOSE (2X325MG) PO PRN ×2 (08:39→22:16)
[2022-04-05] MEDS: **NOTE PATIENT COMMENT** MISC XX SCH (08:40)
[2022-04-05] MEDS: VERAPAMIL 180MG EXTENDED RELEASE TABLET PO SCH (08:40)
[2022-04-05] MEDS: NICOTINE POLACRILEX 2 MG GUM PO PRN (14:59)
[2022-04-05] MEDS: RIVAROXABAN 10MG TAB (XARELTO) PO SCH (17:09)
[2022-04-05] MEDS: EZETIMIBE 10MG TABLET (ZETIA) PO SCH (22:14)
[2022-04-05] MEDS: traZODone 50 MG TAB PO SCH (22:14)
[2022-04-05] MEDS: ARIPiprazole 10 MG TAB PO SCH (22:14)
[2022-04-05] MEDS: LIDOCAINE 5% (LIDODERM) PATCH TD SCH (22:15)
[2022-04-05] MEDS: oxyBUTYnin *DITROPAN XL* 5 MG TABCR PO SCH (22:15)
[2022-04-05] MEDS: RAMELTEON 8 MG TAB (ROZEREM) PO PRN (22:33)
[2022-04-06 05:36] VITALS: BP 111/70
[2022-04-06] MEDS: **NOTE PATIENT COMMENT** MISC XX SCH (09:00)
[2022-04-06] MEDS: BENZOCAINE 10% 9GM TUBE (ANBESOL) MT SCH ×4 (09:00→21:13)
[2022-04-06] MEDS: BACLOFEN 10 MG TAB PO SCH ×4 (09:52→21:14)
[2022-04-06] MEDS: DICYCLOMINE 10 MG CAP PO SCH ×4 (09:53→21:14)
[2022-04-06] MEDS: PANTOPRAZOLE 40MG TAB (PROTONIX) PO SCH (09:53)
[2022-04-06] MEDS: DIVALPROEX 500 MG TAB PO SCH ×2 (09:53→21:13)
[2022-04-06] MEDS: NICOTINE POLACRILEX 2 MG GUM PO PRN (09:53)
[2022-04-06] MEDS: VERAPAMIL 180MG EXTENDED RELEASE TABLET PO SCH (09:54)
[2022-04-06 11:25] VITALS: BP 142/67
[2022-04-06] MEDS: QUEtiapine FUMARATE 25 MG TAB PO PRN (17:54)
[2022-04-06] MEDS: RIVAROXABAN 10MG TAB (XARELTO) PO SCH (17:54)
[2022-04-06] MEDS: EZETIMIBE 10MG TABLET (ZETIA) PO SCH (21:13)
[2022-04-06] MEDS: traZODone 50 MG TAB PO SCH (21:13)
[2022-04-06] MEDS: oxyBUTYnin *DITROPAN XL* 5 MG TABCR PO SCH (21:13)
[2022-04-06] MEDS: ARIPiprazole 10 MG TAB PO SCH (21:13)
[2022-04-06] MEDS: RAMELTEON 8 MG TAB (ROZEREM) PO PRN (21:13)
[2022-04-06] MEDS: LIDOCAINE 5% (LIDODERM) PATCH TD SCH (21:14)
[2022-04-06] MEDS: AZELASTINE 137MCG NASAL SPY 30 ML (ASTELIN) PRN (21:16)
[2022-04-07 05:30] VITALS: BP 140/79
[2022-04-07] MEDS: BENZOCAINE 10% 9GM TUBE (ANBESOL) MT SCH ×5 (09:00→21:25)
[2022-04-07] MEDS: **NOTE PATIENT COMMENT** MISC XX SCH (09:00)
[2022-04-07] MEDS: DICYCLOMINE 10 MG CAP PO SCH ×4 (10:13→21:22)
[2022-04-07] MEDS: VERAPAMIL 180MG EXTENDED RELEASE TABLET PO SCH (10:13)
[2022-04-07] MEDS: BACLOFEN 10 MG TAB PO SCH ×4 (10:13→21:23)
[2022-04-07] MEDS: PANTOPRAZOLE 40MG TAB (PROTONIX) PO SCH (10:14)
[2022-04-07] MEDS: DIVALPROEX 500 MG TAB PO SCH ×2 (10:14→21:22)
[2022-04-07] MEDS: RIVAROXABAN 10MG TAB (XARELTO) PO SCH (17:14)
[2022-04-07] MEDS: QUEtiapine FUMARATE 25 MG TAB PO PRN (18:24)
[2022-04-07] MEDS: ACETAMINOPHEN TAB 650MG DOSE (2X325MG) PO PRN (18:24)
[2022-04-07] MEDS: EZETIMIBE 10MG TABLET (ZETIA) PO SCH (21:22)
[2022-04-07] MEDS: LIDOCAINE 5% (LIDODERM) PATCH TD SCH (21:22)
[2022-04-07] MEDS: RAMELTEON 8 MG TAB (ROZEREM) PO PRN (21:22)
[2022-04-07] MEDS: ARIPiprazole 10 MG TAB PO SCH (21:23)
[2022-04-07] MEDS: oxyBUTYnin *DITROPAN XL* 5 MG TABCR PO SCH (21:23)
[2022-04-07] MEDS: traZODone 50 MG TAB PO SCH (21:23)
[2022-04-08] MEDS: ACETAMINOPHEN TAB 650MG DOSE (2X325MG) PO PRN ×2 (02:07→19:51)
[2022-04-08] MEDS: QUEtiapine FUMARATE 25 MG TAB PO PRN ×2 (03:38→21:36)
[2022-04-08 06:00] VITALS: BP 114/45
[2022-04-08] MEDS: BACLOFEN 10 MG TAB PO SCH ×4 (10:10→20:16)
[2022-04-08] MEDS: PANTOPRAZOLE 40MG TAB (PROTONIX) PO SCH (10:10)
[2022-04-08] MEDS: **NOTE PATIENT COMMENT** MISC XX SCH (10:11)
[2022-04-08] MEDS: DIVALPROEX 500 MG TAB PO SCH ×2 (10:11→20:16)
[2022-04-08] MEDS: BENZOCAINE 10% 9GM TUBE (ANBESOL) MT SCH ×4 (10:11→21:00)
[2022-04-08] MEDS: DICYCLOMINE 10 MG CAP PO SCH ×4 (10:11→20:16)
[2022-04-08] MEDS: VERAPAMIL 180MG EXTENDED RELEASE TABLET PO SCH (10:12)
[2022-04-08] MEDS: RIVAROXABAN 10MG TAB (XARELTO) PO SCH (17:20)
[2022-04-08] MEDS: LIDOCAINE 5% (LIDODERM) PATCH TD SCH (20:15)
[2022-04-08] MEDS: traZODone 50 MG TAB PO SCH (20:15)
[2022-04-08] MEDS: ARIPiprazole 10 MG TAB PO SCH (20:15)
[2022-04-08] MEDS: oxyBUTYnin *DITROPAN XL* 5 MG TABCR PO SCH (20:16)
[2022-04-08] MEDS: EZETIMIBE 10MG TABLET (ZETIA) PO SCH (20:16)
[2022-04-08] MEDS: RAMELTEON 8 MG TAB (ROZEREM) PO PRN (21:36)
[2022-04-09 05:49] VITALS: BP 105/67
[2022-04-09] MEDS: DICYCLOMINE 10 MG CAP PO SCH ×4 (08:42→21:02)
[2022-04-09] MEDS: BACLOFEN 10 MG TAB PO SCH ×4 (08:42→21:02)
[2022-04-09] MEDS: PANTOPRAZOLE 40MG TAB (PROTONIX) PO SCH (08:42)
[2022-04-09] MEDS: DIVALPROEX 500 MG TAB PO SCH ×2 (08:42→21:02)
[2022-04-09] MEDS: BENZOCAINE 10% 9GM TUBE (ANBESOL) MT SCH ×4 (08:43→21:02)
[2022-04-09] MEDS: **NOTE PATIENT COMMENT** MISC XX SCH (08:43)
[2022-04-09] MEDS: VERAPAMIL 180MG EXTENDED RELEASE TABLET PO SCH (08:43)
[2022-04-09] MEDS: ACETAMINOPHEN TAB 650MG DOSE (2X325MG) PO PRN (08:43)
[2022-04-09] MEDS: RIVAROXABAN 10MG TAB (XARELTO) PO SCH (17:12)
[2022-04-09] MEDS: oxyBUTYnin *DITROPAN XL* 5 MG TABCR PO SCH (21:02)
[2022-04-09] MEDS: ARIPiprazole 10 MG TAB PO SCH (21:02)
[2022-04-09] MEDS: EZETIMIBE 10MG TABLET (ZETIA) PO SCH (21:02)
[2022-04-09] MEDS: LIDOCAINE 5% (LIDODERM) PATCH TD SCH (21:02)
[2022-04-09] MEDS: traZODone 50 MG TAB PO SCH (21:02)
[2022-04-09] MEDS: QUEtiapine FUMARATE 25 MG TAB PO PRN (21:03)
[2022-04-09] MEDS: NICOTINE POLACRILEX 2 MG GUM PO PRN (21:07)
[2022-04-10] MEDS: RAMELTEON 8 MG TAB (ROZEREM) PO PRN ×2 (03:11→22:22)
[2022-04-10 06:00] VITALS: BP 127/60
[2022-04-10] MEDS: **NOTE PATIENT COMMENT** MISC XX SCH (09:00)
[2022-04-10] MEDS: BENZOCAINE 10% 9GM TUBE (ANBESOL) MT SCH ×4 (09:00→22:25)
[2022-04-10] MEDS: VERAPAMIL 180MG EXTENDED RELEASE TABLET PO SCH (11:07)
[2022-04-10] MEDS: PANTOPRAZOLE 40MG TAB (PROTONIX) PO SCH (11:08)
[2022-04-10] MEDS: BACLOFEN 10 MG TAB PO SCH ×4 (11:08→22:22)
[2022-04-10] MEDS: DICYCLOMINE 10 MG CAP PO SCH ×4 (11:08→22:22)
[2022-04-10] MEDS: DIVALPROEX 500 MG TAB PO SCH ×2 (11:08→22:22)
[2022-04-10] MEDS: QUEtiapine FUMARATE 25 MG TAB PO PRN (15:46)
[2022-04-10] MEDS: RIVAROXABAN 10MG TAB (XARELTO) PO SCH (17:08)
[2022-04-10] MEDS: oxyBUTYnin *DITROPAN XL* 5 MG TABCR PO SCH (22:21)
[2022-04-10] MEDS: ARIPiprazole 10 MG TAB PO SCH (22:22)
[2022-04-10] MEDS: traZODone 50 MG TAB PO SCH (22:22)
[2022-04-10] MEDS: LIDOCAINE 5% (LIDODERM) PATCH TD SCH (22:22)
[2022-04-10] MEDS: EZETIMIBE 10MG TABLET (ZETIA) PO SCH (22:22)
[2022-04-10] MEDS: POLYVINYL ALCOHOL OPHTH SOLN 15 ML(LIQUITEARS) OU PRN (22:24)
[2022-04-11 06:00] VITALS: BP 109/50
[2022-04-11] MEDS: BACLOFEN 10 MG TAB PO SCH ×4 (08:21→20:55)
[2022-04-11] MEDS: PANTOPRAZOLE 40MG TAB (PROTONIX) PO SCH (08:21)
[2022-04-11] MEDS: DIVALPROEX 500 MG TAB PO SCH ×2 (08:21→20:56)
[2022-04-11] MEDS: DICYCLOMINE 10 MG CAP PO SCH ×4 (08:21→20:55)
[2022-04-11] MEDS: ACETAMINOPHEN TAB 650MG DOSE (2X325MG) PO PRN ×2 (08:21→13:10)
[2022-04-11] MEDS: VERAPAMIL 180MG EXTENDED RELEASE TABLET PO SCH (08:22)
[2022-04-11] MEDS: BENZOCAINE 10% 9GM TUBE (ANBESOL) MT SCH ×4 (08:23→20:57)
[2022-04-11] MEDS: AZELASTINE 137MCG NASAL SPY 30 ML (ASTELIN) PRN (08:23)
[2022-04-11] MEDS: **NOTE PATIENT COMMENT** MISC XX SCH (09:17)
[2022-04-11] MEDS: QUEtiapine FUMARATE 25 MG TAB PO PRN (15:12)
[2022-04-11] MEDS: NICOTINE POLACRILEX 2 MG GUM PO PRN (15:33)
[2022-04-11] MEDS: RIVAROXABAN 10MG TAB (XARELTO) PO SCH (18:03)
[2022-04-11] MEDS: traZODone 50 MG TAB PO SCH (20:55)
[2022-04-11] MEDS: EZETIMIBE 10MG TABLET (ZETIA) PO SCH (20:56)
[2022-04-11] MEDS: RAMELTEON 8 MG TAB (ROZEREM) PO PRN (20:56)
[2022-04-11] MEDS: oxyBUTYnin *DITROPAN XL* 5 MG TABCR PO SCH (20:56)
[2022-04-11] MEDS: ARIPiprazole 10 MG TAB PO SCH (20:56)
[2022-04-11] MEDS: LIDOCAINE 5% (LIDODERM) PATCH TD SCH (20:56)
[2022-04-12 05:18] VITALS: BP 127/65
[2022-04-12] MEDS: DIVALPROEX 500 MG TAB PO SCH ×2 (08:38→20:23)
[2022-04-12] MEDS: BACLOFEN 10 MG TAB PO SCH ×4 (08:38→20:23)
[2022-04-12] MEDS: ACETAMINOPHEN TAB 650MG DOSE (2X325MG) PO PRN ×2 (08:38→15:21)
[2022-04-12] MEDS: **NOTE PATIENT COMMENT** MISC XX SCH (08:38)
[2022-04-12] MEDS: PANTOPRAZOLE 40MG TAB (PROTONIX) PO SCH (08:38)
[2022-04-12] MEDS: DICYCLOMINE 10 MG CAP PO SCH ×4 (08:38→20:24)
[2022-04-12] MEDS: BENZOCAINE 10% 9GM TUBE (ANBESOL) MT SCH ×5 (08:38→21:51)
[2022-04-12] MEDS: VERAPAMIL 180MG EXTENDED RELEASE TABLET PO SCH (08:41)
[2022-04-12] MEDS: QUEtiapine FUMARATE 25 MG TAB PO PRN (13:11)
[2022-04-12] MEDS: RIVAROXABAN 10MG TAB (XARELTO) PO SCH (17:34)
[2022-04-12] MEDS: traZODone 50 MG TAB PO SCH (20:23)
[2022-04-12] MEDS: ARIPiprazole 10 MG TAB PO SCH (20:23)
[2022-04-12] MEDS: EZETIMIBE 10MG TABLET (ZETIA) PO SCH (20:23)
[2022-04-12] MEDS: LIDOCAINE 5% (LIDODERM) PATCH TD SCH (20:23)
[2022-04-12] MEDS: oxyBUTYnin *DITROPAN XL* 5 MG TABCR PO SCH (20:24)
[2022-04-13 06:00] VITALS: BP 139/63
[2022-04-13] MEDS: BENZOCAINE 10% 9GM TUBE (ANBESOL) MT SCH ×4 (09:00→21:00)
[2022-04-13] MEDS: BACLOFEN 10 MG TAB PO SCH ×4 (09:35→20:28)
[2022-04-13] MEDS: PANTOPRAZOLE 40MG TAB (PROTONIX) PO SCH (09:35)
[2022-04-13] MEDS: DICYCLOMINE 10 MG CAP PO SCH ×4 (09:35→20:29)
[2022-04-13] MEDS: **NOTE PATIENT COMMENT** MISC XX SCH (09:35)
[2022-04-13] MEDS: DIVALPROEX 500 MG TAB PO SCH ×2 (12:16→20:28)
[2022-04-13] MEDS: VERAPAMIL 180MG EXTENDED RELEASE TABLET PO SCH (12:16)
[2022-04-13] MEDS: LACTULOSE 20 GM/30 ML SYRUP UD PO PRN (15:09)
[2022-04-13] MEDS: RIVAROXABAN 10MG TAB (XARELTO) PO SCH (17:43)
[2022-04-13] MEDS: LIDOCAINE 5% (LIDODERM) PATCH TD SCH (20:25)
[2022-04-13] MEDS: EZETIMIBE 10MG TABLET (ZETIA) PO SCH (20:28)
[2022-04-13] MEDS: traZODone 50 MG TAB PO SCH (20:28)
[2022-04-13] MEDS: oxyBUTYnin *DITROPAN XL* 5 MG TABCR PO SCH (20:28)
[2022-04-13] MEDS: ARIPiprazole 10 MG TAB PO SCH (20:29)
[2022-04-13] MEDS: QUEtiapine FUMARATE 25 MG TAB PO PRN (22:46)
[2022-04-14 06:00] VITALS: BP 116/57
[2022-04-14] MEDS: VERAPAMIL 180MG EXTENDED RELEASE TABLET PO SCH (07:43)
[2022-04-14] MEDS: DIVALPROEX 500 MG TAB PO SCH ×2 (07:44→21:28)
[2022-04-14] MEDS: DICYCLOMINE 10 MG CAP PO SCH ×4 (07:44→21:28)
[2022-04-14] MEDS: BENZOCAINE 10% 9GM TUBE (ANBESOL) MT SCH ×4 (07:44→21:00)
[2022-04-14] MEDS: BACLOFEN 10 MG TAB PO SCH ×4 (07:44→21:28)
[2022-04-14] MEDS: PANTOPRAZOLE 40MG TAB (PROTONIX) PO SCH (07:44)
[2022-04-14] MEDS: **NOTE PATIENT COMMENT** MISC XX SCH (07:45)
[2022-04-14] MEDS: ACETAMINOPHEN TAB 650MG DOSE (2X325MG) PO PRN (07:46)
[2022-04-14] MEDS: TORSEMIDE 20 MG TAB PO SCH (13:07)
[2022-04-14] MEDS: RIVAROXABAN 10MG TAB (XARELTO) PO SCH (16:54)
[2022-04-14] MEDS: QUEtiapine FUMARATE 25 MG TAB PO PRN (18:33)
[2022-04-14] MEDS: EZETIMIBE 10MG TABLET (ZETIA) PO SCH (21:27)
[2022-04-14] MEDS: traZODone 50 MG TAB PO SCH (21:27)
[2022-04-14] MEDS: LIDOCAINE 5% (LIDODERM) PATCH TD SCH (21:27)
[2022-04-14] MEDS: ARIPiprazole 10 MG TAB PO SCH (21:28)
[2022-04-14] MEDS: oxyBUTYnin *DITROPAN XL* 5 MG TABCR PO SCH (21:28)
[2022-04-15 06:00] VITALS: BP 126/61
[2022-04-15 06:43] LABS: BASO # 0.1 10^3/uL (0.0-0.2); BASO % 0.7 % (0.0-1.0); EOS # 0.2 10^3/uL (0.0-0.5); EOS % 3.1 % (0.0-3.0); HEMATOCRIT 37.5 % (36.0-47.0); HEMOGLOBIN 12.2 g/dl (12.0-15.5); LYMPH # 2.2 10^3/uL (1.5-5.0); LYMPH % 29.3 % (24.0-44.0); MEAN CORPUSCULAR HEMOGLOBIN 28.1 pg (27.0-33.0); MEAN CORPUSCULAR HGB CONC 32.5 g/dl (32.0-36.5); MEAN CORPUSCULAR VOLUME 86.4 fl (80.0-96.0); MONO # 0.8 10^3/uL (0.0-0.8); MONO % 11.1 % (2.0-8.0); PLATELET COUNT, AUTOMATED 289 10^3/uL (150-450); RED BLOOD COUNT 4.34 10^6/uL (4.00-5.40); WHITE BLOOD COUNT 7.4 10^3/uL (4.0-10.0)
[2022-04-15 07:15] LABS: BLOOD UREA NITROGEN 19 MG/DL (7-18); CALCIUM LEVEL 9.9 MG/DL (8.8-10.2); CARBON DIOXIDE LEVEL 29 MEQ/L (21-32); CHLORIDE LEVEL 99 MEQ/L (98-107); CREATININE FOR GFR 0.71 MG/DL (0.55-1.30); GLOMERULAR FILTRATION RATE > 60.0 (>39); GLUCOSE, FASTING 90 MG/DL (70-100); NT-PRO BNP 177 PG/ML (<125); POTASSIUM SERUM 4.1 MEQ/L (3.5-5.1); SODIUM LEVEL 135 MEQ/L (136-145)
[2022-04-15] MEDS: BENZOCAINE 10% 9GM TUBE (ANBESOL) MT SCH ×4 (08:41→20:24)
[2022-04-15] MEDS: DIVALPROEX 500 MG TAB PO SCH ×2 (08:42→20:23)
[2022-04-15] MEDS: BACLOFEN 10 MG TAB PO SCH ×4 (08:43→20:23)
[2022-04-15] MEDS: metOLazone 5 MG TAB PO SCH (08:43)
[2022-04-15] MEDS: PANTOPRAZOLE 40MG TAB (PROTONIX) PO SCH (08:43)
[2022-04-15] MEDS: DICYCLOMINE 10 MG CAP PO SCH ×4 (08:43→20:23)
[2022-04-15] MEDS: **NOTE PATIENT COMMENT** MISC XX SCH (08:43)
[2022-04-15] MEDS: VERAPAMIL 180MG EXTENDED RELEASE TABLET PO SCH (09:00)
[2022-04-15] MEDS: TORSEMIDE 20 MG TAB PO SCH (09:43)
[2022-04-15] MEDS: QUEtiapine FUMARATE 25 MG TAB PO PRN (17:58)
[2022-04-15] MEDS: RIVAROXABAN 10MG TAB (XARELTO) PO SCH (17:58)
[2022-04-15] MEDS: traZODone 50 MG TAB PO SCH (20:22)
[2022-04-15] MEDS: LIDOCAINE 5% (LIDODERM) PATCH TD SCH (20:22)
[2022-04-15] MEDS: oxyBUTYnin *DITROPAN XL* 5 MG TABCR PO SCH (20:23)
[2022-04-15] MEDS: ARIPiprazole 10 MG TAB PO SCH (20:23)
[2022-04-15] MEDS: EZETIMIBE 10MG TABLET (ZETIA) PO SCH (20:24)
[2022-04-16 06:00] VITALS: BP 112/53
[2022-04-16] MEDS: **NOTE PATIENT COMMENT** MISC XX SCH (09:00)
[2022-04-16] MEDS: POLYVINYL ALCOHOL OPHTH SOLN 15 ML(LIQUITEARS) OU PRN ×2 (09:59→14:00)
[2022-04-16] MEDS: AZELASTINE 137MCG NASAL SPY 30 ML (ASTELIN) PRN (09:59)
[2022-04-16] MEDS: BENZOCAINE 10% 9GM TUBE (ANBESOL) MT SCH ×4 (09:59→20:27)
[2022-04-16] MEDS: DICYCLOMINE 10 MG CAP PO SCH ×4 (10:00→20:26)
[2022-04-16] MEDS: BACLOFEN 10 MG TAB PO SCH ×4 (10:00→20:26)
[2022-04-16] MEDS: PANTOPRAZOLE 40MG TAB (PROTONIX) PO SCH (10:00)
[2022-04-16] MEDS: metOLazone 5 MG TAB PO SCH (10:01)
[2022-04-16] MEDS: DIVALPROEX 500 MG TAB PO SCH ×2 (10:01→20:27)
[2022-04-16] MEDS: TORSEMIDE 20 MG TAB PO SCH (10:01)
[2022-04-16] MEDS: VERAPAMIL 180MG EXTENDED RELEASE TABLET PO SCH (10:02)
[2022-04-16] MEDS: RIVAROXABAN 10MG TAB (XARELTO) PO SCH (17:39)
[2022-04-16] MEDS: oxyBUTYnin *DITROPAN XL* 5 MG TABCR PO SCH (20:26)
[2022-04-16] MEDS: EZETIMIBE 10MG TABLET (ZETIA) PO SCH (20:26)
[2022-04-16] MEDS: LACTULOSE 20 GM/30 ML SYRUP UD PO PRN (20:26)
[2022-04-16] MEDS: traZODone 50 MG TAB PO SCH (20:26)
[2022-04-16] MEDS: LIDOCAINE 5% (LIDODERM) PATCH TD SCH (20:26)
[2022-04-16] MEDS: ARIPiprazole 10 MG TAB PO SCH (20:27)
[2022-04-16] MEDS: DOCUSATE SODIUM 100MG CAPSULE PO PRN (23:49)
[2022-04-16] MEDS: MIRALAX *UNIT DOSE* 17GM PACKET PO PRN (23:49)
[2022-04-17 06:00] VITALS: BP 122/55
[2022-04-17] MEDS: DIVALPROEX 500 MG TAB PO SCH ×2 (09:32→20:45)
[2022-04-17] MEDS: metOLazone 5 MG TAB PO SCH (09:32)
[2022-04-17] MEDS: DICYCLOMINE 10 MG CAP PO SCH ×4 (09:32→20:45)
[2022-04-17] MEDS: BACLOFEN 10 MG TAB PO SCH ×4 (09:32→20:45)
[2022-04-17] MEDS: AZELASTINE 137MCG NASAL SPY 30 ML (ASTELIN) PRN (09:33)
[2022-04-17] MEDS: POLYVINYL ALCOHOL OPHTH SOLN 15 ML(LIQUITEARS) OU PRN (09:33)
[2022-04-17] MEDS: TORSEMIDE 20 MG TAB PO SCH (09:33)
[2022-04-17] MEDS: PANTOPRAZOLE 40MG TAB (PROTONIX) PO SCH (09:33)
[2022-04-17] MEDS: VERAPAMIL 180MG EXTENDED RELEASE TABLET PO SCH (09:33)
[2022-04-17] MEDS: BENZOCAINE 10% 9GM TUBE (ANBESOL) MT SCH ×4 (09:33→20:44)
[2022-04-17] MEDS: **NOTE PATIENT COMMENT** MISC XX SCH (09:34)
[2022-04-17] MEDS: DOCUSATE SODIUM 100MG CAPSULE PO PRN ×2 (09:37→20:45)
[2022-04-17] MEDS: MOM 30ML SUSPENSION UDC PO PRN (09:37)
[2022-04-17] MEDS: CALCIUM CARBONATE 500 MG CHEW U/D PO PRN ×2 (09:41→12:11)
[2022-04-17] MEDS: ACETAMINOPHEN TAB 650MG DOSE (2X325MG) PO PRN (09:41)
[2022-04-17] MEDS: QUEtiapine FUMARATE 25 MG TAB PO PRN (13:59)
[2022-04-17] MEDS: RIVAROXABAN 10MG TAB (XARELTO) PO SCH (18:15)
[2022-04-17] MEDS: LACTULOSE 20 GM/30 ML SYRUP UD PO PRN (20:44)
[2022-04-17] MEDS: traZODone 50 MG TAB PO SCH (20:45)
[2022-04-17] MEDS: LIDOCAINE 5% (LIDODERM) PATCH TD SCH (20:45)
[2022-04-17] MEDS: oxyBUTYnin *DITROPAN XL* 5 MG TABCR PO SCH (20:45)
[2022-04-17] MEDS: ARIPiprazole 10 MG TAB PO SCH (20:45)
[2022-04-17] MEDS: EZETIMIBE 10MG TABLET (ZETIA) PO SCH (20:45)
[2022-04-18 06:00] VITALS: BP 127/37
[2022-04-18 06:37] VITALS: BP 128/63
[2022-04-18] MEDS: metOLazone 5 MG TAB PO SCH (08:11)
[2022-04-18] MEDS: BENZOCAINE 10% 9GM TUBE (ANBESOL) MT SCH ×4 (09:00→20:14)
[2022-04-18] MEDS: **NOTE PATIENT COMMENT** MISC XX SCH (09:00)
[2022-04-18] MEDS: PANTOPRAZOLE 40MG TAB (PROTONIX) PO SCH (09:40)
[2022-04-18] MEDS: BACLOFEN 10 MG TAB PO SCH ×4 (09:40→20:08)
[2022-04-18] MEDS: TORSEMIDE 20 MG TAB PO SCH (09:41)
[2022-04-18] MEDS: DIVALPROEX 500 MG TAB PO SCH ×2 (09:42→20:07)
[2022-04-18] MEDS: VERAPAMIL 180MG EXTENDED RELEASE TABLET PO SCH (09:43)
[2022-04-18] MEDS: DICYCLOMINE 10 MG CAP PO SCH ×4 (09:44→20:09)
[2022-04-18] MEDS: LACTULOSE 20 GM/30 ML SYRUP UD PO PRN (14:53)
[2022-04-18] MEDS: RIVAROXABAN 10MG TAB (XARELTO) PO SCH (18:42)
[2022-04-18] MEDS: QUEtiapine FUMARATE 25 MG TAB PO PRN (18:42)
[2022-04-18] MEDS: MIRALAX *UNIT DOSE* 17GM PACKET PO PRN (18:58)
[2022-04-18] MEDS: MOM 30ML SUSPENSION UDC PO PRN (19:38)
[2022-04-18] MEDS: LIDOCAINE 5% (LIDODERM) PATCH TD SCH (20:07)
[2022-04-18] MEDS: ARIPiprazole 10 MG TAB PO SCH (20:08)
[2022-04-18] MEDS: oxyBUTYnin *DITROPAN XL* 5 MG TABCR PO SCH (20:08)
[2022-04-18] MEDS: EZETIMIBE 10MG TABLET (ZETIA) PO SCH (20:08)
[2022-04-18] MEDS: traZODone 50 MG TAB PO SCH (20:09)
[2022-04-18] MEDS ORDERED: BISACODYL 10 MG SUPP PR PRN (22:50)
[2022-04-19 05:49] VITALS: BP 110/50
[2022-04-19 07:17] LABS: BASO # 0.1 10^3/uL (0.0-0.2); BASO % 0.6 % (0.0-1.0); EOS # 0.1 10^3/uL (0.0-0.5); EOS % 0.9 % (0.0-3.0); HEMATOCRIT 36.1 % (36.0-47.0); HEMOGLOBIN 11.9 g/dl (12.0-15.5); LYMPH # 1.2 10^3/uL (1.5-5.0); LYMPH % 15.9 % (24.0-44.0); MEAN CORPUSCULAR HEMOGLOBIN 27.7 pg (27.0-33.0); MEAN CORPUSCULAR VOLUME 84.1 fl (80.0-96.0); MONO # 1.1 10^3/uL (0.0-0.8); MONO % 14.5 % (2.0-8.0); NEUTROPHILS # 5.2 10^3/uL (1.5-8.5); NEUTROPHILS % 67.5 % (36.0-66.0); PLATELET COUNT, AUTOMATED 270 10^3/uL (150-450); RED BLOOD COUNT 4.29 10^6/uL (4.00-5.40); WHITE BLOOD COUNT 7.8 10^3/uL (4.0-10.0)
[2022-04-19 08:04] LABS: BLOOD UREA NITROGEN 25 MG/DL (7-18); CREATININE FOR GFR 0.84 MG/DL (0.55-1.30); GLOMERULAR FILTRATION RATE > 60.0 (>39); GLUCOSE, FASTING 94 MG/DL (70-100)
[2022-04-19 08:05] LABS: CALCIUM LEVEL 10.3 MG/DL (8.8-10.2); CARBON DIOXIDE LEVEL 42 MEQ/L (21-32); CHLORIDE LEVEL 79 MEQ/L (98-107); POTASSIUM SERUM 2.8 MEQ/L (3.5-5.1); SODIUM LEVEL 127 MEQ/L (136-145)
[2022-04-19 08:48] LABS: MAGNESIUM LEVEL 2.3 MG/DL (1.8-2.4)
[2022-04-19] MEDS: BENZOCAINE 10% 9GM TUBE (ANBESOL) MT SCH ×4 (09:21→20:10)
[2022-04-19] MEDS: PANTOPRAZOLE 40MG TAB (PROTONIX) PO SCH (09:22)
[2022-04-19] MEDS: VERAPAMIL 180MG EXTENDED RELEASE TABLET PO SCH (09:22)
[2022-04-19] MEDS: POTASSIUM CHLORIDE 10MEQ SR TABLET PO SCH (09:22)
[2022-04-19] MEDS: DIVALPROEX 500 MG TAB PO SCH ×2 (09:22→20:10)
[2022-04-19] MEDS: BACLOFEN 10 MG TAB PO SCH ×3 (09:23→20:08)
[2022-04-19] MEDS: **NOTE PATIENT COMMENT** MISC XX SCH (09:23)
[2022-04-19] MEDS: DICYCLOMINE 10 MG CAP PO SCH ×3 (09:23→20:09)
[2022-04-19] MEDS ORDERED: POTASSIUM CHLORIDE 10MEQ SR TABLET PO ONE (12:00)
[2022-04-19] MEDS: RIVAROXABAN 10MG TAB (XARELTO) PO SCH (16:26)
[2022-04-19 19:00] VITALS: BP 119/45
[2022-04-19] MEDS: EZETIMIBE 10MG TABLET (ZETIA) PO SCH (20:08)
[2022-04-19] MEDS: LIDOCAINE 5% (LIDODERM) PATCH TD SCH (20:08)
[2022-04-19] MEDS: traZODone 50 MG TAB PO SCH (20:08)
[2022-04-19] MEDS: ARIPiprazole 10 MG TAB PO SCH (20:09)
[2022-04-19] MEDS: oxyBUTYnin *DITROPAN XL* 5 MG TABCR PO SCH (20:09)
[2022-04-20 06:00] VITALS: BP 118/59
[2022-04-20 06:54] LABS: BLOOD UREA NITROGEN 18 MG/DL (7-18); CALCIUM LEVEL 9.9 MG/DL (8.8-10.2); CARBON DIOXIDE LEVEL 40 MEQ/L (21-32); CHLORIDE LEVEL 85 MEQ/L (98-107); CREATININE FOR GFR 0.68 MG/DL (0.55-1.30); GLOMERULAR FILTRATION RATE > 60.0 (>39); GLUCOSE, FASTING 95 MG/DL (70-100); POTASSIUM SERUM 3.5 MEQ/L (3.5-5.1); SODIUM LEVEL 130 MEQ/L (136-145)
[2022-04-20] MEDS: **NOTE PATIENT COMMENT** MISC XX SCH (09:00)
[2022-04-20] MEDS: BENZOCAINE 10% 9GM TUBE (ANBESOL) MT SCH ×4 (09:00→19:56)
[2022-04-20] MEDS: DIVALPROEX 500 MG TAB PO SCH ×2 (10:40→19:56)
[2022-04-20] MEDS: BACLOFEN 10 MG TAB PO SCH ×3 (10:41→19:56)
[2022-04-20] MEDS: VERAPAMIL 180MG EXTENDED RELEASE TABLET PO SCH (10:41)
[2022-04-20] MEDS: POTASSIUM CHLORIDE 10MEQ SR TABLET PO SCH (10:42)
[2022-04-20] MEDS: PANTOPRAZOLE 40MG TAB (PROTONIX) PO SCH (10:42)
[2022-04-20] MEDS: TORSEMIDE 20 MG TAB PO SCH (10:42)
[2022-04-20] MEDS: DICYCLOMINE 10 MG CAP PO SCH ×3 (10:43→19:55)
[2022-04-20] MEDS: AZELASTINE 137MCG NASAL SPY 30 ML (ASTELIN) PRN (10:45)
[2022-04-20] MEDS: POLYVINYL ALCOHOL OPHTH SOLN 15 ML(LIQUITEARS) OU PRN (10:45)
[2022-04-20] MEDS: ACETAMINOPHEN TAB 650MG DOSE (2X325MG) PO PRN (16:05)
[2022-04-20] MEDS: RIVAROXABAN 10MG TAB (XARELTO) PO SCH (17:04)
[2022-04-20] MEDS: EZETIMIBE 10MG TABLET (ZETIA) PO SCH (19:55)
[2022-04-20] MEDS: oxyBUTYnin *DITROPAN XL* 5 MG TABCR PO SCH (19:55)
[2022-04-20] MEDS: LIDOCAINE 5% (LIDODERM) PATCH TD SCH (19:55)
[2022-04-20] MEDS: traZODone 50 MG TAB PO SCH (19:56)
[2022-04-20] MEDS: ARIPiprazole 10 MG TAB PO SCH (19:56)
[2022-04-21 05:18] VITALS: BP 102/46
[2022-04-21] MEDS: DICYCLOMINE 10 MG CAP PO SCH ×3 (08:42→21:32)
[2022-04-21] MEDS: PANTOPRAZOLE 40MG TAB (PROTONIX) PO SCH (08:42)
[2022-04-21] MEDS: BACLOFEN 10 MG TAB PO SCH ×3 (08:42→21:32)
[2022-04-21] MEDS: TORSEMIDE 20 MG TAB PO SCH (08:42)
[2022-04-21] MEDS: POTASSIUM CHLORIDE 10MEQ SR TABLET PO SCH (08:42)
[2022-04-21] MEDS: DIVALPROEX 500 MG TAB PO SCH ×2 (08:43→21:33)
[2022-04-21] MEDS: VERAPAMIL 180MG EXTENDED RELEASE TABLET PO SCH (08:44)
[2022-04-21] MEDS: **NOTE PATIENT COMMENT** MISC XX SCH (08:46)
[2022-04-21] MEDS: BENZOCAINE 10% 9GM TUBE (ANBESOL) MT SCH ×4 (08:46→21:33)
[2022-04-21] MEDS: RIVAROXABAN 10MG TAB (XARELTO) PO SCH (17:14)
[2022-04-21] MEDS: ARIPiprazole 10 MG TAB PO SCH (21:32)
[2022-04-21] MEDS: EZETIMIBE 10MG TABLET (ZETIA) PO SCH (21:32)
[2022-04-21] MEDS: oxyBUTYnin *DITROPAN XL* 5 MG TABCR PO SCH (21:32)
[2022-04-21] MEDS: LIDOCAINE 5% (LIDODERM) PATCH TD SCH (21:32)
[2022-04-21] MEDS: traZODone 50 MG TAB PO SCH (21:33)
[2022-04-22 05:32] VITALS: BP 116/55
[2022-04-22] MEDS: BENZOCAINE 10% 9GM TUBE (ANBESOL) MT SCH ×4 (09:00→20:43)
[2022-04-22] MEDS: PANTOPRAZOLE 40MG TAB (PROTONIX) PO SCH (11:20)
[2022-04-22] MEDS: DICYCLOMINE 10 MG CAP PO SCH ×3 (11:21→20:42)
[2022-04-22] MEDS: TORSEMIDE 20 MG TAB PO SCH (11:21)
[2022-04-22] MEDS: POTASSIUM CHLORIDE 10MEQ SR TABLET PO SCH (11:22)
[2022-04-22] MEDS: BACLOFEN 10 MG TAB PO SCH ×3 (11:22→20:42)
[2022-04-22] MEDS: **NOTE PATIENT COMMENT** MISC XX SCH (11:23)
[2022-04-22] MEDS: VERAPAMIL 180MG EXTENDED RELEASE TABLET PO SCH (11:23)
[2022-04-22] MEDS: DIVALPROEX 500 MG TAB PO SCH ×2 (11:23→20:42)
[2022-04-22] MEDS: QUEtiapine FUMARATE 25 MG TAB PO PRN (16:34)
[2022-04-22] MEDS: RIVAROXABAN 10MG TAB (XARELTO) PO SCH (16:34)
[2022-04-22] MEDS: ARIPiprazole 10 MG TAB PO SCH (20:41)
[2022-04-22] MEDS: traZODone 50 MG TAB PO SCH (20:41)
[2022-04-22] MEDS: oxyBUTYnin *DITROPAN XL* 5 MG TABCR PO SCH (20:42)
[2022-04-22] MEDS: EZETIMIBE 10MG TABLET (ZETIA) PO SCH (20:42)
[2022-04-22] MEDS: LIDOCAINE 5% (LIDODERM) PATCH TD SCH (21:10)
[2022-04-23 06:00] VITALS: BP 104/41
[2022-04-23 07:23] LABS: HEMATOCRIT 37.7 % (36.0-47.0); HEMOGLOBIN 12.6 g/dl (12.0-15.5); MEAN CORPUSCULAR HEMOGLOBIN 28.2 pg (27.0-33.0); MEAN CORPUSCULAR HGB CONC 33.4 g/dl (32.0-36.5); MEAN CORPUSCULAR VOLUME 84.3 fl (80.0-96.0); PLATELET COUNT, AUTOMATED 295 10^3/uL (150-450); RED BLOOD COUNT 4.47 10^6/uL (4.00-5.40); WHITE BLOOD COUNT 7.3 10^3/uL (4.0-10.0)
[2022-04-23 07:59] LABS: BLOOD UREA NITROGEN 17 MG/DL (7-18); CALCIUM LEVEL 9.6 MG/DL (8.8-10.2); CARBON DIOXIDE LEVEL 31 MEQ/L (21-32); CHLORIDE LEVEL 90 MEQ/L (98-107); CREATININE FOR GFR 0.81 MG/DL (0.55-1.30); GLOMERULAR FILTRATION RATE > 60.0 (>39); GLUCOSE, FASTING 94 MG/DL (70-100); POTASSIUM SERUM 3.6 MEQ/L (3.5-5.1); SODIUM LEVEL 127 MEQ/L (136-145)
[2022-04-23] MEDS: DICYCLOMINE 10 MG CAP PO SCH ×3 (08:34→20:39)
[2022-04-23] MEDS: POTASSIUM CHLORIDE 10MEQ SR TABLET PO SCH (08:34)
[2022-04-23] MEDS: BACLOFEN 10 MG TAB PO SCH ×3 (08:34→20:40)
[2022-04-23] MEDS: PANTOPRAZOLE 40MG TAB (PROTONIX) PO SCH (08:34)
[2022-04-23] MEDS: DIVALPROEX 500 MG TAB PO SCH ×2 (08:34→20:39)
[2022-04-23] MEDS: BENZOCAINE 10% 9GM TUBE (ANBESOL) MT SCH ×4 (08:35→20:45)
[2022-04-23] MEDS: VERAPAMIL 180MG EXTENDED RELEASE TABLET PO SCH (08:35)
[2022-04-23] MEDS: **NOTE PATIENT COMMENT** MISC XX SCH (08:35)
[2022-04-23] MEDS: TORSEMIDE 20 MG TAB PO SCH (08:35)
[2022-04-23] MEDS: RIVAROXABAN 10MG TAB (XARELTO) PO SCH (17:37)
[2022-04-23] MEDS: ARIPiprazole 10 MG TAB PO SCH (20:39)
[2022-04-23] MEDS: EZETIMIBE 10MG TABLET (ZETIA) PO SCH (20:40)
[2022-04-23] MEDS: traZODone 50 MG TAB PO SCH (20:40)
[2022-04-23] MEDS: oxyBUTYnin *DITROPAN XL* 5 MG TABCR PO SCH (20:40)
[2022-04-23] MEDS: LIDOCAINE 5% (LIDODERM) PATCH TD SCH (20:41)
[2022-04-24 06:53] VITALS: BP 113/60
[2022-04-24] MEDS: VERAPAMIL 180MG EXTENDED RELEASE TABLET PO SCH (09:00)
[2022-04-24] MEDS: **NOTE PATIENT COMMENT** MISC XX SCH (09:00)
[2022-04-24] MEDS: BENZOCAINE 10% 9GM TUBE (ANBESOL) MT SCH ×4 (09:00→20:51)
[2022-04-24] MEDS: BACLOFEN 10 MG TAB PO SCH ×3 (09:45→20:51)
[2022-04-24] MEDS: TORSEMIDE 20 MG TAB PO SCH (09:45)
[2022-04-24] MEDS: DICYCLOMINE 10 MG CAP PO SCH ×3 (09:45→20:50)
[2022-04-24] MEDS: PANTOPRAZOLE 40MG TAB (PROTONIX) PO SCH (09:45)
[2022-04-24] MEDS: DIVALPROEX 500 MG TAB PO SCH ×2 (09:45→20:51)
[2022-04-24] MEDS: POTASSIUM CHLORIDE 10MEQ SR TABLET PO SCH (09:46)
[2022-04-24] MEDS: RIVAROXABAN 10MG TAB (XARELTO) PO SCH (17:07)
[2022-04-24] MEDS: ARIPiprazole 10 MG TAB PO SCH (20:50)
[2022-04-24] MEDS: EZETIMIBE 10MG TABLET (ZETIA) PO SCH (20:51)
[2022-04-24] MEDS: traZODone 50 MG TAB PO SCH (20:51)
[2022-04-24] MEDS: oxyBUTYnin *DITROPAN XL* 5 MG TABCR PO SCH (20:51)
[2022-04-24] MEDS: LIDOCAINE 5% (LIDODERM) PATCH TD SCH (20:52)
[2022-04-25] MEDS: ACETAMINOPHEN TAB 650MG DOSE (2X325MG) PO PRN ×2 (00:54→09:39)
[2022-04-25 06:00] VITALS: BP 117/57
[2022-04-25] MEDS: **NOTE PATIENT COMMENT** MISC XX SCH (09:24)
[2022-04-25] MEDS: BACLOFEN 10 MG TAB PO SCH ×3 (09:31→20:23)
[2022-04-25] MEDS: BENZOCAINE 10% 9GM TUBE (ANBESOL) MT SCH ×4 (09:31→20:24)
[2022-04-25] MEDS: DIVALPROEX 500 MG TAB PO SCH ×2 (09:31→20:24)
[2022-04-25] MEDS: DICYCLOMINE 10 MG CAP PO SCH ×3 (09:31→20:24)
[2022-04-25] MEDS: TORSEMIDE 20 MG TAB PO SCH (09:32)
[2022-04-25] MEDS: POTASSIUM CHLORIDE 10MEQ SR TABLET PO SCH (09:32)
[2022-04-25] MEDS: PANTOPRAZOLE 40MG TAB (PROTONIX) PO SCH (09:32)
[2022-04-25] MEDS: VERAPAMIL 180MG EXTENDED RELEASE TABLET PO SCH (09:32)
[2022-04-25] MEDS: RIVAROXABAN 10MG TAB (XARELTO) PO SCH (17:08)
[2022-04-25] MEDS: oxyBUTYnin *DITROPAN XL* 5 MG TABCR PO SCH (20:23)
[2022-04-25] MEDS: ARIPiprazole 10 MG TAB PO SCH (20:23)
[2022-04-25] MEDS: traZODone 50 MG TAB PO SCH (20:23)
[2022-04-25] MEDS: LIDOCAINE 5% (LIDODERM) PATCH TD SCH (20:23)
[2022-04-25] MEDS: EZETIMIBE 10MG TABLET (ZETIA) PO SCH (20:24)
[2022-04-26 06:00] VITALS: BP 106/48
[2022-04-26] MEDS: **NOTE PATIENT COMMENT** MISC XX SCH (08:28)
[2022-04-26] MEDS: VERAPAMIL 180MG EXTENDED RELEASE TABLET PO SCH (09:34)
[2022-04-26] MEDS: PANTOPRAZOLE 40MG TAB (PROTONIX) PO SCH (09:34)
[2022-04-26] MEDS: DIVALPROEX 500 MG TAB PO SCH ×2 (09:34→21:06)
[2022-04-26] MEDS: BACLOFEN 10 MG TAB PO SCH ×3 (09:34→21:06)
[2022-04-26] MEDS: DICYCLOMINE 10 MG CAP PO SCH ×3 (09:35→21:06)
[2022-04-26] MEDS: TORSEMIDE 20 MG TAB PO SCH (09:35)
[2022-04-26] MEDS: POTASSIUM CHLORIDE 10MEQ SR TABLET PO SCH (09:35)
[2022-04-26] MEDS: BENZOCAINE 10% 9GM TUBE (ANBESOL) MT SCH ×4 (09:36→21:08)
[2022-04-26] MEDS: ACETAMINOPHEN TAB 650MG DOSE (2X325MG) PO PRN (09:40)
[2022-04-26] MEDS: NICOTINE POLACRILEX 2 MG GUM PO PRN (11:13)
[2022-04-26] MEDS: RIVAROXABAN 10MG TAB (XARELTO) PO SCH (17:14)
[2022-04-26] MEDS: LIDOCAINE 5% (LIDODERM) PATCH TD SCH (21:05)
[2022-04-26] MEDS: traZODone 50 MG TAB PO SCH (21:06)
[2022-04-26] MEDS: EZETIMIBE 10MG TABLET (ZETIA) PO SCH (21:06)
[2022-04-26] MEDS: ARIPiprazole 10 MG TAB PO SCH (21:06)
[2022-04-26] MEDS: oxyBUTYnin *DITROPAN XL* 5 MG TABCR PO SCH (21:06)
[2022-04-27 05:42] LABS: HEMATOCRIT 33.7 % (36.0-47.0); HEMOGLOBIN 11.2 g/dl (12.0-15.5); MEAN CORPUSCULAR HEMOGLOBIN 28.4 pg (27.0-33.0); MEAN CORPUSCULAR HGB CONC 33.2 g/dl (32.0-36.5); MEAN CORPUSCULAR VOLUME 85.5 fl (80.0-96.0); PLATELET COUNT, AUTOMATED 262 10^3/uL (150-450); RED BLOOD COUNT 3.94 10^6/uL (4.00-5.40); WHITE BLOOD COUNT 6.2 10^3/uL (4.0-10.0)
[2022-04-27 06:00] VITALS: BP 122/53
[2022-04-27 06:26] LABS: BLOOD UREA NITROGEN 15 MG/DL (7-18); CALCIUM LEVEL 9.2 MG/DL (8.8-10.2); CARBON DIOXIDE LEVEL 31 MEQ/L (21-32); CHLORIDE LEVEL 102 MEQ/L (98-107); CREATININE FOR GFR 0.67 MG/DL (0.55-1.30); GLOMERULAR FILTRATION RATE > 60.0 (>39); GLUCOSE, FASTING 74 MG/DL (70-100); POTASSIUM SERUM 4.7 MEQ/L (3.5-5.1); SODIUM LEVEL 135 MEQ/L (136-145)
[2022-04-27] MEDS ORDERED: metOLazone 5 MG TAB PO ONE (08:45)
[2022-04-27] MEDS ORDERED: MIDODRINE 5 MG TAB PO ONE (08:45)
[2022-04-27 08:52] VITALS: BP 125/52
[2022-04-27] MEDS: **NOTE PATIENT COMMENT** MISC XX SCH (09:53)
[2022-04-27] MEDS: PANTOPRAZOLE 40MG TAB (PROTONIX) PO SCH (09:59)
[2022-04-27] MEDS: DICYCLOMINE 10 MG CAP PO SCH ×3 (09:59→20:26)
[2022-04-27] MEDS: TORSEMIDE 20 MG TAB PO SCH (09:59)
[2022-04-27] MEDS: QUEtiapine FUMARATE 25 MG TAB PO PRN ×2 (09:59→20:27)
[2022-04-27] MEDS: DIVALPROEX 500 MG TAB PO SCH ×2 (09:59→20:27)
[2022-04-27] MEDS: BACLOFEN 10 MG TAB PO SCH ×3 (09:59→20:26)
[2022-04-27] MEDS: ACETAMINOPHEN TAB 650MG DOSE (2X325MG) PO PRN ×2 (10:00→20:39)
[2022-04-27] MEDS: VERAPAMIL 180MG EXTENDED RELEASE TABLET PO SCH (10:00)
[2022-04-27] MEDS: AZELASTINE 137MCG NASAL SPY 30 ML (ASTELIN) PRN (10:01)
[2022-04-27] MEDS: POLYVINYL ALCOHOL OPHTH SOLN 15 ML(LIQUITEARS) OU PRN (10:02)
[2022-04-27] MEDS: BENZOCAINE 10% 9GM TUBE (ANBESOL) MT SCH ×4 (10:02→20:27)
[2022-04-27] MEDS: RIVAROXABAN 10MG TAB (XARELTO) PO SCH (16:56)
[2022-04-27] MEDS ORDERED: SIMETHICONE 80MG CHEW TAB PO ONE (17:00)
[2022-04-27] MEDS ORDERED: PILL CUTTER 1 EACH XX PRN (17:05)
[2022-04-27] MEDS: traZODone 50 MG TAB PO SCH (20:26)
[2022-04-27] MEDS: LIDOCAINE 5% (LIDODERM) PATCH TD SCH (20:26)
[2022-04-27] MEDS: oxyBUTYnin *DITROPAN XL* 5 MG TABCR PO SCH (20:26)
[2022-04-27] MEDS: EZETIMIBE 10MG TABLET (ZETIA) PO SCH (20:27)
[2022-04-27] MEDS: ARIPiprazole 10 MG TAB PO SCH (20:27)
[2022-04-28 06:11] VITALS: BP 123/53
[2022-04-28] MEDS: DIVALPROEX 500 MG TAB PO SCH ×2 (08:57→20:44)
[2022-04-28] MEDS: VERAPAMIL 180MG EXTENDED RELEASE TABLET PO SCH (08:59)
[2022-04-28] MEDS: DICYCLOMINE 10 MG CAP PO SCH ×3 (08:59→20:45)
[2022-04-28] MEDS: BENZOCAINE 10% 9GM TUBE (ANBESOL) MT SCH ×4 (09:00→21:00)
[2022-04-28] MEDS: BACLOFEN 10 MG TAB PO SCH ×3 (09:00→20:45)
[2022-04-28] MEDS: TORSEMIDE 20 MG TAB PO SCH (09:00)
[2022-04-28] MEDS: PANTOPRAZOLE 40MG TAB (PROTONIX) PO SCH (09:00)
[2022-04-28] MEDS: **NOTE PATIENT COMMENT** MISC XX SCH (09:01)
[2022-04-28] MEDS: ACETAMINOPHEN TAB 650MG DOSE (2X325MG) PO PRN (09:57)
[2022-04-28] MEDS: RIVAROXABAN 10MG TAB (XARELTO) PO SCH (16:58)
[2022-04-28] MEDS: LIDOCAINE 5% (LIDODERM) PATCH TD SCH (20:44)
[2022-04-28] MEDS: ARIPiprazole 10 MG TAB PO SCH (20:45)
[2022-04-28] MEDS: oxyBUTYnin *DITROPAN XL* 5 MG TABCR PO SCH (20:45)
[2022-04-28] MEDS: EZETIMIBE 10MG TABLET (ZETIA) PO SCH (20:45)
[2022-04-28] MEDS: traZODone 50 MG TAB PO SCH (20:45)
[2022-04-29 06:00] VITALS: BP 108/40
[2022-04-29] MEDS: DICYCLOMINE 10 MG CAP PO SCH ×3 (08:49→20:48)
[2022-04-29] MEDS: DIVALPROEX 500 MG TAB PO SCH ×2 (08:49→20:48)
[2022-04-29] MEDS: PANTOPRAZOLE 40MG TAB (PROTONIX) PO SCH (08:50)
[2022-04-29] MEDS: TORSEMIDE 20 MG TAB PO SCH (08:50)
[2022-04-29] MEDS: BACLOFEN 10 MG TAB PO SCH ×3 (08:50→20:49)
[2022-04-29] MEDS: BENZOCAINE 10% 9GM TUBE (ANBESOL) MT SCH ×4 (08:54→20:48)
[2022-04-29] MEDS: **NOTE PATIENT COMMENT** MISC XX SCH (08:56)
[2022-04-29] MEDS: VERAPAMIL 180MG EXTENDED RELEASE TABLET PO SCH (09:39)
[2022-04-29] MEDS: RIVAROXABAN 10MG TAB (XARELTO) PO SCH (17:37)
[2022-04-29] MEDS: EZETIMIBE 10MG TABLET (ZETIA) PO SCH (20:48)
[2022-04-29] MEDS: traZODone 50 MG TAB PO SCH (20:48)
[2022-04-29] MEDS: oxyBUTYnin *DITROPAN XL* 5 MG TABCR PO SCH (20:48)
[2022-04-29] MEDS: ARIPiprazole 10 MG TAB PO SCH (20:48)
[2022-04-29] MEDS: LIDOCAINE 5% (LIDODERM) PATCH TD SCH (20:48)
[2022-04-29] MEDS: RAMELTEON 8 MG TAB (ROZEREM) PO PRN (22:01)
[2022-04-29] MEDS: QUEtiapine FUMARATE 25 MG TAB PO PRN (22:01)
[2022-04-30 06:00] VITALS: BP 131/66
[2022-04-30] MEDS: QUEtiapine FUMARATE 25 MG TAB PO PRN (06:30)
[2022-04-30 06:45] LABS: HEMATOCRIT 37.6 % (36.0-47.0); HEMOGLOBIN 12.3 g/dl (12.0-15.5); MEAN CORPUSCULAR HEMOGLOBIN 28.1 pg (27.0-33.0); MEAN CORPUSCULAR HGB CONC 32.7 g/dl (32.0-36.5); MEAN CORPUSCULAR VOLUME 85.8 fl (80.0-96.0); PLATELET COUNT, AUTOMATED 319 10^3/uL (150-450); RED BLOOD COUNT 4.38 10^6/uL (4.00-5.40); WHITE BLOOD COUNT 7.7 10^3/uL (4.0-10.0)
[2022-04-30 07:27] LABS: BLOOD UREA NITROGEN 22 MG/DL (7-18); CALCIUM LEVEL 9.6 MG/DL (8.8-10.2); CARBON DIOXIDE LEVEL 32 MEQ/L (21-32); CHLORIDE LEVEL 96 MEQ/L (98-107); CREATININE FOR GFR 0.81 MG/DL (0.55-1.30); GLOMERULAR FILTRATION RATE > 60.0 (>39); GLUCOSE, FASTING 98 MG/DL (70-100); POTASSIUM SERUM 3.7 MEQ/L (3.5-5.1); SODIUM LEVEL 134 MEQ/L (136-145)
[2022-04-30] MEDS: TORSEMIDE 20 MG TAB PO SCH (07:43)
[2022-04-30] MEDS: BENZOCAINE 10% 9GM TUBE (ANBESOL) MT SCH ×4 (07:43→20:52)
[2022-04-30] MEDS: BACLOFEN 10 MG TAB PO SCH ×3 (07:43→20:52)
[2022-04-30] MEDS: DICYCLOMINE 10 MG CAP PO SCH ×3 (07:44→20:51)
[2022-04-30] MEDS: PANTOPRAZOLE 40MG TAB (PROTONIX) PO SCH (07:44)
[2022-04-30] MEDS: VERAPAMIL 180MG EXTENDED RELEASE TABLET PO SCH (07:47)
[2022-04-30] MEDS: DIVALPROEX 500 MG TAB PO SCH ×2 (07:47→20:52)
[2022-04-30] MEDS: **NOTE PATIENT COMMENT** MISC XX SCH (07:47)
[2022-04-30] MEDS: RIVAROXABAN 10MG TAB (XARELTO) PO SCH (17:44)
[2022-04-30] MEDS: ARIPiprazole 10 MG TAB PO SCH (20:51)
[2022-04-30] MEDS: LIDOCAINE 5% (LIDODERM) PATCH TD SCH (20:51)
[2022-04-30] MEDS: traZODone 50 MG TAB PO SCH (20:51)
[2022-04-30] MEDS: oxyBUTYnin *DITROPAN XL* 5 MG TABCR PO SCH (20:52)
[2022-04-30] MEDS: EZETIMIBE 10MG TABLET (ZETIA) PO SCH (20:52)
[2022-05-01 06:00] VITALS: BP 101/36
[2022-05-01] MEDS: PANTOPRAZOLE 40MG TAB (PROTONIX) PO SCH (08:51)
[2022-05-01] MEDS: VERAPAMIL 180MG EXTENDED RELEASE TABLET PO SCH (08:52)
[2022-05-01] MEDS: BACLOFEN 10 MG TAB PO SCH ×3 (08:52→20:26)
[2022-05-01] MEDS: TORSEMIDE 20 MG TAB PO SCH (08:52)
[2022-05-01] MEDS: DICYCLOMINE 10 MG CAP PO SCH ×3 (08:52→20:26)
[2022-05-01] MEDS: **NOTE PATIENT COMMENT** MISC XX SCH (08:53)
[2022-05-01] MEDS: BENZOCAINE 10% 9GM TUBE (ANBESOL) MT SCH ×4 (08:53→20:26)
[2022-05-01] MEDS: DIVALPROEX 500 MG TAB PO SCH ×2 (08:53→20:25)
[2022-05-01 09:00] VITALS: BP 131/62
[2022-05-01] MEDS: RIVAROXABAN 10MG TAB (XARELTO) PO SCH (17:20)
[2022-05-01] MEDS: QUEtiapine FUMARATE 25 MG TAB PO PRN (19:07)
[2022-05-01] MEDS: ACETAMINOPHEN TAB 650MG DOSE (2X325MG) PO PRN (19:08)
[2022-05-01] MEDS: EZETIMIBE 10MG TABLET (ZETIA) PO SCH (20:25)
[2022-05-01] MEDS: LIDOCAINE 5% (LIDODERM) PATCH TD SCH (20:25)
[2022-05-01] MEDS: ARIPiprazole 10 MG TAB PO SCH (20:25)
[2022-05-01] MEDS: traZODone 50 MG TAB PO SCH (20:26)
[2022-05-01] MEDS: oxyBUTYnin *DITROPAN XL* 5 MG TABCR PO SCH (20:26)
[2022-05-02] MEDS: QUEtiapine FUMARATE 25 MG TAB PO PRN ×2 (06:34→20:34)
[2022-05-02] MEDS: BENZOCAINE 10% 9GM TUBE (ANBESOL) MT SCH ×4 (09:00→20:33)
[2022-05-02] MEDS: **NOTE PATIENT COMMENT** MISC XX SCH (09:00)
[2022-05-02 09:59] VITALS: BP 128/63
[2022-05-02] MEDS: DIVALPROEX 500 MG TAB PO SCH ×2 (09:59→20:33)
[2022-05-02] MEDS: VERAPAMIL 180MG EXTENDED RELEASE TABLET PO SCH (09:59)
[2022-05-02] MEDS: BACLOFEN 10 MG TAB PO SCH ×3 (10:00→20:33)
[2022-05-02] MEDS: PANTOPRAZOLE 40MG TAB (PROTONIX) PO SCH (10:00)
[2022-05-02] MEDS: TORSEMIDE 20 MG TAB PO SCH (10:00)
[2022-05-02] MEDS: DICYCLOMINE 10 MG CAP PO SCH ×3 (10:00→20:34)
[2022-05-02] MEDS: ACETAMINOPHEN TAB 650MG DOSE (2X325MG) PO PRN ×2 (10:04→20:35)
[2022-05-02] MEDS: OLANZapine ORAL DISINTEGRATING TAB 5MG PO PRN (13:10)
[2022-05-02] MEDS: RIVAROXABAN 10MG TAB (XARELTO) PO SCH (17:32)
[2022-05-02] MEDS: LIDOCAINE 5% (LIDODERM) PATCH TD SCH (20:33)
[2022-05-02] MEDS: ARIPiprazole 10 MG TAB PO SCH (20:34)
[2022-05-02] MEDS: oxyBUTYnin *DITROPAN XL* 5 MG TABCR PO SCH (20:34)
[2022-05-02] MEDS: traZODone 50 MG TAB PO SCH (20:34)
[2022-05-02] MEDS: EZETIMIBE 10MG TABLET (ZETIA) PO SCH (20:34)
[2022-05-03] MEDS: VERAPAMIL 180MG EXTENDED RELEASE TABLET PO SCH (08:37)
[2022-05-03] MEDS: PANTOPRAZOLE 40MG TAB (PROTONIX) PO SCH (08:38)
[2022-05-03] MEDS: BACLOFEN 10 MG TAB PO SCH ×3 (08:38→20:08)
[2022-05-03] MEDS: DIVALPROEX 500 MG TAB PO SCH ×2 (08:38→20:08)
[2022-05-03] MEDS: QUEtiapine FUMARATE 25 MG TAB PO PRN (08:38)
[2022-05-03] MEDS: TORSEMIDE 20 MG TAB PO SCH (08:38)
[2022-05-03] MEDS: DICYCLOMINE 10 MG CAP PO SCH ×3 (08:38→20:08)
[2022-05-03] MEDS: BENZOCAINE 10% 9GM TUBE (ANBESOL) MT SCH ×4 (08:38→20:08)
[2022-05-03] MEDS: **NOTE PATIENT COMMENT** MISC XX SCH (08:39)
[2022-05-03 09:00] VITALS: BP 128/64
[2022-05-03] MEDS: ACETAMINOPHEN TAB 650MG DOSE (2X325MG) PO PRN (14:34)
[2022-05-03] MEDS: OLANZapine ORAL DISINTEGRATING TAB 5MG PO PRN (15:40)
[2022-05-03] MEDS: RIVAROXABAN 10MG TAB (XARELTO) PO SCH (17:28)
[2022-05-03] MEDS: ARIPiprazole 10 MG TAB PO SCH (20:07)
[2022-05-03] MEDS: LIDOCAINE 5% (LIDODERM) PATCH TD SCH (20:07)
[2022-05-03] MEDS: EZETIMIBE 10MG TABLET (ZETIA) PO SCH (20:08)
[2022-05-03] MEDS: oxyBUTYnin *DITROPAN XL* 5 MG TABCR PO SCH (20:08)
[2022-05-03] MEDS: traZODone 50 MG TAB PO SCH (20:08)
[2022-05-04 05:05] VITALS: BP 120/53
[2022-05-04 06:45] LABS: HEMATOCRIT 36.5 % (36.0-47.0); HEMOGLOBIN 11.9 g/dl (12.0-15.5); MEAN CORPUSCULAR HEMOGLOBIN 28.3 pg (27.0-33.0); MEAN CORPUSCULAR HGB CONC 32.6 g/dl (32.0-36.5); MEAN CORPUSCULAR VOLUME 86.7 fl (80.0-96.0); PLATELET COUNT, AUTOMATED 278 10^3/uL (150-450); RED BLOOD COUNT 4.21 10^6/uL (4.00-5.40)
[2022-05-04 07:35] LABS: BLOOD UREA NITROGEN 20 MG/DL (7-18); CALCIUM LEVEL 9.6 MG/DL (8.8-10.2); CARBON DIOXIDE LEVEL 32 MEQ/L (21-32); CHLORIDE LEVEL 97 MEQ/L (98-107); CREATININE FOR GFR 0.86 MG/DL (0.55-1.30); GLOMERULAR FILTRATION RATE > 60.0 (>39); GLUCOSE, FASTING 93 MG/DL (70-100); POTASSIUM SERUM 3.5 MEQ/L (3.5-5.1); SODIUM LEVEL 134 MEQ/L (136-145)
[2022-05-04] MEDS: PANTOPRAZOLE 40MG TAB (PROTONIX) PO SCH (08:44)
[2022-05-04] MEDS: DIVALPROEX 500 MG TAB PO SCH ×2 (08:44→20:58)
[2022-05-04] MEDS: BACLOFEN 10 MG TAB PO SCH ×3 (08:44→20:58)
[2022-05-04] MEDS: VERAPAMIL 180MG EXTENDED RELEASE TABLET PO SCH (08:44)
[2022-05-04] MEDS: BENZOCAINE 10% 9GM TUBE (ANBESOL) MT SCH ×4 (08:45→20:59)
[2022-05-04] MEDS: OLANZapine ORAL DISINTEGRATING TAB 5MG PO PRN ×2 (08:45→21:46)
[2022-05-04] MEDS: TORSEMIDE 20 MG TAB PO SCH (08:45)
[2022-05-04] MEDS: **NOTE PATIENT COMMENT** MISC XX SCH (08:45)
[2022-05-04] MEDS: DICYCLOMINE 10 MG CAP PO SCH ×3 (08:45→20:58)
[2022-05-04] MEDS: NICOTINE POLACRILEX 2 MG GUM PO PRN (08:45)
[2022-05-04] MEDS: ACETAMINOPHEN TAB 650MG DOSE (2X325MG) PO PRN (12:35)
[2022-05-04] MEDS: RIVAROXABAN 10MG TAB (XARELTO) PO SCH (17:18)
[2022-05-04] MEDS: ARIPiprazole 10 MG TAB PO SCH (20:58)
[2022-05-04] MEDS: oxyBUTYnin *DITROPAN XL* 5 MG TABCR PO SCH (20:58)
[2022-05-04] MEDS: EZETIMIBE 10MG TABLET (ZETIA) PO SCH (20:58)
[2022-05-04] MEDS: traZODone 50 MG TAB PO SCH (20:58)
[2022-05-04] MEDS: LIDOCAINE 5% (LIDODERM) PATCH TD SCH (20:58)
[2022-05-05 05:40] VITALS: BP 133/68
[2022-05-05] MEDS ORDERED: TORSEMIDE 20 MG TAB PO SCH (09:00)
[2022-05-05] MEDS: DICYCLOMINE 10 MG CAP PO SCH (09:46)
[2022-05-05] MEDS: TORSEMIDE 20 MG TAB PO SCH ×2 (09:46→18:05)
[2022-05-05] MEDS: VERAPAMIL 180MG EXTENDED RELEASE TABLET PO SCH (09:46)
[2022-05-05] MEDS: BENZOCAINE 10% 9GM TUBE (ANBESOL) MT SCH ×5 (09:47→20:34)
[2022-05-05] MEDS: BACLOFEN 10 MG TAB PO SCH ×2 (09:47→20:25)
[2022-05-05] MEDS: PANTOPRAZOLE 40MG TAB (PROTONIX) PO SCH (09:47)
[2022-05-05] MEDS: DIVALPROEX 500 MG TAB PO SCH ×2 (09:47→20:25)
[2022-05-05] MEDS: **NOTE PATIENT COMMENT** MISC XX SCH (09:48)
[2022-05-05] MEDS ORDERED: metOLazone 5 MG TAB PO ONE (11:35)
[2022-05-05] MEDS: DOCUSATE SODIUM 100MG CAPSULE PO SCH ×2 (12:25→20:25)
[2022-05-05] MEDS: POTASSIUM CHLORIDE 10MEQ SR TABLET PO SCH ×2 (12:26→20:26)
[2022-05-05] MEDS: ACETAMINOPHEN TAB 650MG DOSE (2X325MG) PO PRN (12:26)
[2022-05-05] MEDS: OLANZapine ORAL DISINTEGRATING TAB 5MG PO PRN (18:04)
[2022-05-05] MEDS: RIVAROXABAN 10MG TAB (XARELTO) PO SCH (18:04)
[2022-05-05] MEDS: oxyBUTYnin *DITROPAN XL* 5 MG TABCR PO SCH (20:25)
[2022-05-05] MEDS: ARIPiprazole 10 MG TAB PO SCH (20:26)
[2022-05-05] MEDS: traZODone 50 MG TAB PO SCH (20:26)
[2022-05-05] MEDS: EZETIMIBE 10MG TABLET (ZETIA) PO SCH (20:26)
[2022-05-05] MEDS: LIDOCAINE 5% (LIDODERM) PATCH TD SCH (20:27)
[2022-05-06 05:52] VITALS: BP 131/64
[2022-05-06] MEDS: metOLazone 5 MG TAB PO SCH (06:19)
[2022-05-06] MEDS: VERAPAMIL 180MG EXTENDED RELEASE TABLET PO SCH (08:35)
[2022-05-06] MEDS: BENZOCAINE 10% 9GM TUBE (ANBESOL) MT SCH ×4 (08:35→20:29)
[2022-05-06] MEDS: DOCUSATE SODIUM 100MG CAPSULE PO SCH ×2 (08:35→20:28)
[2022-05-06] MEDS: POTASSIUM CHLORIDE 10MEQ SR TABLET PO SCH ×2 (08:35→20:28)
[2022-05-06] MEDS: DIVALPROEX 500 MG TAB PO SCH ×2 (08:35→20:29)
[2022-05-06] MEDS: TORSEMIDE 20 MG TAB PO SCH ×2 (08:36→17:20)
[2022-05-06] MEDS: **NOTE PATIENT COMMENT** MISC XX SCH (08:36)
[2022-05-06] MEDS: BACLOFEN 10 MG TAB PO SCH ×2 (08:36→20:29)
[2022-05-06] MEDS: PANTOPRAZOLE 40MG TAB (PROTONIX) PO SCH (08:36)
[2022-05-06] MEDS: RIVAROXABAN 10MG TAB (XARELTO) PO SCH (17:20)
[2022-05-06] MEDS: LIDOCAINE 5% (LIDODERM) PATCH TD SCH (20:28)
[2022-05-06] MEDS: EZETIMIBE 10MG TABLET (ZETIA) PO SCH (20:29)
[2022-05-06] MEDS: ARIPiprazole 10 MG TAB PO SCH (20:29)
[2022-05-06] MEDS: oxyBUTYnin *DITROPAN XL* 5 MG TABCR PO SCH (20:29)
[2022-05-06] MEDS: traZODone 50 MG TAB PO SCH (20:29)
[2022-05-07] MEDS: ACETAMINOPHEN TAB 650MG DOSE (2X325MG) PO PRN ×2 (01:17→17:30)
[2022-05-07 06:00] VITALS: BP 135/64
[2022-05-07 06:09] LABS: HEMATOCRIT 37.2 % (36.0-47.0); HEMOGLOBIN 12.3 g/dl (12.0-15.5); MEAN CORPUSCULAR HEMOGLOBIN 28.1 pg (27.0-33.0); MEAN CORPUSCULAR HGB CONC 33.1 g/dl (32.0-36.5); MEAN CORPUSCULAR VOLUME 84.9 fl (80.0-96.0); PLATELET COUNT, AUTOMATED 272 10^3/uL (150-450); RED BLOOD COUNT 4.38 10^6/uL (4.00-5.40); WHITE BLOOD COUNT 7.4 10^3/uL (4.0-10.0)
[2022-05-07] MEDS: metOLazone 5 MG TAB PO SCH (06:21)
[2022-05-07 06:51] LABS: CALCIUM LEVEL 9.7 MG/DL (8.8-10.2); CREATININE FOR GFR 1.05 MG/DL (0.55-1.30); POTASSIUM SERUM 3.4 MEQ/L (3.5-5.1)
[2022-05-07] MEDS: BENZOCAINE 10% 9GM TUBE (ANBESOL) MT SCH ×4 (09:00→21:21)
[2022-05-07] MEDS: DIVALPROEX 500 MG TAB PO SCH ×2 (09:18→21:20)
[2022-05-07] MEDS: PANTOPRAZOLE 40MG TAB (PROTONIX) PO SCH (09:18)
[2022-05-07] MEDS: DOCUSATE SODIUM 100MG CAPSULE PO SCH ×2 (09:18→21:21)
[2022-05-07] MEDS: VERAPAMIL 180MG EXTENDED RELEASE TABLET PO SCH (09:18)
[2022-05-07] MEDS: BACLOFEN 10 MG TAB PO SCH ×2 (09:18→21:21)
[2022-05-07] MEDS: **NOTE PATIENT COMMENT** MISC XX SCH (09:19)
[2022-05-07] MEDS: POTASSIUM CHLORIDE 10MEQ SR TABLET PO SCH ×2 (09:19→21:21)
[2022-05-07] MEDS: TORSEMIDE 20 MG TAB PO SCH ×2 (09:19→17:29)
[2022-05-07] MEDS: RIVAROXABAN 10MG TAB (XARELTO) PO SCH (17:29)
[2022-05-07] MEDS: oxyBUTYnin *DITROPAN XL* 5 MG TABCR PO SCH (21:20)
[2022-05-07] MEDS: EZETIMIBE 10MG TABLET (ZETIA) PO SCH (21:21)
[2022-05-07] MEDS: ARIPiprazole 10 MG TAB PO SCH (21:21)
[2022-05-07] MEDS: traZODone 50 MG TAB PO SCH (21:21)
[2022-05-07] MEDS: OLANZapine ORAL DISINTEGRATING TAB 5MG PO PRN (21:21)
[2022-05-07] MEDS: LIDOCAINE 5% (LIDODERM) PATCH TD SCH (21:22)
[2022-05-08 06:00] VITALS: BP 130/64
[2022-05-08] MEDS: metOLazone 5 MG TAB PO SCH (06:46)
[2022-05-08] MEDS: POTASSIUM CHLORIDE 10MEQ SR TABLET PO SCH ×2 (09:43→21:23)
[2022-05-08] MEDS: DIVALPROEX 500 MG TAB PO SCH ×2 (09:43→21:23)
[2022-05-08] MEDS: TORSEMIDE 20 MG TAB PO SCH ×2 (09:43→17:23)
[2022-05-08] MEDS: DOCUSATE SODIUM 100MG CAPSULE PO SCH ×2 (09:45→21:22)
[2022-05-08] MEDS: BACLOFEN 10 MG TAB PO SCH ×2 (09:45→21:23)
[2022-05-08] MEDS: PANTOPRAZOLE 40MG TAB (PROTONIX) PO SCH (09:45)
[2022-05-08] MEDS: VERAPAMIL 180MG EXTENDED RELEASE TABLET PO SCH (09:45)
[2022-05-08] MEDS: BENZOCAINE 10% 9GM TUBE (ANBESOL) MT SCH ×2 (09:45→13:05)
[2022-05-08] MEDS: **NOTE PATIENT COMMENT** MISC XX SCH (09:46)
[2022-05-08] MEDS: OLANZapine ORAL DISINTEGRATING TAB 5MG PO PRN (13:05)
[2022-05-08] MEDS: ACETAMINOPHEN TAB 650MG DOSE (2X325MG) PO PRN (13:09)
[2022-05-08] MEDS ORDERED: BENZOCAINE 10% 9GM TUBE (ANBESOL) MT PRN (16:30)
[2022-05-08] MEDS: RIVAROXABAN 10MG TAB (XARELTO) PO SCH (17:23)
[2022-05-08] MEDS: DICYCLOMINE 10 MG CAP PO PRN (21:22)
[2022-05-08] MEDS: LIDOCAINE 5% (LIDODERM) PATCH TD SCH (21:22)
[2022-05-08] MEDS: oxyBUTYnin *DITROPAN XL* 5 MG TABCR PO SCH (21:22)
[2022-05-08] MEDS: EZETIMIBE 10MG TABLET (ZETIA) PO SCH (21:23)
[2022-05-08] MEDS: traZODone 50 MG TAB PO SCH (21:23)
[2022-05-08] MEDS: ARIPiprazole 10 MG TAB PO SCH (21:42)
[2022-05-09 05:10] VITALS: BP 107/56
[2022-05-09] MEDS: metOLazone 5 MG TAB PO SCH (06:11)
[2022-05-09] MEDS: TORSEMIDE 20 MG TAB PO SCH ×2 (09:06→18:11)
[2022-05-09] MEDS: PANTOPRAZOLE 40MG TAB (PROTONIX) PO SCH (09:06)
[2022-05-09] MEDS: DIVALPROEX 500 MG TAB PO SCH ×2 (09:06→20:00)
[2022-05-09] MEDS: DOCUSATE SODIUM 100MG CAPSULE PO SCH ×2 (09:06→20:00)
[2022-05-09] MEDS: BACLOFEN 10 MG TAB PO SCH ×2 (09:06→20:00)
[2022-05-09] MEDS: POTASSIUM CHLORIDE 10MEQ SR TABLET PO SCH ×2 (09:06→20:01)
[2022-05-09] MEDS: VERAPAMIL 180MG EXTENDED RELEASE TABLET PO SCH (09:06)
[2022-05-09] MEDS: **NOTE PATIENT COMMENT** MISC XX SCH (09:07)
[2022-05-09] MEDS: RIVAROXABAN 10MG TAB (XARELTO) PO SCH (18:11)
[2022-05-09] MEDS: LIDOCAINE 5% (LIDODERM) PATCH TD SCH (19:58)
[2022-05-09] MEDS: ARIPiprazole 10 MG TAB PO SCH (19:59)
[2022-05-09] MEDS: EZETIMIBE 10MG TABLET (ZETIA) PO SCH (19:59)
[2022-05-09] MEDS: traZODone 50 MG TAB PO SCH (20:01)
[2022-05-09] MEDS: oxyBUTYnin *DITROPAN XL* 5 MG TABCR PO SCH (20:01)
[2022-05-09 21:35] VITALS: BP 140/63
[2022-05-09] MEDS: ACETAMINOPHEN TAB 650MG DOSE (2X325MG) PO PRN (22:37)
[2022-05-10 05:20] VITALS: BP_SYST 113; BP_SYST 116; BP_SYST 121; BP_DIAS 53; BP_DIAS 61; BP_DIAS 74
[2022-05-10] MEDS: metOLazone 5 MG TAB PO SCH (05:42)
[2022-05-10] MEDS: PANTOPRAZOLE 40MG TAB (PROTONIX) PO SCH (09:17)
[2022-05-10] MEDS: DOCUSATE SODIUM 100MG CAPSULE PO SCH ×2 (09:17→20:51)
[2022-05-10] MEDS: BACLOFEN 10 MG TAB PO SCH ×2 (09:18→20:51)
[2022-05-10] MEDS: TORSEMIDE 20 MG TAB PO SCH ×2 (09:18→17:09)
[2022-05-10] MEDS: **NOTE PATIENT COMMENT** MISC XX SCH (09:19)
[2022-05-10] MEDS: POTASSIUM CHLORIDE 10MEQ SR TABLET PO SCH ×3 (09:19→23:44)
[2022-05-10] MEDS: VERAPAMIL 180MG EXTENDED RELEASE TABLET PO SCH (09:19)
[2022-05-10] MEDS: DIVALPROEX 500 MG TAB PO SCH ×2 (09:19→23:19)
[2022-05-10] MEDS: ACETAMINOPHEN TAB 650MG DOSE (2X325MG) PO PRN ×2 (11:47→20:51)
[2022-05-10] MEDS: OLANZapine ORAL DISINTEGRATING TAB 5MG PO PRN (12:02)
[2022-05-10 16:41] LABS: HEMATOCRIT 35.8 % (36.0-47.0); HEMOGLOBIN 11.9 g/dl (12.0-15.5); MEAN CORPUSCULAR HEMOGLOBIN 28.1 pg (27.0-33.0); MEAN CORPUSCULAR HGB CONC 33.2 g/dl (32.0-36.5); MEAN CORPUSCULAR VOLUME 84.6 fl (80.0-96.0); PLATELET COUNT, AUTOMATED 252 10^3/uL (150-450); RED BLOOD COUNT 4.23 10^6/uL (4.00-5.40); WHITE BLOOD COUNT 7.6 10^3/uL (4.0-10.0)
[2022-05-10 17:20] LABS: CALCIUM LEVEL 9.3 MG/DL (8.8-10.2); CREATININE FOR GFR 1.13 MG/DL (0.55-1.30); GLOMERULAR FILTRATION RATE 50.5 (>39); POTASSIUM SERUM 2.4 MEQ/L (3.5-5.1)
[2022-05-10] MEDS ORDERED: POTASSIUM CHLORIDE 10MEQ SR TABLET PO ONE (18:00)
[2022-05-10] MEDS: KCL 40MEQ in NS 1000ML 1,000 ML IV SCH ×2 (18:45→23:24)
[2022-05-10] MEDS: traZODone 50 MG TAB PO SCH (20:51)
[2022-05-10] MEDS: EZETIMIBE 10MG TABLET (ZETIA) PO SCH (20:51)
[2022-05-10] MEDS: LIDOCAINE 5% (LIDODERM) PATCH TD SCH (20:51)
[2022-05-10] MEDS: ARIPiprazole 10 MG TAB PO SCH (23:18)
[2022-05-11] MEDS: POTASSIUM CHLORIDE 10MEQ SR TABLET PO SCH ×2 (02:13→07:45)
[2022-05-11 06:00] VITALS: BP 124/55
[2022-05-11] MEDS: metOLazone 5 MG TAB PO SCH (06:10)
[2022-05-11 06:12] LABS: HEMATOCRIT 38.1 % (36.0-47.0); HEMOGLOBIN 12.2 g/dl (12.0-15.5); MEAN CORPUSCULAR HEMOGLOBIN 27.8 pg (27.0-33.0); MEAN CORPUSCULAR VOLUME 86.8 fl (80.0-96.0); PLATELET COUNT, AUTOMATED 238 10^3/uL (150-450); RED BLOOD COUNT 4.39 10^6/uL (4.00-5.40); WHITE BLOOD COUNT 6.6 10^3/uL (4.0-10.0)
[2022-05-11 06:46] LABS: BLOOD UREA NITROGEN 34 MG/DL (7-18); CALCIUM LEVEL 9.2 MG/DL (8.8-10.2); CARBON DIOXIDE LEVEL 38 MEQ/L (21-32); CHLORIDE LEVEL 94 MEQ/L (98-107); CREATININE FOR GFR 0.97 MG/DL (0.55-1.30); GLOMERULAR FILTRATION RATE > 60.0 (>39); GLUCOSE, FASTING 84 MG/DL (70-100); POTASSIUM SERUM 3.8 MEQ/L (3.5-5.1); SODIUM LEVEL 135 MEQ/L (136-145)
[2022-05-11 07:43] VITALS: BP 131/56
[2022-05-11] MEDS: VERAPAMIL 180MG EXTENDED RELEASE TABLET PO SCH (07:44)
[2022-05-11] MEDS: PANTOPRAZOLE 40MG TAB (PROTONIX) PO SCH (07:44)
[2022-05-11] MEDS: DIVALPROEX 500 MG TAB PO SCH ×2 (07:44→20:33)
[2022-05-11] MEDS: DOCUSATE SODIUM 100MG CAPSULE PO SCH ×2 (07:45→20:33)
[2022-05-11] MEDS: **NOTE PATIENT COMMENT** MISC XX SCH (07:45)
[2022-05-11] MEDS: DIVALPROEX 125 MG TAB PO SCH ×2 (07:45→20:33)
[2022-05-11] MEDS: BACLOFEN 10 MG TAB PO SCH ×2 (07:45→20:33)
[2022-05-11] MEDS: ACETAMINOPHEN TAB 650MG DOSE (2X325MG) PO PRN (09:52)
[2022-05-11] MEDS: LIDOCAINE 5% (LIDODERM) PATCH TD SCH (20:32)
[2022-05-11] MEDS: EZETIMIBE 10MG TABLET (ZETIA) PO SCH (20:33)
[2022-05-11] MEDS: ARIPiprazole 10 MG TAB PO SCH (20:33)
[2022-05-11] MEDS: traZODone 50 MG TAB PO SCH (20:33)
[2022-05-11] MEDS: MIRALAX *UNIT DOSE* 17GM PACKET PO PRN (20:38)
[2022-05-11 23:00] VITALS: BP 121/59
[2022-05-12 06:00] VITALS: BP 121/58
[2022-05-12] MEDS: DIVALPROEX 125 MG TAB PO SCH ×2 (09:10→21:07)
[2022-05-12] MEDS: DIVALPROEX 500 MG TAB PO SCH ×2 (09:10→21:07)
[2022-05-12] MEDS: BACLOFEN 10 MG TAB PO SCH ×2 (09:11→21:06)
[2022-05-12] MEDS: PANTOPRAZOLE 40MG TAB (PROTONIX) PO SCH (09:11)
[2022-05-12] MEDS: VERAPAMIL 180MG EXTENDED RELEASE TABLET PO SCH (09:11)
[2022-05-12] MEDS: **NOTE PATIENT COMMENT** MISC XX SCH (09:11)
[2022-05-12] MEDS: DOCUSATE SODIUM 100MG CAPSULE PO SCH ×2 (09:11→21:06)
[2022-05-12] MEDS: MIRALAX *UNIT DOSE* 17GM PACKET PO PRN (17:39)
[2022-05-12] MEDS: EZETIMIBE 10MG TABLET (ZETIA) PO SCH (21:06)
[2022-05-12] MEDS: ARIPiprazole 10 MG TAB PO SCH (21:06)
[2022-05-12] MEDS: traZODone 50 MG TAB PO SCH (21:07)
[2022-05-12] MEDS: LIDOCAINE 5% (LIDODERM) PATCH TD SCH (21:08)
[2022-05-12] MEDS: ACETAMINOPHEN TAB 650MG DOSE (2X325MG) PO PRN (22:26)
[2022-05-13] MEDS ORDERED: traMADol 50 MG TAB PO ONE (01:00)
[2022-05-13 05:00] VITALS: BP 108/48
[2022-05-13] MEDS: PANTOPRAZOLE 40MG TAB (PROTONIX) PO SCH (08:44)
[2022-05-13] MEDS: DOCUSATE SODIUM 100MG CAPSULE PO SCH ×2 (08:44→20:23)
[2022-05-13] MEDS: BACLOFEN 10 MG TAB PO SCH ×2 (08:44→20:23)
[2022-05-13] MEDS: DIVALPROEX 125 MG TAB PO SCH ×2 (08:44→20:24)
[2022-05-13] MEDS: DIVALPROEX 500 MG TAB PO SCH ×2 (08:44→20:23)
[2022-05-13] MEDS: VERAPAMIL 180MG EXTENDED RELEASE TABLET PO SCH (08:45)
[2022-05-13] MEDS: **NOTE PATIENT COMMENT** MISC XX SCH (08:45)
[2022-05-13] MEDS: ACETAMINOPHEN TAB 650MG DOSE (2X325MG) PO PRN (18:27)
[2022-05-13] MEDS: traZODone 50 MG TAB PO SCH (20:23)
[2022-05-13] MEDS: LIDOCAINE 5% (LIDODERM) PATCH TD SCH (20:24)
[2022-05-13] MEDS: EZETIMIBE 10MG TABLET (ZETIA) PO SCH (20:24)
[2022-05-13] MEDS: ARIPiprazole 10 MG TAB PO SCH (20:24)
[2022-05-14 05:48] VITALS: BP 115/58
[2022-05-14 07:32] LABS: HEMATOCRIT 39.7 % (36.0-47.0); MEAN CORPUSCULAR HEMOGLOBIN 27.7 pg (27.0-33.0); MEAN CORPUSCULAR HGB CONC 32.7 g/dl (32.0-36.5); MEAN CORPUSCULAR VOLUME 84.5 fl (80.0-96.0); PLATELET COUNT, AUTOMATED 236 10^3/uL (150-450); WHITE BLOOD COUNT 7.1 10^3/uL (4.0-10.0)
[2022-05-14 08:06] LABS: BLOOD UREA NITROGEN 16 MG/DL (7-18); CALCIUM LEVEL 9.2 MG/DL (8.8-10.2); CARBON DIOXIDE LEVEL 27 MEQ/L (21-32); CHLORIDE LEVEL 97 MEQ/L (98-107); CREATININE FOR GFR 0.68 MG/DL (0.55-1.30); GLOMERULAR FILTRATION RATE > 60.0 (>39); GLUCOSE, FASTING 91 MG/DL (70-100); POTASSIUM SERUM 3.8 MEQ/L (3.5-5.1); SODIUM LEVEL 131 MEQ/L (136-145)
[2022-05-14] MEDS: DIVALPROEX 500 MG TAB PO SCH ×2 (09:30→20:41)
[2022-05-14] MEDS: DOCUSATE SODIUM 100MG CAPSULE PO SCH ×2 (09:30→20:41)
[2022-05-14] MEDS: BACLOFEN 10 MG TAB PO SCH ×2 (09:30→20:41)
[2022-05-14] MEDS: DIVALPROEX 125 MG TAB PO SCH ×2 (09:30→20:41)
[2022-05-14] MEDS: PANTOPRAZOLE 40MG TAB (PROTONIX) PO SCH (09:30)
[2022-05-14] MEDS: **NOTE PATIENT COMMENT** MISC XX SCH (09:31)
[2022-05-14] MEDS: VERAPAMIL 180MG EXTENDED RELEASE TABLET PO SCH (09:31)
[2022-05-14] MEDS: RIVAROXABAN 10MG TAB (XARELTO) PO SCH (17:48)
[2022-05-14] MEDS: ACETAMINOPHEN TAB 650MG DOSE (2X325MG) PO PRN (20:41)
[2022-05-14] MEDS: EZETIMIBE 10MG TABLET (ZETIA) PO SCH (20:41)
[2022-05-14] MEDS: traZODone 50 MG TAB PO SCH (20:41)
[2022-05-14] MEDS: ARIPiprazole 10 MG TAB PO SCH (20:41)
[2022-05-14] MEDS: LIDOCAINE 5% (LIDODERM) PATCH TD SCH (20:42)
[2022-05-15 05:40] VITALS: BP 112/56
[2022-05-15] MEDS: DIVALPROEX 125 MG TAB PO SCH ×2 (09:09→21:44)
[2022-05-15] MEDS: DOCUSATE SODIUM 100MG CAPSULE PO SCH ×2 (09:09→21:44)
[2022-05-15] MEDS: DIVALPROEX 500 MG TAB PO SCH ×2 (09:09→21:44)
[2022-05-15] MEDS: PANTOPRAZOLE 40MG TAB (PROTONIX) PO SCH (09:09)
[2022-05-15] MEDS: VERAPAMIL 180MG EXTENDED RELEASE TABLET PO SCH (09:10)
[2022-05-15] MEDS: **NOTE PATIENT COMMENT** MISC XX SCH (09:10)
[2022-05-15] MEDS: BACLOFEN 10 MG TAB PO SCH ×2 (09:10→21:44)
[2022-05-15] MEDS: OLANZapine ORAL DISINTEGRATING TAB 5MG PO PRN (15:33)
[2022-05-15] MEDS: RIVAROXABAN 10MG TAB (XARELTO) PO SCH (18:14)
[2022-05-15] MEDS: LIDOCAINE 5% (LIDODERM) PATCH TD SCH (21:43)
[2022-05-15] MEDS: traZODone 50 MG TAB PO SCH (21:44)
[2022-05-15] MEDS: EZETIMIBE 10MG TABLET (ZETIA) PO SCH (21:44)
[2022-05-15] MEDS: ARIPiprazole 10 MG TAB PO SCH (21:44)
[2022-05-15] MEDS: ACETAMINOPHEN TAB 650MG DOSE (2X325MG) PO PRN (21:45)
[2022-05-16 06:00] VITALS: BP 130/59
[2022-05-16] MEDS: VERAPAMIL 180MG EXTENDED RELEASE TABLET PO SCH (10:00)
[2022-05-16] MEDS: DOCUSATE SODIUM 100MG CAPSULE PO SCH ×2 (10:00→22:06)
[2022-05-16] MEDS: BACLOFEN 10 MG TAB PO SCH ×2 (10:00→22:07)
[2022-05-16] MEDS: PANTOPRAZOLE 40MG TAB (PROTONIX) PO SCH (10:01)
[2022-05-16] MEDS: DIVALPROEX 500 MG TAB PO SCH ×2 (10:01→22:07)
[2022-05-16] MEDS: DIVALPROEX 125 MG TAB PO SCH ×2 (10:01→22:05)
[2022-05-16] MEDS: **NOTE PATIENT COMMENT** MISC XX SCH (10:01)
[2022-05-16] MEDS: RIVAROXABAN 10MG TAB (XARELTO) PO SCH (18:15)
[2022-05-16] MEDS: OLANZapine ORAL DISINTEGRATING TAB 5MG PO PRN (19:41)
[2022-05-16] MEDS: LIDOCAINE 5% (LIDODERM) PATCH TD SCH (22:05)
[2022-05-16] MEDS: ARIPiprazole 10 MG TAB PO SCH (22:05)
[2022-05-16] MEDS: EZETIMIBE 10MG TABLET (ZETIA) PO SCH (22:06)
[2022-05-16] MEDS: traZODone 50 MG TAB PO SCH (22:06)
[2022-05-16] MEDS: ACETAMINOPHEN TAB 650MG DOSE (2X325MG) PO PRN (22:06)
[2022-05-17 05:58] VITALS: BP 114/45
[2022-05-17] MEDS: PANTOPRAZOLE 40MG TAB (PROTONIX) PO SCH (10:36)
[2022-05-17] MEDS: DIVALPROEX 500 MG TAB PO SCH ×2 (10:37→21:46)
[2022-05-17] MEDS: DOCUSATE SODIUM 100MG CAPSULE PO SCH ×2 (10:37→21:45)
[2022-05-17] MEDS: BACLOFEN 10 MG TAB PO SCH ×2 (10:37→21:46)
[2022-05-17] MEDS: DIVALPROEX 125 MG TAB PO SCH ×2 (10:38→21:46)
[2022-05-17] MEDS: VERAPAMIL 180MG EXTENDED RELEASE TABLET PO SCH (10:40)
[2022-05-17] MEDS: **NOTE PATIENT COMMENT** MISC XX SCH (10:40)
[2022-05-17 14:08] LABS: HEMATOCRIT 36.4 % (36.0-47.0); MEAN CORPUSCULAR HEMOGLOBIN 28.3 pg (27.0-33.0); MEAN CORPUSCULAR VOLUME 85.8 fl (80.0-96.0); PLATELET COUNT, AUTOMATED 269 10^3/uL (150-450); RED BLOOD COUNT 4.24 10^6/uL (4.00-5.40); WHITE BLOOD COUNT 7.5 10^3/uL (4.0-10.0)
[2022-05-17 14:38] LABS: ALBUMIN 3.2 GM/DL (3.2-5.2); ALT/SGPT 11 U/L (12-78); BILIRUBIN,TOTAL 0.2 MG/DL (0.2-1.0); BLOOD UREA NITROGEN 11 MG/DL (7-18); CALCIUM LEVEL 8.8 MG/DL (8.8-10.2); CARBON DIOXIDE LEVEL 29 MEQ/L (21-32); CHLORIDE LEVEL 97 MEQ/L (98-107); GLOMERULAR FILTRATION RATE > 60.0 (>39); GLUCOSE, FASTING 83 MG/DL (70-100); POTASSIUM SERUM 3.9 MEQ/L (3.5-5.1); SODIUM LEVEL 131 MEQ/L (136-145)
[2022-05-17] MEDS: ACETAMINOPHEN TAB 650MG DOSE (2X325MG) PO PRN (15:50)
[2022-05-17] MEDS: RIVAROXABAN 10MG TAB (XARELTO) PO SCH (18:12)
[2022-05-17] MEDS: OLANZapine ORAL DISINTEGRATING TAB 5MG PO PRN (18:12)
[2022-05-17] MEDS ORDERED: PREPARATION H OINTMENT (HEMORRHOID) PR PRN (21:40)
[2022-05-17] MEDS: EZETIMIBE 10MG TABLET (ZETIA) PO SCH (21:45)
[2022-05-17] MEDS: LIDOCAINE 5% (LIDODERM) PATCH TD SCH (21:45)
[2022-05-17] MEDS: ARIPiprazole 10 MG TAB PO SCH (21:46)
[2022-05-17] MEDS: traZODone 50 MG TAB PO SCH (21:46)
[2022-05-18 06:55] VITALS: BP 108/59
[2022-05-18 07:14] LABS: HEMATOCRIT 35.3 % (36.0-47.0); HEMOGLOBIN 11.7 g/dl (12.0-15.5); MEAN CORPUSCULAR HEMOGLOBIN 28.4 pg (27.0-33.0); MEAN CORPUSCULAR HGB CONC 33.1 g/dl (32.0-36.5); MEAN CORPUSCULAR VOLUME 85.7 fl (80.0-96.0); PLATELET COUNT, AUTOMATED 237 10^3/uL (150-450); RED BLOOD COUNT 4.12 10^6/uL (4.00-5.40); WHITE BLOOD COUNT 5.8 10^3/uL (4.0-10.0)
[2022-05-18 07:44] LABS: ALT/SGPT 11 U/L (12-78); BILIRUBIN,TOTAL 0.2 MG/DL (0.2-1.0); BLOOD UREA NITROGEN 13 MG/DL (7-18); CARBON DIOXIDE LEVEL 29 MEQ/L (21-32); CHLORIDE LEVEL 99 MEQ/L (98-107); CREATININE FOR GFR 0.68 MG/DL (0.55-1.30); GLOMERULAR FILTRATION RATE > 60.0 (>39); GLUCOSE, FASTING 80 MG/DL (70-100); POTASSIUM SERUM 4.1 MEQ/L (3.5-5.1); SODIUM LEVEL 133 MEQ/L (136-145); TOTAL PROTEIN 6.9 GM/DL (6.4-8.2)
[2022-05-18] MEDS: DIVALPROEX 125 MG TAB PO SCH ×2 (08:25→21:36)
[2022-05-18] MEDS: PANTOPRAZOLE 40MG TAB (PROTONIX) PO SCH (08:25)
[2022-05-18] MEDS: DIVALPROEX 500 MG TAB PO SCH ×2 (08:25→21:36)
[2022-05-18] MEDS: DOCUSATE SODIUM 100MG CAPSULE PO SCH ×2 (08:25→21:36)
[2022-05-18] MEDS: BACLOFEN 10 MG TAB PO SCH ×2 (08:26→21:36)
[2022-05-18] MEDS: VERAPAMIL 180MG EXTENDED RELEASE TABLET PO SCH (08:26)
[2022-05-18] MEDS: **NOTE PATIENT COMMENT** MISC XX SCH (08:27)
[2022-05-18] MEDS: RIVAROXABAN 10MG TAB (XARELTO) PO SCH (18:45)
[2022-05-18] MEDS: ACETAMINOPHEN TAB 650MG DOSE (2X325MG) PO PRN (18:45)
[2022-05-18] MEDS: ONDANSETRON 4MG TAB PO PRN (21:33)
[2022-05-18] MEDS: EZETIMIBE 10MG TABLET (ZETIA) PO SCH (21:36)
[2022-05-18] MEDS: RAMELTEON 8 MG TAB (ROZEREM) PO PRN (21:36)
[2022-05-18] MEDS: ARIPiprazole 10 MG TAB PO SCH (21:36)
[2022-05-18] MEDS: traZODone 50 MG TAB PO SCH (21:36)
[2022-05-18] MEDS: LIDOCAINE 5% (LIDODERM) PATCH TD SCH (21:37)
[2022-05-18] MEDS ORDERED: PROCHLORPERAZINE 5MG TAB PO ONE (21:45)
[2022-05-18] MEDS ORDERED: ACETAMINOPHEN 325 MG TAB PO ONE (21:45)
[2022-05-19 06:00] VITALS: BP 110/51
[2022-05-19 06:52] LABS: HEMATOCRIT 33.8 % (36.0-47.0); MEAN CORPUSCULAR HEMOGLOBIN 27.9 pg (27.0-33.0); MEAN CORPUSCULAR HGB CONC 32.5 g/dl (32.0-36.5); MEAN CORPUSCULAR VOLUME 85.8 fl (80.0-96.0); PLATELET COUNT, AUTOMATED 252 10^3/uL (150-450); RED BLOOD COUNT 3.94 10^6/uL (4.00-5.40)
[2022-05-19 07:18] LABS: ALBUMIN 2.8 GM/DL (3.2-5.2); ALT/SGPT 10 U/L (12-78); BILIRUBIN,TOTAL 0.1 MG/DL (0.2-1.0); BLOOD UREA NITROGEN 11 MG/DL (7-18); CALCIUM LEVEL 9.2 MG/DL (8.8-10.2); CARBON DIOXIDE LEVEL 27 MEQ/L (21-32); CHLORIDE LEVEL 103 MEQ/L (98-107); CREATININE FOR GFR 0.66 MG/DL (0.55-1.30); GLOMERULAR FILTRATION RATE > 60.0 (>39); GLUCOSE, FASTING 91 MG/DL (70-100); POTASSIUM SERUM 4.5 MEQ/L (3.5-5.1); SODIUM LEVEL 135 MEQ/L (136-145); TOTAL PROTEIN 6.2 GM/DL (6.4-8.2)
[2022-05-19] MEDS: DIVALPROEX 125 MG TAB PO SCH ×2 (09:16→20:37)
[2022-05-19] MEDS: VERAPAMIL 180MG EXTENDED RELEASE TABLET PO SCH (09:16)
[2022-05-19] MEDS: DOCUSATE SODIUM 100MG CAPSULE PO SCH ×2 (09:16→20:38)
[2022-05-19] MEDS: **NOTE PATIENT COMMENT** MISC XX SCH (09:16)
[2022-05-19] MEDS: PANTOPRAZOLE 40MG TAB (PROTONIX) PO SCH (09:16)
[2022-05-19] MEDS: BACLOFEN 10 MG TAB PO SCH ×2 (09:16→20:37)
[2022-05-19] MEDS: DIVALPROEX 500 MG TAB PO SCH ×2 (09:16→20:37)
[2022-05-19] MEDS: RIVAROXABAN 10MG TAB (XARELTO) PO SCH (17:30)
[2022-05-19] MEDS: RAMELTEON 8 MG TAB (ROZEREM) PO PRN (20:37)
[2022-05-19] MEDS: traZODone 50 MG TAB PO SCH (20:37)
[2022-05-19] MEDS: ARIPiprazole 10 MG TAB PO SCH (20:37)
[2022-05-19] MEDS: LIDOCAINE 5% (LIDODERM) PATCH TD SCH (20:37)
[2022-05-19] MEDS: EZETIMIBE 10MG TABLET (ZETIA) PO SCH (20:38)
[2022-05-19] MEDS: ACETAMINOPHEN TAB 650MG DOSE (2X325MG) PO PRN (20:38)
[2022-05-20 05:42] VITALS: BP 113/51
[2022-05-20] MEDS: DOCUSATE SODIUM 100MG CAPSULE PO SCH ×2 (08:51→21:03)
[2022-05-20] MEDS: DIVALPROEX 125 MG TAB PO SCH ×2 (08:51→21:03)
[2022-05-20] MEDS: BACLOFEN 10 MG TAB PO SCH ×2 (08:51→21:03)
[2022-05-20] MEDS: DIVALPROEX 500 MG TAB PO SCH ×2 (08:51→21:03)
[2022-05-20] MEDS: VERAPAMIL 180MG EXTENDED RELEASE TABLET PO SCH (08:51)
[2022-05-20] MEDS: PANTOPRAZOLE 40MG TAB (PROTONIX) PO SCH (08:51)
[2022-05-20] MEDS: **NOTE PATIENT COMMENT** MISC XX SCH (08:52)
[2022-05-20] MEDS: RIVAROXABAN 10MG TAB (XARELTO) PO SCH (17:19)
[2022-05-20] MEDS: traZODone 50 MG TAB PO SCH (21:03)
[2022-05-20] MEDS: ARIPiprazole 10 MG TAB PO SCH (21:03)
[2022-05-20] MEDS: EZETIMIBE 10MG TABLET (ZETIA) PO SCH (21:03)
[2022-05-20] MEDS: LIDOCAINE 5% (LIDODERM) PATCH TD SCH (21:04)
[2022-05-20] MEDS: ACETAMINOPHEN TAB 650MG DOSE (2X325MG) PO PRN (21:04)
[2022-05-21 06:00] VITALS: BP 113/55
[2022-05-21] MEDS: VERAPAMIL 180MG EXTENDED RELEASE TABLET PO SCH (08:57)
[2022-05-21] MEDS: PANTOPRAZOLE 40MG TAB (PROTONIX) PO SCH (08:57)
[2022-05-21] MEDS: DIVALPROEX 125 MG TAB PO SCH ×2 (08:57→20:19)
[2022-05-21] MEDS: BACLOFEN 10 MG TAB PO SCH ×2 (08:58→20:19)
[2022-05-21] MEDS: DIVALPROEX 500 MG TAB PO SCH ×2 (08:58→20:19)
[2022-05-21] MEDS: DOCUSATE SODIUM 100MG CAPSULE PO SCH ×2 (08:58→20:19)
[2022-05-21] MEDS: **NOTE PATIENT COMMENT** MISC XX SCH (08:58)
[2022-05-21] MEDS: RIVAROXABAN 10MG TAB (XARELTO) PO SCH (17:09)
[2022-05-21] MEDS: traZODone 50 MG TAB PO SCH (20:18)
[2022-05-21] MEDS: ARIPiprazole 10 MG TAB PO SCH (20:18)
[2022-05-21] MEDS: LIDOCAINE 5% (LIDODERM) PATCH TD SCH (20:18)
[2022-05-21] MEDS: EZETIMIBE 10MG TABLET (ZETIA) PO SCH (20:19)
[2022-05-21] MEDS: ACETAMINOPHEN TAB 650MG DOSE (2X325MG) PO PRN (20:20)
[2022-05-22 06:00] VITALS: BP 122/70
[2022-05-22 07:52] LABS: BLOOD UREA NITROGEN 12 MG/DL (7-18); CALCIUM LEVEL 9.5 MG/DL (8.8-10.2); CARBON DIOXIDE LEVEL 30 MEQ/L (21-32); CHLORIDE LEVEL 102 MEQ/L (98-107); CREATININE FOR GFR 0.62 MG/DL (0.55-1.30); GLOMERULAR FILTRATION RATE > 60.0 (>39); GLUCOSE, FASTING 80 MG/DL (70-100); POTASSIUM SERUM 4.1 MEQ/L (3.5-5.1); SODIUM LEVEL 137 MEQ/L (136-145)
[2022-05-22] MEDS: **NOTE PATIENT COMMENT** MISC XX SCH (09:00)
[2022-05-22] MEDS: DOCUSATE SODIUM 100MG CAPSULE PO SCH ×2 (10:23→21:16)
[2022-05-22] MEDS: DIVALPROEX 125 MG TAB PO SCH ×2 (10:24→21:15)
[2022-05-22] MEDS: VERAPAMIL 180MG EXTENDED RELEASE TABLET PO SCH (10:24)
[2022-05-22] MEDS: DIVALPROEX 500 MG TAB PO SCH ×2 (10:24→21:15)
[2022-05-22] MEDS: PANTOPRAZOLE 40MG TAB (PROTONIX) PO SCH (10:25)
[2022-05-22] MEDS: BACLOFEN 10 MG TAB PO SCH ×2 (10:25→21:16)
[2022-05-22] MEDS: RIVAROXABAN 10MG TAB (XARELTO) PO SCH (18:54)
[2022-05-22] MEDS: LIDOCAINE 5% (LIDODERM) PATCH TD SCH (21:15)
[2022-05-22] MEDS: EZETIMIBE 10MG TABLET (ZETIA) PO SCH (21:16)
[2022-05-22] MEDS: traZODone 50 MG TAB PO SCH (21:16)
[2022-05-22] MEDS: ARIPiprazole 10 MG TAB PO SCH (21:16)
[2022-05-22] MEDS: ACETAMINOPHEN TAB 650MG DOSE (2X325MG) PO PRN (21:17)
[2022-05-23 05:32] VITALS: BP 118/44
[2022-05-23] MEDS: PANTOPRAZOLE 40MG TAB (PROTONIX) PO SCH (09:36)
[2022-05-23] MEDS: BACLOFEN 10 MG TAB PO SCH ×2 (09:36→20:06)
[2022-05-23] MEDS: DOCUSATE SODIUM 100MG CAPSULE PO SCH ×2 (09:36→20:05)
[2022-05-23] MEDS: DIVALPROEX 125 MG TAB PO SCH ×2 (09:36→20:05)
[2022-05-23] MEDS: DIVALPROEX 500 MG TAB PO SCH ×2 (09:37→20:05)
[2022-05-23] MEDS: VERAPAMIL 180MG EXTENDED RELEASE TABLET PO SCH (09:38)
[2022-05-23] MEDS: **NOTE PATIENT COMMENT** MISC XX SCH (09:39)
[2022-05-23] MEDS: RIVAROXABAN 10MG TAB (XARELTO) PO SCH (18:07)
[2022-05-23] MEDS: traZODone 50 MG TAB PO SCH (20:06)
[2022-05-23] MEDS: ARIPiprazole 10 MG TAB PO SCH (20:06)
[2022-05-23] MEDS: EZETIMIBE 10MG TABLET (ZETIA) PO SCH (20:06)
[2022-05-23] MEDS: ACETAMINOPHEN TAB 650MG DOSE (2X325MG) PO PRN (20:07)
[2022-05-23] MEDS: LIDOCAINE 5% (LIDODERM) PATCH TD SCH (20:07)
[2022-05-24 06:00] VITALS: BP 119/46
[2022-05-24] MEDS: PANTOPRAZOLE 40MG TAB (PROTONIX) PO SCH (09:00)
[2022-05-24] MEDS: DIVALPROEX 125 MG TAB PO SCH ×2 (09:00→20:45)
[2022-05-24] MEDS: DOCUSATE SODIUM 100MG CAPSULE PO SCH ×2 (09:00→20:44)
[2022-05-24] MEDS: DIVALPROEX 500 MG TAB PO SCH ×2 (09:00→20:43)
[2022-05-24] MEDS: BACLOFEN 10 MG TAB PO SCH ×2 (09:00→20:44)
[2022-05-24] MEDS: **NOTE PATIENT COMMENT** MISC XX SCH (09:01)
[2022-05-24] MEDS: VERAPAMIL 180MG EXTENDED RELEASE TABLET PO SCH (09:01)
[2022-05-24] MEDS: RIVAROXABAN 10MG TAB (XARELTO) PO SCH (17:10)
[2022-05-24] MEDS: ARIPiprazole 10 MG TAB PO SCH (20:43)
[2022-05-24] MEDS: traZODone 50 MG TAB PO SCH (20:44)
[2022-05-24] MEDS: ACETAMINOPHEN TAB 650MG DOSE (2X325MG) PO PRN (20:44)
[2022-05-24] MEDS: EZETIMIBE 10MG TABLET (ZETIA) PO SCH (20:45)
[2022-05-24] MEDS: LIDOCAINE 5% (LIDODERM) PATCH TD SCH (20:45)
[2022-05-25 06:02] VITALS: BP 129/70
[2022-05-25] MEDS: DIVALPROEX 125 MG TAB PO SCH ×2 (09:26→19:59)
[2022-05-25] MEDS: DIVALPROEX 500 MG TAB PO SCH ×2 (09:26→19:59)
[2022-05-25] MEDS: **NOTE PATIENT COMMENT** MISC XX SCH (09:26)
[2022-05-25] MEDS: BACLOFEN 10 MG TAB PO SCH ×2 (09:26→20:00)
[2022-05-25] MEDS: DOCUSATE SODIUM 100MG CAPSULE PO SCH ×2 (09:26→19:59)
[2022-05-25] MEDS: PANTOPRAZOLE 40MG TAB (PROTONIX) PO SCH (09:26)
[2022-05-25] MEDS: VERAPAMIL 180MG EXTENDED RELEASE TABLET PO SCH (09:27)
[2022-05-25] MEDS: RIVAROXABAN 10MG TAB (XARELTO) PO SCH (18:52)
[2022-05-25] MEDS: ARIPiprazole 10 MG TAB PO SCH (19:59)
[2022-05-25] MEDS: traZODone 50 MG TAB PO SCH (19:59)
[2022-05-25] MEDS: OLANZapine ORAL DISINTEGRATING TAB 5MG PO PRN (19:59)
[2022-05-25] MEDS: LIDOCAINE 5% (LIDODERM) PATCH TD SCH (20:00)
[2022-05-25] MEDS: EZETIMIBE 10MG TABLET (ZETIA) PO SCH (20:00)
[2022-05-26 06:00] VITALS: BP 129/60
[2022-05-26] MEDS: DOCUSATE SODIUM 100MG CAPSULE PO SCH ×2 (09:15→20:57)
[2022-05-26] MEDS: DIVALPROEX 125 MG TAB PO SCH ×2 (09:15→20:57)
[2022-05-26] MEDS: **NOTE PATIENT COMMENT** MISC XX SCH (09:15)
[2022-05-26] MEDS: BACLOFEN 10 MG TAB PO SCH ×2 (09:15→20:57)
[2022-05-26] MEDS: VERAPAMIL 180MG EXTENDED RELEASE TABLET PO SCH (09:15)
[2022-05-26] MEDS: DIVALPROEX 500 MG TAB PO SCH ×2 (09:15→20:57)
[2022-05-26] MEDS: PANTOPRAZOLE 40MG TAB (PROTONIX) PO SCH (09:15)
[2022-05-26] MEDS: RIVAROXABAN 10MG TAB (XARELTO) PO SCH (18:15)
[2022-05-26] MEDS: OLANZapine ORAL DISINTEGRATING TAB 5MG PO PRN (18:33)
[2022-05-26] MEDS: EZETIMIBE 10MG TABLET (ZETIA) PO SCH (20:57)
[2022-05-26] MEDS: LIDOCAINE 5% (LIDODERM) PATCH TD SCH (20:57)
[2022-05-26] MEDS: traZODone 50 MG TAB PO SCH (20:57)
[2022-05-26] MEDS: ARIPiprazole 10 MG TAB PO SCH (20:57)
[2022-05-26] MEDS: ACETAMINOPHEN TAB 650MG DOSE (2X325MG) PO PRN (21:00)
[2022-05-27 05:15] VITALS: BP 118/63
[2022-05-27] MEDS: DIVALPROEX 125 MG TAB PO SCH ×2 (08:58→20:07)
[2022-05-27] MEDS: DOCUSATE SODIUM 100MG CAPSULE PO SCH ×2 (08:58→20:07)
[2022-05-27] MEDS: DIVALPROEX 500 MG TAB PO SCH ×2 (08:59→20:07)
[2022-05-27] MEDS: BACLOFEN 10 MG TAB PO SCH ×2 (08:59→20:07)
[2022-05-27] MEDS: **NOTE PATIENT COMMENT** MISC XX SCH (08:59)
[2022-05-27] MEDS: PANTOPRAZOLE 40MG TAB (PROTONIX) PO SCH (08:59)
[2022-05-27] MEDS: VERAPAMIL 180MG EXTENDED RELEASE TABLET PO SCH (09:01)
[2022-05-27] MEDS: RIVAROXABAN 10MG TAB (XARELTO) PO SCH (17:27)
[2022-05-27] MEDS: OLANZapine ORAL DISINTEGRATING TAB 5MG PO SCH (17:27)
[2022-05-27] MEDS: ARIPiprazole 10 MG TAB PO SCH (20:07)
[2022-05-27] MEDS: traZODone 50 MG TAB PO SCH (20:07)
[2022-05-27] MEDS: EZETIMIBE 10MG TABLET (ZETIA) PO SCH (20:07)
[2022-05-27] MEDS: ACETAMINOPHEN TAB 650MG DOSE (2X325MG) PO PRN (20:09)
[2022-05-27] MEDS: LIDOCAINE 5% (LIDODERM) PATCH TD SCH (20:09)
[2022-05-28 06:00] VITALS: BP 111/51
[2022-05-28 06:19] LABS: HEMATOCRIT 33.8 % (36.0-47.0); HEMOGLOBIN 10.8 g/dl (12.0-15.5); MEAN CORPUSCULAR HEMOGLOBIN 28.2 pg (27.0-33.0); MEAN CORPUSCULAR VOLUME 88.3 fl (80.0-96.0); PLATELET COUNT, AUTOMATED 265 10^3/uL (150-450); RED BLOOD COUNT 3.83 10^6/uL (4.00-5.40); WHITE BLOOD COUNT 6.3 10^3/uL (4.0-10.0)
[2022-05-28 07:05] LABS: ALBUMIN 2.6 GM/DL (3.2-5.2); ALT/SGPT 9 U/L (12-78); BILIRUBIN,TOTAL 0.2 MG/DL (0.2-1.0); BLOOD UREA NITROGEN 15 MG/DL (7-18); CARBON DIOXIDE LEVEL 31 MEQ/L (21-32); CHLORIDE LEVEL 103 MEQ/L (98-107); CREATININE FOR GFR 0.67 MG/DL (0.55-1.30); GLOMERULAR FILTRATION RATE > 60.0 (>39); GLUCOSE, FASTING 95 MG/DL (70-100); POTASSIUM SERUM 4.1 MEQ/L (3.5-5.1); SODIUM LEVEL 136 MEQ/L (136-145); TOTAL PROTEIN 6.1 GM/DL (6.4-8.2)
[2022-05-28] MEDS: **NOTE PATIENT COMMENT** MISC XX SCH (08:07)
[2022-05-28] MEDS: DIVALPROEX 500 MG TAB PO SCH ×2 (08:13→21:36)
[2022-05-28] MEDS: DOCUSATE SODIUM 100MG CAPSULE PO SCH ×2 (08:13→21:35)
[2022-05-28] MEDS: DIVALPROEX 125 MG TAB PO SCH ×2 (08:13→21:36)
[2022-05-28] MEDS: VERAPAMIL 180MG EXTENDED RELEASE TABLET PO SCH (08:14)
[2022-05-28] MEDS: PANTOPRAZOLE 40MG TAB (PROTONIX) PO SCH (08:14)
[2022-05-28] MEDS: BACLOFEN 10 MG TAB PO SCH ×2 (08:14→21:36)
[2022-05-28 08:42] LABS: TOTAL 25(OH) VITAMIN D 36.8 NG/ML (30.0-100.0)
[2022-05-28] MEDS: RIVAROXABAN 10MG TAB (XARELTO) PO SCH (17:34)
[2022-05-28] MEDS: OLANZapine ORAL DISINTEGRATING TAB 5MG PO SCH (17:34)
[2022-05-28] MEDS: ARIPiprazole 10 MG TAB PO SCH (21:35)
[2022-05-28] MEDS: EZETIMIBE 10MG TABLET (ZETIA) PO SCH (21:36)
[2022-05-28] MEDS: LIDOCAINE 5% (LIDODERM) PATCH TD SCH (21:36)
[2022-05-28] MEDS: traZODone 50 MG TAB PO SCH (21:36)
[2022-05-28] MEDS: RAMELTEON 8 MG TAB (ROZEREM) PO PRN (21:57)
[2022-05-28] MEDS: ACETAMINOPHEN TAB 650MG DOSE (2X325MG) PO PRN (23:09)
[2022-05-29 06:00] VITALS: BP 125/54
[2022-05-29] MEDS: DOCUSATE SODIUM 100MG CAPSULE PO SCH ×2 (08:03→20:57)
[2022-05-29] MEDS: PANTOPRAZOLE 40MG TAB (PROTONIX) PO SCH (08:03)
[2022-05-29] MEDS: DIVALPROEX 500 MG TAB PO SCH ×2 (08:03→20:57)
[2022-05-29] MEDS: DIVALPROEX 125 MG TAB PO SCH ×2 (08:03→20:57)
[2022-05-29] MEDS: **NOTE PATIENT COMMENT** MISC XX SCH (08:03)
[2022-05-29] MEDS: BACLOFEN 10 MG TAB PO SCH ×2 (08:03→20:58)
[2022-05-29] MEDS: VERAPAMIL 180MG EXTENDED RELEASE TABLET PO SCH (08:05)
[2022-05-29] MEDS: OLANZapine ORAL DISINTEGRATING TAB 5MG PO SCH (17:09)
[2022-05-29] MEDS: RIVAROXABAN 10MG TAB (XARELTO) PO SCH (17:09)
[2022-05-29] MEDS: EZETIMIBE 10MG TABLET (ZETIA) PO SCH (20:58)
[2022-05-29] MEDS: ARIPiprazole 10 MG TAB PO SCH (20:58)
[2022-05-29] MEDS: LIDOCAINE 5% (LIDODERM) PATCH TD SCH (20:58)
[2022-05-29] MEDS: traZODone 50 MG TAB PO SCH (20:58)
[2022-05-30 05:40] VITALS: BP 115/55
[2022-05-30] MEDS: DIVALPROEX 125 MG TAB PO SCH ×2 (08:29→20:14)
[2022-05-30] MEDS: DOCUSATE SODIUM 100MG CAPSULE PO SCH ×2 (08:29→20:14)
[2022-05-30] MEDS: DIVALPROEX 500 MG TAB PO SCH ×2 (08:29→20:14)
[2022-05-30] MEDS: VERAPAMIL 180MG EXTENDED RELEASE TABLET PO SCH (08:30)
[2022-05-30] MEDS: PANTOPRAZOLE 40MG TAB (PROTONIX) PO SCH (08:30)
[2022-05-30] MEDS: **NOTE PATIENT COMMENT** MISC XX SCH (08:30)
[2022-05-30] MEDS: BACLOFEN 10 MG TAB PO SCH ×2 (08:30→20:14)
[2022-05-30] MEDS: RIVAROXABAN 10MG TAB (XARELTO) PO SCH (16:57)
[2022-05-30] MEDS: OLANZapine ORAL DISINTEGRATING TAB 5MG PO SCH (16:57)
[2022-05-30] MEDS: oxyBUTYnin *DITROPAN XL* 5 MG TABCR PO SCH (16:57)
[2022-05-30] MEDS: traZODone 50 MG TAB PO SCH (20:14)
[2022-05-30] MEDS: EZETIMIBE 10MG TABLET (ZETIA) PO SCH (20:14)
[2022-05-30] MEDS: ARIPiprazole 10 MG TAB PO SCH (20:14)
[2022-05-30] MEDS: LIDOCAINE 5% (LIDODERM) PATCH TD SCH (20:14)
[2022-05-31 05:30] VITALS: BP 114/54
[2022-05-31] MEDS: DOCUSATE SODIUM 100MG CAPSULE PO SCH ×2 (09:13→20:28)
[2022-05-31] MEDS: **NOTE PATIENT COMMENT** MISC XX SCH (09:15)
[2022-05-31] MEDS: PANTOPRAZOLE 40MG TAB (PROTONIX) PO SCH (09:15)
[2022-05-31] MEDS: BACLOFEN 10 MG TAB PO SCH ×2 (09:16→20:28)
[2022-05-31] MEDS: DIVALPROEX 125 MG TAB PO SCH ×2 (09:16→20:28)
[2022-05-31] MEDS: VERAPAMIL 180MG EXTENDED RELEASE TABLET PO SCH (09:16)
[2022-05-31] MEDS: DIVALPROEX 500 MG TAB PO SCH ×2 (09:16→20:27)
[2022-05-31] MEDS: oxyBUTYnin *DITROPAN XL* 5 MG TABCR PO SCH (09:16)
[2022-05-31] MEDS: OLANZapine ORAL DISINTEGRATING TAB 5MG PO SCH (17:11)
[2022-05-31] MEDS: RIVAROXABAN 10MG TAB (XARELTO) PO SCH (17:11)
[2022-05-31] MEDS: SIMETHICONE 80MG CHEW TAB PO PRN ×2 (18:27→20:39)
[2022-05-31] MEDS: traZODone 50 MG TAB PO SCH (20:28)
[2022-05-31] MEDS: ARIPiprazole 10 MG TAB PO SCH (20:28)
[2022-05-31] MEDS: ACETAMINOPHEN TAB 650MG DOSE (2X325MG) PO PRN (20:28)
[2022-05-31] MEDS: EZETIMIBE 10MG TABLET (ZETIA) PO SCH (20:28)
[2022-05-31] MEDS: LIDOCAINE 5% (LIDODERM) PATCH TD SCH (20:28)
[2022-05-31] MEDS: CALCIUM CARBONATE 500 MG CHEW U/D PO PRN (23:54)
[2022-06-01 06:00] VITALS: BP 111/55
[2022-06-01] MEDS: **NOTE PATIENT COMMENT** MISC XX SCH (09:00)
[2022-06-01] MEDS: VERAPAMIL 180MG EXTENDED RELEASE TABLET PO SCH (09:00)
[2022-06-01] MEDS: DOCUSATE SODIUM 100MG CAPSULE PO SCH ×2 (10:20→21:09)
[2022-06-01] MEDS: oxyBUTYnin *DITROPAN XL* 5 MG TABCR PO SCH (10:21)
[2022-06-01] MEDS: PANTOPRAZOLE 40MG TAB (PROTONIX) PO SCH (10:21)
[2022-06-01] MEDS: BACLOFEN 10 MG TAB PO SCH ×2 (10:21→21:09)
[2022-06-01] MEDS: DIVALPROEX 125 MG TAB PO SCH ×2 (10:22→21:09)
[2022-06-01] MEDS: DIVALPROEX 500 MG TAB PO SCH ×2 (10:22→21:09)
[2022-06-01] MEDS: RIVAROXABAN 10MG TAB (XARELTO) PO SCH (18:07)
[2022-06-01] MEDS: OLANZapine ORAL DISINTEGRATING TAB 5MG PO SCH (18:07)
[2022-06-01] MEDS: CALCIUM CARBONATE 500 MG CHEW U/D PO PRN (18:57)
[2022-06-01] MEDS: SIMETHICONE 80MG CHEW TAB PO PRN (18:57)
[2022-06-01] MEDS: EZETIMIBE 10MG TABLET (ZETIA) PO SCH (21:09)
[2022-06-01] MEDS: ARIPiprazole 10 MG TAB PO SCH (21:09)
[2022-06-01] MEDS: traZODone 50 MG TAB PO SCH (21:09)
[2022-06-01] MEDS: LIDOCAINE 5% (LIDODERM) PATCH TD SCH (21:10)
[2022-06-02 05:31] VITALS: BP 124/58
[2022-06-02] MEDS: PANTOPRAZOLE 40MG TAB (PROTONIX) PO SCH (08:17)
[2022-06-02] MEDS: oxyBUTYnin *DITROPAN XL* 5 MG TABCR PO SCH (08:17)
[2022-06-02] MEDS: BACLOFEN 10 MG TAB PO SCH ×2 (08:17→21:45)
[2022-06-02] MEDS: DIVALPROEX 500 MG TAB PO SCH ×2 (08:18→21:46)
[2022-06-02] MEDS: DOCUSATE SODIUM 100MG CAPSULE PO SCH ×2 (08:18→21:46)
[2022-06-02] MEDS: VERAPAMIL 180MG EXTENDED RELEASE TABLET PO SCH (08:18)
[2022-06-02] MEDS: **NOTE PATIENT COMMENT** MISC XX SCH (08:18)
[2022-06-02] MEDS: DIVALPROEX 125 MG TAB PO SCH ×2 (08:18→21:46)
[2022-06-02] MEDS: OLANZapine ORAL DISINTEGRATING TAB 5MG PO SCH (17:38)
[2022-06-02] MEDS: RIVAROXABAN 10MG TAB (XARELTO) PO SCH (17:38)
[2022-06-02] MEDS: RAMELTEON 8 MG TAB (ROZEREM) PO PRN (21:45)
[2022-06-02] MEDS: ARIPiprazole 10 MG TAB PO SCH (21:46)
[2022-06-02] MEDS: traZODone 50 MG TAB PO SCH (21:46)
[2022-06-02] MEDS: EZETIMIBE 10MG TABLET (ZETIA) PO SCH (21:46)
[2022-06-02] MEDS: ACETAMINOPHEN TAB 650MG DOSE (2X325MG) PO PRN (21:46)
[2022-06-02] MEDS: LIDOCAINE 5% (LIDODERM) PATCH TD SCH (21:47)
[2022-06-03 06:00] VITALS: BP 118/116
[2022-06-03] MEDS: VERAPAMIL 180MG EXTENDED RELEASE TABLET PO SCH (09:00)
[2022-06-03] MEDS: **NOTE PATIENT COMMENT** MISC XX SCH (09:00)
[2022-06-03] MEDS: PANTOPRAZOLE 40MG TAB (PROTONIX) PO SCH (09:18)
[2022-06-03] MEDS: DIVALPROEX 125 MG TAB PO SCH ×2 (09:19→20:03)
[2022-06-03] MEDS: oxyBUTYnin *DITROPAN XL* 5 MG TABCR PO SCH (09:19)
[2022-06-03] MEDS: BACLOFEN 10 MG TAB PO SCH ×2 (09:19→20:03)
[2022-06-03] MEDS: DOCUSATE SODIUM 100MG CAPSULE PO SCH ×2 (09:19→20:03)
[2022-06-03] MEDS: DIVALPROEX 500 MG TAB PO SCH ×2 (09:20→20:03)
[2022-06-03] MEDS: OLANZapine ORAL DISINTEGRATING TAB 5MG PO SCH (17:15)
[2022-06-03] MEDS: RIVAROXABAN 10MG TAB (XARELTO) PO SCH (17:15)
[2022-06-03] MEDS: EZETIMIBE 10MG TABLET (ZETIA) PO SCH (20:02)
[2022-06-03] MEDS: traZODone 50 MG TAB PO SCH (20:02)
[2022-06-03] MEDS: SIMETHICONE 80MG CHEW TAB PO PRN (20:03)
[2022-06-03] MEDS: ACETAMINOPHEN TAB 650MG DOSE (2X325MG) PO PRN (20:03)
[2022-06-03] MEDS: ARIPiprazole 10 MG TAB PO SCH (20:03)
[2022-06-03] MEDS: LIDOCAINE 5% (LIDODERM) PATCH TD SCH (20:04)
[2022-06-04 06:00] VITALS: BP 121/50
[2022-06-04] MEDS: DIVALPROEX 500 MG TAB PO SCH ×2 (08:34→20:26)
[2022-06-04] MEDS: BACLOFEN 10 MG TAB PO SCH ×2 (08:35→20:26)
[2022-06-04] MEDS: PANTOPRAZOLE 40MG TAB (PROTONIX) PO SCH (08:35)
[2022-06-04] MEDS: VERAPAMIL 180MG EXTENDED RELEASE TABLET PO SCH (08:35)
[2022-06-04] MEDS: DIVALPROEX 125 MG TAB PO SCH ×2 (08:35→20:28)
[2022-06-04] MEDS: DOCUSATE SODIUM 100MG CAPSULE PO SCH ×2 (08:35→20:26)
[2022-06-04] MEDS: oxyBUTYnin *DITROPAN XL* 5 MG TABCR PO SCH (08:35)
[2022-06-04] MEDS: **NOTE PATIENT COMMENT** MISC XX SCH (08:36)
[2022-06-04] MEDS: BENZONATATE 100MG CAPSULE PO SCH ×3 (09:23→20:27)
[2022-06-04] MEDS: OLANZapine ORAL DISINTEGRATING TAB 5MG PO SCH (18:29)
[2022-06-04] MEDS: RIVAROXABAN 10MG TAB (XARELTO) PO SCH (18:29)
[2022-06-04] MEDS: EZETIMIBE 10MG TABLET (ZETIA) PO SCH (20:26)
[2022-06-04] MEDS: ARIPiprazole 10 MG TAB PO SCH (20:26)
[2022-06-04] MEDS: traZODone 50 MG TAB PO SCH (20:27)
[2022-06-04] MEDS: ACETAMINOPHEN TAB 650MG DOSE (2X325MG) PO PRN (20:28)
[2022-06-04] MEDS: LIDOCAINE 5% (LIDODERM) PATCH TD SCH (20:29)
[2022-06-05] MEDS: BENZONATATE 100MG CAPSULE PO SCH ×3 (05:12→22:00)
[2022-06-05 06:00] VITALS: BP 120/50
[2022-06-05] MEDS: DOCUSATE SODIUM 100MG CAPSULE PO SCH ×2 (08:46→22:03)
[2022-06-05] MEDS: DIVALPROEX 125 MG TAB PO SCH ×2 (08:46→22:02)
[2022-06-05] MEDS: DIVALPROEX 500 MG TAB PO SCH ×2 (08:46→22:02)
[2022-06-05] MEDS: VERAPAMIL 180MG EXTENDED RELEASE TABLET PO SCH (08:46)
[2022-06-05] MEDS: PANTOPRAZOLE 40MG TAB (PROTONIX) PO SCH (08:46)
[2022-06-05] MEDS: BACLOFEN 10 MG TAB PO SCH ×2 (08:46→22:03)
[2022-06-05] MEDS: **NOTE PATIENT COMMENT** MISC XX SCH (08:47)
[2022-06-05] MEDS: oxyBUTYnin *DITROPAN XL* 5 MG TABCR PO SCH (08:47)
[2022-06-05] MEDS: OLANZapine ORAL DISINTEGRATING TAB 5MG PO SCH (16:55)
[2022-06-05] MEDS: RIVAROXABAN 10MG TAB (XARELTO) PO SCH (16:55)
[2022-06-05] MEDS: MIRALAX *UNIT DOSE* 17GM PACKET PO PRN (17:37)
[2022-06-05] MEDS: SIMETHICONE 80MG CHEW TAB PO PRN (17:37)
[2022-06-05] MEDS: traZODone 50 MG TAB PO SCH (22:02)
[2022-06-05] MEDS: EZETIMIBE 10MG TABLET (ZETIA) PO SCH (22:02)
[2022-06-05] MEDS: ARIPiprazole 10 MG TAB PO SCH (22:02)
[2022-06-05] MEDS: LIDOCAINE 5% (LIDODERM) PATCH TD SCH (22:03)
[2022-06-05] MEDS: ACETAMINOPHEN TAB 650MG DOSE (2X325MG) PO PRN (22:08)
[2022-06-06 06:00] VITALS: BP 102/68
[2022-06-06] MEDS: BENZONATATE 100MG CAPSULE PO SCH ×3 (06:00→22:00)
[2022-06-06] MEDS: **NOTE PATIENT COMMENT** MISC XX SCH (09:00)
[2022-06-06] MEDS: BACLOFEN 10 MG TAB PO SCH ×2 (09:10→22:12)
[2022-06-06] MEDS: PANTOPRAZOLE 40MG TAB (PROTONIX) PO SCH (09:10)
[2022-06-06] MEDS: DOCUSATE SODIUM 100MG CAPSULE PO SCH ×2 (09:11→22:13)
[2022-06-06] MEDS: DIVALPROEX 500 MG TAB PO SCH ×2 (09:11→22:12)
[2022-06-06] MEDS: oxyBUTYnin *DITROPAN XL* 5 MG TABCR PO SCH (09:11)
[2022-06-06] MEDS: DIVALPROEX 125 MG TAB PO SCH ×2 (09:11→22:12)
[2022-06-06] MEDS: VERAPAMIL 180MG EXTENDED RELEASE TABLET PO SCH (09:14)
[2022-06-06] MEDS: OLANZapine ORAL DISINTEGRATING TAB 5MG PO SCH (17:10)
[2022-06-06] MEDS: RIVAROXABAN 10MG TAB (XARELTO) PO SCH (17:10)
[2022-06-06] MEDS: EZETIMIBE 10MG TABLET (ZETIA) PO SCH (22:12)
[2022-06-06] MEDS: ARIPiprazole 10 MG TAB PO SCH (22:12)
[2022-06-06] MEDS: LIDOCAINE 5% (LIDODERM) PATCH TD SCH (22:13)
[2022-06-06] MEDS: traZODone 50 MG TAB PO SCH (22:14)
[2022-06-06] MEDS: ACETAMINOPHEN TAB 650MG DOSE (2X325MG) PO PRN (22:23)
[2022-06-07 05:35] VITALS: BP 138/58
[2022-06-07] MEDS: BENZONATATE 100MG CAPSULE PO SCH ×3 (06:00→20:43)
[2022-06-07] MEDS: oxyBUTYnin *DITROPAN XL* 5 MG TABCR PO SCH (08:48)
[2022-06-07] MEDS: BACLOFEN 10 MG TAB PO SCH ×2 (08:48→20:43)
[2022-06-07] MEDS: PANTOPRAZOLE 40MG TAB (PROTONIX) PO SCH (08:48)
[2022-06-07] MEDS: DOCUSATE SODIUM 100MG CAPSULE PO SCH ×2 (08:48→20:43)
[2022-06-07] MEDS: DIVALPROEX 125 MG TAB PO SCH ×2 (08:48→20:43)
[2022-06-07] MEDS: DIVALPROEX 500 MG TAB PO SCH ×2 (08:49→20:43)
[2022-06-07] MEDS: VERAPAMIL 180MG EXTENDED RELEASE TABLET PO SCH (08:51)
[2022-06-07] MEDS: **NOTE PATIENT COMMENT** MISC XX SCH (09:01)
[2022-06-07] MEDS: RIVAROXABAN 10MG TAB (XARELTO) PO SCH (17:42)
[2022-06-07] MEDS: OLANZapine ORAL DISINTEGRATING TAB 5MG PO SCH (17:42)
[2022-06-07] MEDS: ARIPiprazole 10 MG TAB PO SCH (20:42)
[2022-06-07] MEDS: LIDOCAINE 5% (LIDODERM) PATCH TD SCH (20:42)
[2022-06-07] MEDS: EZETIMIBE 10MG TABLET (ZETIA) PO SCH (20:43)
[2022-06-07] MEDS: traZODone 50 MG TAB PO SCH (20:43)
[2022-06-08] MEDS: BENZONATATE 100MG CAPSULE PO SCH ×3 (05:15→21:00)
[2022-06-08 06:00] VITALS: BP 120/55
[2022-06-08] MEDS: DOCUSATE SODIUM 100MG CAPSULE PO SCH ×2 (08:11→21:00)
[2022-06-08] MEDS: DIVALPROEX 125 MG TAB PO SCH ×2 (08:12→20:59)
[2022-06-08] MEDS: DIVALPROEX 500 MG TAB PO SCH ×2 (08:12→20:59)
[2022-06-08] MEDS: VERAPAMIL 180MG EXTENDED RELEASE TABLET PO SCH (08:12)
[2022-06-08] MEDS: BACLOFEN 10 MG TAB PO SCH ×2 (08:12→21:00)
[2022-06-08] MEDS: PANTOPRAZOLE 40MG TAB (PROTONIX) PO SCH (08:12)
[2022-06-08] MEDS: oxyBUTYnin *DITROPAN XL* 5 MG TABCR PO SCH (08:12)
[2022-06-08] MEDS: **NOTE PATIENT COMMENT** MISC XX SCH (08:12)
[2022-06-08] MEDS: OLANZapine ORAL DISINTEGRATING TAB 5MG PO SCH (16:53)
[2022-06-08] MEDS: RIVAROXABAN 10MG TAB (XARELTO) PO SCH (16:53)
[2022-06-08] MEDS: LIDOCAINE 5% (LIDODERM) PATCH TD SCH (20:59)
[2022-06-08] MEDS: ARIPiprazole 10 MG TAB PO SCH (21:00)
[2022-06-08] MEDS: traZODone 50 MG TAB PO SCH (21:00)
[2022-06-08] MEDS: EZETIMIBE 10MG TABLET (ZETIA) PO SCH (21:00)
[2022-06-08] MEDS: ACETAMINOPHEN TAB 650MG DOSE (2X325MG) PO PRN (21:07)
[2022-06-09] MEDS: CALCIUM CARBONATE 500 MG CHEW U/D PO PRN (02:48)
[2022-06-09] MEDS: BENZONATATE 100MG CAPSULE PO SCH ×3 (05:37→20:58)
[2022-06-09 06:00] VITALS: BP 124/65
[2022-06-09] MEDS: **NOTE PATIENT COMMENT** MISC XX SCH (09:54)
[2022-06-09] MEDS: DIVALPROEX 500 MG TAB PO SCH ×2 (10:00→20:58)
[2022-06-09] MEDS: oxyBUTYnin *DITROPAN XL* 5 MG TABCR PO SCH (10:01)
[2022-06-09] MEDS: DOCUSATE SODIUM 100MG CAPSULE PO SCH ×2 (10:02→20:58)
[2022-06-09] MEDS: VERAPAMIL 180MG EXTENDED RELEASE TABLET PO SCH (10:02)
[2022-06-09] MEDS: BACLOFEN 10 MG TAB PO SCH ×2 (10:04→20:58)
[2022-06-09] MEDS: DIVALPROEX 125 MG TAB PO SCH ×2 (10:04→20:58)
[2022-06-09] MEDS: PANTOPRAZOLE 40MG TAB (PROTONIX) PO SCH (10:04)
[2022-06-09] MEDS: OLANZapine ORAL DISINTEGRATING TAB 5MG PO SCH (17:32)
[2022-06-09] MEDS: RIVAROXABAN 10MG TAB (XARELTO) PO SCH (17:32)
[2022-06-09] MEDS: ACETAMINOPHEN TAB 650MG DOSE (2X325MG) PO PRN (18:07)
[2022-06-09] MEDS: traZODone 50 MG TAB PO SCH (20:57)
[2022-06-09] MEDS: ARIPiprazole 10 MG TAB PO SCH (20:57)
[2022-06-09] MEDS: LIDOCAINE 5% (LIDODERM) PATCH TD SCH (20:57)
[2022-06-09] MEDS: EZETIMIBE 10MG TABLET (ZETIA) PO SCH (20:58)
[2022-06-10 06:00] VITALS: BP 126/68
[2022-06-10] MEDS: BENZONATATE 100MG CAPSULE PO SCH (06:00)
[2022-06-10] MEDS: DOCUSATE SODIUM 100MG CAPSULE PO SCH ×2 (10:03→20:25)
[2022-06-10] MEDS: DIVALPROEX 500 MG TAB PO SCH ×2 (10:04→20:26)
[2022-06-10] MEDS: oxyBUTYnin *DITROPAN XL* 5 MG TABCR PO SCH (10:04)
[2022-06-10] MEDS: DIVALPROEX 125 MG TAB PO SCH ×2 (10:04→20:26)
[2022-06-10] MEDS: PANTOPRAZOLE 40MG TAB (PROTONIX) PO SCH (10:04)
[2022-06-10] MEDS: BACLOFEN 10 MG TAB PO SCH ×2 (10:05→20:27)
[2022-06-10] MEDS: VERAPAMIL 180MG EXTENDED RELEASE TABLET PO SCH (10:05)
[2022-06-10] MEDS: **NOTE PATIENT COMMENT** MISC XX SCH (10:06)
[2022-06-10] MEDS: BENZONATATE 100MG CAPSULE PO PRN (12:27)
[2022-06-10] MEDS: RIVAROXABAN 10MG TAB (XARELTO) PO SCH (17:11)
[2022-06-10] MEDS: OLANZapine ORAL DISINTEGRATING TAB 5MG PO SCH (17:11)
[2022-06-10] MEDS: ARIPiprazole 10 MG TAB PO SCH (20:25)
[2022-06-10] MEDS: EZETIMIBE 10MG TABLET (ZETIA) PO SCH (20:27)
[2022-06-10] MEDS: RAMELTEON 8 MG TAB (ROZEREM) PO PRN (20:27)
[2022-06-10] MEDS: traZODone 50 MG TAB PO SCH (20:27)
[2022-06-10] MEDS: ACETAMINOPHEN TAB 650MG DOSE (2X325MG) PO PRN (20:27)
[2022-06-10] MEDS: LIDOCAINE 5% (LIDODERM) PATCH TD SCH (20:28)
[2022-06-11 05:46] VITALS: BP 119/51
[2022-06-11] MEDS: DIVALPROEX 125 MG TAB PO SCH ×2 (08:51→20:29)
[2022-06-11] MEDS: DIVALPROEX 500 MG TAB PO SCH ×2 (08:51→20:30)
[2022-06-11] MEDS: VERAPAMIL 180MG EXTENDED RELEASE TABLET PO SCH (08:51)
[2022-06-11] MEDS: BACLOFEN 10 MG TAB PO SCH ×2 (08:51→20:31)
[2022-06-11] MEDS: oxyBUTYnin *DITROPAN XL* 5 MG TABCR PO SCH (08:52)
[2022-06-11] MEDS: PANTOPRAZOLE 40MG TAB (PROTONIX) PO SCH (08:52)
[2022-06-11] MEDS: DOCUSATE SODIUM 100MG CAPSULE PO SCH ×2 (08:52→20:30)
[2022-06-11] MEDS: ACETAMINOPHEN TAB 650MG DOSE (2X325MG) PO PRN ×2 (08:59→20:32)
[2022-06-11] MEDS: BENZONATATE 100MG CAPSULE PO PRN ×2 (09:00→20:31)
[2022-06-11] MEDS: **NOTE PATIENT COMMENT** MISC XX SCH (09:09)
[2022-06-11] MEDS: RIVAROXABAN 10MG TAB (XARELTO) PO SCH (18:09)
[2022-06-11] MEDS: OLANZapine ORAL DISINTEGRATING TAB 5MG PO SCH (18:09)
[2022-06-11] MEDS: traZODone 50 MG TAB PO SCH (20:30)
[2022-06-11] MEDS: ARIPiprazole 10 MG TAB PO SCH (20:30)
[2022-06-11] MEDS: EZETIMIBE 10MG TABLET (ZETIA) PO SCH (20:30)
[2022-06-11] MEDS: RAMELTEON 8 MG TAB (ROZEREM) PO PRN (20:31)
[2022-06-11] MEDS: LIDOCAINE 5% (LIDODERM) PATCH TD SCH (20:31)
[2022-06-12 06:00] VITALS: BP 141/62
[2022-06-12] MEDS: oxyBUTYnin *DITROPAN XL* 5 MG TABCR PO SCH (08:58)
[2022-06-12] MEDS: DIVALPROEX 125 MG TAB PO SCH ×2 (08:58→20:26)
[2022-06-12] MEDS: BENZONATATE 100MG CAPSULE PO PRN ×2 (08:58→20:29)
[2022-06-12] MEDS: DOCUSATE SODIUM 100MG CAPSULE PO SCH ×2 (08:58→20:25)
[2022-06-12] MEDS: DIVALPROEX 500 MG TAB PO SCH ×2 (08:58→20:25)
[2022-06-12] MEDS: PANTOPRAZOLE 40MG TAB (PROTONIX) PO SCH (08:58)
[2022-06-12] MEDS: BACLOFEN 10 MG TAB PO SCH ×2 (08:58→20:25)
[2022-06-12] MEDS: VERAPAMIL 180MG EXTENDED RELEASE TABLET PO SCH (08:59)
[2022-06-12] MEDS: ACETAMINOPHEN TAB 650MG DOSE (2X325MG) PO PRN ×2 (08:59→20:33)
[2022-06-12] MEDS: OLANZapine ORAL DISINTEGRATING TAB 5MG PO SCH (17:01)
[2022-06-12] MEDS: RIVAROXABAN 10MG TAB (XARELTO) PO SCH (17:01)
[2022-06-12] MEDS: EZETIMIBE 10MG TABLET (ZETIA) PO SCH (20:25)
[2022-06-12] MEDS: ARIPiprazole 10 MG TAB PO SCH (20:25)
[2022-06-12] MEDS: traZODone 50 MG TAB PO SCH (20:25)
[2022-06-12] MEDS: LIDOCAINE 5% (LIDODERM) PATCH TD SCH (20:26)
[2022-06-12] MEDS: CALCIUM CARBONATE 500 MG CHEW U/D PO PRN (21:31)
[2022-06-13 05:40] VITALS: BP 113/39
[2022-06-13 06:58] LABS: BASO # 0.1 10^3/uL (0.0-0.2); BASO % 1.3 % (0.0-1.0); EOS # 0.3 10^3/uL (0.0-0.5); EOS % 5.3 % (0.0-3.0); HEMOGLOBIN 11.6 g/dl (12.0-15.5); LYMPH # 1.4 10^3/uL (1.5-5.0); LYMPH % 25.5 % (24.0-44.0); MEAN CORPUSCULAR HEMOGLOBIN 27.5 pg (27.0-33.0); MEAN CORPUSCULAR HGB CONC 32.2 g/dl (32.0-36.5); MEAN CORPUSCULAR VOLUME 85.3 fl (80.0-96.0); MONO # 0.9 10^3/uL (0.0-0.8); NEUTROPHILS # 2.8 10^3/uL (1.5-8.5); NEUTROPHILS % 50.4 % (36.0-66.0); PLATELET COUNT, AUTOMATED 256 10^3/uL (150-450); RED BLOOD COUNT 4.22 10^6/uL (4.00-5.40); WHITE BLOOD COUNT 5.5 10^3/uL (4.0-10.0)
[2022-06-13 07:36] LABS: ALBUMIN 2.8 GM/DL (3.2-5.2); ALT/SGPT 11 U/L (12-78); BILIRUBIN,TOTAL 0.2 MG/DL (0.2-1.0); BLOOD UREA NITROGEN 15 MG/DL (7-18); CARBON DIOXIDE LEVEL 30 MEQ/L (21-32); CHLORIDE LEVEL 101 MEQ/L (98-107); GLOMERULAR FILTRATION RATE > 60.0 (>39); GLUCOSE, FASTING 86 MG/DL (70-100); POTASSIUM SERUM 4.3 MEQ/L (3.5-5.1); SODIUM LEVEL 136 MEQ/L (136-145); TOTAL PROTEIN 6.6 GM/DL (6.4-8.2)
[2022-06-13] MEDS: PANTOPRAZOLE 40MG TAB (PROTONIX) PO SCH (09:00)
[2022-06-13] MEDS: oxyBUTYnin *DITROPAN XL* 5 MG TABCR PO SCH (09:00)
[2022-06-13] MEDS: DIVALPROEX 500 MG TAB PO SCH ×2 (09:00→21:08)
[2022-06-13] MEDS: DOCUSATE SODIUM 100MG CAPSULE PO SCH ×2 (09:00→21:07)
[2022-06-13] MEDS: DIVALPROEX 125 MG TAB PO SCH ×2 (09:00→21:08)
[2022-06-13] MEDS: FUROSEMIDE 20 MG TAB PO SCH (09:01)
[2022-06-13] MEDS: BACLOFEN 10 MG TAB PO SCH ×2 (09:01→21:07)
[2022-06-13] MEDS: BENZONATATE 100MG CAPSULE PO PRN ×2 (09:08→21:07)
[2022-06-13] MEDS: VERAPAMIL 180MG EXTENDED RELEASE TABLET PO SCH (09:08)
[2022-06-13] MEDS: guaiFENesin SYRUP 200MG 10ML UDC PO PRN (09:08)
[2022-06-13] MEDS: ACETAMINOPHEN TAB 650MG DOSE (2X325MG) PO PRN ×2 (16:23→21:08)
[2022-06-13] MEDS: OLANZapine ORAL DISINTEGRATING TAB 5MG PO SCH (16:24)
[2022-06-13] MEDS: RIVAROXABAN 10MG TAB (XARELTO) PO SCH (17:33)
[2022-06-13] MEDS: EZETIMIBE 10MG TABLET (ZETIA) PO SCH (21:07)
[2022-06-13] MEDS: ARIPiprazole 10 MG TAB PO SCH (21:07)
[2022-06-13] MEDS: CALCIUM CARBONATE 500 MG CHEW U/D PO PRN (21:07)
[2022-06-13] MEDS: LIDOCAINE 5% (LIDODERM) PATCH TD SCH (21:08)
[2022-06-13] MEDS: traZODone 50 MG TAB PO SCH (21:08)
[2022-06-14] MEDS: CALCIUM CARBONATE 500 MG CHEW U/D PO PRN ×2 (04:26→20:19)
[2022-06-14 05:32] VITALS: BP 134/54
[2022-06-14] MEDS: PANTOPRAZOLE 40MG TAB (PROTONIX) PO SCH (09:05)
[2022-06-14] MEDS: FUROSEMIDE 20 MG TAB PO SCH (09:06)
[2022-06-14] MEDS: VERAPAMIL 180MG EXTENDED RELEASE TABLET PO SCH (09:07)
[2022-06-14] MEDS: oxyBUTYnin *DITROPAN XL* 5 MG TABCR PO SCH (09:07)
[2022-06-14] MEDS: DIVALPROEX 125 MG TAB PO SCH ×2 (09:07→20:19)
[2022-06-14] MEDS: DOCUSATE SODIUM 100MG CAPSULE PO SCH ×2 (09:07→20:19)
[2022-06-14] MEDS: BACLOFEN 10 MG TAB PO SCH ×2 (09:08→20:19)
[2022-06-14] MEDS: DIVALPROEX 500 MG TAB PO SCH ×2 (09:08→20:19)
[2022-06-14] MEDS: LevoFLOXacin 500 MG TABLET PO SCH (10:31)
[2022-06-14] MEDS: OLANZapine ORAL DISINTEGRATING TAB 5MG PO SCH (17:08)
[2022-06-14] MEDS: RIVAROXABAN 10MG TAB (XARELTO) PO SCH (17:08)
[2022-06-14] MEDS: EZETIMIBE 10MG TABLET (ZETIA) PO SCH (20:18)
[2022-06-14] MEDS: LIDOCAINE 5% (LIDODERM) PATCH TD SCH (20:19)
[2022-06-14] MEDS: ARIPiprazole 10 MG TAB PO SCH (20:19)
[2022-06-14] MEDS: traZODone 50 MG TAB PO SCH (20:19)
[2022-06-14] MEDS: ACETAMINOPHEN TAB 650MG DOSE (2X325MG) PO PRN (20:20)
[2022-06-15] MEDS: LevoFLOXacin 500 MG TABLET PO SCH (05:21)
[2022-06-15 05:43] VITALS: BP 130/52
[2022-06-15 06:44] LABS: BLOOD UREA NITROGEN 18 MG/DL (7-18); CREATININE FOR GFR 0.82 MG/DL (0.55-1.30); GLUCOSE, FASTING 88 MG/DL (70-100)
[2022-06-15 06:45] LABS: CALCIUM LEVEL 9.3 MG/DL (8.8-10.2); CARBON DIOXIDE LEVEL 32 MEQ/L (21-32); CHLORIDE LEVEL 101 MEQ/L (98-107); GLOMERULAR FILTRATION RATE > 60.0 (>39); POTASSIUM SERUM 4.6 MEQ/L (3.5-5.1); SODIUM LEVEL 136 MEQ/L (136-145)
[2022-06-15] MEDS: VERAPAMIL 180MG EXTENDED RELEASE TABLET PO SCH (09:31)
[2022-06-15] MEDS: FUROSEMIDE 20 MG TAB PO SCH (09:32)
[2022-06-15] MEDS: oxyBUTYnin *DITROPAN XL* 5 MG TABCR PO SCH (09:32)
[2022-06-15] MEDS: DIVALPROEX 125 MG TAB PO SCH ×2 (09:32→20:05)
[2022-06-15] MEDS: DOCUSATE SODIUM 100MG CAPSULE PO SCH ×2 (09:32→20:06)
[2022-06-15] MEDS: PANTOPRAZOLE 40MG TAB (PROTONIX) PO SCH (09:32)
[2022-06-15] MEDS: BACLOFEN 10 MG TAB PO SCH ×2 (09:32→20:06)
[2022-06-15] MEDS: DIVALPROEX 500 MG TAB PO SCH ×2 (09:32→20:06)
[2022-06-15] MEDS: RIVAROXABAN 10MG TAB (XARELTO) PO SCH (17:04)
[2022-06-15] MEDS: OLANZapine ORAL DISINTEGRATING TAB 5MG PO SCH (17:04)
[2022-06-15] MEDS: LIDOCAINE 5% (LIDODERM) PATCH TD SCH (20:05)
[2022-06-15] MEDS: EZETIMIBE 10MG TABLET (ZETIA) PO SCH (20:06)
[2022-06-15] MEDS: ARIPiprazole 10 MG TAB PO SCH (20:06)
[2022-06-15] MEDS: traZODone 50 MG TAB PO SCH (20:06)
[2022-06-15] MEDS: RAMELTEON 8 MG TAB (ROZEREM) PO PRN (22:57)
[2022-06-15] MEDS: ACETAMINOPHEN TAB 650MG DOSE (2X325MG) PO PRN (22:57)
[2022-06-16] MEDS: LevoFLOXacin 500 MG TABLET PO SCH (05:08)
[2022-06-16] MEDS: ACETAMINOPHEN TAB 650MG DOSE (2X325MG) PO PRN ×2 (05:10→21:38)
[2022-06-16 05:12] VITALS: BP 130/56
[2022-06-16] MEDS: BACLOFEN 10 MG TAB PO SCH ×2 (08:15→21:38)
[2022-06-16] MEDS: PANTOPRAZOLE 40MG TAB (PROTONIX) PO SCH (08:15)
[2022-06-16] MEDS: VERAPAMIL 180MG EXTENDED RELEASE TABLET PO SCH (08:15)
[2022-06-16] MEDS: FUROSEMIDE 20 MG TAB PO SCH (08:16)
[2022-06-16] MEDS: DIVALPROEX 500 MG TAB PO SCH ×2 (08:16→21:38)
[2022-06-16] MEDS: DIVALPROEX 125 MG TAB PO SCH ×2 (08:16→21:37)
[2022-06-16] MEDS: DOCUSATE SODIUM 100MG CAPSULE PO SCH ×2 (08:16→21:38)
[2022-06-16] MEDS: oxyBUTYnin *DITROPAN XL* 5 MG TABCR PO SCH (08:16)
[2022-06-16] MEDS: RIVAROXABAN 10MG TAB (XARELTO) PO SCH (18:10)
[2022-06-16] MEDS: OLANZapine ORAL DISINTEGRATING TAB 5MG PO SCH (18:10)
[2022-06-16] MEDS: ARIPiprazole 10 MG TAB PO SCH (21:37)
[2022-06-16] MEDS: traZODone 50 MG TAB PO SCH (21:38)
[2022-06-16] MEDS: EZETIMIBE 10MG TABLET (ZETIA) PO SCH (21:38)
[2022-06-16] MEDS: LIDOCAINE 5% (LIDODERM) PATCH TD SCH (21:39)
[2022-06-17] MEDS: LevoFLOXacin 500 MG TABLET PO SCH (05:19)
[2022-06-17 06:00] VITALS: BP 129/54
[2022-06-17] MEDS: DIVALPROEX 125 MG TAB PO SCH ×2 (09:02→20:38)
[2022-06-17] MEDS: oxyBUTYnin *DITROPAN XL* 5 MG TABCR PO SCH (09:03)
[2022-06-17] MEDS: DIVALPROEX 500 MG TAB PO SCH ×2 (09:03→20:39)
[2022-06-17] MEDS: VERAPAMIL 180MG EXTENDED RELEASE TABLET PO SCH (09:04)
[2022-06-17] MEDS: PANTOPRAZOLE 40MG TAB (PROTONIX) PO SCH (09:04)
[2022-06-17] MEDS: FUROSEMIDE 20 MG TAB PO SCH (09:04)
[2022-06-17] MEDS: DOCUSATE SODIUM 100MG CAPSULE PO SCH ×2 (09:04→20:38)
[2022-06-17] MEDS: BACLOFEN 10 MG TAB PO SCH ×2 (09:06→20:39)
[2022-06-17] MEDS: RIVAROXABAN 10MG TAB (XARELTO) PO SCH (17:38)
[2022-06-17] MEDS: OLANZapine ORAL DISINTEGRATING TAB 5MG PO SCH (17:38)
[2022-06-17] MEDS: traZODone 50 MG TAB PO SCH (20:38)
[2022-06-17] MEDS: ARIPiprazole 10 MG TAB PO SCH (20:39)
[2022-06-17] MEDS: EZETIMIBE 10MG TABLET (ZETIA) PO SCH (20:39)
[2022-06-17] MEDS: LIDOCAINE 5% (LIDODERM) PATCH TD SCH (20:39)
[2022-06-17] MEDS: ACETAMINOPHEN TAB 650MG DOSE (2X325MG) PO PRN (20:39)
[2022-06-18 06:00] VITALS: BP 138/67
[2022-06-18] MEDS: LevoFLOXacin 500 MG TABLET PO SCH (06:32)
[2022-06-18] MEDS: VERAPAMIL 180MG EXTENDED RELEASE TABLET PO SCH (08:46)
[2022-06-18] MEDS: DIVALPROEX 500 MG TAB PO SCH ×2 (08:46→20:27)
[2022-06-18] MEDS: DIVALPROEX 125 MG TAB PO SCH ×2 (08:46→20:27)
[2022-06-18] MEDS: DOCUSATE SODIUM 100MG CAPSULE PO SCH ×2 (08:47→20:27)
[2022-06-18] MEDS: oxyBUTYnin *DITROPAN XL* 5 MG TABCR PO SCH (08:47)
[2022-06-18] MEDS: FUROSEMIDE 20 MG TAB PO SCH (08:47)
[2022-06-18] MEDS: PANTOPRAZOLE 40MG TAB (PROTONIX) PO SCH (08:48)
[2022-06-18] MEDS: BACLOFEN 10 MG TAB PO SCH ×2 (08:48→20:27)
[2022-06-18] MEDS: OLANZapine ORAL DISINTEGRATING TAB 5MG PO SCH (17:03)
[2022-06-18] MEDS: RIVAROXABAN 10MG TAB (XARELTO) PO SCH (17:03)
[2022-06-18] MEDS: LIDOCAINE 5% (LIDODERM) PATCH TD SCH (20:26)
[2022-06-18] MEDS: traZODone 50 MG TAB PO SCH (20:27)
[2022-06-18] MEDS: ARIPiprazole 10 MG TAB PO SCH (20:27)
[2022-06-18] MEDS: EZETIMIBE 10MG TABLET (ZETIA) PO SCH (20:27)
[2022-06-19] MEDS: LevoFLOXacin 500 MG TABLET PO SCH (05:11)
[2022-06-19 05:12] VITALS: BP 110/61
[2022-06-19] MEDS: DOCUSATE SODIUM 100MG CAPSULE PO SCH ×2 (09:21→21:27)
[2022-06-19] MEDS: DIVALPROEX 500 MG TAB PO SCH ×2 (09:22→21:28)
[2022-06-19] MEDS: DIVALPROEX 125 MG TAB PO SCH ×2 (09:22→21:28)
[2022-06-19] MEDS: PANTOPRAZOLE 40MG TAB (PROTONIX) PO SCH (09:22)
[2022-06-19] MEDS: BACLOFEN 10 MG TAB PO SCH ×2 (09:23→21:27)
[2022-06-19] MEDS: oxyBUTYnin *DITROPAN XL* 5 MG TABCR PO SCH (09:23)
[2022-06-19] MEDS: VERAPAMIL 180MG EXTENDED RELEASE TABLET PO SCH (09:23)
[2022-06-19] MEDS: FUROSEMIDE 20 MG TAB PO SCH (09:23)
[2022-06-19] MEDS: OLANZapine ORAL DISINTEGRATING TAB 5MG PO SCH (17:23)
[2022-06-19] MEDS: RIVAROXABAN 10MG TAB (XARELTO) PO SCH (17:23)
[2022-06-19] MEDS: traZODone 50 MG TAB PO SCH (21:27)
[2022-06-19] MEDS: EZETIMIBE 10MG TABLET (ZETIA) PO SCH (21:27)
[2022-06-19] MEDS: ACETAMINOPHEN TAB 650MG DOSE (2X325MG) PO PRN (21:28)
[2022-06-19] MEDS: ARIPiprazole 10 MG TAB PO SCH (21:28)
[2022-06-19] MEDS: LIDOCAINE 5% (LIDODERM) PATCH TD SCH (21:28)
[2022-06-20] MEDS: LevoFLOXacin 500 MG TABLET PO SCH (05:43)
[2022-06-20 06:37] VITALS: BP 117/65
[2022-06-20] MEDS: DOCUSATE SODIUM 100MG CAPSULE PO SCH ×2 (09:22→22:30)
[2022-06-20] MEDS: oxyBUTYnin *DITROPAN XL* 5 MG TABCR PO SCH (09:22)
[2022-06-20] MEDS: FUROSEMIDE 20 MG TAB PO SCH (09:22)
[2022-06-20] MEDS: DIVALPROEX 125 MG TAB PO SCH ×2 (09:22→22:31)
[2022-06-20] MEDS: DICYCLOMINE 10 MG CAP PO PRN (09:23)
[2022-06-20] MEDS: VERAPAMIL 180MG EXTENDED RELEASE TABLET PO SCH (09:24)
[2022-06-20] MEDS: PANTOPRAZOLE 40MG TAB (PROTONIX) PO SCH (09:26)
[2022-06-20] MEDS: BACLOFEN 10 MG TAB PO SCH ×2 (09:26→22:31)
[2022-06-20] MEDS: DIVALPROEX 500 MG TAB PO SCH ×2 (09:35→22:31)
[2022-06-20] MEDS: SIMETHICONE 80MG CHEW TAB PO PRN (11:08)
[2022-06-20] MEDS: RIVAROXABAN 10MG TAB (XARELTO) PO SCH (17:09)
[2022-06-20] MEDS: OLANZapine ORAL DISINTEGRATING TAB 5MG PO SCH (17:09)
[2022-06-20] MEDS: ARIPiprazole 10 MG TAB PO SCH (22:30)
[2022-06-20] MEDS: EZETIMIBE 10MG TABLET (ZETIA) PO SCH (22:30)
[2022-06-20] MEDS: ACETAMINOPHEN TAB 650MG DOSE (2X325MG) PO PRN (22:30)
[2022-06-20] MEDS: traZODone 50 MG TAB PO SCH (22:31)
[2022-06-20] MEDS: LIDOCAINE 5% (LIDODERM) PATCH TD SCH (22:32)
[2022-06-21 05:02] VITALS: BP 106/43
[2022-06-21] MEDS: VERAPAMIL 180MG EXTENDED RELEASE TABLET PO SCH (08:22)
[2022-06-21] MEDS: DOCUSATE SODIUM 100MG CAPSULE PO SCH ×2 (08:23→22:15)
[2022-06-21] MEDS: PANTOPRAZOLE 40MG TAB (PROTONIX) PO SCH (08:24)
[2022-06-21] MEDS: BACLOFEN 10 MG TAB PO SCH ×2 (08:24→22:17)
[2022-06-21] MEDS: FUROSEMIDE 20 MG TAB PO SCH (08:24)
[2022-06-21] MEDS: oxyBUTYnin *DITROPAN XL* 5 MG TABCR PO SCH (08:25)
[2022-06-21] MEDS: DIVALPROEX 125 MG TAB PO SCH ×2 (08:25→22:16)
[2022-06-21] MEDS: DIVALPROEX 500 MG TAB PO SCH ×2 (08:26→22:15)
[2022-06-21] MEDS: BENZONATATE 100MG CAPSULE PO PRN (08:35)
[2022-06-21] MEDS: guaiFENesin SYRUP 200MG 10ML UDC PO PRN (08:35)
[2022-06-21] MEDS: OLANZapine ORAL DISINTEGRATING TAB 5MG PO SCH (17:38)
[2022-06-21] MEDS: RIVAROXABAN 10MG TAB (XARELTO) PO SCH (17:38)
[2022-06-21] MEDS: LIDOCAINE 5% (LIDODERM) PATCH TD SCH (22:14)
[2022-06-21] MEDS: EZETIMIBE 10MG TABLET (ZETIA) PO SCH (22:15)
[2022-06-21] MEDS: traZODone 50 MG TAB PO SCH (22:15)
[2022-06-21] MEDS: ARIPiprazole 10 MG TAB PO SCH (22:16)
[2022-06-21] MEDS: ACETAMINOPHEN TAB 650MG DOSE (2X325MG) PO PRN (22:25)
[2022-06-21] MEDS: SIMETHICONE 80MG CHEW TAB PO PRN (22:25)
[2022-06-21] MEDS: RAMELTEON 8 MG TAB (ROZEREM) PO PRN (22:26)
[2022-06-22 05:18] VITALS: BP 101/47
[2022-06-22] MEDS: oxyBUTYnin *DITROPAN XL* 5 MG TABCR PO SCH ×3 (09:00→20:45)
[2022-06-22] MEDS: BACLOFEN 10 MG TAB PO SCH ×2 (09:31→20:45)
[2022-06-22] MEDS: FUROSEMIDE 20 MG TAB PO SCH (09:31)
[2022-06-22] MEDS: DOCUSATE SODIUM 100MG CAPSULE PO SCH ×2 (09:31→20:44)
[2022-06-22] MEDS: PANTOPRAZOLE 40MG TAB (PROTONIX) PO SCH (09:31)
[2022-06-22] MEDS: DIVALPROEX 125 MG TAB PO SCH ×2 (09:35→20:45)
[2022-06-22] MEDS: DIVALPROEX 500 MG TAB PO SCH ×2 (09:35→20:45)
[2022-06-22] MEDS: VERAPAMIL 180MG EXTENDED RELEASE TABLET PO SCH (09:36)
[2022-06-22] MEDS: BENZONATATE 100MG CAPSULE PO PRN ×2 (10:52→20:46)
[2022-06-22] MEDS: guaiFENesin SYRUP 200MG 10ML UDC PO PRN ×2 (10:52→20:46)
[2022-06-22] MEDS: SIMETHICONE 80MG CHEW TAB PO PRN (11:57)
[2022-06-22] MEDS: ACETAMINOPHEN TAB 650MG DOSE (2X325MG) PO PRN ×2 (13:16→20:47)
[2022-06-22] MEDS: RIVAROXABAN 10MG TAB (XARELTO) PO SCH (17:57)
[2022-06-22] MEDS: OLANZapine ORAL DISINTEGRATING TAB 5MG PO SCH (17:57)
[2022-06-22] MEDS: ARIPiprazole 10 MG TAB PO SCH (20:44)
[2022-06-22] MEDS: traZODone 50 MG TAB PO SCH (20:45)
[2022-06-22] MEDS: EZETIMIBE 10MG TABLET (ZETIA) PO SCH (20:45)
[2022-06-22] MEDS: LIDOCAINE 5% (LIDODERM) PATCH TD SCH (20:46)
[2022-06-22] MEDS: RAMELTEON 8 MG TAB (ROZEREM) PO PRN (20:46)
[2022-06-22] MEDS ORDERED: DIVALPROEX 125 MG TAB PO SCH (21:00)
[2022-06-23 04:50] VITALS: BP 108/46
[2022-06-23] MEDS: PANTOPRAZOLE 40MG TAB (PROTONIX) PO SCH (08:58)
[2022-06-23] MEDS: DIVALPROEX 125 MG TAB PO SCH ×2 (08:58→21:35)
[2022-06-23] MEDS: BACLOFEN 10 MG TAB PO SCH ×2 (09:00→21:36)
[2022-06-23] MEDS: DOCUSATE SODIUM 100MG CAPSULE PO SCH ×2 (09:00→21:35)
[2022-06-23] MEDS: VERAPAMIL 180MG EXTENDED RELEASE TABLET PO SCH (09:00)
[2022-06-23] MEDS: FUROSEMIDE 20 MG TAB PO SCH (09:00)
[2022-06-23] MEDS: DIVALPROEX 500 MG TAB PO SCH ×2 (09:00→21:36)
[2022-06-23] MEDS: RIVAROXABAN 10MG TAB (XARELTO) PO SCH (17:09)
[2022-06-23] MEDS: OLANZapine ORAL DISINTEGRATING TAB 5MG PO SCH (17:09)
[2022-06-23] MEDS: ACETAMINOPHEN TAB 650MG DOSE (2X325MG) PO PRN (18:16)
[2022-06-23] MEDS: ARIPiprazole 10 MG TAB PO SCH (21:35)
[2022-06-23] MEDS: traZODone 50 MG TAB PO SCH (21:36)
[2022-06-23] MEDS: LIDOCAINE 5% (LIDODERM) PATCH TD SCH (21:36)
[2022-06-23] MEDS: guaiFENesin SYRUP 200MG 10ML UDC PO PRN (21:36)
[2022-06-23] MEDS: oxyBUTYnin *DITROPAN XL* 5 MG TABCR PO SCH (21:36)
[2022-06-23] MEDS: EZETIMIBE 10MG TABLET (ZETIA) PO SCH (21:36)
[2022-06-23] MEDS: AZELASTINE 137MCG NASAL SPY 30 ML (ASTELIN) PRN (21:37)
[2022-06-23] MEDS: RAMELTEON 8 MG TAB (ROZEREM) PO PRN (21:37)
[2022-06-23] MEDS: BENZONATATE 100MG CAPSULE PO PRN (21:37)
[2022-06-24 06:00] VITALS: BP 112/62
[2022-06-24] MEDS: PANTOPRAZOLE 40MG TAB (PROTONIX) PO SCH (09:58)
[2022-06-24] MEDS: FUROSEMIDE 20 MG TAB PO SCH (09:58)
[2022-06-24] MEDS: BACLOFEN 10 MG TAB PO SCH ×2 (09:58→22:42)
[2022-06-24] MEDS: DIVALPROEX 500 MG TAB PO SCH ×2 (09:59→22:41)
[2022-06-24] MEDS: DOCUSATE SODIUM 100MG CAPSULE PO SCH ×2 (10:00→22:41)
[2022-06-24] MEDS: DIVALPROEX 125 MG TAB PO SCH ×2 (10:00→22:41)
[2022-06-24] MEDS: VERAPAMIL 180MG EXTENDED RELEASE TABLET PO SCH (10:00)
[2022-06-24] MEDS: RIVAROXABAN 10MG TAB (XARELTO) PO SCH (17:29)
[2022-06-24] MEDS: OLANZapine ORAL DISINTEGRATING TAB 5MG PO SCH (17:29)
[2022-06-24] MEDS: ARIPiprazole 10 MG TAB PO SCH (22:40)
[2022-06-24] MEDS: traZODone 50 MG TAB PO SCH (22:41)
[2022-06-24] MEDS: LIDOCAINE 5% (LIDODERM) PATCH TD SCH (22:42)
[2022-06-24] MEDS: BENZONATATE 100MG CAPSULE PO PRN (22:42)
[2022-06-24] MEDS: RAMELTEON 8 MG TAB (ROZEREM) PO PRN (22:42)
[2022-06-24] MEDS: guaiFENesin SYRUP 200MG 10ML UDC PO PRN (22:42)
[2022-06-24] MEDS: oxyBUTYnin *DITROPAN XL* 5 MG TABCR PO SCH (22:42)
[2022-06-24] MEDS: EZETIMIBE 10MG TABLET (ZETIA) PO SCH (22:42)
[2022-06-24] MEDS: ACETAMINOPHEN TAB 650MG DOSE (2X325MG) PO PRN (22:43)
[2022-06-25 06:00] VITALS: BP 122/53
[2022-06-25] MEDS: DOCUSATE SODIUM 100MG CAPSULE PO SCH ×2 (09:36→20:13)
[2022-06-25] MEDS: VERAPAMIL 180MG EXTENDED RELEASE TABLET PO SCH (09:37)
[2022-06-25] MEDS: DIVALPROEX 500 MG TAB PO SCH ×2 (09:37→20:14)
[2022-06-25] MEDS: BACLOFEN 10 MG TAB PO SCH ×2 (09:37→20:14)
[2022-06-25] MEDS: DIVALPROEX 125 MG TAB PO SCH ×2 (09:37→20:14)
[2022-06-25] MEDS: FUROSEMIDE 20 MG TAB PO SCH (09:38)
[2022-06-25] MEDS: PANTOPRAZOLE 40MG TAB (PROTONIX) PO SCH (09:38)
[2022-06-25] MEDS: RIVAROXABAN 10MG TAB (XARELTO) PO SCH (18:05)
[2022-06-25] MEDS: OLANZapine ORAL DISINTEGRATING TAB 5MG PO SCH (18:05)
[2022-06-25] MEDS: RAMELTEON 8 MG TAB (ROZEREM) PO PRN (20:13)
[2022-06-25] MEDS: LIDOCAINE 5% (LIDODERM) PATCH TD SCH (20:13)
[2022-06-25] MEDS: ARIPiprazole 10 MG TAB PO SCH (20:13)
[2022-06-25] MEDS: traZODone 50 MG TAB PO SCH (20:14)
[2022-06-25] MEDS: EZETIMIBE 10MG TABLET (ZETIA) PO SCH (20:14)
[2022-06-25] MEDS: oxyBUTYnin *DITROPAN XL* 5 MG TABCR PO SCH (20:14)
[2022-06-25] MEDS: ACETAMINOPHEN TAB 650MG DOSE (2X325MG) PO PRN (20:15)
[2022-06-25] MEDS: guaiFENesin SYRUP 200MG 10ML UDC PO PRN (20:20)
[2022-06-25] MEDS: BENZONATATE 100MG CAPSULE PO PRN (20:20)
[2022-06-26 06:00] VITALS: BP 109/48
[2022-06-26] MEDS: BACLOFEN 10 MG TAB PO SCH ×2 (08:45→21:17)
[2022-06-26] MEDS: DOCUSATE SODIUM 100MG CAPSULE PO SCH ×2 (08:45→21:16)
[2022-06-26] MEDS: DIVALPROEX 500 MG TAB PO SCH ×2 (08:45→21:16)
[2022-06-26] MEDS: PANTOPRAZOLE 40MG TAB (PROTONIX) PO SCH (08:45)
[2022-06-26] MEDS: FUROSEMIDE 20 MG TAB PO SCH (08:46)
[2022-06-26] MEDS: DIVALPROEX 125 MG TAB PO SCH ×2 (08:46→21:16)
[2022-06-26] MEDS: VERAPAMIL 180MG EXTENDED RELEASE TABLET PO SCH (08:48)
[2022-06-26] MEDS: guaiFENesin SYRUP 200MG 10ML UDC PO PRN ×2 (08:51→21:17)
[2022-06-26] MEDS: BENZONATATE 100MG CAPSULE PO PRN ×2 (08:51→21:17)
[2022-06-26] MEDS: OLANZapine ORAL DISINTEGRATING TAB 5MG PO SCH (17:14)
[2022-06-26] MEDS: RIVAROXABAN 10MG TAB (XARELTO) PO SCH (17:14)
[2022-06-26] MEDS: ARIPiprazole 10 MG TAB PO SCH (21:16)
[2022-06-26] MEDS: traZODone 50 MG TAB PO SCH (21:16)
[2022-06-26] MEDS: EZETIMIBE 10MG TABLET (ZETIA) PO SCH (21:17)
[2022-06-26] MEDS: RAMELTEON 8 MG TAB (ROZEREM) PO PRN (21:17)
[2022-06-26] MEDS: oxyBUTYnin *DITROPAN XL* 5 MG TABCR PO SCH (21:17)
[2022-06-26] MEDS: LIDOCAINE 5% (LIDODERM) PATCH TD SCH (21:17)
[2022-06-26] MEDS: ACETAMINOPHEN TAB 650MG DOSE (2X325MG) PO PRN (21:18)
[2022-06-27 04:50] VITALS: BP 107/53
[2022-06-27] MEDS: DOCUSATE SODIUM 100MG CAPSULE PO SCH ×2 (08:24→21:09)
[2022-06-27] MEDS: guaiFENesin SYRUP 200MG 10ML UDC PO PRN ×2 (08:24→21:11)
[2022-06-27] MEDS: BACLOFEN 10 MG TAB PO SCH ×2 (08:24→21:10)
[2022-06-27] MEDS: DIVALPROEX 500 MG TAB PO SCH ×2 (08:24→21:10)
[2022-06-27] MEDS: BENZONATATE 100MG CAPSULE PO PRN ×2 (08:24→21:11)
[2022-06-27] MEDS: DIVALPROEX 125 MG TAB PO SCH ×2 (08:24→21:09)
[2022-06-27] MEDS: PANTOPRAZOLE 40MG TAB (PROTONIX) PO SCH (08:24)
[2022-06-27] MEDS: FUROSEMIDE 20 MG TAB PO SCH (08:25)
[2022-06-27] MEDS: VERAPAMIL 180MG EXTENDED RELEASE TABLET PO SCH (08:27)
[2022-06-27] MEDS: ACETAMINOPHEN TAB 650MG DOSE (2X325MG) PO PRN ×3 (08:30→21:11)
[2022-06-27] MEDS: RIVAROXABAN 10MG TAB (XARELTO) PO SCH (17:08)
[2022-06-27] MEDS: OLANZapine ORAL DISINTEGRATING TAB 5MG PO SCH (17:08)
[2022-06-27] MEDS: ARIPiprazole 10 MG TAB PO SCH (21:09)
[2022-06-27] MEDS: oxyBUTYnin *DITROPAN XL* 5 MG TABCR PO SCH (21:10)
[2022-06-27] MEDS: EZETIMIBE 10MG TABLET (ZETIA) PO SCH (21:10)
[2022-06-27] MEDS: traZODone 50 MG TAB PO SCH (21:10)
[2022-06-27] MEDS: RAMELTEON 8 MG TAB (ROZEREM) PO PRN (21:11)
[2022-06-27] MEDS: LIDOCAINE 5% (LIDODERM) PATCH TD SCH (21:11)
[2022-06-28 04:00] VITALS: BP 114/83
[2022-06-28 04:30] VITALS: BP 112/48
[2022-06-28] MEDS ORDERED: diphenhydrAMINE 25MG CAP PO ONE (08:50)
[2022-06-28] MEDS: BACLOFEN 10 MG TAB PO SCH ×2 (08:58→21:39)
[2022-06-28] MEDS: DOCUSATE SODIUM 100MG CAPSULE PO SCH ×2 (08:58→21:39)
[2022-06-28] MEDS: PANTOPRAZOLE 40MG TAB (PROTONIX) PO SCH (08:58)
[2022-06-28] MEDS: FUROSEMIDE 20 MG TAB PO SCH (08:58)
[2022-06-28] MEDS: DIVALPROEX 125 MG TAB PO SCH ×2 (08:58→21:39)
[2022-06-28] MEDS: VERAPAMIL 180MG EXTENDED RELEASE TABLET PO SCH (08:59)
[2022-06-28] MEDS: DIVALPROEX 500 MG TAB PO SCH ×2 (08:59→21:39)
[2022-06-28] MEDS: RIVAROXABAN 10MG TAB (XARELTO) PO SCH (17:05)
[2022-06-28] MEDS: OLANZapine ORAL DISINTEGRATING TAB 5MG PO SCH (17:05)
[2022-06-28] MEDS: ARIPiprazole 10 MG TAB PO SCH (21:39)
[2022-06-28] MEDS: oxyBUTYnin *DITROPAN XL* 5 MG TABCR PO SCH (21:39)
[2022-06-28] MEDS: EZETIMIBE 10MG TABLET (ZETIA) PO SCH (21:39)
[2022-06-28] MEDS: traZODone 50 MG TAB PO SCH (21:39)
[2022-06-28] MEDS: LIDOCAINE 5% (LIDODERM) PATCH TD SCH (21:40)
[2022-06-28] MEDS: BENZONATATE 100MG CAPSULE PO PRN (21:40)
[2022-06-28] MEDS: RAMELTEON 8 MG TAB (ROZEREM) PO PRN (21:40)
[2022-06-28] MEDS: guaiFENesin SYRUP 200MG 10ML UDC PO PRN (21:40)
[2022-06-28] MEDS: ACETAMINOPHEN TAB 650MG DOSE (2X325MG) PO PRN (21:40)
[2022-06-28] MEDS: SIMETHICONE 80MG CHEW TAB PO PRN (21:42)
[2022-06-29 06:00] VITALS: BP 120/48
[2022-06-29] MEDS: ACETAMINOPHEN TAB 650MG DOSE (2X325MG) PO PRN (08:00)
[2022-06-29] MEDS: guaiFENesin SYRUP 200MG 10ML UDC PO PRN ×2 (08:00→22:01)
[2022-06-29] MEDS: BENZONATATE 100MG CAPSULE PO PRN ×2 (08:01→22:01)
[2022-06-29] MEDS: DIVALPROEX 125 MG TAB PO SCH ×2 (08:01→22:00)
[2022-06-29] MEDS: DOCUSATE SODIUM 100MG CAPSULE PO SCH ×2 (08:01→22:01)
[2022-06-29] MEDS: DIVALPROEX 500 MG TAB PO SCH ×2 (08:01→22:02)
[2022-06-29] MEDS: VERAPAMIL 180MG EXTENDED RELEASE TABLET PO SCH (08:04)
[2022-06-29] MEDS: BACLOFEN 10 MG TAB PO SCH ×2 (08:04→22:01)
[2022-06-29] MEDS: PANTOPRAZOLE 40MG TAB (PROTONIX) PO SCH (08:05)
[2022-06-29] MEDS: FUROSEMIDE 20 MG TAB PO SCH (08:05)
[2022-06-29] MEDS ORDERED: LORazepam 0.5 MG TAB PO ONE (10:00)
[2022-06-29] MEDS: OLANZapine ORAL DISINTEGRATING TAB 5MG PO SCH (17:25)
[2022-06-29] MEDS: RIVAROXABAN 10MG TAB (XARELTO) PO SCH (17:25)
[2022-06-29] MEDS: traZODone 50 MG TAB PO SCH (22:00)
[2022-06-29] MEDS: ARIPiprazole 10 MG TAB PO SCH (22:01)
[2022-06-29] MEDS: EZETIMIBE 10MG TABLET (ZETIA) PO SCH (22:01)
[2022-06-29] MEDS: oxyBUTYnin *DITROPAN XL* 5 MG TABCR PO SCH (22:01)
[2022-06-29] MEDS: LIDOCAINE 5% (LIDODERM) PATCH TD SCH (22:02)
[2022-06-30 05:33] VITALS: BP 121/57
[2022-06-30] MEDS: VERAPAMIL 180MG EXTENDED RELEASE TABLET PO SCH (09:04)
[2022-06-30] MEDS: DIVALPROEX 125 MG TAB PO SCH ×2 (09:04→21:11)
[2022-06-30] MEDS: DOCUSATE SODIUM 100MG CAPSULE PO SCH ×2 (09:05→21:11)
[2022-06-30] MEDS: BACLOFEN 10 MG TAB PO SCH ×2 (09:05→21:11)
[2022-06-30] MEDS: SIMETHICONE 80MG CHEW TAB PO PRN (09:05)
[2022-06-30] MEDS: PANTOPRAZOLE 40MG TAB (PROTONIX) PO SCH (09:05)
[2022-06-30] MEDS: BENZONATATE 100MG CAPSULE PO PRN (09:06)
[2022-06-30] MEDS: FUROSEMIDE 20 MG TAB PO SCH (09:06)
[2022-06-30] MEDS: DIVALPROEX 500 MG TAB PO SCH ×2 (09:11→21:10)
[2022-06-30] MEDS: OLANZapine ORAL DISINTEGRATING TAB 5MG PO SCH (18:27)
[2022-06-30] MEDS: RIVAROXABAN 10MG TAB (XARELTO) PO SCH (18:27)
[2022-06-30] MEDS: LIDOCAINE 5% (LIDODERM) PATCH TD SCH (21:10)
[2022-06-30] MEDS: ARIPiprazole 10 MG TAB PO SCH (21:11)
[2022-06-30] MEDS: EZETIMIBE 10MG TABLET (ZETIA) PO SCH (21:11)
[2022-06-30] MEDS: oxyBUTYnin *DITROPAN XL* 5 MG TABCR PO SCH (21:11)
[2022-06-30] MEDS: traZODone 50 MG TAB PO SCH (21:11)
[2022-07-01 06:00] VITALS: BP 126/54
[2022-07-01] MEDS: DIVALPROEX 500 MG TAB PO SCH ×2 (09:30→21:21)
[2022-07-01] MEDS: DIVALPROEX 125 MG TAB PO SCH ×2 (09:30→21:21)
[2022-07-01] MEDS: PANTOPRAZOLE 40MG TAB (PROTONIX) PO SCH (09:30)
[2022-07-01] MEDS: BACLOFEN 10 MG TAB PO SCH ×2 (09:31→21:21)
[2022-07-01] MEDS: VERAPAMIL 180MG EXTENDED RELEASE TABLET PO SCH (09:31)
[2022-07-01] MEDS: DOCUSATE SODIUM 100MG CAPSULE PO SCH ×2 (09:31→21:21)
[2022-07-01] MEDS: FUROSEMIDE 20 MG TAB PO SCH (09:32)
[2022-07-01] MEDS: OLANZapine ORAL DISINTEGRATING TAB 5MG PO SCH (18:16)
[2022-07-01] MEDS: RIVAROXABAN 10MG TAB (XARELTO) PO SCH (18:16)
[2022-07-01] MEDS: LIDOCAINE 5% (LIDODERM) PATCH TD SCH (21:20)
[2022-07-01] MEDS: ACETAMINOPHEN TAB 650MG DOSE (2X325MG) PO PRN (21:20)
[2022-07-01] MEDS: RAMELTEON 8 MG TAB (ROZEREM) PO PRN (21:21)
[2022-07-01] MEDS: oxyBUTYnin *DITROPAN XL* 5 MG TABCR PO SCH (21:21)
[2022-07-01] MEDS: EZETIMIBE 10MG TABLET (ZETIA) PO SCH (21:21)
[2022-07-01] MEDS: ARIPiprazole 10 MG TAB PO SCH (21:21)
[2022-07-01] MEDS: traZODone 50 MG TAB PO SCH (21:21)
[2022-07-02 06:47] VITALS: BP 107/59
[2022-07-02] MEDS: DIVALPROEX 500 MG TAB PO SCH ×2 (09:16→21:03)
[2022-07-02] MEDS: BACLOFEN 10 MG TAB PO SCH ×2 (09:17→21:03)
[2022-07-02] MEDS: DIVALPROEX 125 MG TAB PO SCH ×2 (09:17→21:03)
[2022-07-02] MEDS: PANTOPRAZOLE 40MG TAB (PROTONIX) PO SCH (09:17)
[2022-07-02] MEDS: DOCUSATE SODIUM 100MG CAPSULE PO SCH ×2 (09:17→21:03)
[2022-07-02] MEDS: FUROSEMIDE 20 MG TAB PO SCH (09:17)
[2022-07-02] MEDS: VERAPAMIL 180MG EXTENDED RELEASE TABLET PO SCH (09:18)
[2022-07-02] MEDS: OLANZapine ORAL DISINTEGRATING TAB 5MG PO SCH (17:09)
[2022-07-02] MEDS: RIVAROXABAN 10MG TAB (XARELTO) PO SCH (17:09)
[2022-07-02] MEDS: EZETIMIBE 10MG TABLET (ZETIA) PO SCH (21:03)
[2022-07-02] MEDS: traZODone 50 MG TAB PO SCH (21:03)
[2022-07-02] MEDS: oxyBUTYnin *DITROPAN XL* 5 MG TABCR PO SCH (21:03)
[2022-07-02] MEDS: ARIPiprazole 10 MG TAB PO SCH (21:03)
[2022-07-02] MEDS: ACETAMINOPHEN TAB 650MG DOSE (2X325MG) PO PRN (21:03)
[2022-07-02] MEDS: RAMELTEON 8 MG TAB (ROZEREM) PO PRN (21:03)
[2022-07-02] MEDS: LIDOCAINE 5% (LIDODERM) PATCH TD SCH (21:04)
[2022-07-02] MEDS: SIMETHICONE 80MG CHEW TAB PO PRN (22:15)
[2022-07-03 05:00] VITALS: BP 119/51
[2022-07-03] MEDS: VERAPAMIL 180MG EXTENDED RELEASE TABLET PO SCH (09:00)
[2022-07-03] MEDS: FUROSEMIDE 20 MG TAB PO SCH ×2 (09:00→09:57)
[2022-07-03] MEDS: DOCUSATE SODIUM 100MG CAPSULE PO SCH ×2 (09:55→20:22)
[2022-07-03] MEDS: DIVALPROEX 500 MG TAB PO SCH ×2 (09:55→20:24)
[2022-07-03] MEDS: DIVALPROEX 125 MG TAB PO SCH ×2 (09:56→20:23)
[2022-07-03] MEDS: BACLOFEN 10 MG TAB PO SCH ×2 (09:57→20:23)
[2022-07-03] MEDS: PANTOPRAZOLE 40MG TAB (PROTONIX) PO SCH (09:58)
[2022-07-03] MEDS: RIVAROXABAN 10MG TAB (XARELTO) PO SCH (17:12)
[2022-07-03] MEDS: OLANZapine ORAL DISINTEGRATING TAB 5MG PO SCH (17:13)
[2022-07-03] MEDS: SIMETHICONE 80MG CHEW TAB PO PRN (18:54)
[2022-07-03] MEDS: LIDOCAINE 5% (LIDODERM) PATCH TD SCH (20:22)
[2022-07-03] MEDS: ARIPiprazole 10 MG TAB PO SCH (20:23)
[2022-07-03] MEDS: EZETIMIBE 10MG TABLET (ZETIA) PO SCH (20:23)
[2022-07-03] MEDS: oxyBUTYnin *DITROPAN XL* 5 MG TABCR PO SCH (20:23)
[2022-07-03] MEDS: ACETAMINOPHEN TAB 650MG DOSE (2X325MG) PO PRN (20:23)
[2022-07-03] MEDS: RAMELTEON 8 MG TAB (ROZEREM) PO PRN (20:23)
[2022-07-03] MEDS: traZODone 50 MG TAB PO SCH (20:23)
[2022-07-04 05:10] VITALS: BP 110/47
[2022-07-04] MEDS: BACLOFEN 10 MG TAB PO SCH ×2 (10:14→22:56)
[2022-07-04] MEDS: DOCUSATE SODIUM 100MG CAPSULE PO SCH ×2 (10:14→22:55)
[2022-07-04] MEDS: DIVALPROEX 500 MG TAB PO SCH ×2 (10:14→22:55)
[2022-07-04] MEDS: PANTOPRAZOLE 40MG TAB (PROTONIX) PO SCH (10:14)
[2022-07-04] MEDS: FUROSEMIDE 20 MG TAB PO SCH (10:14)
[2022-07-04] MEDS: DIVALPROEX 125 MG TAB PO SCH ×2 (10:15→22:56)
[2022-07-04] MEDS: VERAPAMIL 180MG EXTENDED RELEASE TABLET PO SCH (10:18)
[2022-07-04] MEDS: guaiFENesin SYRUP 200MG 10ML UDC PO PRN ×2 (10:18→22:54)
[2022-07-04] MEDS: BENZONATATE 100MG CAPSULE PO PRN ×2 (10:19→22:55)
[2022-07-04] MEDS: SIMETHICONE 80MG CHEW TAB PO PRN (10:19)
[2022-07-04] MEDS: RIVAROXABAN 10MG TAB (XARELTO) PO SCH (17:51)
[2022-07-04] MEDS: OLANZapine ORAL DISINTEGRATING TAB 5MG PO SCH (17:51)
[2022-07-04] MEDS: ARIPiprazole 10 MG TAB PO SCH (22:55)
[2022-07-04] MEDS: oxyBUTYnin *DITROPAN XL* 5 MG TABCR PO SCH (22:55)
[2022-07-04] MEDS: EZETIMIBE 10MG TABLET (ZETIA) PO SCH (22:56)
[2022-07-04] MEDS: traZODone 50 MG TAB PO SCH (22:56)
[2022-07-04] MEDS: LIDOCAINE 5% (LIDODERM) PATCH TD SCH (22:56)
[2022-07-04] MEDS: ACETAMINOPHEN TAB 650MG DOSE (2X325MG) PO PRN (23:05)
[2022-07-04] MEDS: RAMELTEON 8 MG TAB (ROZEREM) PO PRN (23:05)
[2022-07-05 06:00] VITALS: BP 117/52
[2022-07-05] MEDS: PANTOPRAZOLE 40MG TAB (PROTONIX) PO SCH (09:31)
[2022-07-05] MEDS: BACLOFEN 10 MG TAB PO SCH ×2 (09:31→19:54)
[2022-07-05] MEDS: FUROSEMIDE 20 MG TAB PO SCH (09:31)
[2022-07-05] MEDS: DIVALPROEX 125 MG TAB PO SCH ×2 (09:32→19:54)
[2022-07-05] MEDS: DOCUSATE SODIUM 100MG CAPSULE PO SCH ×2 (09:32→19:53)
[2022-07-05] MEDS: DIVALPROEX 500 MG TAB PO SCH ×2 (09:32→19:54)
[2022-07-05] MEDS: VERAPAMIL 180MG EXTENDED RELEASE TABLET PO SCH (09:33)
[2022-07-05] MEDS: ALBUTEROL SULFATE 2.5 MG/0.5 ML INH NEB SOLN NEB SCH ×2 (14:00→19:37)
[2022-07-05 14:56] LABS: HEMATOCRIT 34.9 % (36.0-47.0); HEMOGLOBIN 11.2 g/dl (12.0-15.5); MEAN CORPUSCULAR HEMOGLOBIN 27.5 pg (27.0-33.0); MEAN CORPUSCULAR HGB CONC 32.1 g/dl (32.0-36.5); MEAN CORPUSCULAR VOLUME 85.5 fl (80.0-96.0); PLATELET COUNT, AUTOMATED 222 10^3/uL (150-450); RED BLOOD COUNT 4.08 10^6/uL (4.00-5.40); WHITE BLOOD COUNT 6.9 10^3/uL (4.0-10.0)
[2022-07-05 15:27] LABS: BLOOD UREA NITROGEN 14 MG/DL (7-18); CALCIUM LEVEL 8.2 MG/DL (8.8-10.2); CARBON DIOXIDE LEVEL 30 MEQ/L (21-32); CHLORIDE LEVEL 103 MEQ/L (98-107); CREATININE FOR GFR 0.82 MG/DL (0.55-1.30); GLOMERULAR FILTRATION RATE > 60.0 (>39); GLUCOSE, FASTING 112 MG/DL (70-100); POTASSIUM SERUM 4.2 MEQ/L (3.5-5.1); SODIUM LEVEL 138 MEQ/L (136-145)
[2022-07-05] MEDS: AZITHROMYCIN 250MG TABLET PO SCH (16:41)
[2022-07-05] MEDS: OLANZapine ORAL DISINTEGRATING TAB 5MG PO SCH (18:14)
[2022-07-05] MEDS: RIVAROXABAN 10MG TAB (XARELTO) PO SCH (18:14)
[2022-07-05] MEDS: RAMELTEON 8 MG TAB (ROZEREM) PO PRN (19:53)
[2022-07-05] MEDS: EZETIMIBE 10MG TABLET (ZETIA) PO SCH (19:53)
[2022-07-05] MEDS: traZODone 50 MG TAB PO SCH (19:53)
[2022-07-05] MEDS: LIDOCAINE 5% (LIDODERM) PATCH TD SCH (19:54)
[2022-07-05] MEDS: ARIPiprazole 10 MG TAB PO SCH (19:54)
[2022-07-05] MEDS: oxyBUTYnin *DITROPAN XL* 5 MG TABCR PO SCH (19:54)
[2022-07-05] MEDS: SODIUM CHLORIDE NASAL 0.65% SPRAY BTL (OCEAN) SCH (19:55)
[2022-07-05] MEDS: ACETAMINOPHEN TAB 650MG DOSE (2X325MG) PO PRN (21:08)
[2022-07-06] MEDS: ALBUTEROL SULFATE 2.5 MG/0.5 ML INH NEB SOLN NEB SCH ×4 (01:17→20:38)
[2022-07-06 06:00] VITALS: BP 132/60
[2022-07-06 06:42] LABS: BASO # 0.1 10^3/uL (0.0-0.2); BASO % 1.4 % (0.0-1.0); EOS # 0.3 10^3/uL (0.0-0.5); EOS % 4.5 % (0.0-3.0); HEMATOCRIT 38.8 % (36.0-47.0); HEMOGLOBIN 12.2 g/dl (12.0-15.5); LYMPH # 1.8 10^3/uL (1.5-5.0); LYMPH % 31.4 % (24.0-44.0); MEAN CORPUSCULAR HEMOGLOBIN 27.1 pg (27.0-33.0); MEAN CORPUSCULAR HGB CONC 31.4 g/dl (32.0-36.5); MEAN CORPUSCULAR VOLUME 86.2 fl (80.0-96.0); MONO # 0.6 10^3/uL (0.0-0.8); MONO % 10.1 % (2.0-8.0); NEUTROPHILS # 2.9 10^3/uL (1.5-8.5); PLATELET COUNT, AUTOMATED 238 10^3/uL (150-450); WHITE BLOOD COUNT 5.8 10^3/uL (4.0-10.0)
[2022-07-06] MEDS: FUROSEMIDE 20 MG TAB PO SCH (08:28)
[2022-07-06] MEDS: BACLOFEN 10 MG TAB PO SCH ×2 (08:28→20:18)
[2022-07-06] MEDS: AZITHROMYCIN 250MG TABLET PO SCH (08:28)
[2022-07-06] MEDS: DOCUSATE SODIUM 100MG CAPSULE PO SCH ×2 (08:28→20:17)
[2022-07-06] MEDS: DIVALPROEX 500 MG TAB PO SCH ×2 (08:28→20:18)
[2022-07-06] MEDS: PANTOPRAZOLE 40MG TAB (PROTONIX) PO SCH (08:28)
[2022-07-06] MEDS: VERAPAMIL 180MG EXTENDED RELEASE TABLET PO SCH (08:29)
[2022-07-06] MEDS: SODIUM CHLORIDE NASAL 0.65% SPRAY BTL (OCEAN) SCH ×2 (08:30→20:19)
[2022-07-06] MEDS: DIVALPROEX 125 MG TAB PO SCH ×2 (08:30→20:18)
[2022-07-06] MEDS: OLANZapine ORAL DISINTEGRATING TAB 5MG PO SCH (17:27)
[2022-07-06] MEDS: RIVAROXABAN 10MG TAB (XARELTO) PO SCH (17:27)
[2022-07-06] MEDS: SIMETHICONE 80MG CHEW TAB PO PRN (20:17)
[2022-07-06] MEDS: BENZONATATE 100MG CAPSULE PO PRN (20:17)
[2022-07-06] MEDS: RAMELTEON 8 MG TAB (ROZEREM) PO PRN (20:18)
[2022-07-06] MEDS: ARIPiprazole 10 MG TAB PO SCH (20:18)
[2022-07-06] MEDS: EZETIMIBE 10MG TABLET (ZETIA) PO SCH (20:18)
[2022-07-06] MEDS: oxyBUTYnin *DITROPAN XL* 5 MG TABCR PO SCH (20:18)
[2022-07-06] MEDS: traZODone 50 MG TAB PO SCH (20:18)
[2022-07-06] MEDS: ACETAMINOPHEN TAB 650MG DOSE (2X325MG) PO PRN (20:19)
[2022-07-06] MEDS: LIDOCAINE 5% (LIDODERM) PATCH TD SCH (20:19)
[2022-07-07] MEDS: ALBUTEROL SULFATE 2.5 MG/0.5 ML INH NEB SOLN NEB SCH ×4 (01:05→21:53)
[2022-07-07 06:00] VITALS: BP 119/48
[2022-07-07] MEDS: AZITHROMYCIN 250MG TABLET PO SCH (09:02)
[2022-07-07] MEDS: FUROSEMIDE 20 MG TAB PO SCH (09:03)
[2022-07-07] MEDS: SODIUM CHLORIDE NASAL 0.65% SPRAY BTL (OCEAN) SCH ×2 (09:03→20:55)
[2022-07-07] MEDS: BACLOFEN 10 MG TAB PO SCH ×2 (09:03→20:54)
[2022-07-07] MEDS: DOCUSATE SODIUM 100MG CAPSULE PO SCH ×2 (09:03→20:55)
[2022-07-07] MEDS: PANTOPRAZOLE 40MG TAB (PROTONIX) PO SCH (09:03)
[2022-07-07] MEDS: VERAPAMIL 180MG EXTENDED RELEASE TABLET PO SCH (09:07)
[2022-07-07] MEDS: DIVALPROEX 500 MG TAB PO SCH ×2 (09:08→20:54)
[2022-07-07] MEDS: DIVALPROEX 125 MG TAB PO SCH ×2 (09:08→20:54)
[2022-07-07] MEDS: RIVAROXABAN 10MG TAB (XARELTO) PO SCH (18:04)
[2022-07-07] MEDS: OLANZapine ORAL DISINTEGRATING TAB 5MG PO SCH (18:05)
[2022-07-07] MEDS: oxyBUTYnin *DITROPAN XL* 5 MG TABCR PO SCH (20:54)
[2022-07-07] MEDS: LIDOCAINE 5% (LIDODERM) PATCH TD SCH (20:55)
[2022-07-07] MEDS: ARIPiprazole 10 MG TAB PO SCH (20:55)
[2022-07-07] MEDS: traZODone 50 MG TAB PO SCH (20:55)
[2022-07-07] MEDS: BENZONATATE 100MG CAPSULE PO PRN (20:55)
[2022-07-07] MEDS: RAMELTEON 8 MG TAB (ROZEREM) PO PRN (20:55)
[2022-07-07] MEDS: EZETIMIBE 10MG TABLET (ZETIA) PO SCH (20:55)
[2022-07-07] MEDS: ACETAMINOPHEN TAB 650MG DOSE (2X325MG) PO PRN (20:56)
[2022-07-08] MEDS: ALBUTEROL SULFATE 2.5 MG/0.5 ML INH NEB SOLN NEB SCH ×2 (02:00→08:00)
[2022-07-08] MEDS: VERAPAMIL 180MG EXTENDED RELEASE TABLET PO SCH (09:25)
[2022-07-08] MEDS: PANTOPRAZOLE 40MG TAB (PROTONIX) PO SCH (09:25)
[2022-07-08] MEDS: DOCUSATE SODIUM 100MG CAPSULE PO SCH ×2 (09:25→20:58)
[2022-07-08] MEDS: FUROSEMIDE 20 MG TAB PO SCH (09:26)
[2022-07-08] MEDS: AZITHROMYCIN 250MG TABLET PO SCH (09:26)
[2022-07-08] MEDS: SODIUM CHLORIDE NASAL 0.65% SPRAY BTL (OCEAN) SCH ×2 (09:26→21:00)
[2022-07-08] MEDS: BACLOFEN 10 MG TAB PO SCH ×2 (09:26→20:58)
[2022-07-08] MEDS: DIVALPROEX 500 MG TAB PO SCH ×2 (09:27→20:59)
[2022-07-08] MEDS: DIVALPROEX 125 MG TAB PO SCH ×2 (09:27→20:59)
[2022-07-08] MEDS ORDERED: ALBUTEROL SULFATE 2.5 MG/0.5 ML INH NEB SOLN NEB PRN (14:05)
[2022-07-08] MEDS: OLANZapine ORAL DISINTEGRATING TAB 5MG PO SCH (16:53)
[2022-07-08] MEDS: RIVAROXABAN 10MG TAB (XARELTO) PO SCH (16:53)
[2022-07-08] MEDS: RAMELTEON 8 MG TAB (ROZEREM) PO PRN (20:58)
[2022-07-08] MEDS: EZETIMIBE 10MG TABLET (ZETIA) PO SCH (20:58)
[2022-07-08] MEDS: LIDOCAINE 5% (LIDODERM) PATCH TD SCH (20:58)
[2022-07-08] MEDS: oxyBUTYnin *DITROPAN XL* 5 MG TABCR PO SCH (20:58)
[2022-07-08] MEDS: ARIPiprazole 10 MG TAB PO SCH (20:59)
[2022-07-08] MEDS: traZODone 50 MG TAB PO SCH (20:59)
[2022-07-08] MEDS: BENZONATATE 100MG CAPSULE PO PRN (20:59)
[2022-07-08] MEDS: ACETAMINOPHEN TAB 650MG DOSE (2X325MG) PO PRN (21:00)
[2022-07-09 07:24] VITALS: BP 132/60
[2022-07-09] MEDS: DIVALPROEX 125 MG TAB PO SCH ×2 (08:05→21:03)
[2022-07-09] MEDS: AZITHROMYCIN 250MG TABLET PO SCH (08:05)
[2022-07-09] MEDS: DIVALPROEX 500 MG TAB PO SCH ×2 (08:05→21:03)
[2022-07-09] MEDS: BACLOFEN 10 MG TAB PO SCH ×2 (08:05→21:02)
[2022-07-09] MEDS: FUROSEMIDE 20 MG TAB PO SCH (08:05)
[2022-07-09] MEDS: PANTOPRAZOLE 40MG TAB (PROTONIX) PO SCH (08:05)
[2022-07-09] MEDS: DOCUSATE SODIUM 100MG CAPSULE PO SCH ×2 (08:05→21:02)
[2022-07-09] MEDS: VERAPAMIL 180MG EXTENDED RELEASE TABLET PO SCH (08:06)
[2022-07-09] MEDS: SODIUM CHLORIDE NASAL 0.65% SPRAY BTL (OCEAN) SCH ×2 (08:06→21:02)
[2022-07-09] MEDS: CALCIUM CARBONATE 500 MG CHEW U/D PO PRN (09:21)
[2022-07-09] MEDS: RIVAROXABAN 10MG TAB (XARELTO) PO SCH (17:18)
[2022-07-09] MEDS: OLANZapine ORAL DISINTEGRATING TAB 5MG PO SCH (17:18)
[2022-07-09] MEDS: LIDOCAINE 5% (LIDODERM) PATCH TD SCH (21:01)
[2022-07-09] MEDS: ARIPiprazole 10 MG TAB PO SCH (21:01)
[2022-07-09] MEDS: EZETIMIBE 10MG TABLET (ZETIA) PO SCH (21:02)
[2022-07-09] MEDS: oxyBUTYnin *DITROPAN XL* 5 MG TABCR PO SCH (21:02)
[2022-07-09] MEDS: RAMELTEON 8 MG TAB (ROZEREM) PO PRN (21:02)
[2022-07-09] MEDS: traZODone 50 MG TAB PO SCH (21:02)
[2022-07-09] MEDS: ACETAMINOPHEN TAB 650MG DOSE (2X325MG) PO PRN (21:04)
[2022-07-09] MEDS: guaiFENesin SYRUP 200MG 10ML UDC PO PRN (21:31)
[2022-07-09] MEDS: BENZONATATE 100MG CAPSULE PO PRN (21:31)
[2022-07-10 06:00] VITALS: BP 126/56
[2022-07-10] MEDS ORDERED: **PENDING PPD ENTRY XX SCH (09:00)
[2022-07-10] MEDS: BACLOFEN 10 MG TAB PO SCH ×2 (09:14→19:26)
[2022-07-10] MEDS: DIVALPROEX 125 MG TAB PO SCH ×2 (09:14→19:26)
[2022-07-10] MEDS: PANTOPRAZOLE 40MG TAB (PROTONIX) PO SCH (09:14)
[2022-07-10] MEDS: FUROSEMIDE 20 MG TAB PO SCH (09:14)
[2022-07-10] MEDS: DOCUSATE SODIUM 100MG CAPSULE PO SCH ×2 (09:14→19:25)
[2022-07-10] MEDS: DIVALPROEX 500 MG TAB PO SCH ×2 (09:15→19:26)
[2022-07-10] MEDS: SODIUM CHLORIDE NASAL 0.65% SPRAY BTL (OCEAN) SCH ×2 (09:16→19:26)
[2022-07-10] MEDS: VERAPAMIL 180MG EXTENDED RELEASE TABLET PO SCH (09:16)
[2022-07-10] MEDS ORDERED: TUBERCULIN PPD 5 UNITS/0.1 ML ID ONE ×2 (10:00)
[2022-07-10] MEDS: RIVAROXABAN 10MG TAB (XARELTO) PO SCH (17:04)
[2022-07-10] MEDS: OLANZapine ORAL DISINTEGRATING TAB 5MG PO SCH (17:05)
[2022-07-10] MEDS: EZETIMIBE 10MG TABLET (ZETIA) PO SCH (19:25)
[2022-07-10] MEDS: ARIPiprazole 10 MG TAB PO SCH (19:25)
[2022-07-10] MEDS: oxyBUTYnin *DITROPAN XL* 5 MG TABCR PO SCH (19:25)
[2022-07-10] MEDS: traZODone 50 MG TAB PO SCH (19:25)
[2022-07-10] MEDS: LIDOCAINE 5% (LIDODERM) PATCH TD SCH (19:26)
[2022-07-10] MEDS: SIMETHICONE 80MG CHEW TAB PO PRN (19:32)
[2022-07-10] MEDS: RAMELTEON 8 MG TAB (ROZEREM) PO PRN (22:05)
[2022-07-10] MEDS: BENZONATATE 100MG CAPSULE PO PRN (22:05)
[2022-07-10] MEDS: guaiFENesin SYRUP 200MG 10ML UDC PO PRN (22:05)
[2022-07-10] MEDS: ACETAMINOPHEN TAB 650MG DOSE (2X325MG) PO PRN (22:06)
[2022-07-10] MEDS ORDERED: traMADol 50 MG TAB PO ONE (23:00)
[2022-07-11 06:00] VITALS: BP 130/60
[2022-07-11] MEDS: SODIUM CHLORIDE NASAL 0.65% SPRAY BTL (OCEAN) SCH ×2 (09:18→20:47)
[2022-07-11] MEDS: PANTOPRAZOLE 40MG TAB (PROTONIX) PO SCH (09:18)
[2022-07-11] MEDS: DOCUSATE SODIUM 100MG CAPSULE PO SCH ×2 (09:18→20:47)
[2022-07-11] MEDS: BACLOFEN 10 MG TAB PO SCH ×2 (09:18→20:47)
[2022-07-11] MEDS: SIMETHICONE 80MG CHEW TAB PO PRN ×2 (09:18→20:56)
[2022-07-11] MEDS: DIVALPROEX 125 MG TAB PO SCH ×2 (09:18→20:46)
[2022-07-11] MEDS: FUROSEMIDE 20 MG TAB PO SCH (09:19)
[2022-07-11] MEDS: VERAPAMIL 180MG EXTENDED RELEASE TABLET PO SCH (09:19)
[2022-07-11] MEDS: DIVALPROEX 500 MG TAB PO SCH ×2 (09:19→20:46)
[2022-07-11] MEDS: OLANZapine ORAL DISINTEGRATING TAB 5MG PO SCH (17:17)
[2022-07-11] MEDS: RIVAROXABAN 10MG TAB (XARELTO) PO SCH (17:17)
[2022-07-11] MEDS: oxyBUTYnin *DITROPAN XL* 5 MG TABCR PO SCH (20:45)
[2022-07-11] MEDS: LIDOCAINE 5% (LIDODERM) PATCH TD SCH (20:45)
[2022-07-11] MEDS: ARIPiprazole 10 MG TAB PO SCH (20:46)
[2022-07-11] MEDS: traZODone 50 MG TAB PO SCH (20:47)
[2022-07-11] MEDS: EZETIMIBE 10MG TABLET (ZETIA) PO SCH (20:47)
[2022-07-11] MEDS: DICYCLOMINE 10 MG CAP PO PRN (20:56)
[2022-07-12 06:00] VITALS: BP 111/48
[2022-07-12] MEDS: DIVALPROEX 500 MG TAB PO SCH ×2 (09:39→20:58)
[2022-07-12] MEDS: DOCUSATE SODIUM 100MG CAPSULE PO SCH ×2 (09:39→20:58)
[2022-07-12] MEDS: BACLOFEN 10 MG TAB PO SCH ×2 (09:39→20:58)
[2022-07-12] MEDS: PANTOPRAZOLE 40MG TAB (PROTONIX) PO SCH (09:39)
[2022-07-12] MEDS: DIVALPROEX 125 MG TAB PO SCH ×2 (09:39→20:58)
[2022-07-12] MEDS: FUROSEMIDE 20 MG TAB PO SCH (09:40)
[2022-07-12] MEDS: SODIUM CHLORIDE NASAL 0.65% SPRAY BTL (OCEAN) SCH ×2 (09:40→20:59)
[2022-07-12] MEDS: VERAPAMIL 180MG EXTENDED RELEASE TABLET PO SCH (09:41)
[2022-07-12] MEDS ORDERED: PPD DOCUMENTATION ENTRY MISC XX ONE (10:00)
[2022-07-12] MEDS ORDERED: PPD DOCUMENTATION ENTRY MISC XX SCH (10:00)
[2022-07-12] MEDS: RIVAROXABAN 10MG TAB (XARELTO) PO SCH (17:39)
[2022-07-12] MEDS: OLANZapine ORAL DISINTEGRATING TAB 5MG PO SCH (17:39)
[2022-07-12] MEDS: traZODone 50 MG TAB PO SCH (20:58)
[2022-07-12] MEDS: ARIPiprazole 10 MG TAB PO SCH (20:58)
[2022-07-12] MEDS: EZETIMIBE 10MG TABLET (ZETIA) PO SCH (20:58)
[2022-07-12] MEDS: LIDOCAINE 5% (LIDODERM) PATCH TD SCH (20:59)
[2022-07-12] MEDS: oxyBUTYnin *DITROPAN XL* 5 MG TABCR PO SCH (20:59)
[2022-07-12] MEDS: RAMELTEON 8 MG TAB (ROZEREM) PO PRN (20:59)
[2022-07-13 06:00] VITALS: BP 124/56
[2022-07-13] MEDS: SODIUM CHLORIDE NASAL 0.65% SPRAY BTL (OCEAN) SCH ×2 (09:00→21:00)
[2022-07-13] MEDS: FUROSEMIDE 20 MG TAB PO SCH (09:19)
[2022-07-13] MEDS: VERAPAMIL 180MG EXTENDED RELEASE TABLET PO SCH (09:19)
[2022-07-13] MEDS: BACLOFEN 10 MG TAB PO SCH ×2 (09:19→21:07)
[2022-07-13] MEDS: DIVALPROEX 125 MG TAB PO SCH ×2 (09:20→21:08)
[2022-07-13] MEDS: DIVALPROEX 500 MG TAB PO SCH ×2 (09:20→21:08)
[2022-07-13] MEDS: DOCUSATE SODIUM 100MG CAPSULE PO SCH ×2 (09:20→21:07)
[2022-07-13] MEDS: PANTOPRAZOLE 40MG TAB (PROTONIX) PO SCH (09:20)
[2022-07-13] MEDS ORDERED: TUBERCULIN PPD 5 UNITS/0.1 ML ID ONE (13:00)
[2022-07-13] MEDS: RIVAROXABAN 10MG TAB (XARELTO) PO SCH (17:07)
[2022-07-13] MEDS: OLANZapine ORAL DISINTEGRATING TAB 5MG PO SCH (17:07)
[2022-07-13] MEDS: traZODone 50 MG TAB PO SCH (21:07)
[2022-07-13] MEDS: oxyBUTYnin *DITROPAN XL* 5 MG TABCR PO SCH (21:07)
[2022-07-13] MEDS: EZETIMIBE 10MG TABLET (ZETIA) PO SCH (21:07)
[2022-07-13] MEDS: LIDOCAINE 5% (LIDODERM) PATCH TD SCH (21:08)
[2022-07-13] MEDS: RAMELTEON 8 MG TAB (ROZEREM) PO PRN (21:08)
[2022-07-13] MEDS: ARIPiprazole 10 MG TAB PO SCH (21:08)
[2022-07-13] MEDS: ACETAMINOPHEN TAB 650MG DOSE (2X325MG) PO PRN (21:09)
[2022-07-14 05:10] VITALS: BP 132/60
[2022-07-14] MEDS: VERAPAMIL 180MG EXTENDED RELEASE TABLET PO SCH (09:14)
[2022-07-14] MEDS: DOCUSATE SODIUM 100MG CAPSULE PO SCH ×2 (09:14→20:37)
[2022-07-14] MEDS: DIVALPROEX 125 MG TAB PO SCH ×2 (09:14→20:38)
[2022-07-14] MEDS: BACLOFEN 10 MG TAB PO SCH ×2 (09:15→20:37)
[2022-07-14] MEDS: SODIUM CHLORIDE NASAL 0.65% SPRAY BTL (OCEAN) SCH ×2 (09:15→20:38)
[2022-07-14] MEDS: FUROSEMIDE 20 MG TAB PO SCH (09:15)
[2022-07-14] MEDS: PANTOPRAZOLE 40MG TAB (PROTONIX) PO SCH (09:15)
[2022-07-14] MEDS: DIVALPROEX 500 MG TAB PO SCH ×2 (09:15→20:38)
[2022-07-14] MEDS: OLANZapine ORAL DISINTEGRATING TAB 5MG PO SCH (17:15)
[2022-07-14] MEDS: RIVAROXABAN 10MG TAB (XARELTO) PO SCH (17:15)
[2022-07-14] MEDS: RAMELTEON 8 MG TAB (ROZEREM) PO PRN (20:37)
[2022-07-14] MEDS: traZODone 50 MG TAB PO SCH (20:37)
[2022-07-14] MEDS: ARIPiprazole 10 MG TAB PO SCH (20:37)
[2022-07-14] MEDS: LIDOCAINE 5% (LIDODERM) PATCH TD SCH (20:37)
[2022-07-14] MEDS: EZETIMIBE 10MG TABLET (ZETIA) PO SCH (20:37)
[2022-07-14] MEDS: ACETAMINOPHEN TAB 650MG DOSE (2X325MG) PO PRN (20:37)
[2022-07-14] MEDS: oxyBUTYnin *DITROPAN XL* 5 MG TABCR PO SCH (20:38)
[2022-07-15 04:40] VITALS: BP 108/42
[2022-07-15] MEDS ORDERED: FURO20TA2 PO (08:35)
[2022-07-15] MEDS ORDERED: DEPA1TAB PO (08:35)
[2022-07-15] MEDS ORDERED: EZET10TA21 PO (08:35)
[2022-07-15] MEDS ORDERED: DEPA1TAB3 PO (08:35)
[2022-07-15] MEDS ORDERED: ABIL10TA9 PO (08:35)
[2022-07-15] MEDS: DOCUSATE SODIUM 100MG CAPSULE PO SCH (09:28)
[2022-07-15 09:29] VITALS: BP 138/64
[2022-07-15] MEDS: DIVALPROEX 125 MG TAB PO SCH (09:29)
[2022-07-15] MEDS: VERAPAMIL 180MG EXTENDED RELEASE TABLET PO SCH (09:29)
[2022-07-15] MEDS: PANTOPRAZOLE 40MG TAB (PROTONIX) PO SCH (09:29)
[2022-07-15] MEDS: SODIUM CHLORIDE NASAL 0.65% SPRAY BTL (OCEAN) SCH (09:30)
[2022-07-15] MEDS: FUROSEMIDE 20 MG TAB PO SCH (09:30)
[2022-07-15] MEDS: BACLOFEN 10 MG TAB PO SCH (09:30)
[2022-07-15] MEDS: DIVALPROEX 500 MG TAB PO SCH (09:30)
[2022-07-15] MEDS ORDERED: RAME8TAB2 PO (09:44)
[2022-07-15] MEDS ORDERED: XARE10TA PO (09:44)
[2022-07-15] MEDS ORDERED: ACET1TAB55 PO (09:44)
[2022-07-15] MEDS ORDERED: PANT40TA29 PO (09:44)
[2022-07-15] MEDS ORDERED: DITR5TAB PO (09:44)
[2022-07-15] MEDS ORDERED: TRAZ-252 PO (09:44)
[2022-07-15] MEDS ORDERED: CALA180T PO (09:44)
[2022-07-15] MEDS ORDERED: OLAN5ZYD PO (09:46)
[2022-07-15] MEDS ORDERED: BACL10TA2 PO (09:46)
[2022-07-15] MEDS: ACETAMINOPHEN TAB 650MG DOSE (2X325MG) PO PRN (09:57)
[2022-07-15] MEDS ORDERED: PPD DOCUMENTATION ENTRY MISC XX ONE (13:00)
== END 2022-07-15 12:23 | DRG 885 ==
LOC: M ED 14:32 → M ED INP 03-06 16:28 → ENRESERV 03-06 17:20 → M MSPAV 03-06 20:00 → M 4MAIN 03-07 18:04 → M MSPAV 03-10 17:18
PROVIDERS: ADMIT Internal Medicine; ATTEND General Practice
DX: F22 Delusional disorders (principal); E87.1 Hypo-osmolality and hyponatremia; F29 Unspecified psychosis not due to a substance or known physiological condition; I10 Essential (primary) hypertension; K21.9 Gastro-esophageal reflux disease without esophagitis; K57.90 Diverticulosis of intestine, part unspecified, without perforation or abscess without bleeding; M79.7 Fibromyalgia; D64.9 Anemia, unspecified; H81.10 Benign paroxysmal vertigo, unspecified ear; E78.5 Hyperlipidemia, unspecified; E87.6 Hypokalemia; J44.9 Chronic obstructive pulmonary disease, unspecified; G43.909 Migraine, unspecified, not intractable, without status migrainosus; R41.9 Unspecified symptoms and signs involving cognitive functions and awareness; K04.7 Periapical abscess without sinus; F03.90 Unspecified dementia, unspecified severity, without behavioral disturbance, psychotic disturbance, mood disturbance, and anxiety; R29.6 Repeated falls; R33.9 Retention of urine, unspecified; R60.1 Generalized edema; M16.11 Unilateral primary osteoarthritis, right hip; R26.81 Unsteadiness on feet; G47.00 Insomnia, unspecified; R68.84 Jaw pain; K08.89 Other specified disorders of teeth and supporting structures; M25.551 Pain in right hip; M25.552 Pain in left hip; M54.2 Cervicalgia; I25.2 Old myocardial infarction; I87.2 Venous insufficiency (chronic) (peripheral); N32.81 Overactive bladder; R04.0 Epistaxis; R09.81 Nasal congestion; K59.00 Constipation, unspecified; Z79.01 Long term (current) use of anticoagulants; Z86.711 Personal history of pulmonary embolism; Z79.899 Other long term (current) drug therapy; Z88.0 Allergy status to penicillin; Z88.6 Allergy status to analgesic agent; Z88.8 Allergy status to other drugs, medicaments and biological substances; Z91.012 Allergy to eggs; Z86.73 Personal history of transient ischemic attack (TIA), and cerebral infarction without residual deficits; Z88.5 Allergy status to narcotic agent; Z86.718 Personal history of other venous thrombosis and embolism

== ENCOUNTER → 2022-07-22 | Outpatient (REF) | payer MEDICARE, BC ==
[~2022-07-22] MED LIST changes: +ABIL10TA9 PO; +CALA180T PO; +DEPA1TAB PO; +DITR5TAB PO; +EZET10TA21 PO; +FURO20TA2 PO; +MED REC COMMENT; +OLAN5ZYD PO; +PANT40TA29 PO; +RAME8TAB2 PO; +TRAZ-252 PO
== END ==
LOC: M LAB REF 16:18
PROVIDERS: ATTEND Internal Medicine
DX: I49.8 Other specified cardiac arrhythmias (principal); R00.2 Palpitations

== ENCOUNTER → 2022-07-24 | Outpatient (CLI) | payer MEDICARE | LOC: M PLAIMG 11:35 | PROVIDERS: ATTEND Internal Medicine | DX: M54.50 Low back pain, unspecified (principal) ==

== ENCOUNTER → 2022-07-29 | Outpatient (REF) | payer MEDICARE | PROVIDERS: ATTEND Internal Medicine | DX: Z20.822 Contact with and (suspected) exposure to COVID-19 (principal) ==

== ENCOUNTER → 2022-10-06 | Outpatient (CLI) | payer MEDICARE, MEDICAID | LOC: M PLAIMG 09:42 | PROVIDERS: ATTEND Internal Medicine | DX: M25.551 Pain in right hip (principal) ==

== ENCOUNTER 2023-01-31 11:53 | Emergency (ER) | payer MEDICARE, MEDICAID ==
[~2023-01-31] VITALS: Ht 162.6 cm; Wt 95.0 kg
[~2023-01-31 11:53] MED LIST changes: +MONT-5 PO; -SING10TA32 PO
[2023-01-31] MEDS ORDERED: XARE15TA PO (12:30)
[2023-01-31] MEDS ORDERED: NITR4TASL SL (12:36)
[2023-01-31] MEDS ORDERED: VERA240T64 PO (12:36)
[2023-01-31] MEDS ORDERED: HYDR-643 PO (12:36)
[2023-01-31 14:15] VITALS: BP 148/68; TEMP 96.8; O2SAT 96
== END 2023-01-31 14:56 | disposition home or self-care (01) ==
LOC: EDBD 11:53 → M ED 11:53
DX: M23.91 Unspecified internal derangement of right knee (principal); Z88.5 Allergy status to narcotic agent; Z88.0 Allergy status to penicillin; Z88.6 Allergy status to analgesic agent; Z88.8 Allergy status to other drugs, medicaments and biological substances; Z79.899 Other long term (current) drug therapy

== ENCOUNTER → 2023-07-20 | Outpatient (REF) | payer MEDICARE, MEDICAID ==
[~2023-07-20] MED LIST changes: +EZET10TA58 PO; +HYDR-643 PO; +MECL-209 PO; -MECL1TAB31 PO; +VERA240T64 PO; -ZETI10TA16 PO
== END ==
LOC: M LAB REF 11:54
PROVIDERS: ATTEND Internal Medicine
DX: I48.0 Paroxysmal atrial fibrillation (principal)

== ENCOUNTER 2023-10-17 08:38 | Emergency (ER) | payer MEDICARE, MEDICAID ==
[~2023-10-17] VITALS: Ht 162.6 cm; Wt 102.8 kg
[2023-10-17 09:41] LABS: BASO % 0.5 % (0.0-1.0); EOS # 0.1 10^3/uL (0.0-0.5); EOS % 1.5 % (0.0-3.0); HEMATOCRIT 41.1 % (36.0-47.0); HEMOGLOBIN 13.7 g/dl (12.0-15.5); LYMPH # 1.3 10^3/uL (1.5-5.0); LYMPH % 17.8 % (24.0-44.0); MEAN CORPUSCULAR HEMOGLOBIN 30.8 pg (27.0-33.0); MEAN CORPUSCULAR HGB CONC 33.3 g/dl (32.0-36.5); MEAN CORPUSCULAR VOLUME 92.4 fl (80.0-96.0); MONO # 0.6 10^3/uL (0.0-0.8); MONO % 8.3 % (2.0-8.0); NEUTROPHILS # 5.2 10^3/uL (1.5-8.5); NEUTROPHILS % 70.9 % (36.0-66.0); PLATELET COUNT, AUTOMATED 247 10^3/uL (150-450); RED BLOOD COUNT 4.45 10^6/uL (4.00-5.40); WHITE BLOOD COUNT 7.4 10^3/uL (4.0-10.0)
[2023-10-17 09:55] LABS: INR 0.96; PARTIAL THROMBOPLASTIN TIME 25.3 SECONDS (24.8-34.2); PROTHROMBIN TIME 12.5 SECONDS (12.5-14.5)
[2023-10-17 10:08] LABS: LIPASE 24 U/L (12-53)
[2023-10-17 10:10] LABS: ALKALINE PHOSPHATASE 59 U/L (46-116); ALT/SGPT 11 U/L (7.0-40); AST/SGOT 10 U/L (<34); BILIRUBIN,DIRECT < 0.1 MG/DL (<0.4); BILIRUBIN,TOTAL 0.3 MG/DL (0.3-1.2); BLOOD UREA NITROGEN 20 MG/DL (9-23); CALCIUM LEVEL 8.5 MG/DL (8.3-10.6); CARBON DIOXIDE LEVEL 26 MMOL/L (20-31); CHLORIDE LEVEL 109 MMOL/L (98-107); CK-MB VALUE MASS < 1.0 NG/ML (<3.6); GLOMERULAR FILTRATION RATE > 60.0 (>39); GLUCOSE, FASTING 94 MG/DL (74-106); POTASSIUM SERUM 4.7 MMOL/L (3.5-5.1); SODIUM LEVEL 141 MMOL/L (136-145); TOTAL PROTEIN 6.3 G/DL (5.7-8.2)
[2023-10-17 10:12] LABS: FREE T4 0.95 NG/DL (0.89-1.76)
[2023-10-17 10:13] LABS: THYROID STIMULATING HORMONE 0.814 uIU/ML (0.55-4.78)
[2023-10-17 10:16] LABS: CPK CREATINE PHOSPHOKINASE 54 U/L (34-145); MB/CK RELATIVE INDEX 1.85 (< OR =4)
[2023-10-17 10:20] LABS: RSV AMPLIFICATION NEGATIVE (NEGATIVE)
[2023-10-17 11:35] LABS: CK-MB VALUE MASS < 1.0 NG/ML (<3.6)
[2023-10-17 11:42] LABS: CPK CREATINE PHOSPHOKINASE 46 U/L (34-145); MB/CK RELATIVE INDEX 2.17 (< OR =4)
[2023-10-17] MEDS ORDERED: ISOVUE-370 76% 100ML VIAL As Ordered ONE (13:24)
[2023-10-17] MEDS ORDERED: ARIP1TAB4 PO (13:40)
[2023-10-17] MEDS ORDERED: ACET1TAB55 PO (13:40)
[2023-10-17] MEDS ORDERED: ARIP1TAB PO (13:40)
[2023-10-17] MEDS: ACETAMINOPHEN *IV* 1,000 MG in IV 1 EA IV ONE (13:59)
[2023-10-17] MEDS ORDERED: BACL10TA2 PO (14:00)
[2023-10-17] MEDS ORDERED: BISO10TA13 PO (14:00)
[2023-10-17] MEDS ORDERED: VERA240T65 PO (14:00)
[2023-10-17] MEDS ORDERED: NITR0.4S14 SL (14:00)
[2023-10-17] MEDS ORDERED: HYDR-643 PO (14:00)
[2023-10-17] MEDS ORDERED: HOME MED LIST COMPLETE! XX SCH (14:00)
[2023-10-17] MEDS ORDERED: TRAZ-257 PO (14:00)
[2023-10-17] MEDS ORDERED: PANT40TA29 PO (14:00)
[2023-10-17] MEDS ORDERED: OLAN20TA14 PO (14:00)
[2023-10-17] MEDS ORDERED: DEPA1TAB PO (14:00)
[2023-10-17] MEDS ORDERED: TUMS500C PO (14:00)
[2023-10-17] MEDS ORDERED: FURO20TA2 PO (14:00)
[2023-10-17] MEDS ORDERED: VALS1TAB66 PO (14:00)
[2023-10-17] MEDS ORDERED: EZET10TA21 PO (14:00)
[2023-10-17 14:43] LABS: CK-MB VALUE MASS < 1.0 NG/ML (<3.6); CPK CREATINE PHOSPHOKINASE 55 U/L (34-145); MB/CK RELATIVE INDEX 1.81 (< OR =4)
[2023-10-17 16:53] VITALS: O2SAT 94
[2023-10-17 17:05] VITALS: BP 155/72; TEMP 97.3
== END 2023-10-17 22:00 | disposition home or self-care (01) ==
LOC: EDBD 08:38 → M ED 08:38
DX: R07.9 Chest pain, unspecified (principal); Z88.8 Allergy status to other drugs, medicaments and biological substances; Z88.0 Allergy status to penicillin; Z91.012 Allergy to eggs; Z79.899 Other long term (current) drug therapy; Z79.1 Long term (current) use of non-steroidal anti-inflammatories (NSAID)
CPT/HCPCS: 36415; 71045; 71275; 80047; 80048; 80076; 82550; 82553; 83690; 83880; 84439; 84443; 84484; 85025; 85610; 85730; 87631; 93005; 93041; 94760; 96374; 99285; J0131; Q9967

== ENCOUNTER 2023-11-10 03:40 | Emergency (ER) | payer MEDICARE, MEDICAID ==
[~2023-11-10] VITALS: Ht 162.6 cm; Wt 99.3 kg
[~2023-11-10 03:40] MED LIST changes: +ARIP1TAB PO; +ARIP1TAB4 PO; +BISO10TA13 PO; +NITR0.4S14 SL; +OLAN20TA14 PO; +TRAZ-257 PO; +TUMS500C PO; +VALS1TAB66 PO; +VERA240T65 PO
[2023-11-10 04:25] LABS: BASO # 0.1 10^3/uL (0.0-0.2); BASO % 1.1 % (0.0-1.0); EOS # 0.1 10^3/uL (0.0-0.5); HEMATOCRIT 44.2 % (36.0-47.0); HEMOGLOBIN 14.4 g/dl (12.0-15.5); LYMPH # 2.2 10^3/uL (1.5-5.0); LYMPH % 34.3 % (24.0-44.0); MEAN CORPUSCULAR HEMOGLOBIN 30.1 pg (27.0-33.0); MEAN CORPUSCULAR HGB CONC 32.6 g/dl (32.0-36.5); MEAN CORPUSCULAR VOLUME 92.5 fl (80.0-96.0); MONO # 0.5 10^3/uL (0.0-0.8); MONO % 8.5 % (2.0-8.0); NEUTROPHILS # 3.4 10^3/uL (1.5-8.5); NEUTROPHILS % 53.6 % (36.0-66.0); PLATELET COUNT, AUTOMATED 235 10^3/uL (150-450); RED BLOOD COUNT 4.78 10^6/uL (4.00-5.40); WHITE BLOOD COUNT 6.4 10^3/uL (4.0-10.0)
[2023-11-10 04:39] LABS: INR 1.59; PROTHROMBIN TIME 18.4 SECONDS (12.5-14.5)
[2023-11-10 04:53] LABS: CK-MB VALUE MASS < 1.0 NG/ML (<3.6); LIPASE 25 U/L (12-53)
[2023-11-10 04:55] LABS: ALBUMIN 3.3 G/DL (3.2-5.2); ALKALINE PHOSPHATASE 61 U/L (46-116); ALT/SGPT 11 U/L (7.0-40); AST/SGOT 9 U/L (<34); BILIRUBIN,DIRECT 0.1 MG/DL (<0.4); BILIRUBIN,TOTAL 0.3 MG/DL (0.3-1.2); BLOOD UREA NITROGEN 18 MG/DL (9-23); CARBON DIOXIDE LEVEL 27 MMOL/L (20-31); CHLORIDE LEVEL 109 MMOL/L (98-107); CREATININE FOR GFR 0.88 MG/DL (0.55-1.30); GLOMERULAR FILTRATION RATE > 60.0 (>39); GLUCOSE, FASTING 109 MG/DL (74-106); POTASSIUM SERUM 4.2 MMOL/L (3.5-5.1); SODIUM LEVEL 142 MMOL/L (136-145); TOTAL PROTEIN 6.8 G/DL (5.7-8.2)
[2023-11-10 05:11] LABS: CPK CREATINE PHOSPHOKINASE 50 U/L (34-145)
[2023-11-10 06:50] LABS: CK-MB VALUE MASS < 1.0 NG/ML (<3.6)
[2023-11-10 06:52] LABS: CPK CREATINE PHOSPHOKINASE 43 U/L (34-145); MB/CK RELATIVE INDEX 2.32 (< OR =4)
[2023-11-10 09:48] VITALS: BP 127/58; TEMP 98.3; O2SAT 96
== END 2023-11-10 10:03 | disposition home or self-care (01) ==
LOC: M ED 03:40
DX: I20.9 Angina pectoris, unspecified (principal); I10 Essential (primary) hypertension; J44.9 Chronic obstructive pulmonary disease, unspecified; F17.210 Nicotine dependence, cigarettes, uncomplicated; Z88.8 Allergy status to other drugs, medicaments and biological substances; Z91.012 Allergy to eggs; Z88.0 Allergy status to penicillin; Z79.1 Long term (current) use of non-steroidal anti-inflammatories (NSAID); Z79.2 Long term (current) use of antibiotics; Z79.899 Other long term (current) drug therapy

== ENCOUNTER 2023-11-19 03:17 | Emergency (ER) | payer MEDICARE, MEDICAID ==
[~2023-11-19] VITALS: Ht 162.6 cm; Wt 105.1 kg
[2023-11-19 04:19] LABS: BASO # 0.1 10^3/uL (0.0-0.2); EOS # 0.2 10^3/uL (0.0-0.5); HEMOGLOBIN 14.3 g/dl (12.0-15.5); LYMPH # 2.2 10^3/uL (1.5-5.0); LYMPH % 37.2 % (24.0-44.0); MEAN CORPUSCULAR HEMOGLOBIN 30.9 pg (27.0-33.0); MEAN CORPUSCULAR HGB CONC 33.3 g/dl (32.0-36.5); MEAN CORPUSCULAR VOLUME 92.9 fl (80.0-96.0); MONO # 0.7 10^3/uL (0.0-0.8); MONO % 11.5 % (2.0-8.0); NEUTROPHILS # 2.7 10^3/uL (1.5-8.5); NEUTROPHILS % 46.1 % (36.0-66.0); PLATELET COUNT, AUTOMATED 180 10^3/uL (150-450); RED BLOOD COUNT 4.63 10^6/uL (4.00-5.40); WHITE BLOOD COUNT 5.9 10^3/uL (4.0-10.0)
[2023-11-19 04:32] LABS: INR 1.45; PARTIAL THROMBOPLASTIN TIME 30.9 SECONDS (24.8-34.2); PROTHROMBIN TIME 17.2 SECONDS (12.5-14.5)
[2023-11-19] MEDS: ONDANSETRON 4MG 2ML VIAL IV ONE (04:34)
[2023-11-19] MEDS: MORPHINE 4 MG/ML 1ML VIAL IV PRN (04:34)
[2023-11-19 04:35] LABS: BLOOD UREA NITROGEN 19 MG/DL (9-23); CALCIUM LEVEL 9.2 MG/DL (8.3-10.6); CARBON DIOXIDE LEVEL 28 MMOL/L (20-31); CHLORIDE LEVEL 106 MMOL/L (98-107); CREATININE FOR GFR 0.83 MG/DL (0.55-1.30); GLOMERULAR FILTRATION RATE > 60.0 (>39); GLUCOSE, FASTING 101 MG/DL (74-106); POTASSIUM SERUM 4.2 MMOL/L (3.5-5.1); SODIUM LEVEL 138 MMOL/L (136-145)
[2023-11-19 06:00] VITALS: TEMP 98
[2023-11-19 06:30] VITALS: BP 109/51; O2SAT 100
== END 2023-11-19 07:40 | disposition home or self-care (01) ==
LOC: EDBD 03:17 → M ED 03:17
DX: S09.90XA Unspecified injury of head, initial encounter (principal); Y92.019 Unspecified place in single-family (private) house as the place of occurrence of the external cause; Y93.9 Activity, unspecified; Y99.9 Unspecified external cause status; W01.0XXA Fall on same level from slipping, tripping and stumbling without subsequent striking against object, initial encounter; I10 Essential (primary) hypertension; E78.5 Hyperlipidemia, unspecified; M79.7 Fibromyalgia; Z88.8 Allergy status to other drugs, medicaments and biological substances; Z88.0 Allergy status to penicillin; Z91.012 Allergy to eggs; Z79.1 Long term (current) use of non-steroidal anti-inflammatories (NSAID); Z79.899 Other long term (current) drug therapy
CPT/HCPCS: 70450; 70486; 72125; 73502; 80048; 85025; 85610; 85730; 96374; 99284; J2405

== ENCOUNTER → 2023-11-24 | Outpatient (REF) | payer MEDICARE, MEDICAID | LOC: M LAB REF 16:17 | PROVIDERS: ATTEND Nurse Practitioner Family | DX: R06.02 Shortness of breath (principal) ==

== ENCOUNTER 2023-11-29 13:16 | Emergency (ER) | payer MEDICARE, MEDICAID ==
[~2023-11-29] VITALS: Ht 162.6 cm; Wt 101.0 kg
[2023-11-29 13:55] LABS: BASO # 0.1 10^3/uL (0.0-0.2); BASO % 0.7 % (0.0-1.0); EOS # 0.1 10^3/uL (0.0-0.5); EOS % 1.2 % (0.0-3.0); HEMATOCRIT 43.7 % (36.0-47.0); HEMOGLOBIN 14.6 g/dl (12.0-15.5); LYMPH # 1.9 10^3/uL (1.5-5.0); LYMPH % 24.9 % (24.0-44.0); MEAN CORPUSCULAR HEMOGLOBIN 30.7 pg (27.0-33.0); MEAN CORPUSCULAR HGB CONC 33.4 g/dl (32.0-36.5); MEAN CORPUSCULAR VOLUME 91.8 fl (80.0-96.0); MONO # 0.8 10^3/uL (0.0-0.8); MONO % 10.8 % (2.0-8.0); NEUTROPHILS # 4.6 10^3/uL (1.5-8.5); NEUTROPHILS % 61.2 % (36.0-66.0); PLATELET COUNT, AUTOMATED 248 10^3/uL (150-450); RED BLOOD COUNT 4.76 10^6/uL (4.00-5.40); WHITE BLOOD COUNT 7.5 10^3/uL (4.0-10.0)
[2023-11-29 14:16] LABS: D-DIMER QUANT < 0.27 ug/mL (<0.5); INR 1.27; PARTIAL THROMBOPLASTIN TIME 32.8 SECONDS (24.8-34.2); PROTHROMBIN TIME 15.6 SECONDS (12.5-14.5)
[2023-11-29] MEDS: CYCLOBENZAPRINE 5MG TABLET PO ONE (14:19)
[2023-11-29] MEDS: NS 500 ML IV ONE ×2 (14:19→15:50)
[2023-11-29 14:23] LABS: LIPASE 30 U/L (12-53)
[2023-11-29 14:24] LABS: C REACTIVE PROTEIN QUANTITATIV < 0.40 MG/DL (<1.0); CK-MB VALUE MASS < 1.0 NG/ML (<3.6)
[2023-11-29 14:26] LABS: ALBUMIN 3.4 G/DL (3.2-5.2); ALKALINE PHOSPHATASE 63 U/L (46-116); ALT/SGPT 11 U/L (7.0-40); AST/SGOT 14 U/L (<34); BILIRUBIN,DIRECT < 0.1 MG/DL (<0.4); BILIRUBIN,TOTAL 0.3 MG/DL (0.3-1.2); BLOOD UREA NITROGEN 24 MG/DL (9-23); CALCIUM LEVEL 9.5 MG/DL (8.3-10.6); CARBON DIOXIDE LEVEL 26 MMOL/L (20-31); CHLORIDE LEVEL 104 MMOL/L (98-107); CREATININE FOR GFR 1.81 MG/DL (0.55-1.30); GLOMERULAR FILTRATION RATE 29.2 (>39); GLUCOSE, FASTING 118 MG/DL (74-106); SODIUM LEVEL 140 MMOL/L (136-145)
[2023-11-29 14:27] LABS: THYROID STIMULATING HORMONE 1.885 uIU/ML (0.55-4.78)
[2023-11-29 14:28] LABS: FREE T4 1.24 NG/DL (0.89-1.76)
[2023-11-29 14:31] LABS: PROCALCITONIN 0.04 ng/ml
[2023-11-29 14:32] LABS: CPK CREATINE PHOSPHOKINASE 48 U/L (34-145); MB/CK RELATIVE INDEX 2.08 (< OR =4)
[2023-11-29] MEDS: MORPHINE 2 MG/ML 1ML VIAL IV ONE (14:48)
[2023-11-29 15:13] LABS: VENOUS BASE EXCESS -2.4 (-2.0-2.0); VENOUS HCO3 19.8 MMOL/L (23.0-27.0); VENOUS O2 SATURATION 95.5 % (60.0-80.0); VENOUS PARTIAL PRESSURE CO2 27.6 mmHg (38.0-50.0); VENOUS PARTIAL PRESSURE O2 72.2 mmHg (30.0-50.0); VENOUS PH 7.473 UNITS (7.330-7.430); VENOUS STANDARD HCO3 22.4 MMOL/L; VENOUS TOTAL CO2 20.6 MMOL/L (24.0-28.0)
[2023-11-29 15:42] LABS: LIPASE 25 U/L (12-53)
[2023-11-29 15:43] LABS: CK-MB VALUE MASS < 1.0 NG/ML (<3.6)
[2023-11-29 15:45] LABS: CPK CREATINE PHOSPHOKINASE 39 U/L (34-145); MB/CK RELATIVE INDEX 2.56 (< OR =4)
[2023-11-29 15:52] LABS: TOTAL PROTEIN,RANDOM URINE 25.4 MG/DL (0.0-14.0)
[2023-11-29 15:57] LABS: CREATININE,RANDOM URINE 220.4 MG/DL
[2023-11-29 16:55] VITALS: BP 113/63; TEMP 98.1; O2SAT 97
== END 2023-11-29 19:31 | disposition home or self-care (01) ==
LOC: EDBD 13:16 → M ED 13:47
DX: R07.9 Chest pain, unspecified (principal); N17.8 Other acute kidney failure; R00.0 Tachycardia, unspecified; I10 Essential (primary) hypertension; Z88.8 Allergy status to other drugs, medicaments and biological substances; Z88.0 Allergy status to penicillin; Z91.012 Allergy to eggs; Z79.1 Long term (current) use of non-steroidal anti-inflammatories (NSAID); Z79.2 Long term (current) use of antibiotics; Z79.899 Other long term (current) drug therapy

== ENCOUNTER → 2024-01-21 | Outpatient (REF) | payer MEDICARE, MEDICAID ==
[2024-01-21 10:17] LABS: BASO % 0.7 % (0.0-1.0); EOS # 0.2 10^3/uL (0.0-0.5); EOS % 2.5 % (0.0-3.0); HEMATOCRIT 41.9 % (36.0-47.0); HEMOGLOBIN 13.7 g/dl (12.0-15.5); LYMPH # 1.5 10^3/uL (1.5-5.0); LYMPH % 25.1 % (24.0-44.0); MEAN CORPUSCULAR HEMOGLOBIN 30.3 pg (27.0-33.0); MEAN CORPUSCULAR HGB CONC 32.7 g/dl (32.0-36.5); MEAN CORPUSCULAR VOLUME 92.7 fl (80.0-96.0); MONO # 0.7 10^3/uL (0.0-0.8); MONO % 11.3 % (2.0-8.0); NEUTROPHILS # 3.5 10^3/uL (1.5-8.5); NEUTROPHILS % 59.4 % (36.0-66.0); PLATELET COUNT, AUTOMATED 204 10^3/uL (150-450); RED BLOOD COUNT 4.52 10^6/uL (4.00-5.40); WHITE BLOOD COUNT 5.9 10^3/uL (4.0-10.0)
[2024-01-21 10:51] LABS: ALBUMIN 2.8 G/DL (3.2-5.2); ALKALINE PHOSPHATASE 59 U/L (46-116); ALT/SGPT < 9 U/L (7.0-40); AST/SGOT < 8 U/L (<34); BILIRUBIN,TOTAL 0.3 MG/DL (0.3-1.2); BLOOD UREA NITROGEN 12 MG/DL (9-23); CALCIUM LEVEL 9.2 MG/DL (8.3-10.6); CARBON DIOXIDE LEVEL 27 MMOL/L (20-31); CHLORIDE LEVEL 107 MMOL/L (98-107); CREATININE FOR GFR 0.89 MG/DL (0.55-1.30); GLOMERULAR FILTRATION RATE > 60.0 (>39); GLUCOSE, FASTING 88 MG/DL (74-106); POTASSIUM SERUM 4.6 MMOL/L (3.5-5.1); SODIUM LEVEL 140 MMOL/L (136-145); TOTAL PROTEIN 6.1 G/DL (5.7-8.2)
== END ==
PROVIDERS: ATTEND Physician Assistant Medical
DX: I48.0 Paroxysmal atrial fibrillation (principal); N17.9 Acute kidney failure, unspecified

== ENCOUNTER 2024-03-10 14:31 | Emergency (ER) | payer MEDICARE, MEDICAID ==
[~2024-03-10 14:31] MED LIST changes: +ACE65ERTAB PO; +DICL20GE TOP; +ISOVUE-370 76% 100ML VIAL As Ordered ONE; +LIDO1ADH20 TOP; +LOPE1CAP5 PO; +LORA-243 PO; +MECL-86 PO; -OLAN20TA14 PO; +OLAN20TA53 PO; +PROA1AER2 IN; +REST0.05 OU
[2024-03-10 16:31] LABS: PROTHROMBIN TIME 16.9 SECONDS (12.5-14.5)
[2024-03-10 16:32] LABS: INR 1.42
[2024-03-10 16:59] LABS: BASO % 0.5 % (0.0-1.0); EOS # 0.1 10^3/uL (0.0-0.5); EOS % 2.2 % (0.0-3.0); HEMOGLOBIN 14.5 g/dl (12.0-15.5); LYMPH # 1.5 10^3/uL (1.5-5.0); LYMPH % 25.4 % (24.0-44.0); MEAN CORPUSCULAR HEMOGLOBIN 30.9 pg (27.0-33.0); MEAN CORPUSCULAR HGB CONC 33.7 g/dl (32.0-36.5); MEAN CORPUSCULAR VOLUME 91.7 fl (80.0-96.0); MONO # 0.7 10^3/uL (0.0-0.8); MONO % 12.8 % (2.0-8.0); NEUTROPHILS # 3.4 10^3/uL (1.5-8.5); NEUTROPHILS % 58.1 % (36.0-66.0); PLATELET COUNT, AUTOMATED 208 10^3/uL (150-450); RED BLOOD COUNT 4.69 10^6/uL (4.00-5.40); WHITE BLOOD COUNT 5.8 10^3/uL (4.0-10.0)
[2024-03-10 18:30] LABS: ALBUMIN 3.2 G/DL (3.2-5.2); ALKALINE PHOSPHATASE 63 U/L (46-116); ALT/SGPT 11 U/L (7.0-40); AST/SGOT < 8 U/L (<34); BILIRUBIN,TOTAL 0.3 MG/DL (0.3-1.2); BLOOD UREA NITROGEN 12 MG/DL (9-23); CALCIUM LEVEL 9.6 MG/DL (8.3-10.6); CARBON DIOXIDE LEVEL 25 MMOL/L (20-31); CHLORIDE LEVEL 106 MMOL/L (98-107); CK-MB VALUE MASS < 1.0 NG/ML (<3.6); CPK CREATINE PHOSPHOKINASE 41 U/L (34-145); CREATININE FOR GFR 0.84 MG/DL (0.55-1.30); GLOMERULAR FILTRATION RATE > 60.0 (>39); GLUCOSE, FASTING 93 MG/DL (74-106); LIPASE 25 U/L (12-53); MB/CK RELATIVE INDEX 2.43 (< OR =4); POTASSIUM SERUM 4.2 MMOL/L (3.5-5.1); SODIUM LEVEL 137 MMOL/L (136-145); TOTAL PROTEIN 6.5 G/DL (5.7-8.2)
== END 2024-03-10 16:33 | disposition home or self-care (01) ==
LOC: M ED 14:31
DX: R07.9 Chest pain, unspecified (principal); I25.2 Old myocardial infarction; I10 Essential (primary) hypertension; E78.5 Hyperlipidemia, unspecified; Z88.0 Allergy status to penicillin; Z88.5 Allergy status to narcotic agent; Z88.8 Allergy status to other drugs, medicaments and biological substances; Z91.012 Allergy to eggs; Z79.1 Long term (current) use of non-steroidal anti-inflammatories (NSAID); Z79.51 Long term (current) use of inhaled steroids; Z79.899 Other long term (current) drug therapy
CPT/HCPCS: 36415; 71045; 71275; 80053; 82550; 82553; 83690; 84484; 85025; 85610; 99281; Q9967

== ENCOUNTER 2024-03-22 12:59 | Day surgery (SDC) | payer MEDICARE, MEDICAID ==
[~2024-03-22] VITALS: Ht 162.6 cm; Wt 101.6 kg
[2024-03-22] MEDS: LIDOCAINE 2% W/EPINEPHRINE 20ML VIAL **PRES FREE As Ordered ONE (07:03)
[~2024-03-22 12:59] MED LIST changes: -ISOVUE-370 76% 100ML VIAL As Ordered ONE
[2024-03-22] MEDS: TOBRADEX OPHTH OINT 3.5 GM As Ordered ONE (14:01)
[2024-03-22] MEDS ORDERED: fentaNYL 100 MCG/2 ML INJECTION As Ordered ONE (15:11)
[2024-03-22] MEDS ORDERED: MIDAZOLAM INJ 2MG/2ML VIAL As Ordered ONE (15:11)
[2024-03-22] MEDS: LIDOCAINE 3.5 % 1ML OPHTH TOPICAL GEL OU ONE (15:35)
[2024-03-22] MEDS: POVIDONE-IODINE 5% OPHTH PREP SOL 30ML As Ordered ONE (15:45)
[2024-03-22 16:34] VITALS: BP 147/73; TEMP 97.1; O2SAT 96
== END 2024-03-22 16:49 | disposition home or self-care (01) ==
LOC: M SDC 12:59
PROVIDERS: ATTEND Ophthalmology
DX: H02.834 Dermatochalasis of left upper eyelid (principal); H02.831 Dermatochalasis of right upper eyelid; I10 Essential (primary) hypertension; J44.9 Chronic obstructive pulmonary disease, unspecified; I25.10 Atherosclerotic heart disease of native coronary artery without angina pectoris; I25.2 Old myocardial infarction; E78.00 Pure hypercholesterolemia, unspecified; Z79.899 Other long term (current) drug therapy; Z79.01 Long term (current) use of anticoagulants; Z86.73 Personal history of transient ischemic attack (TIA), and cerebral infarction without residual deficits; Z87.19 Personal history of other diseases of the digestive system; Z86.69 Personal history of other diseases of the nervous system and sense organs; Z86.711 Personal history of pulmonary embolism; Z88.0 Allergy status to penicillin; Z88.6 Allergy status to analgesic agent; Z88.5 Allergy status to narcotic agent; Z91.012 Allergy to eggs
CPT/HCPCS: 15823; 88300; J2250

== ENCOUNTER 2024-04-01 16:30 | Emergency (ER) | payer MEDICARE, MEDICAID ==
[~2024-04-01] VITALS: Ht 162.6 cm; Wt 106.6 kg
[2024-04-01 17:10] VITALS: TEMP 96.3
[2024-04-01 18:15] VITALS: O2SAT 97
[2024-04-01] MEDS: ONDANSETRON 4MG 2ML VIAL IV ONE (18:16)
[2024-04-01] MEDS: MORPHINE 4 MG/ML 1ML VIAL IV ONE (18:16)
[2024-04-01 18:17] LABS: BASO # 0.1 10^3/uL (0.0-0.2); BASO % 0.8 % (0.0-1.0); EOS # 0.2 10^3/uL (0.0-0.5); EOS % 2.9 % (0.0-3.0); HEMATOCRIT 44.1 % (36.0-47.0); HEMOGLOBIN 14.8 g/dl (12.0-15.5); LYMPH # 2.1 10^3/uL (1.5-5.0); LYMPH % 29.3 % (24.0-44.0); MEAN CORPUSCULAR HEMOGLOBIN 31.1 pg (27.0-33.0); MEAN CORPUSCULAR HGB CONC 33.6 g/dl (32.0-36.5); MEAN CORPUSCULAR VOLUME 92.6 fl (80.0-96.0); MONO # 0.8 10^3/uL (0.0-0.8); MONO % 11.2 % (2.0-8.0); NEUTROPHILS % 54.4 % (36.0-66.0); PLATELET COUNT, AUTOMATED 184 10^3/uL (150-450); RED BLOOD COUNT 4.76 10^6/uL (4.00-5.40); WHITE BLOOD COUNT 7.3 10^3/uL (4.0-10.0)
[2024-04-01 18:31] LABS: INR 1.21; PARTIAL THROMBOPLASTIN TIME 29.1 SECONDS (24.8-34.2); PROTHROMBIN TIME 14.9 SECONDS (12.5-14.5)
[2024-04-01 18:44] LABS: BLOOD UREA NITROGEN 12 MG/DL (9-23); CALCIUM LEVEL 8.8 MG/DL (8.3-10.6); CARBON DIOXIDE LEVEL 30 MMOL/L (20-31); CHLORIDE LEVEL 105 MMOL/L (98-107); CREATININE FOR GFR 0.89 MG/DL (0.55-1.30); GLOMERULAR FILTRATION RATE > 60.0 (>39); GLUCOSE, FASTING 82 MG/DL (74-106); POTASSIUM SERUM 4.4 MMOL/L (3.5-5.1); SODIUM LEVEL 137 MMOL/L (136-145)
[2024-04-01 18:45] VITALS: BP 141/65
== END 2024-04-01 20:07 | disposition home or self-care (01) ==
LOC: M ED 16:30
DX: M23.92 Unspecified internal derangement of left knee (principal); I10 Essential (primary) hypertension; M79.7 Fibromyalgia; E78.5 Hyperlipidemia, unspecified; K21.9 Gastro-esophageal reflux disease without esophagitis; Z88.5 Allergy status to narcotic agent; Z88.8 Allergy status to other drugs, medicaments and biological substances; Z91.012 Allergy to eggs; Z88.0 Allergy status to penicillin; Z79.1 Long term (current) use of non-steroidal anti-inflammatories (NSAID); Z79.51 Long term (current) use of inhaled steroids; Z79.899 Other long term (current) drug therapy
CPT/HCPCS: 70450; 72125; 73502; 73552; 73564; 73590; 80048; 85025; 85610; 85730; 93041; 94760; 96374; 99285; J2405

== ENCOUNTER 2024-04-20 09:59 | Emergency (ER) | payer MEDICARE, MEDICAID ==
[~2024-04-20] VITALS: Ht 162.6 cm; Wt 102.7 kg
[~2024-04-20 09:59] MED LIST changes: -PROA1AER2 IN; +PROA1AER2 INH
[2024-04-20 10:23] VITALS: BP 169/73
[2024-04-20] MEDS: NITROGLYCERIN 0.4MG SUBL TABLET SL PRN (10:23)
[2024-04-20 11:00] LABS: BASO # 0.1 10^3/uL (0.0-0.2); BASO % 0.8 % (0.0-1.0); EOS # 0.1 10^3/uL (0.0-0.5); EOS % 1.3 % (0.0-3.0); HEMATOCRIT 45.2 % (36.0-47.0); HEMOGLOBIN 15.1 g/dl (12.0-15.5); LYMPH # 1.4 10^3/uL (1.5-5.0); LYMPH % 22.5 % (24.0-44.0); MEAN CORPUSCULAR HGB CONC 33.4 g/dl (32.0-36.5); MEAN CORPUSCULAR VOLUME 92.8 fl (80.0-96.0); MONO # 0.6 10^3/uL (0.0-0.8); MONO % 9.6 % (2.0-8.0); PLATELET COUNT, AUTOMATED 182 10^3/uL (150-450); RED BLOOD COUNT 4.87 10^6/uL (4.00-5.40); WHITE BLOOD COUNT 6.1 10^3/uL (4.0-10.0)
[2024-04-20 11:26] LABS: LIPASE 22 U/L (12-53)
[2024-04-20 11:28] LABS: ALKALINE PHOSPHATASE 59 U/L (46-116); ALT/SGPT 18 U/L (7.0-40); AST/SGOT 23 U/L (<34); BILIRUBIN,DIRECT < 0.1 MG/DL (<0.4); BILIRUBIN,TOTAL 0.3 MG/DL (0.3-1.2); BLOOD UREA NITROGEN 16 MG/DL (9-23); CALCIUM LEVEL 9.1 MG/DL (8.3-10.6); CARBON DIOXIDE LEVEL 28 MMOL/L (20-31); CHLORIDE LEVEL 105 MMOL/L (98-107); CK-MB VALUE MASS 5.6 NG/ML (<3.6); CREATININE FOR GFR 0.91 MG/DL (0.55-1.30); GLOMERULAR FILTRATION RATE > 60.0 (>39); GLUCOSE, FASTING 119 MG/DL (74-106); POTASSIUM SERUM 4.4 MMOL/L (3.5-5.1); SODIUM LEVEL 139 MMOL/L (136-145); TOTAL PROTEIN 6.6 G/DL (5.7-8.2)
[2024-04-20 11:30] LABS: THYROID STIMULATING HORMONE 1.131 uIU/ML (0.55-4.78)
[2024-04-20 11:41] LABS: CPK CREATINE PHOSPHOKINASE 263 U/L (34-145); MB/CK RELATIVE INDEX 2.12 (< OR =4)
[2024-04-20] MEDS ORDERED: HYDR-643 PO (11:50)
[2024-04-20] MEDS ORDERED: TRAZ150T90 PO (11:50)
[2024-04-20] MEDS ORDERED: [UNRECOGNIZED DRUG - CODE] OU (11:51)
[2024-04-20] MEDS ORDERED: HOME MED LIST COMPLETE! XX SCH (11:55)
[2024-04-20 12:31] LABS: CPK CREATINE PHOSPHOKINASE 264 U/L (34-145); MB/CK RELATIVE INDEX 2.27 (< OR =4)
[2024-04-20] MEDS ORDERED: ISOVUE-370 76% 100ML VIAL As Ordered ONE (12:51)
[2024-04-20 13:11] LABS: MAGNESIUM LEVEL 1.7 MG/DL (1.8-2.4)
[2024-04-20 13:33] LABS: CK-MB VALUE MASS 5.7 NG/ML (<3.6)
[2024-04-20 13:35] LABS: CPK CREATINE PHOSPHOKINASE 265 U/L (34-145); MB/CK RELATIVE INDEX 2.15 (< OR =4)
[2024-04-20] MEDS ORDERED: CARA1TAB6 PO (14:37)
[2024-04-20 14:51] VITALS: O2SAT 94
[2024-04-20 15:00] VITALS: BP 145/81
[2024-04-20 15:06] VITALS: TEMP 97.1
== END 2024-04-20 15:30 | disposition home or self-care (01) ==
LOC: M ED 09:59 → EDBD 09:59 → M ED 15:30
DX: R07.9 Chest pain, unspecified (principal); I51.7 Cardiomegaly; I10 Essential (primary) hypertension; E78.5 Hyperlipidemia, unspecified; I25.2 Old myocardial infarction; Z86.711 Personal history of pulmonary embolism; Z79.01 Long term (current) use of anticoagulants; Z88.0 Allergy status to penicillin; Z88.5 Allergy status to narcotic agent; Z88.6 Allergy status to analgesic agent; Z88.8 Allergy status to other drugs, medicaments and biological substances; Z91.012 Allergy to eggs; Z91.030 Bee allergy status; Z79.52 Long term (current) use of systemic steroids; Z79.899 Other long term (current) drug therapy
CPT/HCPCS: 36415; 71045; 71275; 80048; 80076; 82550; 82553; 83690; 83735; 84443; 84484; 85025; 93005; 93041; 94760; 99285; Q9967

== ENCOUNTER 2024-07-06 23:31 | Emergency (ER) | payer MEDICARE, MEDICAID ==
[~2024-07-06] VITALS: Ht 162.6 cm; Wt 100.9 kg
[~2024-07-06 23:31] MED LIST changes: +CARA1TAB6 PO; +NYST1POW3 TOP; -NYST1POW9 TOP; +TRAZ150T90 PO; +[UNRECOGNIZED DRUG - CODE] OU
[2024-07-07] MEDS: ONDANSETRON 4MG 2ML VIAL IV ONE (01:21)
[2024-07-07] MEDS: MORPHINE 4 MG/ML 1ML VIAL IV ONE (01:22)
[2024-07-07 02:16] VITALS: BP 124/88; TEMP 98.8; O2SAT 94
== END 2024-07-07 03:17 | disposition home or self-care (01) ==
LOC: M ED 23:31
DX: S39.012A Strain of muscle, fascia and tendon of lower back, initial encounter (principal); S29.012A Strain of muscle and tendon of back wall of thorax, initial encounter; Y92.9 Unspecified place or not applicable; Y93.9 Activity, unspecified; Y99.9 Unspecified external cause status; I25.2 Old myocardial infarction; Z88.0 Allergy status to penicillin; Z88.5 Allergy status to narcotic agent; Z88.8 Allergy status to other drugs, medicaments and biological substances; Z91.012 Allergy to eggs; Z91.030 Bee allergy status; Z79.1 Long term (current) use of non-steroidal anti-inflammatories (NSAID); Z79.51 Long term (current) use of inhaled steroids; Z79.2 Long term (current) use of antibiotics; Z79.01 Long term (current) use of anticoagulants; Z79.899 Other long term (current) drug therapy

== ENCOUNTER 2024-07-08 23:59 | Inpatient (IN) | payer MEDICARE, MEDICAID ==
[~2024-07-08] VITALS: Ht 162.6 cm; Wt 100.9 kg
[2024-07-09 01:46] LABS: BASO % 0.4 % (0.0-1.0); EOS # 0.1 10^3/uL (0.0-0.5); LYMPH # 1.5 10^3/uL (1.5-5.0); MEAN CORPUSCULAR HEMOGLOBIN 31.5 pg (27.0-33.0); MEAN CORPUSCULAR HGB CONC 33.3 g/dl (32.0-36.5); MEAN CORPUSCULAR VOLUME 94.5 fl (80.0-96.0); MONO # 1.1 10^3/uL (0.0-0.8); MONO % 9.5 % (2.0-8.0); NEUTROPHILS # 8.2 10^3/uL (1.5-8.5); NEUTROPHILS % 74.3 % (36.0-66.0); PLATELET COUNT, AUTOMATED 190 10^3/uL (150-450); RED BLOOD COUNT 4.76 10^6/uL (4.00-5.40)
[2024-07-09 02:04] LABS: INR 1.41; PARTIAL THROMBOPLASTIN TIME 39.3 SECONDS (24.8-34.2); PROTHROMBIN TIME 17.6 SECONDS (12.5-14.5)
[2024-07-09 02:09] LABS: LIPASE 22 U/L (12-53)
[2024-07-09 02:11] LABS: ALBUMIN 3.1 G/DL (3.2-5.2); ALKALINE PHOSPHATASE 63 U/L (35-104); ALT/SGPT 19 U/L (7.0-40); AST/SGOT 21 U/L (<34); BILIRUBIN,DIRECT 0.2 MG/DL (<0.4); BILIRUBIN,TOTAL 0.5 MG/DL (0.3-1.2); BLOOD UREA NITROGEN 15 MG/DL (9-23); CALCIUM LEVEL 9.5 MG/DL (8.3-10.6); CARBON DIOXIDE LEVEL 31 MMOL/L (20-31); CHLORIDE LEVEL 109 MMOL/L (98-107); CK-MB VALUE MASS < 1.0 NG/ML (<3.6); CPK CREATINE PHOSPHOKINASE 560 U/L (34-145); CREATININE FOR GFR 0.94 MG/DL (0.55-1.30); GLOMERULAR FILTRATION RATE > 60.0 (>39); GLUCOSE, FASTING 88 MG/DL (74-106); MB/CK RELATIVE INDEX 0.17 (< OR =4); POTASSIUM SERUM 4.1 MMOL/L (3.5-5.1); SODIUM LEVEL 145 MMOL/L (136-145); TOTAL PROTEIN 7.2 G/DL (5.7-8.2)
[2024-07-09] MEDS: cefTRIAXone SOD 2 GM in DEXTROSE 5% (D5W) ADV/MINI-BAG 50 ML IV ONE (03:35)
[2024-07-09 03:44] LABS: CK-MB VALUE MASS < 1.0 NG/ML (<3.6)
[2024-07-09 03:47] LABS: CPK CREATINE PHOSPHOKINASE 436 U/L (34-145); MB/CK RELATIVE INDEX 0.22 (< OR =4)
[2024-07-09] MEDS ORDERED: CELE50CA17 PO (04:21)
[2024-07-09] MEDS ORDERED: ARIP1TAB10 PO (04:21)
[2024-07-09] MEDS ORDERED: HOME MED LIST COMPLETE! XX SCH (04:25)
[2024-07-09] MEDS ORDERED: MOM 30ML SUSPENSION UDC PO PRN (05:05)
[2024-07-09] MEDS ORDERED: ACETAMINOPHEN 325 MG TAB PO PRN (05:05)
[2024-07-09] MEDS ORDERED: MECLIZINE 25 MG TABLET PO PRN (06:35)
[2024-07-09 06:40] VITALS: BP 98/57; TEMP 97.5; O2SAT 95
[2024-07-09 08:03] LABS: HEMATOCRIT 43.4 % (36.0-47.0); HEMOGLOBIN 14.3 g/dl (12.0-15.5); MEAN CORPUSCULAR HEMOGLOBIN 30.8 pg (27.0-33.0); MEAN CORPUSCULAR HGB CONC 32.9 g/dl (32.0-36.5); MEAN CORPUSCULAR VOLUME 93.3 fl (80.0-96.0); PLATELET COUNT, AUTOMATED 182 10^3/uL (150-450); RED BLOOD COUNT 4.65 10^6/uL (4.00-5.40); WHITE BLOOD COUNT 9.6 10^3/uL (4.0-10.0)
[2024-07-09 08:28] LABS: ALBUMIN 2.9 G/DL (3.2-5.2); ALKALINE PHOSPHATASE 60 U/L (35-104); ALT/SGPT 16 U/L (7.0-40); AST/SGOT 18 U/L (<34); BILIRUBIN,TOTAL 0.4 MG/DL (0.3-1.2); BLOOD UREA NITROGEN 12 MG/DL (9-23); CALCIUM LEVEL 9.3 MG/DL (8.3-10.6); CARBON DIOXIDE LEVEL 29 MMOL/L (20-31); CHLORIDE LEVEL 108 MMOL/L (98-107); CREATININE FOR GFR 0.74 MG/DL (0.55-1.30); GLOMERULAR FILTRATION RATE > 60.0 (>39); GLUCOSE, FASTING 85 MG/DL (74-106); POTASSIUM SERUM 3.9 MMOL/L (3.5-5.1); SODIUM LEVEL 143 MMOL/L (136-145); TOTAL PROTEIN 6.8 G/DL (5.7-8.2)
[2024-07-09] MEDS ORDERED: RIVAROXABAN 10MG TAB (XARELTO) PO SCH (09:00)
[2024-07-09] MEDS: NYSTATIN CREAM 15GM TOP SCH (09:00)
[2024-07-09] MEDS: BACLOFEN 10 MG TAB PO SCH (09:33)
[2024-07-09] MEDS: AZITHROMYCIN 250MG TABLET PO SCH (09:33)
[2024-07-09] MEDS: BENZONATATE 100MG CAPSULE PO SCH (09:33)
[2024-07-09] MEDS: PANTOPRAZOLE 40MG TAB (PROTONIX) PO SCH (09:34)
[2024-07-09] MEDS: LORATADINE 10 MG TAB PO SCH (09:34)
[2024-07-09 09:45] VITALS: BP 134/63; O2SAT 94
[2024-07-09] MEDS: NORCO, ANEXSIA 5/325MG TABLET (HYDROcodone/ACETAMINOPHEN) PO PRN (10:57)
[2024-07-09] MEDS: DIVALPROEX 500 MG TAB PO SCH (13:22)
[2024-07-09] MEDS: DIVALPROEX 125 MG TAB PO SCH (13:22)
[2024-07-09] MEDS: UNRESOLVED CLARIFICATION ENTRY XX STA (16:53)
[2024-07-09 20:15] VITALS: BP 126/64; TEMP 97.7; O2SAT 91
[2024-07-09] MEDS: OLANZapine 10 MG TAB PO SCH (20:19)
[2024-07-09] MEDS: ARIPiprazole 15 MG TAB (AbiLIFY) PO SCH (20:19)
[2024-07-09] MEDS: traZODone 50 MG TAB PO SCH (20:19)
[2024-07-09] MEDS: RIVAROXABAN 15MG TAB (XARELTO) PO SCH (20:20)
[2024-07-09] MEDS: oxyBUTYnin *DITROPAN XL* 5 MG TABCR PO SCH (20:20)
[2024-07-09] MEDS: EZETIMIBE 10MG TABLET (ZETIA) PO SCH (20:20)
[2024-07-10 03:43] VITALS: BP 137/66; TEMP 97.5; O2SAT 93
[2024-07-10] MEDS: cefTRIAXone SOD 1 GM in DEXTROSE 5% (D5W) ADV/MINI-BAG 50 ML IV SCH (03:54)
[2024-07-10 11:38] LABS: HEMATOCRIT 42.6 % (36.0-47.0); HEMOGLOBIN 13.9 g/dl (12.0-15.5); MEAN CORPUSCULAR HEMOGLOBIN 30.3 pg (27.0-33.0); MEAN CORPUSCULAR HGB CONC 32.6 g/dl (32.0-36.5); PLATELET COUNT, AUTOMATED 175 10^3/uL (150-450); RED BLOOD COUNT 4.58 10^6/uL (4.00-5.40); WHITE BLOOD COUNT 6.7 10^3/uL (4.0-10.0)
[2024-07-10 12:00] VITALS: BP 114/50; TEMP 97.2; O2SAT 90
[2024-07-10 12:04] LABS: BLOOD UREA NITROGEN 12 MG/DL (9-23); CALCIUM LEVEL 9.1 MG/DL (8.3-10.6); CARBON DIOXIDE LEVEL 32 MMOL/L (20-31); CHLORIDE LEVEL 106 MMOL/L (98-107); CREATININE FOR GFR 0.77 MG/DL (0.55-1.30); GLOMERULAR FILTRATION RATE > 60.0 (>39); GLUCOSE, FASTING 117 MG/DL (74-106); POTASSIUM SERUM 3.8 MMOL/L (3.5-5.1); SODIUM LEVEL 142 MMOL/L (136-145)
[2024-07-10] MEDS: MIRALAX *UNIT DOSE* 17GM PACKET PO SCH (12:05)
[2024-07-10] MEDS: SIMETHICONE 80MG CHEW TAB PO SCH (12:05)
[2024-07-10] MEDS: oxyCODONE 5MG TAB PO PRN (17:21)
[2024-07-10 20:00] VITALS: BP 143/67; TEMP 97.3; O2SAT 93
[2024-07-11 04:00] VITALS: BP 135/67; TEMP 97.3; O2SAT 90
[2024-07-11 06:31] LABS: HEMATOCRIT 41.2 % (36.0-47.0); HEMOGLOBIN 13.7 g/dl (12.0-15.5); MEAN CORPUSCULAR HEMOGLOBIN 31.1 pg (27.0-33.0); MEAN CORPUSCULAR HGB CONC 33.3 g/dl (32.0-36.5); MEAN CORPUSCULAR VOLUME 93.4 fl (80.0-96.0); PLATELET COUNT, AUTOMATED 189 10^3/uL (150-450); RED BLOOD COUNT 4.41 10^6/uL (4.00-5.40); WHITE BLOOD COUNT 6.7 10^3/uL (4.0-10.0)
[2024-07-11] MEDS ORDERED: PILL CUTTER 1 EACH XX PRN (06:35)
[2024-07-11 06:47] LABS: BLOOD UREA NITROGEN 15 MG/DL (9-23); CALCIUM LEVEL 9.1 MG/DL (8.3-10.6); CARBON DIOXIDE LEVEL 31 MMOL/L (20-31); CHLORIDE LEVEL 105 MMOL/L (98-107); CREATININE FOR GFR 0.75 MG/DL (0.55-1.30); GLOMERULAR FILTRATION RATE > 60.0 (>39); GLUCOSE, FASTING 111 MG/DL (74-106); POTASSIUM SERUM 4.2 MMOL/L (3.5-5.1); SODIUM LEVEL 140 MMOL/L (136-145)
[2024-07-11 12:00] VITALS: TEMP 97.3; O2SAT 93
[2024-07-11 12:30] VITALS: BP 130/61
[2024-07-11 20:00] VITALS: BP 147/75; TEMP 97.2; O2SAT 92
[2024-07-12 04:00] VITALS: BP 158/75; TEMP 97.3; O2SAT 93
[2024-07-12 06:25] LABS: HEMATOCRIT 40.5 % (36.0-47.0); HEMOGLOBIN 13.4 g/dl (12.0-15.5); MEAN CORPUSCULAR HGB CONC 33.1 g/dl (32.0-36.5); MEAN CORPUSCULAR VOLUME 93.8 fl (80.0-96.0); PLATELET COUNT, AUTOMATED 190 10^3/uL (150-450); RED BLOOD COUNT 4.32 10^6/uL (4.00-5.40); WHITE BLOOD COUNT 7.2 10^3/uL (4.0-10.0)
[2024-07-12 06:55] LABS: BLOOD UREA NITROGEN 17 MG/DL (9-23); CALCIUM LEVEL 9.2 MG/DL (8.3-10.6); CARBON DIOXIDE LEVEL 30 MMOL/L (20-31); CHLORIDE LEVEL 104 MMOL/L (98-107); CREATININE FOR GFR 0.85 MG/DL (0.55-1.30); GLOMERULAR FILTRATION RATE > 60.0 (>39); GLUCOSE, FASTING 92 MG/DL (74-106); POTASSIUM SERUM 4.2 MMOL/L (3.5-5.1); SODIUM LEVEL 140 MMOL/L (136-145)
[2024-07-12] MEDS ORDERED: MIRA33506 PO (10:15)
[2024-07-12] MEDS ORDERED: SENN-23 PO (10:15)
[2024-07-12] MEDS ORDERED: OXYC-517 PO (10:15)
[2024-07-12] MEDS: NYSTATIN 100,000 UNITS/GM TOPICAL PWD 15GM TOP SCH (11:01)
[2024-07-12] MEDS ORDERED: NYST10006 TOP (11:04)
[2024-07-12] MEDS ORDERED: CEFA500C2 PO (11:14)
== END 2024-07-12 11:29 | DRG 562 ==
LOC: M ED 23:59 → M ED INP 07-09 05:02 → M MSPAV 07-09 06:42
PROVIDERS: ADMIT Internal Medicine; ATTEND Internal Medicine Nephrology
DX: S82.431A Displaced oblique fracture of shaft of right fibula, initial encounter for closed fracture (principal); J18.9 Pneumonia, unspecified organism; N39.0 Urinary tract infection, site not specified; I10 Essential (primary) hypertension; E78.5 Hyperlipidemia, unspecified; K21.9 Gastro-esophageal reflux disease without esophagitis; R29.6 Repeated falls; W18.30XA Fall on same level, unspecified, initial encounter; M79.7 Fibromyalgia; G43.709 Chronic migraine without aura, not intractable, without status migrainosus; D64.9 Anemia, unspecified; F41.9 Anxiety disorder, unspecified; M17.0 Bilateral primary osteoarthritis of knee; N39.3 Stress incontinence (female) (male); R55 Syncope and collapse; H81.10 Benign paroxysmal vertigo, unspecified ear; R26.89 Other abnormalities of gait and mobility; F22 Delusional disorders; N32.81 Overactive bladder; E66.9 Obesity, unspecified; Z68.38 Body mass index [BMI] 38.0-38.9, adult; F03.90 Unspecified dementia, unspecified severity, without behavioral disturbance, psychotic disturbance, mood disturbance, and anxiety; B37.2 Candidiasis of skin and nail; K59.09 Other constipation; Z86.73 Personal history of transient ischemic attack (TIA), and cerebral infarction without residual deficits; Z79.01 Long term (current) use of anticoagulants; Z88.6 Allergy status to analgesic agent; Z79.899 Other long term (current) drug therapy; Z88.0 Allergy status to penicillin; Z88.8 Allergy status to other drugs, medicaments and biological substances; Z88.5 Allergy status to narcotic agent; Z91.012 Allergy to eggs; Z86.711 Personal history of pulmonary embolism; Z91.030 Bee allergy status; Z86.718 Personal history of other venous thrombosis and embolism; Y92.199 Unspecified place in other specified residential institution as the place of occurrence of the external cause; Y93.89 Activity, other specified; Y99.8 Other external cause status

== ENCOUNTER → 2024-07-17 | Outpatient (REF) ==
[~2024-07-17] MED LIST changes: +ARIP1TAB10 PO; +CEFA500C2 PO; +CELE50CA17 PO; +MIRA33506 PO; +NYST10006 TOP; +OXYC-517 PO; +SENN-23 PO
[2024-07-17 09:35] LABS: HEMATOCRIT 41.5 % (36.0-47.0); HEMOGLOBIN 13.7 g/dl (12.0-15.5); MEAN CORPUSCULAR HEMOGLOBIN 31.2 pg (27.0-33.0); MEAN CORPUSCULAR VOLUME 94.5 fl (80.0-96.0); PLATELET COUNT, AUTOMATED 223 10^3/uL (150-450); RED BLOOD COUNT 4.39 10^6/uL (4.00-5.40); WHITE BLOOD COUNT 6.3 10^3/uL (4.0-10.0)
[2024-07-17 09:57] LABS: BLOOD UREA NITROGEN 18 MG/DL (9-23); CALCIUM LEVEL 8.8 MG/DL (8.3-10.6); CARBON DIOXIDE LEVEL 29 MMOL/L (20-31); CHLORIDE LEVEL 106 MMOL/L (98-107); CREATININE FOR GFR 0.74 MG/DL (0.55-1.30); GLOMERULAR FILTRATION RATE > 60.0 (>39); GLUCOSE, FASTING 72 MG/DL (74-106); POTASSIUM SERUM 4.1 MMOL/L (3.5-5.1); SODIUM LEVEL 141 MMOL/L (136-145)
== END ==
PROVIDERS: ATTEND Physician Assistant
DX: I10 Essential (primary) hypertension (principal)

== ENCOUNTER → 2024-07-18 | Outpatient (REF) | PROVIDERS: ATTEND Internal Medicine | DX: A04.72 Enterocolitis due to Clostridium difficile, not specified as recurrent (principal) ==

== ENCOUNTER → 2024-07-24 | Outpatient (REF) ==
[2024-07-24 11:59] LABS: HEMATOCRIT 46.1 % (36.0-47.0); HEMOGLOBIN 15.3 g/dl (12.0-15.5); MEAN CORPUSCULAR HEMOGLOBIN 30.8 pg (27.0-33.0); MEAN CORPUSCULAR HGB CONC 33.2 g/dl (32.0-36.5); MEAN CORPUSCULAR VOLUME 92.9 fl (80.0-96.0); PLATELET COUNT, AUTOMATED 176 10^3/uL (150-450); RED BLOOD COUNT 4.96 10^6/uL (4.00-5.40); WHITE BLOOD COUNT 6.5 10^3/uL (4.0-10.0)
[2024-07-24 12:29] LABS: BLOOD UREA NITROGEN 15 MG/DL (9-23); CALCIUM LEVEL 9.2 MG/DL (8.3-10.6); CARBON DIOXIDE LEVEL 22 MMOL/L (20-31); CHLORIDE LEVEL 102 MMOL/L (98-107); GLOMERULAR FILTRATION RATE > 60.0 (>39); GLUCOSE, FASTING 85 MG/DL (74-106); SODIUM LEVEL 135 MMOL/L (136-145)
== END ==
PROVIDERS: ATTEND Physician Assistant
DX: I10 Essential (primary) hypertension (principal)

== ENCOUNTER → 2024-07-26 | Outpatient (CLI) | payer MEDICARE, MEDICAID | LOC: M SOG 07:49 | PROVIDERS: ATTEND Physician Assistant | DX: M25.561 Pain in right knee (principal) ==

== ENCOUNTER → 2024-08-30 | Outpatient (CLI) | payer MEDICARE, MEDICAID | LOC: M SOG 07:49 | PROVIDERS: ATTEND Physician Assistant | DX: M25.561 Pain in right knee (principal) ==

== ENCOUNTER → 2024-09-11 | Outpatient (REF) | payer MEDICARE, MEDICAID | PROVIDERS: ATTEND Internal Medicine | DX: I10 Essential (primary) hypertension (principal); Z53.8 Procedure and treatment not carried out for other reasons ==

== ENCOUNTER → 2024-09-13 | Outpatient (REF) | payer MEDICARE, MEDICAID ==
[2024-09-13 15:50] LABS: HEMATOCRIT 42.8 % (36.0-47.0); HEMOGLOBIN 14.3 g/dl (12.0-15.5); MEAN CORPUSCULAR HEMOGLOBIN 30.6 pg (27.0-33.0); MEAN CORPUSCULAR HGB CONC 33.4 g/dl (32.0-36.5); MEAN CORPUSCULAR VOLUME 91.6 fl (80.0-96.0); PLATELET COUNT, AUTOMATED 159 10^3/uL (150-450); RED BLOOD COUNT 4.67 10^6/uL (4.00-5.40); WHITE BLOOD COUNT 6.7 10^3/uL (4.0-10.0)
[2024-09-13 16:31] LABS: BLOOD UREA NITROGEN 17 MG/DL (9-23); CALCIUM LEVEL 8.9 MG/DL (8.3-10.6); CARBON DIOXIDE LEVEL 24 MMOL/L (20-31); CHLORIDE LEVEL 103 MMOL/L (98-107); CREATININE FOR GFR 0.78 MG/DL (0.55-1.30); GLOMERULAR FILTRATION RATE > 60.0 (>39); GLUCOSE, FASTING 108 MG/DL (74-106); POTASSIUM SERUM 4.1 MMOL/L (3.5-5.1); SODIUM LEVEL 138 MMOL/L (136-145)
== END ==
PROVIDERS: ATTEND Internal Medicine
DX: I10 Essential (primary) hypertension (principal)

== ENCOUNTER → 2024-10-03 | Outpatient (CLI) | payer MEDICARE, MEDICAID | LOC: M SOG 07:57 | PROVIDERS: ATTEND Physician Assistant | DX: M25.561 Pain in right knee (principal); S82.831A Other fracture of upper and lower end of right fibula, initial encounter for closed fracture; M19.071 Primary osteoarthritis, right ankle and foot; M85.871 Other specified disorders of bone density and structure, right ankle and foot ==

== ENCOUNTER → 2024-10-09 | Outpatient (REF) | payer MEDICARE, MEDICAID ==
[2024-10-09 13:51] LABS: APPEARANCE, URINE TURBID (CLEAR); BACTERIA, URINE AUTO 2+ (NEGATIVE); BILIRUBIN, URINE AUTO NEGATIVE (NEGATIVE); BLOOD, URINE BLOOD 2+ (NEGATIVE); COLOR, URINE AMBER (YELLOW); GLUCOSE, URINE (UA) AUTO NEGATIVE (NEGATIVE); KETONE, URINE AUTO NEGATIVE (NEGATIVE); LEUKOCYTE ESTERASE, URINE AUTO 2+ (NEGATIVE); MUCUS, URINE SMALL (NEGATIVE); NITRITE, URINE AUTO POSITIVE (NEGATIVE); PROTEIN, URINE AUTO 2+ mg/dL (NEGATIVE); RBC, URINE AUTO TNTC /HPF (0-3); SPECIFIC GRAVITY URINE AUTO 1.006 (1.002-1.035); SQUAMOUS EPITHELIAL CELL UR AU 9 /HPF (0-6); UROBILINOGEN, URINE AUTO 0.2 mg/dL (0.0-2.0); WBC, URINE AUTO TNTC /HPF (0-3)
== END ==
PROVIDERS: ATTEND Internal Medicine
DX: N39.0 Urinary tract infection, site not specified (principal)

== ENCOUNTER → 2024-10-11 | Outpatient (REF) | payer MEDICARE, MEDICAID ==
[2024-10-11 09:31] LABS: HEMATOCRIT 42.8 % (36.0-47.0); HEMOGLOBIN 14.3 g/dl (12.0-15.5); MEAN CORPUSCULAR HEMOGLOBIN 30.9 pg (27.0-33.0); MEAN CORPUSCULAR HGB CONC 33.4 g/dl (32.0-36.5); MEAN CORPUSCULAR VOLUME 92.4 fl (80.0-96.0); PLATELET COUNT, AUTOMATED 183 10^3/uL (150-450); RED BLOOD COUNT 4.63 10^6/uL (4.00-5.40)
[2024-10-11 10:12] LABS: BLOOD UREA NITROGEN 10 MG/DL (9-23); CALCIUM LEVEL 8.9 MG/DL (8.3-10.6); CARBON DIOXIDE LEVEL 27 MMOL/L (20-31); CHLORIDE LEVEL 104 MMOL/L (98-107); CREATININE FOR GFR 0.65 MG/DL (0.55-1.30); GLOMERULAR FILTRATION RATE > 60.0 (>39); GLUCOSE, FASTING 67 MG/DL (74-106); POTASSIUM SERUM 4.6 MMOL/L (3.5-5.1); SODIUM LEVEL 141 MMOL/L (136-145)
== END ==
PROVIDERS: ATTEND Internal Medicine
DX: I10 Essential (primary) hypertension (principal)

== ENCOUNTER → 2024-10-16 | Outpatient (REF) | payer MEDICAID, MEDICARE | PROVIDERS: ATTEND Physician Assistant | DX: R05.9 Cough, unspecified (principal) ==

== ENCOUNTER → 2024-10-16 | Outpatient (REF) | payer MEDICARE, MEDICAID | PROVIDERS: ATTEND Physician Assistant | DX: R05.9 Cough, unspecified (principal) ==

== ENCOUNTER → 2024-11-06 | Outpatient (REF) | payer MEDICARE, MEDICAID ==
[2024-11-06 09:02] LABS: HEMOGLOBIN 14.8 g/dl (12.0-15.5); MEAN CORPUSCULAR HGB CONC 32.9 g/dl (32.0-36.5); MEAN CORPUSCULAR VOLUME 94.1 fl (80.0-96.0); PLATELET COUNT, AUTOMATED 209 10^3/uL (150-450); RED BLOOD COUNT 4.78 10^6/uL (4.00-5.40)
[2024-11-06 09:28] LABS: BLOOD UREA NITROGEN 12 MG/DL (9-23); CALCIUM LEVEL 8.8 MG/DL (8.3-10.6); CARBON DIOXIDE LEVEL 29 MMOL/L (20-31); CHLORIDE LEVEL 107 MMOL/L (98-107); CREATININE FOR GFR 0.73 MG/DL (0.55-1.30); GLOMERULAR FILTRATION RATE > 60.0 (>39); GLUCOSE, FASTING 71 MG/DL (74-106); POTASSIUM SERUM 4.2 MMOL/L (3.5-5.1); SODIUM LEVEL 145 MMOL/L (136-145)
== END ==
PROVIDERS: ATTEND Internal Medicine
DX: I10 Essential (primary) hypertension (principal)

== ENCOUNTER → 2024-12-11 | Outpatient (REF) | payer MEDICARE, MEDICAID ==
[2024-12-11 11:17] LABS: HEMATOCRIT 44.3 % (36.0-47.0); HEMOGLOBIN 14.5 g/dl (12.0-15.5); MEAN CORPUSCULAR HEMOGLOBIN 30.5 pg (27.0-33.0); MEAN CORPUSCULAR HGB CONC 32.7 g/dl (32.0-36.5); MEAN CORPUSCULAR VOLUME 93.3 fl (80.0-96.0); PLATELET COUNT, AUTOMATED 178 10^3/uL (150-450); RED BLOOD COUNT 4.75 10^6/uL (4.00-5.40); WHITE BLOOD COUNT 5.9 10^3/uL (4.0-10.0)
[2024-12-11 11:54] LABS: BLOOD UREA NITROGEN 13 MG/DL (9-23); CARBON DIOXIDE LEVEL 28 MMOL/L (20-31); CHLORIDE LEVEL 102 MMOL/L (98-107); CREATININE FOR GFR 0.63 MG/DL (0.55-1.30); GLOMERULAR FILTRATION RATE > 90.0 (>39); GLUCOSE, FASTING 102 MG/DL (74-106); POTASSIUM SERUM 4.4 MMOL/L (3.5-5.1); SODIUM LEVEL 141 MMOL/L (136-145)
== END ==
PROVIDERS: ATTEND Internal Medicine
DX: I10 Essential (primary) hypertension (principal)

== ENCOUNTER → 2024-12-13 | Outpatient (CLI) | payer MEDICAID, MEDICARE | LOC: M PLAIMG 14:30 | PROVIDERS: ATTEND Physician Assistant | DX: M43.16 Spondylolisthesis, lumbar region (principal) ==

== ENCOUNTER → 2025-01-08 | Outpatient (REF) | payer MEDICARE, MEDICAID ==
[~2025-01-08] MED LIST changes: +LIDO1ADH93 TD; -LIDO5DIS41 TD
[2025-01-08 08:39] LABS: HEMATOCRIT 46.3 % (36.0-47.0); HEMOGLOBIN 15.5 g/dl (12.0-15.5); MEAN CORPUSCULAR HEMOGLOBIN 30.6 pg (27.0-33.0); MEAN CORPUSCULAR HGB CONC 33.5 g/dl (32.0-36.5); MEAN CORPUSCULAR VOLUME 91.5 fl (80.0-96.0); PLATELET COUNT, AUTOMATED 204 10^3/uL (150-450); RED BLOOD COUNT 5.06 10^6/uL (4.00-5.40); WHITE BLOOD COUNT 5.9 10^3/uL (4.0-10.0)
[2025-01-08 08:59] LABS: BLOOD UREA NITROGEN 14 MG/DL (9-23); CALCIUM LEVEL 9.4 MG/DL (8.3-10.6); CARBON DIOXIDE LEVEL 28 MMOL/L (20-31); CHLORIDE LEVEL 103 MMOL/L (98-107); CREATININE FOR GFR 0.64 MG/DL (0.55-1.30); GLOMERULAR FILTRATION RATE > 90.0 (>39); GLUCOSE, FASTING 76 MG/DL (74-106); POTASSIUM SERUM 4.4 MMOL/L (3.5-5.1); SODIUM LEVEL 141 MMOL/L (136-145)
== END ==
PROVIDERS: ATTEND Internal Medicine
DX: I10 Essential (primary) hypertension (principal)

== ENCOUNTER → 2025-03-14 | Outpatient (REF) | payer MEDICARE, MEDICAID ==
[~2025-03-14] MED LIST changes: +DIVA-41 PO; -DIVA500T94 PO
[2025-03-14 08:32] LABS: PLATELET COUNT, AUTOMATED 178 10^3/uL (150-450)
[2025-03-14 09:02] LABS: CALCIUM LEVEL 8.8 MG/DL (8.3-10.6); CARBON DIOXIDE LEVEL 29 MMOL/L (20-31); CHLORIDE LEVEL 106 MMOL/L (98-107); CREATININE FOR GFR 0.66 MG/DL (0.55-1.30); GLOMERULAR FILTRATION RATE > 90.0 (>39); POTASSIUM SERUM 4.5 MMOL/L (3.5-5.1); SODIUM LEVEL 146 MMOL/L (136-145)
== END ==
PROVIDERS: ATTEND Internal Medicine
DX: I10 Essential (primary) hypertension (principal)

== ENCOUNTER → 2025-04-09 | Outpatient (REF) | payer MEDICARE, MEDICAID ==
[~2025-04-09] MED LIST changes: -ACE65ERTAB PO; +ACET-1593 PO
[2025-04-09 11:44] LABS: PLATELET COUNT, AUTOMATED 219 10^3/uL (150-450)
[2025-04-09 12:17] LABS: CALCIUM LEVEL 9.3 MG/DL (8.3-10.6); CARBON DIOXIDE LEVEL 28 MMOL/L (20-31); CHLORIDE LEVEL 106 MMOL/L (98-107); CREATININE FOR GFR 0.65 MG/DL (0.55-1.30); GLOMERULAR FILTRATION RATE > 90.0 (>39); POTASSIUM SERUM 4.4 MMOL/L (3.5-5.1); SODIUM LEVEL 146 MMOL/L (136-145)
== END ==
PROVIDERS: ATTEND Internal Medicine
DX: I10 Essential (primary) hypertension (principal)

== ENCOUNTER → 2025-05-14 | Outpatient (REF) | payer MEDICARE, MEDICAID ==
[~2025-05-14] MED LIST changes: -EZET10TA21 PO; +EZET10TA57 PO; -VERA360C PO; +VERA360C6 PO
== END ==
PROVIDERS: ATTEND Internal Medicine
DX: I10 Essential (primary) hypertension (principal)

== ENCOUNTER → 2025-06-12 | Outpatient (REF) | payer MEDICARE, MEDICAID | PROVIDERS: ATTEND Internal Medicine | DX: I10 Essential (primary) hypertension (principal) ==

== ENCOUNTER → 2025-06-12 | Outpatient (REF) | payer MEDICARE, MEDICAID | PROVIDERS: ATTEND Internal Medicine | DX: I10 Essential (primary) hypertension (principal) ==

== ENCOUNTER → 2025-06-15 | Outpatient (REF) | payer MEDICARE, MEDICAID ==
[2025-06-15 10:45] LABS: PLATELET COUNT, AUTOMATED 191 10^3/uL (150-450)
[2025-06-15 11:06] LABS: ESTIMATED AVERAGE GLUCOSE 105.0 MG/DL (60-110)
[2025-06-15 11:17] LABS: CALCIUM LEVEL 9.0 MG/DL (8.3-10.6); CARBON DIOXIDE LEVEL 27 MMOL/L (20-31); CHLORIDE LEVEL 100 MMOL/L (98-107); CHOLESTEROL LEVEL 168 MG/DL (<200); CHOLESTEROL RISK RATIO 3.47 (<5); CREATININE FOR GFR 0.68 MG/DL (0.55-1.30); GLOMERULAR FILTRATION RATE > 90.0 (>39); LDL CHOLESTEROL 89.2 MG/DL (<100); NON-HDL-C 119.6 MG/DL; POTASSIUM SERUM 4.2 MMOL/L (3.5-5.1); SODIUM LEVEL 139 MMOL/L (136-145); TRIGLYCERIDES LEVEL 152 MG/DL (<150)
== END ==
PROVIDERS: ATTEND Nurse Practitioner Family
DX: I10 Essential (primary) hypertension (principal); Z79.899 Other long term (current) drug therapy

== ENCOUNTER → 2025-06-18 | Outpatient (REF) | payer MEDICARE, MEDICAID | PROVIDERS: ATTEND Internal Medicine | DX: A04.72 Enterocolitis due to Clostridium difficile, not specified as recurrent (principal) ==

== ENCOUNTER → 2025-08-06 | Outpatient (REF) | payer MEDICARE, MEDICAID ==
[~2025-08-06] MED LIST changes: +ACET-1387 PO; -ACET-1593 PO
[2025-08-06 13:08] LABS: PLATELET COUNT, AUTOMATED 174 10^3/uL (150-450)
[2025-08-06 13:38] LABS: CALCIUM LEVEL 8.9 MG/DL (8.3-10.6); CARBON DIOXIDE LEVEL 29 MMOL/L (20-31); CHLORIDE LEVEL 107 MMOL/L (98-107); CREATININE FOR GFR 0.62 MG/DL (0.55-1.30); GLOMERULAR FILTRATION RATE > 90.0 (>39); POTASSIUM SERUM 4.4 MMOL/L (3.5-5.1); SODIUM LEVEL 144 MMOL/L (136-145)
== END ==
PROVIDERS: ATTEND Internal Medicine
DX: I10 Essential (primary) hypertension (principal)

== ENCOUNTER → 2025-08-17 | Outpatient (REF) | payer MEDICARE, MEDICAID | PROVIDERS: ATTEND Nurse Practitioner Family | DX: R05.9 Cough, unspecified (principal) ==

== ENCOUNTER → 2025-08-20 | Outpatient (REF) | payer MEDICARE, MEDICAID | PROVIDERS: ATTEND Internal Medicine | DX: R05.9 Cough, unspecified (principal) ==